=== PATIENT | female | born 1945 | race Caucasian/White ===

== ENCOUNTER → 2018-10-29 12:17 | Outpatient (CLI) | payer MEDICARE, OTHER, SELFPAY ==
[2016-06-11 10:09] VITALS: BMI 33.8
--- NOTE | 2018-10-29 12:24 | RAD_ITS ---
STUDY: X-RAY CHEST REASON FOR EXAM: Female, 73 years old. Abnormal lung sounds TECHNIQUE: PA and lateral views of the chest. COMPARISON: None. FINDINGS: The lungs are clear and expanded. There is no demonstrated pleural abnormality. Normal size heart. Normal mediastinum and jacinto. Normal visualized pulmonary arteries. Normal visualized aortic arch and descending thoracic aorta. Normal visualized thoracic spine. Normal visualized ribs, clavicles, and shoulders. There is no demonstrated abnormality of the visualized soft tissue structures of the upper abdomen. RAD/Chest PA and Lateral IMPRESSION: Normal x-ray examination of the chest. Electronically Signed: Tin Walsh DO at 13:01 EST Tel , Service support ,
== END ==
PROVIDERS: Family Provider Family Medicine; PCP Family Medicine; Referring Provider Nurse Practitioner Gerontology; Visit Provider Nurse Practitioner Gerontology
DX: R09.89 Other specified symptoms and signs involving the circulatory and respiratory systems (principal)
CPT/HCPCS: 71046

== ENCOUNTER → 2019-04-08 | Outpatient (CLI) | payer MEDICARE, OTHER, SELFPAY ==
--- NOTE | 2019-04-08 12:41 | RAD_ITS ---
STUDY: X-RAY - LUMBAR SPINE REASON FOR EXAM: Female, 74 years old. Back pain. TECHNIQUE: 4 view(s) of the lumbar spine were obtained. COMPARISON: 04/07/2017. FINDINGS: Normal lumbar lordosis. There is no substantial scoliosis. There is a normal alignment of the vertebrae. Anterior and lateral marginal spurs of the lumbar spine. Minimal anterior wedging of L2 vertebral body is from remote injury. Diffuse degenerative disc space height narrowing. No acute fractures. Mild atherosclerotic calcification of the abdominal aorta. RAD/L/S Spine Min 4 Views IMPRESSION: 1. No acute fracture or acute osseous abnormality of the lumbar spine. 2. Diffuse degenerative disc space height narrowing of the lumbar spine. 3. Mild anterior wedging of L2 vertebral body is from remote injury and unchanged. 4. No interval change when compared to 04/07/2017. Electronically Signed: Jonas Albarado MD at 13:39 EDT , Service support ,
== END | disposition home or self-care (01) ==
LOC: HPRAD 12:37
PROVIDERS: Family Provider Family Medicine; PCP Family Medicine; Referring Provider Nurse Practitioner Gerontology; Visit Provider Nurse Practitioner Gerontology
DX: M54.10 Radiculopathy, site unspecified (principal)
CPT/HCPCS: 72110

== ENCOUNTER 2019-05-29 14:00 | Outpatient (RCR) | payer MEDICARE, OTHER, SELFPAY ==
--- NOTE | 2019-04-19 13:31 | HP.PTEVAL ---
Patient's Visit Information TESSIE BANKS is a 74 year old F referred to Physical Therapy by CLYDE Joseph with a diagnosis of BACK PAIN WITH RADICULAPATHY. Date of Evaluation: 04/19/19 Physical Therapist: Tamiko Gomes PT, Cert MDT - Visit Plan Frequency: 2-3x /Week Duration: 4-6 Weeks Plan: LAND AND AQUATIC THERAPY FOR PAIN RELIEF, POSTURE CORRECTION/STRENGTHENING, INSTRUCTION IN APPROPRIATE BODY MECHANICS AND ACTIVITY MODIFICATIONS. DLS STARTING WITH A NEUTRAL SPINE PROGRESSING ROM TOLERATED. ANDRES LE ROM, STRETCHING AND STRENGTHENING. HEP INSTRUCTION. - Subjective Findings: Work/Leisure: RETIRED. 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 Disability: NO. Present symptoms: ANDRES LOW BACK PAIN RIGHT > LEFT. RIGHT THIGH PAIN AND ANDRES FOOT PAIN AND CRAMPING. FEET TINGLE SOMETIMES TOO. PATIENT REPORTS SHE REALLY CAME FOR THE PAIN IN HER LEGS. Present since: BACK PAIN HAS BEEN THERE YEARS AND LEGS AT LEAST 2 YEARS. Pain Scale: WORST 10/10, LEAST 3/10. Currently: 3/10. Commenced as a result of: NO APPARENT REASON. Symptoms at onset: LOW BACK. 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 MOPPING AND SWEEPING REALLY STIR IT UP. TRYING TO WEED. GETTING IN AND OUT OF CAR. CAN'T TURN OVER IN BED. Better: NOTHING REALLY. NOT EVEN GABAPENTIN NOW. Disturbed sleep: YES. Previous history/Previous treatment: PHYSICAL THEREPY - MADE IT HURT WORSE, GABAPENTIN. HAS ALSO TRIED PAIN MEDICINE - DOESN'T HELP. NO PAIN MGMT. NO NISSA'S. NO BACK SURGERY. Coughing/sneezing/straining: POSITIVE - SHOOTING PAINS DOWN LEGS. Gait: PAINFUL, DISTANCE LIMITED. I WALK BENT OVER AND IT SEEMS LIKE IT IS GETTING WORSE. I CAN'T GET STRAIGHTENED UP BUT IT FEELS BETTER TO WALK BENT. PATIENT REPORTS THE RIGHT LEG FEELS REAL HEAVY. PATIENT REPORTS SHE STUMBLES SOMETIMES AND SHE CATCHES HER LEFT TOES. Difficulty initiating urinatin: NO. Accidents: NO. Unexplained weight loss: NO. Imaging: MARCH 2019 LUMBAR X-RAY: IMPRESSION: 1. No acute fracture or acute osseous abnormality of the lumbar spine. 2. Diffuse degenerative disc space height narrowing of the lumbar spine. 3. Mild anterior wedging of L2 vertebral body is from remote injury and. unchanged. 4. No interval change when compared to 04/07/2017. PMH: FELL OFF A LADDER 2 YEARS AGO - HURT NECK. ANDRES TKR'S. RIGHT KNEE HAS HURT EVER SINCE SURGERY. RIGHT EYE SURGERY. PLOF (Prior Level of Function): RECENT 6 MONTHS AGO COULD MOP, VACUUM, WALK MORE AND FASTER. OTHER: A LOT OF LEG PAIN AT NIGHT. - Objective Sitting/Standing Posture: POOR. INCREASED TRUNK FLEX. Lordosis: REDUCED. Lateral shift: NO. Relevant shift: N/A. Active Correction of posture: WORSE. Other Observations: SLOW ANTALGIC INDEP GAIT INTO PT WITHOUT ANY ASSISTIVE DEVICES AND EXCESSIVE TRUNK FLEXION. NO LOB ON THE WAY INTO PT BUT DID STUMBLE ON THE WAY OUT REGAINING BALANCE INDEP'LY. ASSISTIVE DEVICE RECOMMENDED BY THIS PT FOR SAFETY AND PATIENT REPORTS SHE HAS A CANE SHE CAN USE. DIFFICULTY TRANSITIONING FROM SIT TO STAND AND INITIATING GAIT AFTER SITTING. Motor deficit: LLE 5/5 WITH MMT'ING EXCEPT HIP 4/5. RIGHT LE: HIP 4-/5, KNEE 5/5, ANKLE 5/5. Sensory deficit: ANDRES LE LIGHT TOUCH SENSATION APPEARS INTACT AND SYMMETRICAL. ROM deficit: TIGHT ANDRES HS'S AND HIP FLEXORS. Reflexes: NT. Dural Signs: NEGATIVE ANDRES LE'S. Lumbar mvmt loss: flex - NIL. ext - EDILIA. R SG - EDILIA. L SG - EDILIA. PATIENT WITH C/O INCREASED PAIN WITH LUMBAR ROM TESTING ALL PLANES EXCEPT FLEXION. Core strength: POOR. Palpation: NO ACUTE THORACIC OR LUMBAR TENDERNESS WITH PALPATION. MILD RIGHT. OTHER: PATIENT UNALBE TO STAND MORE THAN ABOUT ONE MINUTE WITHOUT INCREASING PAIN. DID OK WITH LUMBAR SUPPORT IN SITTING FOR A FEW MINUTES IN CLINIC TODAY. - Goals Goal 1:: DECREASE C/O LOW BACK AND LE SX'S. Goal Time Frame: 4-6 Weeks Goal 2:: IMPROVE PERSONAL CARE, LIFTING, WALKING, SITTING, STANDING, SLEEP, SOCIAL LIFE, TRAVEL AND HOMEMAKING FUNCTION. Goal Time Frame: 4-6 Weeks Goal 3:: INSTRUCT IN PROPHYLAXIS Goal Time Frame: 4-6 Weeks - Rehabilitation Potential Rehabilitation Potential: Fair - Anticipated Interventions Patient/Client Instruction: Educate patient on: Condition, Plan of Care, Risk Factors, Benefits of Fitness Program For the Purpose of:: To improve self management Therapeutic Exercise to Include: Strength training, Body mechanics, Postural training, Flexibilty training, Gait and locomotor training, In an aquatic setting, Active ROM, Dynamic Lumbar Stabilization For the Purpose of:: To decrease pain, To increase ROM, To improve muscle performance and motor function, To increase tolerance to activity/condition/position, To improve ability of physical actions for home/community/work/leisure Cryotherapy (ice pack, ice massage): Yes Thermo therapy (hot pack): Yes Ultrasound (thermal/non thermal): Yes For the Purpose of:: To decrease pain, To decrease swelling/inflammation, To improve nutrient delivery to tissue Thank you for the opportunity to evaluate your patient. For Medicare and Medicare HMO plans, please review the plan of care and approve it. It will need to be FAXED BACK to us at [phone] for Medicare purposes. For Medicare only, by signing this I certify the plan of care. Please let me know if there are questions or concerns regarding this plan of care. Physician Signature: Date:
--- NOTE | 2019-05-29 14:49 | HP.PTDCSUM ---
HP - PT D/C Summary It has been my pleasure to treat TESSIE BANKS under orders from Natalie Guillermo NP-C, for the diagnosis of BACK PAIN WITH RADICULAPATHY for a total of 8 visit(s). Discharge Date: Please see the following information for a summary of their discharge status. - Subjective Subjective: PATIENT REPORTS MORE PAIN AT NIGHT NOW THAN BEFORE SHE STARTED THERAPY. OTHERWISE SHE REPORTS SHE LIKES THE THERAPY AND SHE FEELS BETTER BEFORE AND AFTER THE THERAPY BUT IT DOESN'T LAST. ABLE TO DO SOME SHOPPING MONDAY BUT REALLY PAID FOR IT MONDAY. PAIN IN THE CALF OF THE RIGHT LEG YESTERDAY AND THAT IS NEW. SOME IMPROVEMENT NOTED BY PATIENT IN HER MOBILITY DURING THE DAY SINCE STARTING THERAPY. HAPPY THAT SHE WAS ABLE TO SHOP FOR 4-5 HOURS MONDAY AND ENJOY HERSELF. - Pain POSTERIOR RIGHT THIGH Pain Intensity (Out of 10): 9 POSTERIOR LEFT THIGH Pain Intensity (Out of 10): 7 LOW BACK Pain Intensity (Out of 10): 8 - Overall Improvement % Improvement: 20 - Objective Objective/Function: PATIENT IS NOT MAKING SIGNIFICANT PROGRESS. SHE WINCED WITH PAIN MULTIPLE TIMES JUST SITTING IN CLINIC TODAY. HER PAIN IS EASILY INCREASED WITH ISABELA MVMTS. SLOW ANTALGIC INDEP GAIT INTO PT WITH STRAIGHT CANE AND EXCESSIVE TRUNK FLEXION. DIFFICULTY TRANSITIONING FROM SIT TO STAND AND INITIATING GAIT AFTER SITTING. Motor deficit: LLE 5/5 WITH MMT'ING EXCEPT HIP 4/5. RIGHT LE: HIP 4-/5, KNEE 5/5, ANKLE 5/5. Sensory deficit: ANDRES LE LIGHT TOUCH SENSATION APPEARS INTACT AND SYMMETRICAL. ROM deficit: TIGHT ANDRES HS'S AND HIP FLEXORS. Reflexes: NT. Dural Signs: NEGATIVE ANDRES LE'S. Lumbar mvmt loss: flex - NIL. ext - EDILIA. R SG - EDILIA. L SG - EDILIA. PATIENT WITH C/O INCREASED PAIN WITH LUMBAR ROM TESTING ALL PLANES EXCEPT FLEXION. Core strength: POOR. OTHER: PATIENT UNALBE TO STAND MORE THAN ABOUT ONE MINUTE WITHOUT INCREASING PAIN. - Goals Goal 1:: DECREASE C/O LOW BACK AND LE SX'S. Goal Progress: Not Progressing Goal 2:: IMPROVE PERSONAL CARE, LIFTING, WALKING, SITTING, STANDING, SLEEP, SOCIAL LIFE, TRAVEL AND HOMEMAKING FUNCTION. Goal Progress: Not Progressing Goal 3:: INSTRUCT IN PROPHYLAXIS Goal Progress: Not Progressing - Plan Plan: D/C FROM [facility] DUE TO LACK OF PROGRESS. RECOMMENDED PHYSICIAN RE-ASSESSMENT AND PATIENT AGREEABLE. - D/C Information If there are questions or concerns regarding this patient's physical therapy, please feel free to call me at [phone]. Thank you for the referral of this patient. Sincerely, Tamiko Gomes, PT, Cert MDT
== END 2019-05-29 19:00 | disposition home or self-care (01) ==
LOC: PT 14:00
PROVIDERS: Family Provider Internal Medicine; PCP Internal Medicine; Referring Provider Nurse Practitioner Gerontology; Visit Provider Nurse Practitioner Gerontology
DX: M54.10 Radiculopathy, site unspecified (principal); M25.60 Stiffness of unspecified joint, not elsewhere classified
CPT/HCPCS: 97035; 97113; 97162; 97530

== ENCOUNTER → 2019-06-08 | Outpatient (CLI) | payer MEDICARE, OTHER, SELFPAY ==
--- NOTE | 2019-06-08 09:10 | MRI_ITS ---
STUDY: MRI LUMBAR SPINE WITHOUT CONTRAST REASON FOR EXAM: Female, 74 years old. Back pain. Bilateral leg pain. TECHNIQUE: Standardized fat and water weighted pulse sequences were obtained in the sagittal and axial planes. COMPARISON: X-ray dated April 08, 2019. FINDINGS: Lumbar straightening. No significant scoliosis. Conus medullaris terminates at the T12-L1 level. Extensive clumping of the nerve roots (sagittal image 8 series 2). No acute fracture, dislocation or osseous destruction. Diffuse multilevel osteophyte production. Mild chronic L2 vertebral body wedging. T12-L1: Mild endplate spondylosis. Disc bulge with mild central narrowing. Facet joint arthrosis. Normal bilateral lateral recesses. Bilateral neural from narrowing without impingement. L1-2: Moderate endplate spondylosis. Disc bulge with moderate central narrowing. Facet joint arthrosis. Bilateral lateral recess narrowing with impingement. Bilateral neural foramina narrowing without impingement. Minimal grade 1 spondylolisthesis. L2-3: Moderate endplate spondylosis. Disc bulge with moderate/severe central canal narrowing. Facet joint arthrosis. Bilateral lateral recess narrowing with impingement. Bilateral neural foramina narrowing without impingement. Minimal grade 1 spondylolisthesis. L3-4: Moderate endplate spondylosis. Disc bulge with severe central narrowing. Facet joint arthrosis. Bilateral lateral recess narrowing with impingement. Bilateral neural foramina narrowing without impingement. L4-5: Moderate endplate spondylosis. Disc bulge/osteophyte complex with mild central narrowing. Facet joint arthrosis. Bilateral lateral recess narrowing with impingement on the left. Bilateral neural foramina narrowing with impingement on the right. L5-S1: Mild endplate spondylosis. Shallow disc bulge without central narrowing. Facet joint arthrosis. Normal central canal and bilateral lateral recesses. Bilateral neural foraminal narrowing with impingement. Mild paraspinal muscle atrophy. Normal aorta. Normal retroperitoneum. Sacrum intact. MRI/Spine Lumbar (Routine) IMPRESSION: Extensive multilevel intervertebral disc disease with central canal narrowing predominately at L1-2, L2-3 and L3-4 (most severe at L3-4) Multilevel lateral recess narrowing with impingement of the bilateral descending L2, L3, L4 and left L5 nerve roots Multilevel neuroforamina narrowing with impingement of the right L4 and bilateral L5 nerve roots Lumbar straightening with moderate/severe osteoarthritis Mild chronic L2 vertebral body wedging Electronically Signed: Ector Calvillo DO at 10:56 EDT Tel , Service support ,
== END | disposition home or self-care (01) ==
LOC: MRI 08:46
PROVIDERS: Family Provider Internal Medicine; PCP Internal Medicine; Referring Provider Nurse Practitioner; Visit Provider Nurse Practitioner
DX: M54.9 Dorsalgia, unspecified (principal); G89.29 Other chronic pain
CPT/HCPCS: 72148

== ENCOUNTER → 2019-12-11 14:31 | Outpatient (CLI) | payer MEDICARE, OTHER, SELFPAY ==
[2016-06-11 10:09] VITALS: BMI 33.8
[2019-12-11 16:47] LABS: CRP < 2.90 mg/L (0.0-3.0)
[2019-12-13 16:08] LABS: Endomysial Antibody IgA Negative (Negative)
[2019-12-13 16:45] LABS: Immunoglobulin A 345 mg/dL (64-422); t-Transglutaminase IgA <2 U/mL (0-3)
== END ==
PROVIDERS: PCP Internal Medicine; Referring Provider Internal Medicine Gastroenterology; Visit Provider Internal Medicine Gastroenterology
DX: R19.7 Diarrhea, unspecified (principal)
CPT/HCPCS: 36415; 82784; 83516; 86140; 86255

== ENCOUNTER → 2020-12-03 13:25 | Outpatient (CLI) | payer MEDICARE, OTHER, SELFPAY ==
[2016-06-11 10:09] VITALS: BMI 33.8
[2020-12-03 13:45] VITALS: PULSE 103; PULSE 75; PULSE 77; PULSE 91; PULSE 93; PULSE 95; PULSE 97; PULSE 98; O2SAT 90; O2SAT 92; O2SAT 93; O2SAT 94; O2SAT 95
--- NOTE | 2020-12-04 07:39 | WT_ITS ---
PSN 6 Minute Walk Test - 6 Minute Walk Test 6 Minute Walk Test: 6 Minute Walk Test PSN:6-Minute Walk Test Start: 12/03/20 13:59 Freq: Status: Active Protocol: [id number].[id number] Document 12/03/20 13:45 AE (Rec: 12/03/20 14:03 [facility] [id number]) 6 Minute Walk Test Date Performed 12/03/20 Time Performed 13:45 Height 5 ft 2 in Weight: 200 lb Weight in Pounds 200.[address]: Dr Pardaa Assistive device used: Cane Pre-test Oxygen Delivery Method Room Air Pulse Ox (%) 94 Pulse Rate (60-100 beats/min) 77 Dyspnea Sonia Scale (0-10) 0 Exertion Sonia Scale (6-20) 6 1st minute Oxygen Delivery Method Room Air Pulse Ox (%) 94 Pulse Rate (60-100 beats/min) 91 2nd minute Oxygen Delivery Method Room Air Pulse Ox (%) 92 Pulse Rate (60-100 beats/min) 98 3rd minute Oxygen Delivery Method Room Air Pulse Ox (%) 90 Pulse Rate (60-100 beats/min) 97 4th minute Oxygen Delivery Method Room Air Pulse Ox (%) 92 Pulse Rate (60-100 beats/min) 103 H 5th minute Oxygen Delivery Method Room Air Pulse Ox (%) 92 Pulse Rate (60-100 beats/min) 93 6th minute Oxygen Delivery Method Room Air Pulse Ox (%) 93 Pulse Rate (60-100 beats/min) 95 Dyspnea Sonia Scale (0-10) 1 Exertion Sonia Scale (6-20) 8 Post-test Oxygen Delivery Method Room Air Pulse Ox (%) 95 Pulse Rate (60-100 beats/min) 75 Full Laps Walked 8 Partial Lap, Number of Tiles Walked 0 Total Distance Walked (ft) 472 - Interpretation Interpretation: The patient ambulated 427 feet over the course of 6 minutes beginning on room air without assistive devices. Pretesting oxygen saturation was noted to be 94% on room air. With ambulation, the deisy oxygen saturation was 90%. This testing indicates the presence of impaired walk distance along with significant exertional oxygen desaturation. - Recommendations Recommendations: There is no indication for the use of supplemental oxygen at this time. However, close interval follow-up is recommended, given the degree of oxygen desaturation noted during the study.
== END ==
PROVIDERS: PCP Internal Medicine; Referring Provider Internal Medicine; Visit Provider Internal Medicine
DX: R09.02 Hypoxemia (principal)
CPT/HCPCS: 94618

== ENCOUNTER → 2020-12-24 12:56 | Outpatient (CLI) | payer MEDICARE, OTHER, SELFPAY ==
[2016-06-11 10:09] VITALS: BMI 33.8
--- NOTE | 2020-12-24 16:49 | PFTCOMP_ITS ---
COMPLETE PULMONARY FUNCTION TEST INTERPRETATION Brief HPI: Patient is a 75 year old female, currently under the care of Dr. Parada, who presents to [facility] for complete pulmonary function tests secondary to diagnosis of hypoxia. Respiratory therapist reports good effort and reproducible results. Interpretation: Forced expiration spirometry shows no large airways obstructive ventilatory defect with an FEV1 of 124% predicted. There is no significant bronchodilator response by strict ATS criteria. Spirograms are of good quality and plateau normally. The respiratory flow volume loop shows a normal pattern. Lung volumes by body plethysmography show a normal total lung capacity at 4.96 L, 113% predicted. All other lung volumes are within normal limits. Diffusion capacity by carbon monoxide is normal at 76% predicted. The airway resistance is normal. No previous pulmonary function tests were available for review. Impression: These pulmonary function tests are within normal limits.
== END ==
PROVIDERS: PCP Internal Medicine; Referring Provider Internal Medicine; Visit Provider Internal Medicine
DX: R09.02 Hypoxemia (principal)
CPT/HCPCS: 94060; 94726; 94729

== ENCOUNTER 2021-01-05 10:24 | Outpatient (RCR) | payer MEDICARE, OTHER, SELFPAY ==
[2016-06-11 10:09] VITALS: BMI 33.8
[2021-01-05] MEDS: COVID-19 VACC, MRNA(PFIZER)/PF 30 MCG/0.3 ML SYRINGE IM (12:08)
[2021-01-26] MEDS: COVID-19 VACC, MRNA(PFIZER)/PF 30 MCG/0.3 ML SYRINGE IM (11:44)
== END 2021-03-30 23:59 ==
LOC: IMMUN 10:24
PROVIDERS: PCP Internal Medicine; Visit Provider Family Medicine
DX: Z23 Encounter for immunization (principal)
CPT/HCPCS: 0001A; 0002A; 91300

== ENCOUNTER → 2021-03-04 15:04 | Outpatient (CLI) | payer MEDICARE, OTHER, SELFPAY ==
[2016-06-11 10:09] VITALS: BMI 33.8
--- NOTE | 2021-03-04 15:07 | CT_ITS ---
STUDY: CT BRAIN WITHOUT CONTRAST REASON FOR EXAM: Female, 75 years old. FACIAL DROOP RADIATION DOSAGE (If Supplied By Facility): CTDIvol = ( 44.99 ) mGy, DLP = ( 796.11 ) mGycm TECHNIQUE: Transaxial CT imaging of the brain was performed without administration of intravenous contrast material. Individualized dose optimization techniques were used for this CT. COMPARISON: No relevant priors. FINDINGS: Normal soft tissue structures. Normal calvarium. There is mild cerebral atrophy with widening of the extra-axial spaces and ventricular dilatation. There are areas of decreased attenuation within the white matter tracts of the supratentorial brain, consistent with microvascular disease changes. Normal basal ganglia and thalami. Normal brainstem. Normal cerebellum. There is no intracranial hemorrhage. There are no findings of an acute ischemic infarction. 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 Normal visualized paranasal sinuses. CT/Brain/Head without Contrast IMPRESSION: Chronic involutional changes of the brain. 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 Electronically Signed: Ventura Bishop MD at 15:37 EDT , Service support ,
== END ==
PROVIDERS: PCP Internal Medicine; Referring Provider Internal Medicine; Visit Provider Internal Medicine
DX: R29.810 Facial weakness (principal)
CPT/HCPCS: 70450

== ENCOUNTER → 2021-03-12 12:12 | Outpatient (CLI) | payer MEDICARE, OTHER, SELFPAY ==
[2016-06-11 10:09] VITALS: BMI 33.8
--- NOTE | 2021-03-12 12:16 | ECHOD_ITS ---
Reason For Study: FACIAL DROOP Procedure This was a 2D Doppler, Color Flow transthoracic echocardiogram. Exam performed in department. Left Ventricle Normal LV size. sigmoid septal hypertrophy with no obstruction. The estimated ejection fraction is 70 %. Normal diastology for age. No regional wall motion abnormalities noted. Right Ventricle Normal RV size. Normal systolic function. Atria Normal left atrium. Normal right atrium. Bubble contrast study negative for right to left interatrial shunt. No doppler evidence for ASD. Mitral Valve There is no mitral valve stenosis. Trivial mitral valve insufficiency. Tricuspid Valve There is no tricuspid stenosis. Trivial tricuspid valve insufficiency. Pulmonary artery systolic pressure is 30 mmHg. Aortic Valve Trisinus/trileaflet aortic valve. There is no aortic stenosis. No aortic valve insufficiency. Pulmonic Valve There is no pulmonic valvular stenosis. No pulmonic valve insufficiency. Great Vessels Normal aortic root. Pericardium/Pleural No pericardial effusion. Medication Performed a rapid injection of agitated mix of 9 cc saline and 1cc air to assess for atrial septal defect. MMode/2D Measurements & Calculations LVIDd: 4.4 cm IVSd: 0.78 cm Ao root diam: 3.7 cm LVIDs: 2.8 cm LVPWd: 1.0 cm RVDd: 3.6 cm FS: 35.7 % LAV(MOD-bp): 45.3 ml LA A4 area: 14.8 cm2 LA dimension(2D): 3.3 cm LAV(MOD-bp) Indexed: 24.0 ml/m2 LAV(MOD-sp2): 45.0 ml LAV(MOD-sp4): 39.8 ml RA A4 area: 9.7 cm2 Time Measurements MV dec time: 0.22 sec Doppler Measurements & Calculations MV E max driss: 66.9 cm/sec Lat Peak E' Driss: 10.0 cm/sec Med Peak E' Driss: 5.4 cm/sec MV A max driss: 78.2 cm/sec E/E' lat: 6.7 E/E' med: 12.5 MV E/A: 0.86 Ao V2 max: 135.4 cm/sec LV V1 max: 127.5 cm/sec PA V2 max: 89.4 cm/sec Ao max P.3 mmHg LV V1 max P.5 mmHg TR max driss: 239.6 cm/sec TR max P.0 mmHg ECHO/Echo Complete Interpretation Summary Normal diastology for age. The estimated ejection fraction is 70 %. Trivial mitral valve insufficiency. Bubble contrast study negative for right to left interatrial shunt. Ordering Physician: Missy Parada Referring Physician: Missy Parada Performed By: Tonja Cardenas, RDCS, RVT
--- NOTE | 2021-03-12 13:47 | CDU_ITS ---
Reason For Study: Facial droop Rt. Velocities/BP Lt. Velocities/BP Prox CCA 73.4/20 cm/sec. Prox CCA 76/16 cm/sec. Mid CCA 72.1/14.7 cm/sec. Mid CCA 90.3/21.2 cm/sec. Dist CCA 70.8/17.3 cm/sec. Dist CCA 76/26.5 cm/sec. Prox ICA 69.5/12.1 cm/sec. Prox ICA 59.1/13.4 cm/sec. Mid ICA 61.7/18.6 cm/sec. Mid ICA 64.3/22.6 cm/sec. Dist ICA 73.4/21.3 cm/sec. Dist ICA 70.8/31.7 cm/sec. Rt. ICA/CCA = 1.02. Lt. ICA/CCA = 0.93. Prox ECA 79.9/8.2 cm/sec. Prox ECA 52.5/9.5 cm/sec. Rt. Vert. 61.7/18.6 cm/sec. Lt. Vert. 35.1/9.5 cm/sec. Right Extracranial There is intimal thickening but no significant atherosclerotic plaque noted in the right common carotid artery. There is intimal thickening but no significant atherosclerotic plaque noted in the right internal carotid artery. There is intimal thickening but no significant atherosclerotic plaque noted in the right external carotid artery. Antegrade flow is noted in the right vertebral artery. Left Extracranial There is intimal thickening but no significant atherosclerotic plaque noted in the left common carotid artery. There is intimal thickening but no significant atherosclerotic plaque noted in the left internal carotid artery. There is intimal thickening but no significant atherosclerotic plaque noted in the left external carotid artery. Antegrade flow is noted in the left vertebral artery. Procedure Carotid Duplex [id number]. This is a Carotid Duplex examination using B-mode, color flow and specral Doppler. Exam performed in department. VL/Carotid Duplex Ultrasound Interpretation Summary Intimal thickening at the proximal right internal carotid artery with less than 50% stenosis Less than 50% stenosis right external carotid artery Intimal thickening at the proximal left internal carotid artery with less than 50% stenosis Less than 50% stenosis left external carotid artery Patent and antegrade vertebral arteries bilaterally No change from the previous examination of June 03, 2014 Ordering Physician: Missy Parada Referring Physician: Missy Parada Performed By: Huyen Wood RVT
== END ==
PROVIDERS: PCP Internal Medicine; Referring Provider Internal Medicine; Visit Provider Internal Medicine
DX: R29.810 Facial weakness (principal); R68.89 Other general symptoms and signs
CPT/HCPCS: 93306; 93880; Q9957; A4216; J3490

== ENCOUNTER → 2023-01-13 | Outpatient (CLI) | payer MEDICARE, OTHER, SELFPAY ==
--- NOTE | 2023-01-13 11:00 | US_ITS ---
STUDY: SUPERFICIAL ULTRASOUND - RIGHT SUPRACLAVICULAR JOINT REASON FOR EXAM: Female, 77 years old. BONY PROMINENCE TECHNIQUE: A superficial ultrasound was performed with real-time and static salgado-scale imaging. COMPARISON: None. FINDINGS: There are no focal cystic or solid masses visualized at the site of the palpable lump at the sternoclavicular joint. US/Ext Non Vasc Limited/Soft Tiss IMPRESSION: No sonographic evidence for focal mass at the right sternoclavicular joint MRI may be useful for further assessment if clinically warranted Electronically Signed: Jc Alejandra MD at 17:59 EDT ,
== END | disposition home or self-care (01) ==
LOC: US 10:54
PROVIDERS: PCP Internal Medicine; Referring Provider Internal Medicine; Visit Provider Internal Medicine
DX: M89.8X9 Other specified disorders of bone, unspecified site (principal)
CPT/HCPCS: 76882

== ENCOUNTER 2023-01-18 11:04 | Emergency (ER) | payer MEDICARE, OTHER, SELFPAY ==
[2023-01-18 11:05] VITALS: BP 132/100; PULSE 101; RESP 17; TEMP 36; O2SAT 99; BMI 35.3
[2023-01-18 11:11] VITALS: BP 156/88; PULSE 102; RESP 19; TEMP 36; O2SAT 94
--- NOTE | 2023-01-18 11:12 | EKG12_ITS ---
Test Reason : SOB Blood Pressure : / mmHG Vent. Rate : 091 BPM Atrial Rate : 091 BPM P-R Int : 180 ms QRS Dur : 084 ms QT Int : 348 ms P-R-T Axes : 030 -04 023 degrees QTc Int : 428 ms Normal sinus rhythm Normal ECG Confirmed by YADIRA ACOSTA, JASIEL ([id number]), editor farm journal KRISHNA CHRISTOPHER ([id number]) on 01/23/2023 6:59:30 AM Referred By: AR Confirmed By:WANDA MAY MD
--- NOTE | 2023-01-18 11:12 | CT_ITS ---
EXAM: CT NECK WITH INTRAVENOUS CONTRAST CLINICAL INDICATION: Shortness of Breath, epiglottis pain TECHNIQUE: Helically acquired images were obtained of the neck with intravenous contrast. This CT exam was performed using one or more of the following dose reduction techniques: automated exposure control, adjustment of the mA and/or kV according to patient size, and/or use of iterative reconstruction technique. This report was created using [email or web address] report generation technology. CONTRAST: IV 100mL Isovue-300 COMPARISON: None. FINDINGS: NASOPHARYNX: Normal. SUPRAHYOID NECK: Normal. Oropharynx, oral cavity, parapharyngeal space and retropharyngeal space are unremarkable. INFRAHYOID NECK: Normal. The larynx, hypopharynx and supraglottis are unremarkable. SUBMANDIBULAR/PAROTID GLANDS: Normal. Glands are normal in size. THYROID: 5 mm bilateral thyroid nodules. No follow-up indicated. BONES/JOINTS: No suspicious lytic or blastic abnormality. SOFT TISSUES: Normal. VASCULATURE: No acute findings. LYMPH NODES: Normal. No lymphadenopathy. LUNG APICES: Unremarkable as visualized. CT/Soft Tissue Neck WITH Contrast IMPRESSION: No significant soft tissue abnormality. Normal epiglottis. Electronically Signed: Reji Pugh MD at 12:27 EDT ,
[2023-01-18 11:14] VITALS: O2SAT 94
--- NOTE | 2023-01-18 11:14 | ED.VIS.DYS ---
HPI History of Present Illness Chief Complaint: Shortness of Breath Narrative Narrative: 77-year-old female past medical history of GERD, presents with increased difficulty breathing, feeling as if she cannot breathe for the last hour. She states that she was putting close in the washing machine, went to take a deep breath, then felt like she could not get enough air. She states that she has swelling on the right side of her neck that was ultrasounded and being worked up. Additionally, she feels congested and took an allergy pill this morning. She feels that in the back of her throat that there is something that is blocking off her airway, not allowing her to get enough air. EMS was called and they administered 2 albuterol and a DuoNeb aerosolized treatment. It was reported that she was hypoxic at 84% on room air and was tripoding. She denies any difficulty swallowing. No recent fevers or chills. No leg swelling. Upon arrival to the emergency department, she is maintaining her airway, and receiving the last of her treatment. She also received Solu-Medrol per squad. [facility] Home Medications ascorbic acid (vitamin C) 500 mg tablet (Vitamin C) 500 mg PO DAILY@0800 09/16/14 [History Last Taken Unknown] cholecalciferol (vitamin D3) 25 mcg (1,000 unit) tablet (Vitamin D3) 2,000 unit PO DAILY 09/16/14 [History Last Taken Unknown] cyanocobalamin (vitamin B-12) 500 mcg tablet 1,000 mcg PO DAILY@0800 09/16/14 [History Last Taken Unknown] fish oil-vit E-fat acids comb.5-herbal comb. 137 400 mg-5 unit capsule (Flax, Fish and Borage Oil) 1 ea PO DAILY 09/16/14 [History Last Taken Unknown] iron, carbonyl 45 mg tablet (Feosol) 65 mg PO DAILYCM 09/16/14 [History Last Taken Unknown] lansoprazole 30 mg capsule,delayed release (Prevacid) 30 mg PO DAILY 09/16/14 [History Last Taken Unknown] montelukast 10 mg tablet (Singulair) 10 mg PO DAILY 01/18/23 [History Last Taken Unknown] Allergy/AdvReac Type Severity Reaction Status Date / Time No Known Allergies Allergy Verified 06/11/16 10:12 Social History Smoking Status: Never smoker ROS ROS ED ROS Narrative Constitutional: No fever, no chills. HEENT: No sore throat, but feels as if there is something back blocking off her airway. No neck pain. No loss of vision. No rhinorrhea. Positive congestion. Cardiovascular: No chest pain. No palpitations. No pedal edema. Respiratory: No cough, positive shortness of breath. Abdominal: No abdominal pain. No nausea. No vomiting. Genitourinary: No dysuria. No hematuria. Musculoskeletal: No myalgias. No arthralgias. Neurologic: No headaches. No dizziness. No lightheadedness. Skin: No rash. No change in color. Psychiatric: No depression. No anxiety. EXAM Physical Exam Narrative Exam Narrative: Afebrile. Vital signs noted. HEENT: Normocephalic. Atraumatic. PERRL, EOMI. Neck soft and supple. No point tenderness or step off. Airway patent, no drooling or trismus. Cardiovascular: Regular rate and rhythm. No murmurs, rubs, or gallops appreciated. Mild swelling in her right clavicle. Respiratory: Positive tachypnea. Lungs clear to auscultation bilaterally. Moving a good amount of air. Gastrointestinal: Abdomen soft, nontender, with normoactive bowel sounds. No rebound or guarding. Neurological: Awake. Alert. Nonfocal, nonlateralizing. Skin: No rash. Normal color. No pallor. Musculoskeletal: No pedal edema. Full range of motion extremities. Const Vital Signs: 01/18/23 11:05 01/18/23 11:11 01/18/23 11:14 Temperature 96.8 F L 96.8 F L Temperature Source Temporal Temporal Pulse Rate 101 H 102 H Respiratory Rate 17 19 H Respiratory Effort Short of Breath Respiratory Depth Deep Respiratory Pattern Tachypnea Blood Pressure 132/100 H 156/88 H Blood Pressure Mean 110 110 Pulse Ox 99 94 Oxygen Delivery Method Room Air Room Air Room Air 01/18/23 13:33 Temperature Temperature Source Pulse Rate 76 Respiratory Rate 17 Respiratory Effort Respiratory Depth Respiratory Pattern Blood Pressure 128/74 H Blood Pressure Mean 92 Pulse Ox 92 Oxygen Delivery Method Room Air MDM MDM MDM Narrative Medical decision making narrative: Patient will be reassessed. She has received 3 aerosol treatments already. I do not feel that racemic epinephrine is indicated. I am unsure as to the cause of why she has a feeling that she is not getting enough air when her pulse ox was normal even though she was on 100% nonrebreather. She will be weaned from her oxygen and reassessed. Initially, she was tachycardic at 102. EKG was obtained and interpreted by myself as normal sinus rhythm at 91 bpm without ectopy or acute ST changes, no STEMI. I do feel that imaging of her neck would be indicated as she states she feels that there is a piece of tissue or something blocking, closing off her airway. I will obtain this with IV contrast after basic laboratories were obtained including CBC and BMP to check her creatinine for IV contrast. I reviewed her outpatient imaging, and the ultrasound report shows no evidence of a cystic mass in the area of swelling at the right sternoclavicular junction. I reviewed her laboratory work, CBC is normal with a normal white count of 6.3, hemoglobin normal at 14.3, hematocrit normal at 43.3. She has normal platelet count of 282. In review of her BMP, glucose is appropriately elevated at 107 with a normal anion gap/low at 4. Her other electrolytes are grossly unremarkable. BNP is normal at 25.6. I reviewed her chest x-ray and interpreted it independently. I see no evidence of CHF, pneumonia, or pneumothorax. I reviewed the radiology report which confirms my independent interpretation. CT of the soft tissue neck was also obtained and I reviewed the radiology report after reviewing the imaging. There is no evidence of obstruction. I reviewed her radiology report from the ultrasound that she had previously and there is no cystic mass noted. At this point in time, I am unsure as to the cause of her reported foreign body sensation in her throat, or her dyspnea. I am unsure why EMS got a reading of hypoxia, but she has not been hypoxic here in the emergency department. On ambulation, her pulse ox ranges from 92 to 94% on room air and she is comfortably sitting in the chair next to her daughter with a pulse ox of 95% on room air. I feel she can be discharged safely home with follow-up to her primary care provider. Return instructions to the emergency department were reviewed. Disposition is discharged home in stable condition. History & Record Review Discussion w/independent historian: Patient and Family Additional record(s) reviewed:: Prior outpatient record, Prior ED visit and Prior labs Lab Data Attestation: I reviewed the patient's lab results. Labs: Laboratory Results - last 24 hr 01/18/23 01/18/23 01/18/23 11:05 11:05 11:05 WBC 6.3 RBC 4.69 Hgb 14.3 Hct 43.3 MCV 92.3 MCH 30.5 MCHC 33.0 RDW Std Deviation 43.5 RDW Coeff of Rochelle 13.0 Plt Count 282 MPV 9.8 Immature Gran % (Auto) 0.300 Neut % (Auto) 50.5 Lymph % (Auto) 36.6 Dawes % (Auto) 7.8 Eos % (Auto) 4.0 Baso % (Auto) 0.8 Absolute Neuts (auto) 3.2 Absolute Lymphs (auto) 2.30 Nucleated RBC % 0 Sodium 138 Potassium 3.5 Chloride 105 Carbon Dioxide 29.0 Anion Gap 4 L BUN 10 Creatinine 0.81 Estim Creat Clear Calc 49.64 Est GFR (MDRD) Af Amer 89 Est GFR (MDRD) Non-Af 73 BUN/Creatinine Ratio 12.4 Glucose 107 H Calcium 8.8 B-Natriuretic Peptide 25.6 Radiography Diagnostic Testing: Clinical Impression(s) from Imaging Studies Soft Tissue Neck CT 01/18/23 11:12 IMPRESSION: No significant soft tissue abnormality. Normal epiglottis. Electronically Signed: Reji Pugh MD at 12:27 EDT , Chest X-Ray 01/18/23 12:00 IMPRESSION: No acute cardiopulmonary abnormality. No interval change. Electronically Signed: Reji Pugh MD at 12:54 EDT , Discharge Plan Triage Chief Complaint: Shortness of Breath ED Provider: Jonas Wiseman Dx/Rx/DC Orders Clinical Impression: Shortness of breath, Dyspnea, Foreign body sensation in throat Instructions: ED Dyspnea, ED Symptoms With Uncertain Cause Prescriptions: No Action cyanocobalamin (vitamin B-12) 500 MCG tablet 1,000 mcg PO DAILY@0800 Label Comments: SUPPLEMENT ascorbic acid (vitamin C) [Vitamin C] 500 MG tablet 500 mg PO DAILY@0800 Label Comments: SUPPLEMENT lansoprazole [Prevacid] 30 MG capsule 30 mg PO DAILY Label Comments: ACID REFLUX iron, carbonyl [Feosol] 45 MG capsule 65 mg PO DAILYCM Label Comments: SUPPLEMENT Flax, Fish and Borage Oil 1 EACH capsule 1 ea PO DAILY Label Comments: SUPPLEMENT cholecalciferol (vitamin D3) [Vitamin D3] 1,000 UNIT tablet 2,000 unit PO DAILY Label Comments: SUPPLEMENT montelukast [Singulair] 10 mg Tablet 10 mg PO DAILY Primary Care Provider: Missy Parada Referrals: Missy Parada, [Primary Care Provider] - 1-2 Days if not improving Disposition Disposition: Home, Self Care
[2023-01-18 11:29] LABS: Absolute Neutrophil Count 3.2 X10^3/uL (2.0-7.7); Basophil# 0.05 X10^3/uL; Basophil% 0.8 % (0-1); Eosinophil# 0.25 X10^3/uL; Hematocrit 43.3 % (37-47); Hemoglobin 14.3 g/dL (12.0-15.0); Lymphocyte % 36.6 % (19-41); Mean Corpuscular Hgb 30.5 pg (27.0-32.0); Mean Corpuscular Volume 92.3 fL (81-99); Mean Platelet Vol. 9.8 fl (6.2-12.0); Monocyte# 0.49 X10^3/uL; Monocyte% 7.8 % (0-10); NRBC Flagged by Analyzer 0 % (0-5); Neutrophil # 3.18 X10^3/uL (2.7-7.7); Neutrophil % 50.5 % (47-70); Platelet Count 282 K/mm3 (150-450); RBC Distribution Width SD 43.5 fl (35.1-43.9); Red Blood Count 4.69 M/mm3 (4.2-5.4); White Blood Count 6.3 K/mm3 (4.4-11.0)
[2023-01-18 11:39] LABS: Anion Gap 4 (5-15); BUN 10 mg/dL (7-18); BUN/Creat Ratio 12.4 RATIO (10-20); Calcium,Total 8.8 mg/dL (8.5-10.1); Chloride 105 mmol/L (98-107); Creatinine, Serum 0.81 mg/dL (0.55-1.02); EST Glomerular Filtration Rate 73 mL/min (>60); Est Glom Filt Rate - Afr Amer 89 mL/min (>60); Estimated Creatinine Clearance 49.64 ml/min; Glucose 107 mg/dL (74-106); Potassium 3.5 mmol/L (3.5-5.1); Sodium Level 138 mmol/L (136-145)
--- NOTE | 2023-01-18 12:00 | RAD_ITS ---
EXAM: XR CHEST, 1 VIEW CLINICAL INDICATION: Shortness of Breath TECHNIQUE: Frontal view of the chest. This report was created using [employer] report generation technology. COMPARISON: XR Chest dated 11/20/2020 FINDINGS: LUNGS AND PLEURAL SPACES: Normal. No consolidation or edema. No pneumothorax. No effusion. HEART: Normal heart size. MEDIASTINUM: No mediastinal or hilar mass. BONES/JOINTS: No acute abnormality. UPPER ABDOMEN: Elevation of the right hemidiaphragm again noted. RAD/Chest 1 View (Portable) IMPRESSION: No acute cardiopulmonary abnormality. No interval change. Electronically Signed: Reji Pugh MD at 12:54 EDT ,
[2023-01-18 12:01] LABS: BNP,B-Type NATRIURETIC PEPTIDE 25.6 pg/mL (0-100)
[2023-01-18 12:31] VITALS: O2SAT 91
[2023-01-18 13:33] VITALS: BP 128/74; PULSE 76; RESP 17; O2SAT 92
[2023-01-18 14:11] VITALS: O2SAT 92
== END 2023-01-18 14:59 | disposition home or self-care (01) ==
PROVIDERS: Emergency Provider Emergency Medicine; PCP Internal Medicine; Visit Provider Emergency Medicine
DX: R06.02 Shortness of breath (principal); R06.00 Dyspnea, unspecified
CPT/HCPCS: 70491; 71045; 80048; 83880; 85025; 87428; 93005; 99285; Q9967; A4216

== ENCOUNTER → 2023-05-19 | Outpatient (CLI) | payer MEDICARE, OTHER, SELFPAY ==
[2023-05-19 17:36] LABS: Mucous, Urine 0 SEEN /hpf (<or=2+); Squamous Epithelial Cells - UA 0 SEEN /hpf (5-10)
[2023-05-19 18:03] LABS: Color, Urine Red (Yellow); Glucose, Dipstick Normal (Normal); Ketone-Dipstick Negative (Negative); Leukocyte Esterase-Dipstick 500 /ul (Negative); Nitrite-Dipstick Negative (Negative); Occult Blood-Urine 250 /ul (Negative); Protein-Dipstick 100 mg/dl (Negative); Urine Bilirubin Dipstick Negative (Negative); Urine Clarity Turbid (Clear); Urine Urobilinogen Normal (Normal)
[2023-05-19 18:19] LABS: Bacteria RARE /hpf (None Seen); Red Blood Cells-Urine > 100 SEEN /hpf (0-5); White Blood Cells 50-100 SEEN /hpf (0-5)
== END | disposition home or self-care (01) ==
PROVIDERS: PCP Internal Medicine; Visit Provider Physician Assistant Surgical
DX: N39.0 Urinary tract infection, site not specified (principal)
CPT/HCPCS: 81001; 87086; 87088

== ENCOUNTER → 2023-10-12 | Outpatient (CLI) | payer MEDICARE, OTHER, SELFPAY ==
--- NOTE | 2023-10-12 12:33 | RAD_ITS ---
STUDY: X-RAY CHEST REASON FOR EXAM: Female, 78 years old. Chronic cough. TECHNIQUE: PA and lateral views of the chest. COMPARISON: Comparison is made with prior study dated January 18, 2023. FINDINGS: Stable elevation of the right hemidiaphragm. Mild increased markings at the right lung base suggestive of right basilar atelectasis. There is no demonstrated pleural abnormality. Normal size heart. Normal mediastinum and jacinto. Normal visualized pulmonary arteries. There is atherosclerotic tortuosity of the aortic arch and descending thoracic aorta. There are diffuse degenerative changes of the visualized thoracic spine. Normal visualized ribs, clavicles, and shoulders. There is no demonstrated abnormality of the visualized soft tissue structures of the upper abdomen. RAD/Chest PA and Lateral IMPRESSION: Stable elevation of the right hemidiaphragm with mild right basilar atelectasis. Electronically Signed: Ventura Bishop MD at 13:03 EST ,
== END | disposition home or self-care (01) ==
LOC: MTRAD 12:33
PROVIDERS: PCP Internal Medicine; Referring Provider Physician Assistant Surgical; Visit Provider Physician Assistant Surgical
DX: J01.90 Acute sinusitis, unspecified (principal); R05.9 Cough, unspecified
CPT/HCPCS: 71046

== ENCOUNTER → 2024-02-21 | Outpatient (CLI) | payer MEDICARE, OTHER, SELFPAY ==
--- NOTE | 2024-02-21 13:20 | RAD_ITS ---
HISTORY: pain. TECHNIQUE: XR Wrist Min 3 Views. COMPARISON: None. FINDINGS: BONES : No acute fracture identified. Sclerosis and degenerative osteophytes of the basal joint. JOINTS: No dislocation. Mild degenerative change of the wrist. Advanced degenerative change the basal joint. SOFT TISSUES: Moderate dorsal soft tissue swelling. RAD/Wrist min 3 Views IMPRESSION: No acute fracture or dislocation identified . Advanced arthritis of the basal joint. Dorsal soft tissue swelling of the right wrist. Electronically Signed: Olesya Unger MD at 13:47 EDT ,
== END | disposition home or self-care (01) ==
PROVIDERS: PCP Internal Medicine; Referring Provider Physician Assistant; Visit Provider Physician Assistant
DX: M25.531 Pain in right wrist (principal)
CPT/HCPCS: 73110

== ENCOUNTER → 2024-04-10 | Outpatient (CLI) | payer MEDICARE, OTHER, SELFPAY ==
--- NOTE | 2024-04-10 11:40 | RAD_ITS ---
STUDY: X-RAY - CERVICAL SPINE REASON FOR EXAM: Female, 79 years old. Injury TECHNIQUE: 3 view(s) of the cervical spine were obtained. COMPARISON: None FINDINGS: There are degenerative changes of the anterior atlantoaxial articulation. Normal odontoid process. There is straightening of the normal cervical lordosis. There is multi-level endplate spondylosis. There is multi-level degenerative disc disease with multilevel disc space narrowing. Facet joint osteoarthritis. Probable neural foraminal stenosis. Elevation of the left hemidiaphragm with findings suggestive of bibasilar atelectasis. RAD/Cerv Spine 2 or 3 Views IMPRESSION: Loss of the normal cervical lordosis. Multilevel disc space narrowing and spondylosis. Facet joint osteoarthritis. Electronically Signed: Ventura Bishop MD at 12:17 EDT ,
--- NOTE | 2024-04-10 12:40 | RAD_ITS ---
STUDY: X-RAY - RIGHT SHOULDER REASON FOR EXAM: Female, 79 years old. Fall TECHNIQUE: 4 view(s) of the shoulder. COMPARISON: None. FINDINGS: There is moderate degenerative arthrosis of the glenohumeral articulation. There is degenerative arthrosis of the acromioclavicular joint without inferior osseous spur formation. Normal acromion. Normal humeral head and visualized proximal humerus. The soft tissue structures are unremarkable. Normal visualized pulmonary apex. RAD/Shoulder min 2 Views IMPRESSION: Osteoarthritis of the glenohumeral joint. Electronically Signed: Ventura Bishop MD at 13:40 EDT ,
--- NOTE | 2024-04-10 12:40 | RAD_ITS ---
STUDY: X-RAY - THORACIC SPINE REASON FOR EXAM: Female, 79 years old. Pain. Fall. TECHNIQUE: 2 view(s) of the thoracic spine were obtained. COMPARISON: None. FINDINGS: Normal kyphosis of the thoracic spine. There is no substantial scoliosis. There is demineralization of the thoracic spine with endplate spondylosis. There is multilevel disc space narrowing of the thoracic spine. Elevation of the right hemidiaphragm. RAD/Thoracic Spine 2 Views IMPRESSION: Multilevel disc space narrowing and spondylosis. Electronically Signed: Ventura Bishop MD at 13:38 EDT ,
--- NOTE | 2024-04-10 12:40 | RAD_ITS ---
STUDY: X-RAY - RIGHT ELBOW REASON FOR EXAM: Female, 79 years old. Fall TECHNIQUE: 2 view(s) of the elbow. COMPARISON: None. FINDINGS: Normal visualized humerus, radius and ulna. There is degenerative arthrosis of the radiocapitellar and ulnotrochlear articulations. The soft tissue structures are unremarkable. RAD/Elbow 2 Views IMPRESSION: Degenerative changes. No acute abnormality is seen. Electronically Signed: Ventura Bishop MD at 13:39 EDT ,
--- NOTE | 2024-04-10 12:40 | RAD_ITS ---
STUDY: X-RAY - LUMBAR SPINE REASON FOR EXAM: Female, 79 years old. Fall TECHNIQUE: 2 view(s) of the lumbar spine were obtained. COMPARISON: None FINDINGS: There is straightening of the normal lumbar lordosis. There is no substantial scoliosis. There is a normal alignment of the vertebrae. There is multilevel endplate spondylosis of the lumbar vertebrae. There is multi-level degenerative disc disease with multi-level disc space narrowing. Facet joint osteoarthritis. There is a mild degree of atherosclerotic calcification of the abdominal aorta without a demonstrated aneurysm. RAD/Lumbar Spine 2 or 3 Views IMPRESSION: Degenerative changes of the spine, as detailed above. Electronically Signed: Ventura Bishop MD at 13:38 EDT ,
--- NOTE | 2024-04-10 12:40 | RAD_ITS ---
STUDY: X-RAY - RIGHT CLAVICLE REASON FOR EXAM: Female, 79 years old. Fall TECHNIQUE: 2 view(s) of the clavicle. COMPARISON: None. FINDINGS: Normal clavicle. Normal acromioclavicular articulation. Normal visualized sternoclavicular articulation. Normal visualized pulmonary apex. RAD/Clavicle IMPRESSION: Normal x-ray examination of the clavicle. Electronically Signed: Ventura Bishop MD at 13:41 EDT ,
== END | disposition home or self-care (01) ==
PROVIDERS: PCP Internal Medicine; Referring Provider Physician Assistant; Visit Provider Physician Assistant
DX: T14.90XA Injury, unspecified, initial encounter (principal); W19.XXXA Unspecified fall, initial encounter
CPT/HCPCS: 72040; 72070; 72100; 73000; 73030; 73070

== ENCOUNTER → 2024-06-20 | Outpatient (CLI) | payer MEDICARE, OTHER, SELFPAY ==
[2024-06-24 03:06] LABS: Pancreatic Elastase, Fecal > 800 (>200)
[2024-06-28 19:07] LABS: Calprotectin, Stool 43 ug/g (0-120); Fats, Neutral Normal (.); Fats, Total Increased (.)
== END | disposition home or self-care (01) ==
LOC: LABSPEC 13:59
PROVIDERS: PCP Internal Medicine; Referring Provider Internal Medicine Gastroenterology; Visit Provider Internal Medicine Gastroenterology
DX: R19.7 Diarrhea, unspecified (principal)
CPT/HCPCS: 82653; 82705; 83993

== ENCOUNTER → 2024-09-18 | Outpatient (CLI) | payer MEDICARE, OTHER, SELFPAY ==
--- NOTE | 2024-09-18 13:29 | ART_ITS ---
Reason For Study: PAD Procedure A bilateral lower extremity continuous wave Doppler with analog waveform analysis and ankle brachial indexes. Left Segmental Pressures Left brachial= 133mmHg. Left posterior tibial artery = 179mmHg. Left dorsalis pedis artery = 173mmHg. Left digit = 142 mmHg. The left dorsalis pedis waveforms are triphasic. The left posterior tibial artery waveforms are triphasic. Right Segmental Pressures Right brachial= 130mmHg. Right posterior tibial artery = 191mmHg. Right dorsalis pedis artery = 159mmHg. Right digit = 127 mmHg. The right dorsalis pedis waveforms are triphasic. The right posterior tibial artery waveforms are triphasic. Indices The right ankle brachial index by the dorsalis pedis is 1.20. The right ankle brachial index by the posterior tibial artery is 1.44. The right digital-brachial index is 0.95. The left ankle brachial index by the dorsalis pedis is 1.30. The left ankle brachial index by the posterior tibial artery is 1.35. The left post exercise ankle brachial index is 1.07. VL/Ankle Brachial Index Interpretation Summary Triphasic Doppler waveforms are noted at ankle level bilaterally. Pulse-volume recordings appear satisfactory at ankle and digital level bilaterally. The resting right ankle-br achial index is supra-normal. The resting left ankle-brachial index is normal. Digital-brachial indices are normal bilaterally. There is evidence of arterial calcification at ankle level on the right. There is no evidence of significant arterial occlusive disease in the lower extremities bilaterally. Ordering Physician: Missy Garcia Referring Physician: MISSY GARCIA MD Performed By: Huyen Wood RVT
== END | disposition home or self-care (01) ==
LOC: CVS 13:29
PROVIDERS: PCP Internal Medicine; Referring Provider Internal Medicine; Visit Provider Internal Medicine
DX: I73.9 Peripheral vascular disease, unspecified (principal)
CPT/HCPCS: 93922

== ENCOUNTER 2024-10-16 17:36 | Inpatient (IN) | payer MEDICARE, OTHER, SELFPAY ==
[2024-10-16] VITALS (9 sets, daily range): BP systolic 103–143; BP diastolic 49–92; PULSE 84–96; RESP 15–20; TEMP 36.2–36.5; O2SAT 89–97; BMI 36.8; BMI 36.9
--- NOTE | 2024-10-16 18:00 | RAD_ITS ---
INDICATION: right lower rib pain, atraumatic EXAMINATION/TECHNIQUE: X-RAY - XR Chest 2 Views COMPARISON: 01/18/2023. FINDINGS: Slight increased interstitial markings. Right basilar atelectasis. Tortuous and calcified thoracic aorta. The heart is mildly enlarged. No pleural effusion or pneumothorax. Degenerative changes of the thoracic spine. RAD/Chest PA and Lateral IMPRESSION: Slight increase in interstitial markings may represent edema and/or infection. Electronically Signed: James Parkinson MD at 20:15 EST ,
--- NOTE | 2024-10-16 18:00 | CT_ITS ---
INDICATION: RUQ abd pain EXAMINATION: CT Abdomen And Pelvis W/ Contrast Injection TECHNIQUE: Helically acquired images were obtained of the abdomen and pelvis after IV contrast. A radiation dose optimization technique was used for this scan. IV Contrast dosage and agent: IV 100mL [id number] Oral contrast: None. COMPARISON: None. FINDINGS: Visualized lung bases: Right lower lobe consolidation versus atelectasis. Liver: Multiple simple hepatic cysts. Gallbladder: Hydropic with marked surrounding inflammatory changes. The common bile duct is dilated measuring up to 1.5 cm in diameter. Spleen: Unremarkable Pancreas: Unremarkable Adrenal Glands: Unremarkable Kidneys: Unremarkable Vasculature: Moderate aortoiliac atherosclerotic disease. GI Tract: Scattered diverticula throughout the colon. There is short segment of transverse colon at the hepatic flexure with surrounding fat stranding. Lymphadenopathy: None Peritoneum: No ascites. Bladder: Unremarkable Reproductive organs: Unremarkable Bones/Soft tissues: There are diffuse degenerative changes of the spine. CT/Abdomen/Pelvis W IV Cont ONLY IMPRESSION: Findings suspicious for acute cholecystitis and possible choledocholithiasis. Recommend MRCP. Reactive colitis involving the hepatic flexure. Right lower lobe consolidation versus atelectasis. Electronically Signed: James Parkinson MD at 19:30 EST ,
--- NOTE | 2024-10-16 18:02 | EDS_ITS ---
HPI HPI - GI History of Present Illness Chief Complaint: Nausea/Vomiting/Diarrhea Informant: patient and family Abdominal Pain/Flank Pain Onset: Days Context: Gradual Onset Timing: Intermittent Location: RUQ Current Severity: Mild Maximum Severity: Mild Worsened by: Nothing Relieved by: Nothing Nausea/Vomiting/Emesis GI Symptom: Positive for Nausea and Vomiting Onset: Days Severity: Moderate Diarrhea/Melena/Hematochezia GI Symptom: Positive for Diarrhea Onset: Days Stool Quality: Positive for Loose Severity: Mild Associated Symptoms Associated Symptoms: Negative for Dysuria, Frequency, Hematuria or Urgency Narrative Narrative: 79-year-old female with history of reflux. No prior abdominal surgeries. States she has had nausea, vomiting and diarrhea began on Monday diarrhea began last 24 hours. She also has right lower rib cage pain. Denies any fall or injury. Symptoms began around Monday. Denies any dysuria. No fever. Prior similar symptoms: No Recent Illness/Hospitalization: No PFSH [facility] Medical History Pain of right clavicle Right shoulder strain Lumbar strain Thoracic myofascial strain Cervical strain Scalp contusion Right wrist sprain Home Medications ?Medication ?Instructions ?Recorded ?Last Taken ?Type ascorbic acid (vitamin C) 500 mg 500 mg PO DAILY@0800 09/16/14 Unknown History tablet (Vitamin C) cholecalciferol (vitamin D3) 25 2,000 unit PO DAILY 09/16/14 Unknown History mcg (1,000 unit) tablet (Vitamin D3) cyanocobalamin (vitamin B-12) 500 1,000 mcg PO DAILY@0800 09/16/14 Unknown History mcg tablet fish oil-vit E-fat acids 1 ea PO DAILY 09/16/14 Unknown History comb.5-herbal comb. 137 400 mg-5 unit capsule (Flax, Fish and Borage Oil) iron, carbonyl 45 mg tablet 65 mg PO DAILYCM 09/16/14 Unknown History (Feosol) lansoprazole 30 mg capsule,delayed 30 mg PO DAILY 09/16/14 Unknown History release (Prevacid) montelukast 10 mg tablet 10 mg PO DAILY 01/18/23 Unknown History (Singulair) montelukast 10 mg tablet 10 mg PO QPM #20 tabs 10/12/23 Unknown Rx cetirizine 10 mg tablet 10 mg PO DAILY 10/16/24 Unknown History lidocaine 5 % topical patch 1 patch topical DAILY 10/16/24 Unknown History pentoxifylline 400 mg 400 mg PO BID 10/16/24 Unknown History tablet,extended release rifaximin 550 mg tablet (Xifaxan) 550 mg PO TID 10/16/24 Unknown History rosuvastatin 10 mg tablet 10 mg PO QHS 10/16/24 Unknown History Allergy/AdvReac Type Severity Reaction Status Date / Time No Known Allergies Allergy Verified 10/16/24 17:37 Social History Smoking Status: Never smoker ROS ROS ED ROS Narrative Nausea, vomiting diarrhea. Right lower rib cage versus right upper quadrant abdominal pain. Constitutional Constitutional ED: Denies chills or fever(s) ENT ENT ED: Denies ear pain Cardiovascular Cardiovascular: Denies chest pain Respiratory/Chest Respiratory/Chest: Denies cough or dyspnea Gastrointestinal Gastrointestinal: Reports diarrhea, nausea and vomiting; Denies abdominal pain, constipation or melena Genitourinary Genitourinary ED: Denies dysuria or hematuria Musculoskeletal Musculoskeletal: Denies arthralgias or back pain Integumentary Denies abscess or Abrasions Neurologic Neurologic: Denies headache(s) Psychiatric Psychiatric: Denies anxiety Endocrine Endocrinology: Denies polydipsia Hematologic/Lymphatic Hematologic/Lymphatic: Denies easy bleeding Allergic/Immunologic Allergic/Immunologic ED: Denies mouth swelling EXAM Physical Exam Narrative Exam Narrative: 79-year-old female no acute distress. Vital signs stable afebrile. Daughter at bedside. H EENT exam mild dry mucous membranes. Neck nontender. Lungs clear to auscultation bilaterally. Heart regular rhythm no murmur. Chest wall no ntender except right lower rib cage midclavicular line. No crepitance or bruising. Abdomen soft nondistended normal bowel sounds without peritoneal signs. Mild right upper quadrant tenderness. No Schwartz sign. Right lower quadrant unremarkable. Moving all 4 extremities. Nontender no edema. Back nontender. Neurologically she is awake and alert with no focal motor deficits. Const Vital Signs: 10/16/24 17:37 10/16/24 19:36 10/16/24 20:16 Temperature 97.2 F L 97.2 F L Temperature Source Temporal Pulse Rate 96 89 90 Respiratory Rate 18 16 18 Blood Pressure 138/71 H 143/77 H 127/67 H Blood Pressure Mean 93 99 87 Pulse Ox 92 96 97 Oxygen Delivery Method Room Air Room Air Positive well nourished and well developed; Negative for cachectic, contractures or unkempt General Appearance ED: well developed and NAD; Negative for unkempt, cachectic, contractures or pallor Nutritional Appearance: Negative for cachectic HEENT Reports dry mucous membranes; Denies moist mucous membranes normocephalic and atraumatic; Negative for trauma or tenderness Mouth ED: Yes dry mucous membranes Mouth: dry mucous membranes Eyes PERRL and EOMs intact bilaterally Neck no lymphadenopathy, supple and no JVD General: Negative for tenderness Lymph Lymphatic: Negative for other Resp normal respiratory effort and clear to auscultation bilaterally Cardio regular rate, regular rhythm, S1 normal heart sound, S2 normal heart sound and no murmurs Rate: Negative for bradycardia or tachycardic Rhythm: Negative for abnormal rhythm GI non-distended and no masses; Negative for non-tender GI Narrative: Mild right upper quadrant tenderness. Inspection: Negative for abdominal distention Palpation: soft and tender; Negative for guarding, rigid, hepatomegaly, splenomegaly, hernia, mass, pulsatile mass or rebound tenderness present Back/Spine no CVA tenderness General Back: Negative for CVA tenderness Cervical Spine: Negative for cervical spine tenderness Thoracic Spine / Upper Back: Negative for thoracic spinal tenderness Lumbar Spine / Lower Back: Negative for lumbar spinal tenderness Extremity full ROM General Extremety ED: Negative for edema or tenderness General Extremity: Negative for edema Neuro CN's II-XII intact bilaterally and moves all extremities Sensorium / Orientation: alert, oriented to person, oriented to place and oriented to time; Negative for orientation impaired or confused Motor Exam: strength 5/5 throughout Psych mental status grossly normal and thought process normal Appearance: Negative for unkempt Attitude: No agitated Mood & Affect: Negative for depressed, anxious or tearful Skin no wounds General Skin Exam: Negative for jaundice or pallor Lesions: no lesions Rashes: no rashes Trauma: Negative for abrasion Nails: Negative for discolored MDM MDM MDM Narrative Medical decision making narrative: 79-year-old female with nausea vomiting diarrhea may be all secondary to viral gastroenteritis. However she has having right lower rib cage pain with no history of trauma. Versus possible right upper quadrant abdominal pain which is very mild on exam. She received morphine for pain Zofran for nausea. IV fluids for dehydration. Chest x-ray to evaluate the rib and a CT of her abdomen for the right upper quadrant discomfort with abdominal labs. Repeat exam patient was treated with Zofran for nausea and morphine. She is being given a second dose of morphine for pain. Zosyn will be started for cholecystitis. I discussed all the test results with patient and her daughter at bedside. I spoke to general surgery. I spoke to GI. The hospitalist. Santa ent be admitted by the hospitalist he would like her in the ICU due to her leukocytosis and GI will see her tomorrow morning for possible ERCP. Surgery will be on board as needed. History & Record Review Discussion w/independent historian: Patient Additional record(s) reviewed:: Prior inpatient record, Prior outpatient record, Prior ED visit and Prior labs Lab Data Attestation: I reviewed the patient's lab results. Lab results narrative: CBC shows a white count 27.8. H&H 14 and 44. Platelets 280. 90% neutrophils. Electrolytes show sodium 133. Gap 8. BUN 19 creatinine 0.9. Liver enzymes show a total bili of 1.6. Otherwise liver enzymes are normal. Lipase is normal at 19. Glucose 133. Labs: Laboratory Results - last 24 hr 10/16/24 17:53 WBC 27.8 H RBC 4.89 Hgb 14.5 Hct 44.5 MCV 91.0 MCH 29.7 MCHC 32.6 RDW Std Deviation 45.4 H RDW Coeff of [place] 13.5 Plt Count 280 MPV 10.0 Immature Gran % (Auto) 1.800 H Neut % (Auto) 90.1 H Lymph % (Auto) 3.5 L [place] % (Auto) 4.1 Eos % (Auto) 0.3 Baso % (Auto) 0.2 Absolute Neuts (auto) 25.1 H Absolute Lymphs (auto) 0.98 Nucleated RBC % 0 Toxic Vacuolation 2+ Platelet Estimate ADEQUATE RBC Morphology NORM C+C Sodium 133 L Potassium 3.6 Chloride 100 Carbon Dioxide 25.0 Anion Gap 8 BUN 19 H Creatinine 0.98 Estim Creat Clear Calc 50.56 Est GFR (MDRD) Af Amer 71 Est GFR (MDRD) Non-Af 58 L BUN/Creatinine Ratio 19.4 Glucose 133 H Calcium 9.9 Total Bilirubin 1.60 H AST 33 ALT 26 Alkaline Phosphatase 94 Total Protein 7.8 Albumin 3.6 Globulin 4.2 Albumin/Globulin Ratio 0.9 Lipase 19 Radiography Chest X-Ray - ED: 2 View Diagnostic Testing: Clinical Impression(s) from Imaging Studies Abdomen/Pelvis CT 10/16/24 18:00 IMPRESSION: Findings suspicious for acute cholecystitis and possible choledocholithiasis. Recommend MRCP. Reactive colitis involving the hepatic flexure. Right lower lobe consolidation versus atelectasis. Electronically Signed: James Parkinson MD at 19:30 EST , Chest X-Ray 10/16/24 18:00 IMPRESSION: Slight increase in interstitial markings may represent edema and/or infection. Electronically Signed: James Parkinson MD at 20:15 EST , Chest x-ray, 2 views, consistent with splinting. Elevated right hemidiaphragm. Atelectasis bilaterally. No obvious pneumonia. No pneumothorax or broken rib. Discharge Plan Triage Chief Complaint: Nausea/Vomiting/Diarrhea Other Complaint: Nausea/Vomiting ED Provider: Igor Wong Dx/Rx/DC Orders Prescriptions: No Action montelukast 10 mg tablet 10 mg PO QPM Qty: 20 0RF cyanocobalamin (vitamin B-12) 500 MCG tablet 1,000 mcg PO DAILY@0800 Patient Comments: SUPPLEMENT ascorbic acid (vitamin C) [Vitamin C] 500 MG tablet 500 mg PO DAILY@0800 Patient Comments: SUPPLEMENT lansoprazole [Prevacid] 30 MG capsule 30 mg PO DAILY Patient Comments: ACID REFLUX iron, carbonyl [Feosol] 45 MG capsule 65 mg PO DAILYCM Patient Comments: SUPPLEMENT Flax, Fish and Borage Oil 1 EACH capsule 1 ea PO DAILY Patient Comments: SUPPLEMENT cholecalciferol (vitamin D3) [Vitamin D3] 1,000 UNIT tablet 2,000 unit PO DAILY Patient Comments: SUPPLEMENT montelukast [Singulair] 10 mg Tablet 10 mg PO DAILY cetirizine 10 mg tablet 10 mg PO DAILY pentoxifylline 400 mg tablet extended release 400 mg PO BID lidocaine 5 % adhesive patch,medicated 1 patch topical DAILY rosuvastatin 10 mg tablet 10 mg PO QHS Xifaxan 550 mg tablet 550 mg PO TID Primary Care Provider: Missy Parada Referrals: Missy Parada DO [Primary Care Provider] - Print Language: Macedonian
[2024-10-16] MEDS: Morphine 4 MG/ML Syringe IV ×2 (18:05→20:07)
[2024-10-16] MEDS: 0.9% Normal Saline (1000mL) 1,000 ML 999 ML IV ×2 (18:05→22:57)
[2024-10-16] MEDS: Ondansetron 4 MG/2 ML Vial IV (18:05)
[2024-10-16 18:13] LABS: Absolute Lymphocyte Count 0.98 X10^3/uL (0.83-4.51); Absolute Neutrophil Count 25.1 X10^3/uL (2.0-7.7); Basophil# 0.06 X10^3/uL; Basophil% 0.2 % (0-1); Eosinophil# 0.07 X10^3/uL; Eosinophils% 0.3 % (0-5); Hematocrit 44.5 % (37-47); Hemoglobin 14.5 g/dL (12.0-15.0); Lymphocyte # 0.98 X10^3/ul (0.83-4.51); Lymphocyte % 3.5 % (19-41); Mean Corp Hgb Conc 32.6 g/dL (32-36); Mean Corpuscular Hgb 29.7 pg (27.0-32.0); Monocyte# 1.13 X10^3/uL; Monocyte% 4.1 % (0-10); NRBC Flagged by Analyzer 0 % (0-5); Neutrophil # 25.11 X10^3/uL (2.7-7.7); Neutrophil % 90.1 % (47-70); POSITIVE DIFFERENTIAL YES; Platelet Count 280 K/mm3 (150-450); RBC Distribution Width CV 13.5 % (11.6-14.6); RBC Distribution Width SD 45.4 fl (35.1-43.9); Red Blood Count 4.89 M/mm3 (4.2-5.4); White Blood Count 27.8 K/mm3 (4.4-11.0)
[2024-10-16 18:19] LABS: Differential Indicated SCAN CRITERIA MET
[2024-10-16 18:49] LABS: ALB/GLOB Ratio 0.9 RATIO (0.9-2.4); AST(SGOT) 33 U/L (15-37); Alanine Aminotransfer ALT/SGPT 26 U/L (13-56); Albumin, Serum 3.6 g/dL (3.2-5.0); Alkaline Phosphatase 94 U/L (45-117); Anion Gap 8 (5-15); BUN 19 mg/dL (7-18); BUN/Creat Ratio 19.4 RATIO (10-20); Calcium,Total 9.9 mg/dL (8.5-10.1); Chloride 100 mmol/L (98-107); Creatinine, Serum 0.98 mg/dL (0.55-1.02); EST Glomerular Filtration Rate 58 mL/min (>60); Est Glom Filt Rate - Afr Amer 71 mL/min (>60); Estimated Creatinine Clearance 50.56 ml/min; Globulin 4.2 g/dL (2.2-4.2); Glucose 133 mg/dL (74-106); Lipase 19 U/L (13-75); Potassium 3.6 mmol/L (3.5-5.1); Protein, Total 7.8 g/dL (6.4-8.2); Sodium Level 133 mmol/L (136-145)
[2024-10-16 18:50] LABS: Platelet Estimate ADEQUATE (ADEQ); Red Cell Morphology NORM C+C NORMAL (NORM C&C); Vacuolated Cells 2+
[2024-10-16] MEDS: Piperacil/Tazobactam 4.5 GM in 0.9% Normal Saline (100mL MB+) 100 ML IV (20:08)
--- NOTE | 2024-10-16 20:24 | PCM.HP.STD ---
[facility] - General General Date of Admission: 10/16/24 Date of Service: 10/16/24 Chief Complaint: RUQ Pain with Nausea, Vomiting and Diarrhea. HPI Narrative TESSIE COLMENARES, is a 79 F with a past medical history of hyperlipidemia; on rosuvastatin, obesity; with BMI of 36.9 this admission, PVD; on pentoxifylline, MERARI; on iron carbonyl, GERD; on lansoprazole, history of UTI, seasonal allergies; on cetirizine and montelukast, history of cervical and thoracic myofascial strain with Right shoulder strain after fall (03/2024) and OA who presents to [facility] ER complaining of RUQ pain with nausea, vomiting and diarrhea. Mrs. Colmenares reports her symptoms began approximately 3 days prior to admission with a gradual-onset of nausea followed by bilious emesis complicated by development of nonbloody diarrhea over the past 24 hours. She has also noted intermittent Right upper quadrant pain that is severe and is made better or worse by nothing. She denies a history of previous abdominal surgeries or similar episodes. She also denies associated fever, chills, blood in emesis, blood in stools, chest pain or shortness of breath. In the ER she was noted to have CT evidence of Acute Cholecystitis along with suspected Choledocholithiasis and Right lower lobe infiltrate versus atelectasis consistent with possible Pneumonia complicated by laboratory evidence of possible early sepsis with Leukocytosis of 27.8K along with Left-shift of 1.8% with mild hyperbilirubinemia of 1.6 mg/dL present on admission and with general surgeon on-call recommending patient be admitted to the hospitalist service along with consultation from gastroenterology for radiologist recommended MRCP prior to anticipated cholecystectomy and she was then admitted to the ICU for ongoing care for treatment under the sepsis protocol for stay that is expected to extend beyond 2 midnights. [facility] Medical History Pain of right clavicle Right shoulder strain Lumbar strain Thoracic myofascial strain Cervical strain Scalp contusion Right wrist sprain Home Medications ?Medication ?Instructions ?Recorded ?Last Taken ?Type ascorbic acid (vitamin C) 500 mg 500 mg PO DAILY@0800 09/16/14 Unknown History tablet (Vitamin C) cholecalciferol (vitamin D3) 25 2,000 unit PO DAILY 09/16/14 Unknown History mcg (1,000 unit) tablet (Vitamin D3) cyanocobalamin (vitamin B-12) 500 1,000 mcg PO DAILY@0800 09/16/14 Unknown History mcg tablet fish oil-vit E-fat acids 1 ea PO DAILY 09/16/14 Unknown History comb.5-herbal comb. 137 400 mg-5 unit capsule (Flax, Fish and Borage Oil) iron, carbonyl 45 mg tablet 65 mg PO DAILYCM 09/16/14 Unknown History (Feosol) lansoprazole 30 mg capsule,delayed 30 mg PO DAILY 09/16/14 Unknown History release (Prevacid) montelukast 10 mg tablet 10 mg PO DAILY 01/18/23 Unknown History (Singulair) montelukast 10 mg tablet 10 mg PO QPM #20 tabs 10/12/23 Unknown Rx cetirizine 10 mg tablet 10 mg PO DAILY 10/16/24 Unknown History lidocaine 5 % topical patch 1 patch topical DAILY 10/16/24 Unknown History pentoxifylline 400 mg 400 mg PO BID 10/16/24 Unknown History tablet,extended release rifaximin 550 mg tablet (Xifaxan) 550 mg PO TID 10/16/24 Unknown History rosuvastatin 10 mg tablet 10 mg PO QHS 10/16/24 Unknown History Allergy/AdvReac Type Severity Reaction Status Date / Time No Known Allergies Allergy Verified 10/16/24 17:37 Social History Smoking Status: Never smoker ROS ROS Narrative Review of Systems: Constitutional: Patient denies fever or chills. Eyes: Patient denies changes in vision or discharge from eyes. ENT: Patient denies runny nose, sore throat or ear pain. Resp: Patient denies shortness of breath or cough. CV: Patient denies chest pain, palpitations or heart racing. GI: Patient admits to Right upper quadrant abdominal pain with nausea and bilious emesis and nonbloody diarrhea as per HPI. : Patient denies dysuria or hematuria. MSK: Patient denies arthralgias or myalgias. Skin: Patient denies rash, abscess or jaundice. Psych: Patient denies symptoms well-controlled depression or anxiety. Neuro: Patient denies headache, paresthesias or focal neurologic deficits. Allergy: Patient denies lip swelling, tongue swelling or urticaria. Hematology: Patient denies easy bleeding or easy bruisability. Endocrinology: Patient denies polyuria, polydipsia or polyphagia. 14 point review of systems otherwise negative except for positives noted above in HPI. Vital Signs Vital Signs Vital Signs: 10/16/24 17:37 10/16/24 19:36 10/16/24 20:16 Temperature 97.2 F L 97.2 F L Temperature Source Temporal Pulse Rate 96 89 90 Respiratory Rate 18 16 18 Blood Pressure 138/71 H 143/77 H 127/67 H Blood Pressure Mean 93 99 87 Pulse Ox 92 96 97 Oxygen Delivery Method Room Air Room Air Weight Weight: 201 lb 8.04 oz Body Mass Index (BMI) 36.8 Physical Exam Const alert, oriented x3 and no apparent distress Constitutional Narrative: Obese and nontoxic in appearance. General Appearance: cooperative HEENT normocephalic, head/scalp atraumatic and hearing grossly normal bilaterally HEENT Narrative: Dry mucous membranes noted. Eyes PERRL and EOMs intact bilaterally Neck no lymphadenopathy and supple Resp normal respiratory effort, no retractions, no use of accessory muscles and clear to auscultation bilaterally Cardio regular rate and regular rhythm GI GI Narrative: RUQ tender to palpation with abdomen otherwise soft and nondistended. Extremity normal to inspection, full ROM and no clubbing, cyanosis or edema Skin Skin Narrative: Patient has no evidence of rash, abscess or jaundice. Neuro oriented x3, CN's II-XII intact bilaterally, moves all extremities and no focal motor deficits Sensorium / Orientation: awake, alert, oriented to person, oriented to place and oriented to time Speech: speech normal Psych affect normal Results Medical Records Data Attestation: I reviewed the patient's medical records Lab / Micro Data Attestation: I reviewed the patient's lab results. 10/16/24 17:53 10/16/24 17:53 Labs: Laboratory Results - last 24 hr 10/16/24 17:53: WBC 27.8 H, RBC 4.89, Hgb 14.5, Hct 44.5, MCV 91.0, MCH 29.7, MCHC 32.6, RDW Std Deviation 45.4 H, RDW Coeff of [place] 13.5, Plt Count 280, MPV 10.0, Immature Gran % (Auto) 1.800 H, Neut % (Auto) 90.1 H, Lymph % (Auto) 3.5 L, [place] % (Auto) 4.1, Eos % (Auto) 0.3, Baso % (Auto) 0.2, Absolute Neuts (auto) 25.1 H, Absolute Lymphs (auto) 0.98, Nucleated RBC % 0, Toxic Vacuolation 2+, Platelet Estimate ADEQUATE, RBC Morphology NORM C+C, Sodium 133 L, Potassium 3.6, Chloride 100, Carbon Dioxide 25.0, Anion Gap 8, BUN 19 H, Creatinine 0.98, Estim Creat Clear Calc 50.56, Est GFR (MDRD) Af Amer 71, Est GFR (MDRD) Non-Af 58 L, BUN/Creatinine Ratio 19.4, Glucose 133 H, Calcium 9.9, Total Bilirubin 1.60 H, AST 33, ALT 26, Alkaline Phosphatase 94, Total Protein 7.8, Albumin 3.6, Globulin 4.2, Albumin/Globulin Ratio 0.9, Lipase 19 Imaging Radiology Impression Abdomen/Pelvis CT 10/16/24 18:00 IMPRESSION: Findings suspicious for acute cholecystitis and possible choledocholithiasis. Recommend MRCP. Reactive colitis involving the hepatic flexure. Right lower lobe consolidation versus atelectasis. Electronically Signed: James Parkinson MD at 19:30 EST Reading Location ID and State: [id number] [facility] Tel , Service support , Chest X-Ray 10/16/24 18:00 IMPRESSION: Slight increase in interstitial markings may represent edema and/or infection. Electronically Signed: James Parkinson MD at 20:15 EST , Assessment & Plan Assessment/Plan (1) Acute cholecystitis due to biliary calculus: (2) Hyperbilirubinemia: (3) Pneumonia: QUALIFIERS: Laterality: right Lung location: lower lobe of lung Pneumonia type: due to unspecified organism Qualified Code(s): J18.9 - Pneumonia, unspecified organism (4) Sepsis: QUALIFIERS: Sepsis acute organ dysfunction status: without acute organ dysfunction Sepsis type: sepsis due to unspecified organism Qualified Code(s): A41.9 - Sepsis, unspecified organism (5) RUQ pain: (6) Nausea vomiting and diarrhea: (7) Obesity (BMI 30-39.9): PLAN: Plan 1. CT evidence of Acute Cholecystitis along with suspected Choledocholithiasis and Right lower lobe infiltrate versus atelectasis consistent with possible Pneumonia complicated by laboratory evidence of possible early Sepsis with Leukocytosis of 27.8K along with Left-shift of 1.8% with mild Hyperbilirubinemia of 1.6 mg/dL present on admission - Admit to ICU for treatment under the Sepsis protocol. Continue empiric IV Zosyn begun in the ER plus IV Vancomycin and await culture and sensitivity data. Serialize lactate and recheck CMP in AM to follow trend. Start Protonix 40 mg IV daily for GI prophylaxis. Give IV morphine as needed for severe (level 6-10/10) pain. Finally, both general surgery and gastroenterology have been notified by the ER physician about this patient with formal consultations pending in the a.m. and appreciated advance with plan for MRCP prior to cholecystectomy. 2. RUQ pain with intractable Nausea, Vomiting and Diarrhea due to #1 - Give Zofran IV prn nausea. Give Phenergan IM prn for breakthrough nausea. 3. Obesity; with BMI of 36.9 this admission complicating #1 & #2 - Weight loss will be recommended. Check TSH. This complicates her case and may hamper recovery. 4. Hyperlipidemia; on rosuvastatin - Hold statin for now. 5. PVD; on pentoxifylline - Restart pentoxifylline after #1 has been fully treated. 6. MERARI; on iron carbonyl - Hold oral iron supplement for now with normal hemoglobin of 14.5 g/dL present on admission. 7. GERD; on lansoprazole - Patient started on IV PPI for #1. 8. History of UTI - Noted. UA pending this admission. 9. Seasonal allergies; on cetirizine and montelukast - Hold these agents for now and give IV Benadryl prn for allergic symptoms. 10. History of cervical and thoracic myofascial strain with Right shoulder strain after fall (03/2024) - Noted. 11. OA - Stable. 12. DVT prophylaxis - SCD's only with impending MRCP and cholecystectomy. Total time: Approximately (but not less than) 75 minutes.
[2024-10-16] MEDS: Pantoprazole Sodium 40 MG in 0.9% Normal Saline (100mL MB+) 100 ML 330 MG IV (22:58)
[2024-10-16 23:02] LABS: Thyroid Stim Hormone (TSH) 0.634 uIU/mL (0.358-3.740)
[2024-10-16 23:23] LABS: Lactic Acid 1.1 mmol/L (0.4-1.9)
[2024-10-16] MEDS: Vancomycin HCl 2,000 MG in 0.9% Normal Saline (500mL Bag) 500 ML 250 MG IV (23:35)
--- NOTE | 2024-10-16 23:55 | PCM.RX.CS ---
Consult Antibiotic Management Pharmacy has been consulted to manage selected antibiotic: Vancomycin Type of Intervention Type of Consult: New start Suspected Infection Suspected Infection: Sepsis Labs Labs: Sodium 133 mmol/L (136-145) L 10/16/24 17:53 Potassium 3.6 mmol/L (3.5-5.1) 10/16/24 17:53 Chloride 100 mmol/L (98-107) 10/16/24 17:53 Carbon Dioxide 25.0 mmol/L (21.0-32.0) 10/16/24 17:53 Anion Gap 8 (5-15) 10/16/24 17:53 BUN 19 mg/dL (7-18) H 10/16/24 17:53 Creatinine 0.98 mg/dL (0.55-1.02) 10/16/24 17:53 Est GFR (MDRD) Af Amer 71 mL/min (>60) 10/16/24 17:53 Est GFR (MDRD) Non-Af 58 mL/min (>60) L 10/16/24 17:53 BUN/Creatinine Ratio 19.4 RATIO (10-20) 10/16/24 17:53 Glucose 133 mg/dL (74-106) H 10/16/24 17:53 Dosing Weight Weight used for dosin kg Estimated Creatinine Clearance Estimated Creatinine Clearance: 51 Goal Trough Goal Trough: 15-20 mcg/mL Pharmacy Plan for Drug Dosing Pharmacy Plan for Drug Dosing: Pharmacy Service will continue to monitor and adjust dosing as required. Follow-Up Labs Follow-Up Labs: Trough: Vancomycin Date/Time Labs Ordered Labs to be done on [date and time ordered]: 10/18/24 @1100
[2024-10-17] VITALS (29 sets, daily range): BP systolic 85–136; BP diastolic 50–82; PULSE 68–105; RESP 12–21; TEMP 36.5–37.7; O2SAT 91–97; BMI 39.1
[2024-10-17] MEDS: 0.9% Normal Saline (1000mL) 1,000 ML 999 ML IV ×2 (00:21→02:16)
[2024-10-17] MEDS: Piperacil/Tazobactam 3.375 GM in 0.9% Normal Saline (50mL MB+) 50 ML IV ×3 (05:37→20:40)
[2024-10-17] MEDS: 0.9% Saline Lock 10 ML Syringe IV (05:37)
--- NOTE | 2024-10-17 06:24 | PN.HOSP_ITS ---
Reason for Visit Reason for Visit: Diagnoses Sepsis, unspecified organism (10/16/24) Pneumonia, unspecified organism (10/16/24) Calculus of gallbladder with acute cholecystitis without obstruction (10/16/24) Nausea with vomiting, unspecified (10/16/24) Diarrhea, unspecified (10/16/24) Subjective Subjective Patient complaining of significant right sided upper abdominal pain, dyspnea sensation. She does state that prior to ED presentation she had a mildly productive cough and dyspnea with URI type symptoms but denied any ill contacts and notes that her is bedbound and she had been taking care of him therefore she was not in the community often. Patient overnight has required increased oxygen supplementation. Discussed plan of care which included evaluation by general surgery and gastroenterology with planned ERCP if patient pulmonary status felt appropriate. Also discussed plan of evaluation per associate faculty/pulmonary care. Patient denies fevers, chills, nausea, emesis, chest pain, worsening dyspnea. Objective Data Objective Data Vital Signs: Vital Signs Temp Pulse Resp BP Pulse Ox O2 Del Method O2 Flow Rate 97.9 F 81 14 106/68 94 High Flow 10 10/17/24 04:00 10/17/24 05:00 10/17/24 05:00 10/17/24 05:00 10/17/24 05:00 10/17/24 05:00 10/17/24 05:00 Oxygen Flow Rate (L/min) 10 Oxygen Delivery Method High Flow Weight: 214 lb 1.102 oz Body Mass Index (BMI) 39.1 Intake & Output: Intake and Output for Last 24 Hours 10/15/24 10/16/24 10/17/24 23:59 23:59 23:59 Intake Total 2210 / 2210 2039 Balance 2210 / 2210 2039 Lab / Micro Data 10/16/24 17:53 10/16/24 17:53 Labs: Laboratory Results - last 24 hr 10/16/24 17:53: WBC 27.8 H, RBC 4.89, Hgb 14.5, Hct 44.5, MCV 91.0, MCH 29.7, MCHC 32.6, RDW Std Deviation 45.4 H, RDW Coeff of Rochelle 13.5, Plt Count 280, MPV 10.0, Immature Gran % (Auto) 1.800 H, Neut % (Auto) 90.1 H, Lymph % (Auto) 3.5 L , [place] % (Auto) 4.1, Eos % (Auto) 0.3, Baso % (Auto) 0.2, Absolute Neuts (auto) 25.1 H, Absolute Lymphs (auto) 0.98, Nucleated RBC % 0, Toxic Vacuolation 2+, Platelet Estimate ADEQUATE, RBC Morphology NORM C+C, Sodium 133 L, Potassium 3.6, Chloride 100, Carbon Dioxide 25.0, Anion Gap 8, BUN 19 H, Creatinine 0.98, Estim Creat Clear Calc 50.56, Est GFR (MDRD) Af Amer 71, Est GFR (MDRD) Non-Af 58 L, BUN/Creatinine Ratio 19.4, Glucose 133 H, Calcium 9.9, Total Bilirubin 1.60 H, AST 33, ALT 26, Alkaline Phosphatase 94, Total Protein 7.8, Albumin 3.6, Globulin 4.2, Albumin/Globulin Ratio 0.9, Lipase 19, TSH 0.634 10/16/24 22:35: Lactic Acid 1.1 Radiography Diagnostic Testing: Radiology Impression Abdomen/Pelvis CT 10/16/24 18:00 IMPRESSION: Findings suspicious for acute cholecystitis and possible choledocholithiasis. Recommend MRCP. Reactive colitis involving the hepatic flexure. Right lower lobe consolidation versus atelectasis. Electronically Signed: James Parkinson MD at 19:30 EST , ADDENDUM: 10/16/24 2151 IMPRESSION: Findings suspicious for acute cholecystitis and possible choledocholithiasis. Recommend MRCP. Reactive colitis involving the hepatic flexure. Right lower lobe consolidation versus atelectasis. N.B. : Igor Wong MD, confirmed on 10/16/2024 21:44:49 (ET) that the healthcare facility has received the radiology report. Electronically Signed: James Parkinson MD at 19:30 EST , Chest X-Ray 10/16/24 18:00 IMPRESSION: Slight increase in interstitial markings may represent edema and/or infection. Electronically Signed: James Parkinson MD at 20:15 EST , Physical Exam Narrative Physical Examination: General: Awake, alert, oriented x 3 and cooperative, seated upright in the ICU bed, uncomfortable appearing, notes ongoing right sided upper abdominal pain, rated 9-10 out of 10. Skin: Normal color, normal turgor, no icterus, no cyanosis except occasional stage ecchymoses. HEENT: AT/NC, EOMI, PERRLA, dry MM, no carotid bruits or JVD noted. Lungs:, Greater bases, left greater than right, no rales, ronchi or wheezing. Heart: Regular rate and rhythm; no gallop, rub audible. Abdomen: Soft, morbidly obese, notably tender to palpation primary right upper quadrant with voluntary guarding, decreased bowel sounds, difficult to discern distention and HSM given habitus. Extremities: No cyanosis, no clubbing, mild ankle to mid chun trace edema. Neurological: Patient awake, alert, oriented as noted, cognitive function intact; pupils equally reactive to light and accommodation, cranial nerves grossly normal, moving all 4 extremities, no focal deficits, strength severely globally decreased. Psychiatric: Affect appears uncomfortable, fatigued, no acute evidence of depressive or anxiety feelings. Assessment & Plan Assessment/Plan (1) RUQ pain: PLAN: Plan The patient is a 79 y/o F w/ PMHx: Noted medication rifaximin but unclear reason, HLD, Obesity, PVD, Chronic anemia/Fe deficiency anemia, GERD, Allergic rhinitis who presents to the [facility] ED on 10/16/24 with history of onset right upper quadrant pain, nausea and emesis as well as loose stools with symptoms starting 3 days prior to ED arrival but worsening over the last 24 hours prompting evaluation. #1. Acute choledocholithiasis with acute cholecystitis (initial Hospitalist note with ? possible early sepsis; however, although patient does have leukocytosis and mild hyperbilirubinemia there is no overt endorgan damage to discern sepsis): Patient admitted to the ICU especially given #2, unclear if related to #1 or concurrent PNA but concern given now hypoxia and CT findings at lung bases, will maintain on IVFs, NPO, IV/po pain control, trend CBC/CMP, GI and surgery consulted, will need ERCP prior to cholecystectomy. #2. Acute Hypoxia secondary to Right lower lobe PNA, higher suspicion given recent history of productive cough, dyspnea: ED evaluation with CXR with slight increase interstitial markings, CT abdomen and pelvis with right lower lobe consolidation versus atelectasis at the bases, had been initiated on IV vancomycin and IV Zosyn, rapid SARS COVID/influenza/RSC PCR negative, pending urine antigens, maintained on IV vancomycin and Zosyn, requested sputum culture, requesting full respiratory viral panel, de-escalate off vanc as able with MRSA screen pending. BNP 68.8, procalcitonin 0.65. #3. PVD: Holding pentoxifylline given planned intervention as noted. #4. Hyperlipidemia: Will hold statin therapy. #5. Chronic anemia/Fe deficiency anemia: Holding iron supplement, admission hemoglobin 14.5, MCV 91, will continue to trend. #6. Obesity: Weight loss and lifestyle changes encouraged. #7. GERD: Maintained on IV PPI. #8. DVT prophylaxis: SCDs. Charges/Coding Visit Charges Inpatient E&M: 01093 Subs Hosp L3
--- NOTE | 2024-10-17 06:58 | CON.PCM.CC_ITS ---
Assessment & Plan Assessment/Plan (1) Acute cholecystitis due to biliary calculus: PLAN: Plan RECOMMENDATIONS: 1. Supplemental oxygen to maintain saturations at or above 90%. 2. Check BNP and procalcitonin. 3. Obtain respiratory viral panel and COVID screen. 4. Recommend formal consultation to general surgery. 5. Gastroenterology consultation is pending. 6. Continue empiric antimicrobials. 7. Encourage incentive spirometer use and mobilize patient as tolerated. IMPRESSIONS: 1. Undifferentiated hypoxemia The patient presented to the hospital with symptoms concerning for acute cholecystitis and was subsequently found to be hypoxemic. She has no pre- existing pulmonary diagnoses. She is a lifelong non-smoker. Her chest imaging demonstrated findings concerning for atelectasis versus infiltrate in the right lower lobe. Accordingly, I agree with continuing empiric antibiotics. In the interim, we will plan to check BNP, procalcitonin and respiratory viral panel along with COVID PCR. If her pulmonary workup remains negative, may need to consider CTA chest to rule out pulmonary embolism. 2. Abdominal pain in the setting of possible acute cholecystitis/choledocholithiasis At the present time, gastroenterology is currently pending with possible MRCP planned. Recommend consultation to general surgery. Otherwise, medical management will be deferred to the aforementioned specialist. Maintain n.p.o. status for now. 3. History of hypertension/hyperlipidemia/iron deficiency anemia/GERD/seasonal allergic rhinitis/ROSHNI (not on therapy) Complicates care, management, recovery and prognosis. Continue home medications as indicated. This note was generated with [employer] dictation software. It may contain incorrect words, spelling, and punctuation that were not noted in checking the note before signing. HPI Consult Data Date of Consult: 10/17/24 HPI Narrative Reason for Consultation: Hypoxemia HPI Narrative: The patient is a 79-year-old female, with a history as outlined below, who presented to the emergency department on October 16 with abdominal pain, nausea, vomiting and diarrhea of approximately 24 hours duration. The patient has a known history of peripheral vascular disease, iron deficiency anemia and GERD. The patient denies a smoking history. She does not utilize supplemental oxygen at her baseline. She does report that she was previously diagnosed with sleep apnea, but has never utilized any form of nocturnal PAP therapy. She denies a history of venous thromboembolic disease. On presentation to the emergency department, the patient was documented to be afebrile and hemodynamically stable. She was initially documented to be saturating 92% on room air. Initial laboratory evaluation revealed a white blood cell count of 27,000. Chemistry profile was unrevealing. Lactate was within normal limits. Total bilirubin was elevated at 1.6 with normal Hepatic profile. Lipase was within normal limits. TSH was within normal limits. CT abdomen/pelvis demonstrated findings concerning for acute cholecystitis with possible choledocholithiasis. Incidental note was made of a right lower lobe consolidation versus atelectasis. The patient received supplemental IV fluids and was started on antimicrobials. Consultation was placed to gastroenterology. REPLACED BY [facility] Medical History Pain of right clavicle Right shoulder strain Lumbar strain Thoracic myofascial strain Cervical strain Scalp contusion Right wrist sprain Home Medications ?Medication ?Instructions ?Recorded ?Last Taken ?Type ascorbic acid (vitamin C) 500 mg 500 mg PO DAILY@0800 09/16/14 Unknown History tablet (Vitamin C) cholecalciferol (vitamin D3) 25 2,000 unit PO DAILY 09/16/14 Unknown History mcg (1,000 unit) tablet (Vitamin D3) cyanocobalamin (vitamin B-12) 500 1,000 mcg PO DAILY@0800 09/16/14 Unknown History mcg tablet fish oil-vit E-fat acids 1 ea PO DAILY 09/16/14 Unknown History comb.5-herbal comb. 137 400 mg-5 unit capsule (Flax, Fish and Borage Oil) iron, carbonyl 45 mg tablet 65 mg PO DAILYCM 09/16/14 Unknown History (Feosol) lansoprazole 30 mg capsule,delayed 30 mg PO DAILY 09/16/14 Unknown History release (Prevacid) montelukast 10 mg tablet 10 mg PO DAILY 01/18/23 Unknown History (Singulair) montelukast 10 mg tablet 10 mg PO QPM #20 tabs 10/12/23 Unknown Rx cetirizine 10 mg tablet 10 mg PO DAILY 10/16/24 Unknown History lidocaine 5 % topical patch 1 patch topical DAILY 10/16/24 Unknown History pentoxifylline 400 mg 400 mg PO BID 10/16/24 Unknown History tablet,extended release rifaximin 550 mg tablet (Xifaxan) 550 mg PO TID 10/16/24 Unknown History rosuvastatin 10 mg tablet 10 mg PO QHS 10/16/24 Unknown History Allergy/AdvReac Type Severity Reaction Status Date / Time No Known Allergies Allergy Verified 10/16/24 17:37 Social History Smoking Status: Never smoker ROS ROS Narrative 10 systems were reviewed with pertinent positives as noted in the HPI above. Physical Exam Const alert and no apparent distress General Appearance: cooperative HEENT normocephalic and head/scalp atraumatic HEENT Narrative: Dry mucous membranes. Eyes EOMs intact bilaterally and conjunctivae normal Neck supple General: trachea midline Chest inspection of chest normal Resp normal respiratory effort Auscultation: diminished lung sounds; Negative for rales, rhonchi or wheezes Cardio regular rate and regular rhythm GI Palpation: tender; Negative for guarding or rigid Extremity no clubbing, cyanosis or edema Skin no rashes or lesions noted Neuro CN's II-XII intact bilaterally, moves all extremities and no focal motor deficits Psych cooperative and affect normal Lab / Micro Data 10/16/24 17:53 10/16/24 17:53 Labs: Laboratory Results - last 24 hr 10/16/24 17:53: WBC 27.8 H, RBC 4.89, Hgb 14.5, Hct 44.5, MCV 91.0, MCH 29.7, MCHC 32.6, RDW Std Deviation 45.4 H, RDW Coeff of [place]helle 13.5, Plt Count 280, MPV 10.0, Immature Gran % (Auto) 1.800 H, Neut % (Auto) 90.1 H, Lymph % (Auto) 3.5 L , [place] % (Auto) 4.1, Eos % (Auto) 0.3, Baso % (Auto) 0.2, Absolute Neuts (auto) 25.1 H, Absolute Lymphs (auto) 0.98, Nucleated RBC % 0, Toxic Vacuolation 2+, Platelet Estimate ADEQUATE, RBC Morphology NORM C+C, Sodium 133 L, Potassium 3.6, Chloride 100, Carbon Dioxide 25.0, Anion Gap 8, BUN 19 H, Creatinine 0.98, Estim Creat Clear Calc 50.56, Est GFR (MDRD) Af Amer 71, Est GFR (MDRD) Non-Af 58 L, BUN/Creatinine Ratio 19.4, Glucose 133 H, Calcium 9.9, Total Bilirubin 1.60 H, AST 33, ALT 26, Alkaline Phosphatase 94, Total Protein 7.8, Albumin 3.6, Globulin 4.2, Albumin/Globulin Ratio 0.9, Lipase 19, TSH 0.634 10/16/24 22:35: Lactic Acid 1.1 Imaging Radiology Impression Abdomen/Pelvis CT 10/16/24 18:00 IMPRESSION: Findings suspicious for acute cholecystitis and possible choledocholithiasis. Recommend MRCP. Reactive colitis involving the hepatic flexure. Right lower lobe consolidation versus atelectasis. Electronically Signed: James Parkinson MD at 19:30 EST , ADDENDUM: 10/16/24 215 IMPRESSION: Findings suspicious for acute cholecystitis and possible choledocholithiasis. Recommend MRCP. Reactive colitis involving the hepatic flexure. Right lower lobe consolidation versus atelectasis. N.B. : Igor Wong MD, confirmed on 10/16/2024 21:44:49 (ET) that the healthcare facility has received the radiology report. Electronically Signed: James Parkinson MD at 19:30 EST , Chest X-Ray 10/16/24 18:00 IMPRESSION: Slight increase in interstitial markings may represent edema and/or infection. Electronically Signed: James Parkinson MD at 20:15 EST , Charges/Coding Visit Charges Inpatient E&M: 06958 Init Hosp L3
[2024-10-17 07:52] LABS: BNP,B-Type NATRIURETIC PEPTIDE 68.8 pg/mL (0-100)
[2024-10-17 08:33] LABS: Procalcitonin 0.65 ng/mL (0.00-0.09)
[2024-10-17] MEDS: fentaNYL 100 MCG/2 ML Ampul 25 MCG IV (08:54)
[2024-10-17 09:04] LABS: Mucous, Urine 0 SEEN /hpf (<or=2+)
[2024-10-17 09:09] LABS: Color, Urine Yellow (Yellow); Glucose, Dipstick Normal (Normal); Ketone-Dipstick 5 mg/dl (Negative); Leukocyte Esterase-Dipstick 100 /ul (Negative); Nitrite-Dipstick Positive (Negative); Occult Blood-Urine 10 /ul (Negative); Protein-Dipstick 30 mg/dl (Negative); Urine Clarity Sl. Cloudy (Clear); Urine Urobilinogen 4 mg/dl (Normal)
[2024-10-17 09:12] LABS: Urine Bilirubin Dipstick 3 mg/dL (Negative)
[2024-10-17 09:15] LABS: Squamous Epithelial Cells - UA 0-5 SEEN /hpf (5-10)
[2024-10-17 09:16] LABS: Bacteria 1+ /hpf (None Seen); Red Blood Cells-Urine 0-5 SEEN /hpf (0-5); White Blood Cells 5-10 SEEN /hpf (0-5)
[2024-10-17] MEDS: Pantoprazole Sodium 40 MG in 0.9% Normal Saline (100mL MB+) 100 ML 330 MG IV (09:51)
--- NOTE | 2024-10-17 10:16 | CASEMGMT ---
ALON MALIK Assessment Face to Face with patient for initial transition planning/care coordination assessment. ALON MALIK introduced self and role at [facility], pt voices understanding. Pt is A&Ox4 and is resting comfortably in the chair and is calm. Care providers, pharmacy, and demographics verified. Admitting dx: Acute Cholecystitis LACE Strata: 2 PCP: Missy Parada Specialists: Sai (PM) Preferred Pharmacy: [facility] Insurance: MCR A/B, [employer] for Life Prescription Benefit: Yes LNOK: Ezio (H), Lisbet Mcclure ([place]) Living Arrangements: Pt lives with her in a single story home with a ramp to enter. Pt states that her is disabled and that she is his primary caregiver. Pt states that her is currently staying at their son's home. ADLs/IADLs: Ind at baseline. However, pt states that she is currently feeling weak. CM to follow. Pt states that her granddaughter can provide support at home if needed. Transportation: Self, daughter. Denies concerns DME: Pt is currently requiring additional oxygen and may qualify for home oxygen use. A verbal list of local in-network DME companies were provided to the pt at this time. Pt prefers [employer]Pt reports that she has access to the following DME that her primarily uses: Lift chair, electrical W/C, manual W/C, shower bench, grab bars, cane, and FWW. HHC/SNF: Denies history or needs. Pt has been to in the past for OP Tx Pt?s goal: Return to PLOF Plan: TBD. Anticipate eventual DC home with oxygen. CM to follow for HH or OP Tx. Pt states that she believes it is too early to tell what she will need at the time of DC. Pt states that she feels weak at this time. Pt is to undergo an ERCP. CM to follow pt progression in the hospital to help determine a safe DC plan moving forward. CM to follow for oxygen qualification. Pt denies further questions or concerns at this time. Suresh Aquino RN, CM
[2024-10-17] MEDS: Vancomycin IV 1,000 MG/200 ML BAG 200 MG IV (11:29)
[2024-10-17] MEDS: 0.9% Normal Saline (1000mL) 1,000 ML 15 ML IV (15:29)
--- NOTE | 2024-10-17 15:34 | PRE.ANES_ITS ---
ASA Classification* ASA Classification ASA Classification: 4 and E Assessment & Plan Anesthesia* Anesthesia Assessment Anesthesia Assessment: Discussed sedation and/or anesthesia options, risks, benefits, and alternatives with patient/parents/legal guardian/POA. Questions invited. The patient/parents/legal guardian/POA seems to understand and agrees to proceed with anesthesia plan. Reviewed the physical assessment, medical history, allergy history and patient home medications list prior to surgery/procedure/anesthetic and documented any changes. Performed airway and anesthesia risk assessments. Anesthesia Type Anesthesia Type: General (Will give patient a DuoNeb breathing treatment preop. I have informed the patient of the possibility of postop intubation since she is on so much oxygen at this time.) History Source History Obtained from:: Patient and Chart Anesthesia Focused Assessment* Temperature: 97.7 F Pulse Rate: 88 Blood Pressure: 136/82 Respiratory Rate: 20 Pulse Ox: 94 Oxygen Delivery Method: Nasal Cannula Oxygen Flow Rate (L/min): 8 Airway Assessment Mouth opens: >3 cm Mallampati Score: III Teeth Condition: Intact Neck Range of motion (ROM): Limited ROM Focused Labs Anesthesia Preop lab: CBC WBC 27.8 K/mm3 (4.4-11.0) H 10/16/24 17:53 RBC 4.89 M/mm3 (4.2-5.4) 10/16/24 17:53 Hgb 14.5 g/dL (12.0-15.0) 10/16/24 17:53 Hct 44.5 % (37-47) 10/16/24 17:53 Plt Count 280 K/mm3 (150-450) 10/16/24 17:53 CHEMISTRY Potassium 3.6 mmol/L (3.5-5.1) 10/16/24 17:53 Sodium 133 mmol/L (136-145) L 10/16/24 17:53 Magnesium 2.1 mg/dL (1.8-2.4) 12/30/15 11:10 BUN 19 mg/dL (7-18) H 10/16/24 17:53 Creatinine 0.98 mg/dL (0.55-1.02) 10/16/24 17:53 Glucose 133 mg/dL (74-106) H 10/16/24 17:53 TSH 0.634 uIU/mL (0.358-3.740) 10/16/24 17:53 COAG Pre-Assessment Diagnosis/Proposed Procedure Planned Operative Procedure(s): Endoscopic retrograde cholangiopancreatography Anesthesia History Anesthesia History - bottom saw operator: Anesthesia History - bottom saw operator Hx Hospitalization Yes 06/11/16 10:21 Any Problems With Anesthesia No 09/16/14 12:35 Cholinesterase deficiency No 09/16/14 12:35 You/Your Family Experience No 09/16/14 12:35 fever (hyperthermia) with Relationship Recent Exposure to Contagious No 10/06/14 07:08 Disease Does patient have nerve stimulator Patient instructed to have device shut off --Does patient have Pacemaker or ICD? When Was Last Pacemaker Check QUESTION #4 FULL TEXT: You/Your Family Experience fever (hyperthermia) with Anesthesia Last Oral Intake Last Oral intake: Last Oral Intake NPO since Meds taken in AM with sips of water? Meds patient instructed to take am of surgery Any additional information?: Yes NPO since: 00:00 PONV PONV - bottom saw operator: PONV - bottom saw operator Female HX of Motion Sickness HX of N/V After Surgery Non-Smoker Duration of Surgery greater than 60 minutes Number of Risk Factors PONV Score Height & Weight Height & Weight: Anesthesia: Height & Weight Height 5 ft 2 in 10/17/24 10:14 Weight: 97.1 kg 10/17/24 10:14 Body Mass Index (BMI) 39.1 10/17/24 05:59 Respiratory Assessment Respiratory Assessment - bottom saw operator: Respiratory Tract Infection Hx - bottom saw operator Hx Respiratory Tract Infection No 09/16/14 12:35 Any additional information?: Yes Hx Respiratory Tract Infection: Yes (Not been diagnosed with respiratory infection. However she is on 8 L nasal) STOP Sleep Apnea STOP Sleep Apnea - bottom saw operator: STOP Sleep Apnea - bottom saw operator Hx Hypertension Yes 10/17/24 11:51 Hx Sleep Apnea Yes 10/16/24 21:31 CPAP No 10/16/24 21:31 BIPAP No 10/16/24 21:31 Do you snore loudly (louder than talking or can be heard Do you often feel tired/ fatigued/ sleepy during daytime? Has anyone observed you stop breathing during sleep? STOP Results Positive 10/16/24 21:31 QUESTION #5 FULL TEXT : Do you snore loudly (louder than talking or can be heard through closed doors)? 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 Specify any problems Hx of Preganancy in last 3 No 10/16/24 21:31 Months Nurse Filling Out Transfusion [id number] 10/16/24 21:31 & Questions: Date: 10/16/24 10/16/24 21:31 Time: 21:41 10/16/24 21:31 Patient unable to answer at this time (ie. confused, unrespo /Reproduction History /Reproductive History - bottom saw operator: /Reproductive Hx- bottom saw operator Hx Now Gestational Age (in weeks): EDC: Hx Hx Para Hx Section SAB Active Medications Active Medications: Current Medications Generic Name Dose Route Start Last Admin Trade Name Freq PRN Reason Stop Dose Admin Diphenhydramine HCl 25 mg 10/17/24 01:45 Diphenhydramine 50 Mg/Ml Syringe IV Q4H PRN PRN ALLERGIES Fentanyl Citrate 25 mcg 10/17/24 08:34 10/17/24 08:54 Fentanyl 100 Mcg/2 Ml Ampul IV 25 mcg Q3H PRN PRN Administration pain 4-10 Vancomycin IV-PHARMACY TO DOSE 500 mls @ 250 mls/hr 10/16/24 21:12 1 each/ Sodium Chloride IV PRN PRN Rx to Dose Protocol Piperacillin Sod/Tazobactam 50 mls @ 12.5 mls/hr 10/17/24 06:00 10/17/24 13:02 Sod 3.375 gm/ Sodium Chloride IV 12.5 mls/hr Q8 ARIELA Administration Pantoprazole Sodium 40 mg/ 110 mls @ 330 mls/hr 10/16/24 21:12 10/17/24 10:17 Sodium Chloride IV Infused Q24 ARIELA Infusion Sodium Chloride 100 mls @ 15 mls/hr 10/16/24 23:15 IV .Q6H40M PRN Saline Flush Sodium Chloride 100 mls @ 15 mls/hr 10/16/24 23:15 IV .Q6H40M PRN Additional IVPB Infusion Vancomycin HCl 1,000 mg in 200 mls @ 200 mls/hr 10/17/24 11:30 10/17/24 12:58 Vancomycin IV Infused Q12H ARIELA Infusion Sodium Chloride 1,000 mls @ 15 mls/hr 10/17/24 15:25 10/17/24 15:29 IV 10/23/24 04:44 15 mls/hr .Q48H ARIELA Administration Protocol Ondansetron HCl 4 mg 10/16/24 21:12 Ondansetron 4 Mg/2 Ml Vial IV Q6H PRN PRN NAUSEA/VOMITING Promethazine HCl 12.5 mg 10/16/24 21:12 Promethazine 25 Mg/Ml Syringe IM Q4H PRN PRN BREAKTHROUGH NAUSEA Sodium Chloride 10 - 40 ml 10/16/24 23:15 10/17/24 05:37 0.9% Saline Lock 10 Ml Syringe IV 20 ml UD PRN Administration SALINE FLUSH Vancomycin Protocol 1 lab 10/18/24 09:00 Vancomycin Trough/Random Due 10/18/24 13:00 DAILY [facility] Medical History (Updated 10/17/24 @ 01:[address] Deshaun Kumar, DO) Pain of right clavicle Right shoulder strain Lumbar strain Thoracic myofascial strain Cervical strain Scalp contusion Right wrist sprain Home Medications ?Medication ?Instructions ?Recorded ?Last Taken ?Type ascorbic acid (vitamin C) 500 mg 500 mg PO DAILY@0800 09/16/14 Unknown History tablet (Vitamin C) cholecalciferol (vitamin D3) 25 2,000 unit PO DAILY 09/16/14 Unknown History mcg (1,000 unit) tablet (Vitamin D3) cyanocobalamin (vitamin B-12) 500 1,000 mcg PO DAILY@0800 09/16/14 Unknown History mcg tablet fish oil-vit E-fat acids 1 ea PO DAILY 09/16/14 Unknown History comb.5-herbal comb. 137 400 mg-5 unit capsule (Flax, Fish and Borage Oil) iron, carbonyl 45 mg tablet 65 mg PO DAILYCM 09/16/14 Unknown History (Feosol) lansoprazole 30 mg capsule,delayed 30 mg PO DAILY 09/16/14 Unknown History release (Prevacid) montelukast 10 mg tablet 10 mg PO DAILY 01/18/23 Unknown History (Singulair) montelukast 10 mg tablet 10 mg PO QPM #20 tabs 10/12/23 Unknown Rx cetirizine 10 mg tablet 10 mg PO DAILY 10/16/24 Unknown History lidocaine 5 % topical patch 1 patch topical DAILY 10/16/24 Unknown History pentoxifylline 400 mg 400 mg PO BID 10/16/24 Unknown History tablet,extended release rifaximin 550 mg tablet (Xifaxan) 550 mg PO TID 10/16/24 Unknown History rosuvastatin 10 mg tablet 10 mg PO QHS 10/16/24 Unknown History Allergy/AdvReac Type Severity Reaction Status Date / Time No Known Allergies Allergy Verified 10/16/24 17:37 Surgical History (Updated 10/17/24 @ 15:[address] Teo Ragland MD) S/P correction of deviated nasal septum S/P total knee arthroplasty Social History Smoking Status: Never smoker Review of Systems (Anesthesia) ROS Narrative System reviewed and no additional complaints, except as documented.
[2024-10-17] MEDS: Ipratropium/Albuterol Sulfate 3 ML AMPUL.NEB INHALATION (15:52)
--- NOTE | 2024-10-17 16:31 | EX.PCM.CON.S ---
Assessment & Plan Assessment/Plan (1) RUQ pain: PLAN: Plan The patient is a 79-year-old female who presented to the emergency department last night with abdominal pain, nausea, vomiting and diarrhea. It was suspected that she had acute cholecystitis along with choledocholithiasis. She is to undergo ERCP today. There was some concern about possible pneumonia. Given the clinical picture, it seems as though she would best benefit from ERCP and relieving any common bile duct stone that may be present. Most likely she would benefit from cholecystectomy but timing is to be determined on her tolerance of anesthesia with the ERCP as well as her pulmonary status. I will be off service until October 28. Dr. Pepper is on-call this upcoming weekend. We will continue to follow along and advise accordingly HPI Consult Data Date of Consult: 10/17/24 HPI Narrative Reason for Consultation: Cholecystitis and possible choledocholithiasis HPI Narrative: TESSIE BANKS, is a 79 F who presented to the emergency department last evening with about a 2 to 3-day history of abdominal pain, nausea vomiting and diarrhea. Patient has multiple medical problems including anemia, peripheral vascular disease and GERD. She was seen and evaluated by the ER staff. She underwent laboratory testing that revealed a white blood cell count of 27 and her bilirubin was elevated at about 1.6. The rest of her LFTs were unremarkable. CT scan was performed and showed hydrops of the gallbladder with some inflammatory changes and a mildly dilated common bile duct indicating the possibility of choledocholithiasis. Patient was also found to have right lower lobe consolidation versus atelectasis. She was subsequently admitted. Medicine service wished to have her admitted to the ICU. GI was consulted last evening to consider ERCP. General surgery consult was placed this morning for possible cholecystectomy. I was able to see the patient this afternoon and she only had some mild right lateral abdominal discomfort. She states that pushing on this area actually helped improve her pain. She is to undergo ERCP this afternoon [facility] Medical History Pain of right clavicle Right shoulder strain Lumbar strain Thoracic myofascial strain Cervical strain Scalp contusion Right wrist sprain Home Medications ?Medication ?Instructions ?Recorded ?Last Taken ?Type ascorbic acid (vitamin C) 500 mg 500 mg PO DAILY@0800 09/16/14 Unknown History tablet (Vitamin C) cholecalciferol (vitamin D3) 25 2,000 unit PO DAILY 09/16/14 Unknown History mcg (1,000 unit) tablet (Vitamin D3) cyanocobalamin (vitamin B-12) 500 1,000 mcg PO DAILY@0800 09/16/14 Unknown History mcg tablet fish oil-vit E-fat acids 1 ea PO DAILY 09/16/14 Unknown History comb.5-herbal comb. 137 400 mg-5 unit capsule (Flax, Fish and Borage Oil) iron, carbonyl 45 mg tablet 65 mg PO DAILYCM 09/16/14 Unknown History (Feosol) lansoprazole 30 mg capsule,delayed 30 mg PO DAILY 09/16/14 Unknown History release (Prevacid) montelukast 10 mg tablet 10 mg PO DAILY 01/18/23 Unknown History (Singulair) montelukast 10 mg tablet 10 mg PO QPM #20 tabs 10/12/23 Unknown Rx cetirizine 10 mg tablet 10 mg PO DAILY 10/16/24 Unknown History lidocaine 5 % topical patch 1 patch topical DAILY 10/16/24 Unknown History pentoxifylline 400 mg 400 mg PO BID 10/16/24 Unknown History tablet,extended release rifaximin 550 mg tablet (Xifaxan) 550 mg PO TID 10/16/24 Unknown History rosuvastatin 10 mg tablet 10 mg PO QHS 10/16/24 Unknown History Allergy/AdvReac Type Severity Reaction Status Date / Time No Known Allergies Allergy Verified 10/16/24 17:37 Surgical History S/P correction of deviated nasal septum S/P total knee arthroplasty Social History Smoking Status: Never smoker ROS Eyes Eyes: Reports systems reviewed and no addt'l complaints, except as documented ENT HEENT: Reports systems reviewed and no addt'l complaints, except as documented Cardiovascular Cardiovascular: Reports systems reviewed and no addt'l complaints, except as documented Respiratory/Chest Respiratory/Chest: Reports systems reviewed and no addt'l complaints, except as documented Gastrointestinal Gastrointestinal: Reports systems reviewed and no addt'l complaints, except as documented Genitourinary Genitourinary: Reports systems reviewed and no addt'l complaints, except as documented Musculoskeletal Musculoskeletal: Reports systems reviewed and no addt'l complaints, except as documented Neurologic Neurologic: Reports systems reviewed and no addt'l complaints, except as documented Physical Exam Narrative She is awake and alert. She is wearing supplemental oxygen. She did not appear to be in acute distress but did not necessarily appear healthy appearing Abdomen is soft and obese. Mild right upper quadrant pain and pain along the right lateral abdomen. No rebound or guarding Lab / Micro Data 10/16/24 17:53 10/16/24 17:53 Labs: Laboratory Results - last 24 hr 10/16/24 17:53: WBC 27.8 H, RBC 4.89, Hgb 14.5, Hct 44.5, MCV 91.0, MCH 29.7, MCHC 32.6, RDW Std Deviation 45.4 H, RDW Coeff of [place]hel[place] 13.5, Plt Count 280, MPV 10.0, Immature Gran % (Auto) 1.800 H, Neut % (Auto) 90.1 H, Lymph % (Auto) 3.5 L, [place] % (Auto) 4.1, Eos % (Auto) 0.3, Baso % (Auto) 0.2, Absolute Neuts (auto) 25.1 H, Absolute Lymphs (auto) 0.98, Nucleated RBC % 0, Toxic Vacuolation 2+, Platelet Estimate ADEQUATE, RBC Morphology NORM C+C, Sodium 133 L, Potassium 3.6, Chloride 100, Carbon Dioxide 25.0, Anion Gap 8, BUN 19 H, Creatinine 0.98, Estim Creat Clear Calc 50.56, Est GFR (MDRD) Af Amer 71, Est GFR (MDRD) Non-Af 58 L, BUN/Creatinine Ratio 19.4, Glucose 133 H, Calcium 9.9, Total Bilirubin 1.60 H, AST 33, ALT 26, Alkaline Phosphatase 94, Total Protein 7.8, Albumin 3.6, Globulin 4.2, Albumin/Globulin Ratio 0.9, Lipase 19, TSH 0.634 10/16/24 22:35: Lactic Acid 1.1 10/17/24 07:20: B-Natriuretic Peptide 68.8, Procalcitonin 0.65 H 10/17/24 08:45: Urine Color Yellow, Urine Clarity Sl. Cloudy, Urine pH 5.0, Ur Specific [place] 1.020, Urine Protein 30 H, Urine Glucose (UA) Normal, Urine Ketones 5 H, Urine Occult Blood 10 H, Urine Nitrite Positive H, Urine Bilirubin 3 H, Urine Urobilinogen 4 H, Ur Leukocyte Esterase 100 H, Urine RBC 0-5 SEEN, Urine WBC 5-10 SEEN, Ur Squamous Epith Cells 0-5 SEEN, Urine Bacteria 1+, Urine Mucus 0 SEEN Micro: Microbiology 10/17/24 07:50 Mucosa - Nasopharyngeal Respiratory Panel (PCR) - Final 10/17/24 08:45 Urine, Clean Catch Legionella Antigen - Final 10/17/24 08:45 Urine, Clean Catch Streptococcus pneumoniae Antigen (M - Final 10/17/24 07:50 Nasal Secretion MRSA (PCR) - Final 10/17/24 07:50 Mucosa - Nose SARS-CoV-2, Influenza & RSV (PCR) - Final Imaging Radiology Impression Abdomen/Pelvis CT 10/16/24 18:00 IMPRESSION: Findings suspicious for acute cholecystitis and possible choledocholithiasis. Recommend MRCP. Reactive colitis involving the hepatic flexure. Right lower lobe consolidation versus atelectasis. Electronically Signed: James Parkinson MD at 19:30 EST Reading Location ID and State: [id number] / [place] Tel , Service support , ADDENDUM: 10/16/24 2151 IMPRESSION: Findings suspicious for acute cholecystitis and possible choledocholithiasis. Recommend MRCP. Reactive colitis involving the hepatic flexure. Right lower lobe consolidation versus atelectasis. N.B. : Igor Wong MD, confirmed on 10/16/2024 21:44:49 (ET) that the healthcare facility has received the radiology report. Electronically Signed: James Parkinson MD at 19:30 EST , Chest X-Ray 10/16/24 18:00 IMPRESSION: Slight increase in interstitial markings may represent edema and/or infection. Electronically Signed: James Parkinson MD at 20:15 EST Reading Location ID and State: [employer] / [place] Tel , Service support , Charges/Coding Visit Charges Inpatient E&M: 12434 Init Hosp L3
--- NOTE | 2024-10-17 16:33 | EX.PCM.CON.G ---
HPI Consult Data Date of Consult: 10/17/24 HPI Narrative Reason for Consultation: choledocholthiasis HPI Narrative: 79 F with a past medical history of hyperlipidemia; on rosuvastatin, obesity; with BMI of 36.9 this admission, PVD; on pentoxifylline, MERARI; on iron carbonyl, GERD; on lansoprazole, history of UTI, seasonal allergies; on cetirizine and montelukast, history of cervical and thoracic myofascial strain with Right shoulder strain after fall (03/2024) and OA who presents to [facility] ER complaining of RUQ pain with nausea, vomiting and diarrhea. Mrs. Colmenares reports her symptoms began approximately 3 days prior to admission with a gradual-onset of nausea followed by bilious emesis complicated by development of nonbloody diarrhea over the past 24 hours. She has also noted intermittent Right upper quadrant pain that is severe and is made better or worse by nothing. She denies a history of previous abdominal surgeries or similar episodes. She also denies associated fever, chills, blood in emesis, blood in stools, chest pain or shortness of breath. In the ER she was noted to have CT evidence of Acute Cholecystitis along with suspected Choledocholithiasis and Right lower lobe infiltrate versus atelectasis consistent with possible Pneumonia complicated by laboratory evidence of possible early sepsis with Leukocytosis of 27.8K along with Left-shift of 1.8% with mild hyperbilirubinemia of 1.6 mg/dL [facility] Medical History Pain of right clavicle Right shoulder strain Lumbar strain Thoracic myofascial strain Cervical strain Scalp contusion Right wrist sprain Home Medications ?Medication ?Instructions ?Recorded ?Last Taken ?Type ascorbic acid (vitamin C) 500 mg 500 mg PO DAILY@0800 09/16/14 Unknown History tablet (Vitamin C) cholecalciferol (vitamin D3) 25 2,000 unit PO DAILY 09/16/14 Unknown History mcg (1,000 unit) tablet (Vitamin D3) cyanocobalamin (vitamin B-12) 500 1,000 mcg PO DAILY@0800 09/16/14 Unknown History mcg tablet fish oil-vit E-fat acids 1 ea PO DAILY 09/16/14 Unknown History comb.5-herbal comb. 137 400 mg-5 unit capsule (Flax, Fish and Borage Oil) iron, carbonyl 45 mg tablet 65 mg PO DAILYCM 09/16/14 Unknown History (Feosol) lansoprazole 30 mg capsule,delayed 30 mg PO DAILY 09/16/14 Unknown History release (Prevacid) montelukast 10 mg tablet 10 mg PO DAILY 01/18/23 Unknown History (Singulair) montelukast 10 mg tablet 10 mg PO QPM #20 tabs 10/12/23 Unknown Rx cetirizine 10 mg tablet 10 mg PO DAILY 10/16/24 Unknown History lidocaine 5 % topical patch 1 patch topical DAILY 10/16/24 Unknown History pentoxifylline 400 mg 400 mg PO BID 10/16/24 Unknown History tablet,extended release rifaximin 550 mg tablet (Xifaxan) 550 mg PO TID 10/16/24 Unknown History rosuvastatin 10 mg tablet 10 mg PO QHS 10/16/24 Unknown History Allergy/AdvReac Type Severity Reaction Status Date / Time No Known Allergies Allergy Verified 10/16/24 17:37 Surgical History S/P correction of deviated nasal septum S/P total knee arthroplasty Social History Smoking Status: Never smoker ROS Constitutional Constitutional: Denies fatigue, fever(s), poor appetite, weight gain or weight loss Gastrointestinal Gastrointestinal: Denies belching, bloating, change in bowel habits, change in stool character, chewing difficulty, coffee ground emesis, constipation, cramping, diarrhea, dyspepsia, dysphagia, early satiety, excessive flatus, fecal incontinence, heartburn, hematemesis, hematochezia, hemorrhoids, loose stools, melena, nausea, odynophagia, rectal bleeding, tenesmus, vomiting or weight changes Physical Exam Const alert, oriented x3, no apparent distress and healthy appearing General Appearance: cooperative GI normal to inspection, nondistended, normoactive bowel sounds, soft to palpation, non-tender and non-distended Percussion: normal to percussion Rectal Exam: deferred Lab / Micro Data 10/16/24 17:53 10/16/24 17:53 Labs: Laboratory Results - last 24 hr 10/16/24 17:53: WBC 27.8 H, RBC 4.89, Hgb 14.5, Hct 44.5, MCV 91.0, MCH 29.7, MCHC 32.6, RDW Std Deviation 45.4 H, RDW Coeff of [place] 13.5, Plt Count 280, MPV 10.0, Immature Gran % (Auto) 1.800 H, Neut % (Auto) 90.1 H, Lymph % (Auto) 3.5 L, [place] % (Auto) 4.1, Eos % (Auto) 0.3, Baso % (Auto) 0.2, Absolute Neuts (auto) 25.1 H, Absolute Lymphs (auto) 0.98, Nucleated RBC % 0, Toxic Vacuolation 2+, Platelet Estimate ADEQUATE, RBC Morphology NORM C+C, Sodium 133 L, Potassium 3.6, Chloride 100, Carbon Dioxide 25.0, Anion Gap 8, BUN 19 H, Creatinine 0.98, Estim Creat Clear Calc 50.56, Est GFR (MDRD) Af Amer 71, Est GFR (MDRD) Non-Af 58 L, BUN/Creatinine Ratio 19.4, Glucose 133 H, Calcium 9.9, Total Bilirubin 1.60 H, AST 33, ALT 26, Alkaline Phosphatase 94, Total Protein 7.8, Albumin 3.6, Globulin 4.2, Albumin/Globulin Ratio 0.9, Lipase 19, TSH 0.634 10/16/24 22:35: Lactic Acid 1.1 10/17/24 07:20: B-Natriuretic Peptide 68.8, Procalcitonin 0.65 H 10/17/24 08:45: Urine Color Yellow, Urine Clarity Sl. Cloudy, Urine pH 5.0, Ur Specific [place] 1.020, Urine Protein 30 H, Urine Glucose (UA) Normal, Urine Ketones 5 H, Urine Occult Blood 10 H, Urine Nitrite Positive H, Urine Bilirubin 3 H, Urine Urobilinogen 4 H, Ur Leukocyte Esterase 100 H, Urine RBC 0-5 SEEN, Urine WBC 5-10 SEEN, Ur Squamous Epith Cells 0-5 SEEN, Urine Bacteria 1+, Urine Mucus 0 SEEN Micro: Microbiology 10/17/24 07:50 Mucosa - Nasopharyngeal Respiratory Panel (PCR) - Final 10/17/24 08:45 Urine, Clean Catch Legionella Antigen - Final 10/17/24 08:45 Urine, Clean Catch Streptococcus pneumoniae Antigen (M - Final 10/17/24 07:50 Nasal Secretion MRSA (PCR) - Final 10/17/24 07:50 Mucosa - Nose SARS-CoV-2, Influenza & RSV (PCR) - Final Imaging Radiology Impression Abdomen/Pelvis CT 10/16/24 18:00 IMPRESSION: Findings suspicious for acute cholecystitis and possible choledocholithiasis. Recommend MRCP. Reactive colitis involving the hepatic flexure. Right lower lobe consolidation versus atelectasis. Electronically Signed: James Parkinson MD at 19:30 EST , ADDENDUM: 10/16/24 215 IMPRESSION: Findings suspicious for acute cholecystitis and possible choledocholithiasis. Recommend MRCP. Reactive colitis involving the hepatic flexure. Right lower lobe consolidation versus atelectasis. N.B. : Igor Wong MD, confirmed on 10/16/2024 21:44:49 (ET) that the healthcare facility has received the radiology report. Electronically Signed: James Parkinson MD at 19:30 EST , Chest X-Ray 10/16/24 18:00 IMPRESSION: Slight increase in interstitial markings may represent edema and/or infection. Electronically Signed: James Parkinson MD at 20:15 EST , Assessment & Plan Assessment/Plan (1) Acute cholecystitis due to biliary calculus: (2) Hyperbilirubinemia: (3) Pneumonia: QUALIFIERS: Pneumonia type: due to unspecified organism Laterality: right Lung location: lower lobe of lung Qualified Code(s): J18.9 - Pneumonia, unspecified organism (4) Sepsis: QUALIFIERS: Sepsis type: sepsis due to unspecified organism Sepsis acute organ dysfunction status: without acute organ dysfunction Qualified Code(s): A41.9 - Sepsis, unspecified organism (5) RUQ pain: (6) Nausea vomiting and diarrhea: (7) Obesity (BMI 30-39.9): PLAN: Plan 79yo with abdominal pain and CT evidence of Acute Cholecystitis along with suspected Choledocholithiasis and Right lower lobe infiltrate versus atelectasis consistent with possible Pneumonia complicated by laboratory evidence of possible early Sepsis with Leukocytosis of 27.8K along with Left-shift of 1.8% with mild Hyperbilirubinemia of 1.6 mg/dL. CT imaging displays dilated common bile duct along with suspected choledocholithiasis. She should undergo therapeutic ERCP with stone removal and stent placement. She was explained alternatives, benefits, risk including not withstanding bleeding, infection, sepsis, perforation, need for emergent urgent . She will have an ASA of 3. Recommended continue antibiotic therapy as previously started in the ER. Charges/Coding Visit Charges Inpatient E&M: 46344 Init Hosp L3
--- NOTE | 2024-10-17 17:25 | RAD_ITS ---
ERCP INDICATION: Abdominal pain. TECHNIQUE: 2:16 minutes of fluoroscopy of the M was utilized for urine during ERCP and 12 images were obtained in spite of for interpretation. FINDINGS: Balloon sphincterotomy was performed and a biliary stent was placed. RAD/ERCP Biliary/Pancreas IMPRESSION: Fluoroscopy during ERCP, balloon sphincterotomy, and stent placement. Electronically Signed: Jesse Suh MD at 9:02 EST ,
--- NOTE | 2024-10-17 18:02 | OP.CCLET_ITS ---
10/17/2024 Missy Parada [address] [place] [address] [place] [address] Re : ERCP procedure for Clara Colmenaers Dear Dr. Parada This procedure was performed on September. My impressions and recommendations are as follows: Impressions : - The entire main bile duct was dilated, with a stone causing an obstruction. - Choledocholithiasis was found. Complete removal was accomplished by biliary sphincterotomy and balloon extraction. - A biliary sphincterotomy was performed. - The biliary tree was swept. - The upper third of the main bile duct, common bile duct, the right main hepatic duct and major papilla were successfully dilated. - One temporary stent was placed into the common bile duct. Recommendations : My findings are described in the full procedure note, which is enclosed. If I can be of further assistance, please feel free to contact me at . Sincerely, Thom Zuniga, 10/17/2024 6:01:10 PM This report has been signed electronically.
--- NOTE | 2024-10-17 18:02 | OP.ERCP_ITS ---
Patient Name: Clara Colmenares Procedure Date: 10/17/2024 4:00 PM Date of : 1945 Age: 79 Procedure: ERCP Indications: Bile duct stone(s), Jaundice Providers: Thom Zuniga DO Medicines: General Anesthesia Patient Profile: This is a 79 year old female. Refer to note in patient chart for documentation of history and physical. Patient has symptoms of acute right upper quadrant abdominal pain and acute jaundice. This patient has no history of previous ERCP. This patient has no history of surgical alteration of the upper digestive tract anatomy. Previously obtained CT showed a stone in the biliary tree. Complications: No immediate complications. Procedure: Pre-Anesthesia Assessment: - Prior to the procedure, a History and Physical was performed, and patient medications and allergies were reviewed. The patient is competent. The risks and benefits of the procedure and the sedation options and risks were discussed with the patient. All questions were answered and informed consent was obtained. Patient identification and proposed procedure were verified by the physician in the pre-procedure area. Mental Status Examination: alert and oriented. Airway Examination: normal oropharyngeal airway and neck mobility. Respiratory Examination: clear to auscultation. CV Examination: normal. Prophylactic Antibiotics: The patient does not require prophylactic antibiotics. Prior Anticoagulants: The patient has taken no anticoagulant or antiplatelet agents except for NSAID medication. ASA Grade Assessment: III - A patient with severe systemic disease. After reviewing the risks and benefits, the patient was deemed in satisfactory condition to undergo the procedure. The anesthesia plan was to use general anesthesia. Immediately prior to administration of medications, the patient was re-assessed for adequacy to receive sedatives. The heart rate, respiratory rate, oxygen saturations, blood pressure, adequacy of pulmonary ventilation, and response to care were monitored throughout the procedure. The physical status of the patient was re-assessed after the procedure. After obtaining informed consent, the scope was passed under direct vision. Throughout the procedure, the patient's blood pressure, pulse, and oxygen saturations were monitored continuously. The Duodenoscope was introduced through the mouth, and advanced to the duodenum and used to inject contrast into the bile duct. The ERCP was accomplished without difficulty. The patient tolerated the procedure well. Scope In: 5:25:17 PM Scope Out: 5:49:20 PM Total Procedure Duration Time 0 hours 24 minutes 3 seconds Findings: The tribal judge film was normal. The esophagus was successfully intubated under direct vision. The scope was advanced to a normal major papilla in the descending duodenum without detailed examination of the pharynx, larynx and associated structures, and upper GI tract. The upper GI tract was grossly normal. A long 0.025 inch Jagwire was passed into the biliary tree. The short-nosed traction sphincterotome was passed over the guidewire and the bile duct was then deeply cannulated. Contrast was injected. I personally interpreted the bile duct images. There was brisk flow of contrast through the ducts. Image quality was adequate. Contrast extended to the biliary pancreatic junction. Contrast extended to the main bile duct. Contrast extended to the bifurcation. Contrast extended to the hepatic ducts. Contrast extended to the entire biliary tree. Opacification of the entire biliary tree except for the cystic duct and gallbladder, entire biliary tree except for the gallbladder, biliary pancreatic junction, lower third of the main bile duct, middle third of the main bile duct, upper third of the main bile duct, main bile duct, common bile duct, common hepatic duct, hepatic duct bifurcation, left and right hepatic ducts and all intrahepatic branches and entire biliary tree was successful. The maximum diameter of the ducts was 14 mm. The lower third of the main bile duct, common bile duct and left main hepatic duct contained three stones, the largest of which was 6 mm in diameter. The main bile duct was diffusely dilated, with a stone causing an obstruction. The largest diameter was 14 mm. A 5 mm biliary sphincterotomy was made with a monofilament traction (standard) sphincterotome using ERBE electrocautery. There was no post-sphincterotomy bleeding. The biliary tree was swept with a 15 mm balloon starting at the upper third of the main bile duct, middle third of the main bile duct, lower third of the main duct, bifurcation, left intrahepatic duct(s), left main hepatic duct, right intrahepatic duct(s) and right main hepatic duct. Sludge was swept from the duct. All stones were removed. Dilation of the upper third of the main bile duct, common bile duct, the right main hepatic duct and major papilla with a 10-11-12 mm balloon (to a maximum balloon size of 12 mm) dilator was successful. One 10 Fr by 7 cm temporary stent with two external flaps and a single internal flap was placed 5 cm into the common bile duct. Bile flowed through the stent. The stent was in good position. Impression: - The entire main bile duct was dilated, with a stone causing an obstruction. - Choledocholithiasis was found. Complete removal was accomplished by biliary sphincterotomy and balloon extraction. - A biliary sphincterotomy was performed. - The biliary tree was swept. - The upper third of the main bile duct, common bile duct, the right main hepatic duct and major papilla were successfully dilated. - One temporary stent was placed into the common bile duct. Procedure Code(s): --- Professional --- 86050, Endoscopic retrograde cholangiopancreatography (ERCP); with placement of endoscopic stent into biliary or pancreatic duct, including pre- and post-dilation and guide wire passage, when performed, including sphincterotomy, when performed, each stent 82565, 59, Endoscopic retrograde cholangiopancreatography (ERCP); with trans-endoscopic balloon dilation of biliary/pancreatic duct(s) or of ampulla (sphincteroplasty), including sphincterotomy, when performed, each duct 84527, 51, Endoscopic retrograde cholangiopancreatography (ERCP); with removal of calculi/debris from biliary/pancreatic duct(s) 94451, 26, Endoscopic catheterization of the biliary ductal system, radiological supervision and interpretation CPT copyright 2021 [employer]. All rights reserved. The codes documented in this report are preliminary and upon cook jelly review may be revised to meet current compliance requirements. Thom Zuniga DO 10/17/2024 6:01:10 PM This report has been signed electronically. Number of Addenda: 0 Note Initiated On: 10/17/2024 4:00 PM
--- NOTE | 2024-10-17 18:39 | RAD_ITS ---
INDICATION: ETT placement EXAMINATION/TECHNIQUE: X-RAY - XR Chest 1 View COMPARISON: October 16, 2024 FINDINGS: LINES/DEVICES: Endotracheal tube with tip 35 mm above the hira. LUNGS: Left basilar infiltrate. Possible mild effusions bilaterally. No pneumothorax. MEDIASTINUM AND CARDIOVASCULAR STRUCTURES: Cardiac silhouette not enlarged. Central airways and mediastinal contour are unremarkable. BONES AND SOFT TISSUES: Degenerative changes. RAD/Chest 1 View (Portable) IMPRESSION: Left basilar infiltrate. Possible mild effusions bilaterally. Electronically Signed: Cj John DO at 21:54 EST ,
[2024-10-17] MEDS: Propofol 10MG/Ml 1,000 MG/100 ML Bottle 14.6 MG CONT INF (18:58)
[2024-10-17] MEDS: fentaNYL drip 100 ML 5 MCG CONT INF (18:59)
[2024-10-17 20:28] LABS: Base Excess -6 mmol/L (-2 to +2); Bicarbonate 20.4 mmol/L (22-26); Blood Gas Specimen Type ART; Mode AC; O2 Delivery Device Adult Vent; PEEP 5; PO2 64 mmHG (75-100); RR 14; SITE L Radial; SO2 91 % (95-99); Total Carbon Dioxide 22 mmol/L; pCO2 38.4 mmHg (35-45); pH 7.33 (7.35-7.45)
--- NOTE | 2024-10-17 21:44 | NURSING ---
Patient's Daughter called and requested an update on the patient. Update given and reassurance given. Caller verbalized gratitude for information and stated they may call again on this RN's shift. RN acknowledged and wished caller a pleasant evening.
[2024-10-17] MEDS: Chlorhexidine 15 ML PO (22:15)
[2024-10-17] MEDS: CHLORHEXIDINE GLUC 2% CLOTH 1 EACH TOWELETTE TOPICAL (22:16)
[2024-10-18] VITALS (32 sets, daily range): BP systolic 81–115; BP diastolic 48–70; PULSE 50–81; RESP 17–18; TEMP 37.3–37.6; O2SAT 90–100; BMI 38.6
[2024-10-18] MEDS: Vancomycin IV 1,000 MG/200 ML BAG 200 MG IV (00:54)
[2024-10-18] MEDS: Propofol 10MG/Ml 1,000 MG/100 ML Bottle 11.7 MG CONT INF ×2 (00:55→08:07)
[2024-10-18 03:15] LABS: Base Excess -3 mmol/L (-2 to +2); Bicarbonate 21.8 mmol/L (22-26); Blood Gas Specimen Type ART; Mode AC; O2 Delivery Device Adult Vent; PEEP 10; PO2 86 mmHG (75-100); RR 18; SITE L Radial; SO2 97 % (95-99); Total Carbon Dioxide 23 mmol/L; pCO2 34.8 mmHg (35-45)
[2024-10-18] MEDS: Piperacil/Tazobactam 3.375 GM in 0.9% Normal Saline (50mL MB+) 50 ML IV ×3 (04:45→20:22)
[2024-10-18 05:28] LABS: Absolute Neutrophil Count 15.1 X10^3/uL (2.0-7.7); Basophil# 0.02 X10^3/uL; Basophil% 0.1 % (0-1); Hematocrit 34.1 % (37-47); Hemoglobin 11.2 g/dL (12.0-15.0); Lymphocyte % 4.2 % (19-41); Mean Corp Hgb Conc 32.8 g/dL (32-36); Mean Corpuscular Hgb 30.5 pg (27.0-32.0); Mean Corpuscular Volume 92.9 fL (81-99); Mean Platelet Vol. 10.3 fl (6.2-12.0); Monocyte# 0.61 X10^3/uL; Monocyte% 3.7 % (0-10); NRBC Flagged by Analyzer 0 % (0-5); Neutrophil # 15.05 X10^3/uL (2.7-7.7); Neutrophil % 91.3 % (47-70); Platelet Count 202 K/mm3 (150-450); RBC Distribution Width CV 14.2 % (11.6-14.6); RBC Distribution Width SD 48.7 fl (35.1-43.9); Red Blood Count 3.67 M/mm3 (4.2-5.4); White Blood Count 16.5 K/mm3 (4.4-11.0)
[2024-10-18 05:41] LABS: Anion Gap 3 (5-15); BUN 24 mg/dL (7-18); BUN/Creat Ratio 26.5 RATIO (10-20); Calcium,Total 9.1 mg/dL (8.5-10.1); Chloride 109 mmol/L (98-107); EST Glomerular Filtration Rate 64 mL/min (>60); Est Glom Filt Rate - Afr Amer 78 mL/min (>60); Estimated Creatinine Clearance 56.94 ml/min; Glucose 132 mg/dL (74-106); Potassium 3.9 mmol/L (3.5-5.1); Sodium Level 136 mmol/L (136-145)
[2024-10-18 05:54] LABS: CPK Total, Creatine Kinase 36 U/L (26-192); Triglycerides 142 mg/dL
--- NOTE | 2024-10-18 06:32 | PCM.PN.HOSP ---
Reason for Visit Reason for Visit: Diagnoses Sepsis, unspecified organism (10/16/24) Obesity, unspecified (10/16/24) Other disorders of bilirubin metabolism (10/16/24) Pneumonia, unspecified organism (10/16/24) Calculus of gallbladder with acute cholecystitis without obstruction (10/16/24) Right upper quadrant pain (10/16/24) Nausea with vomiting, unspecified (10/16/24) Diarrhea, unspecified (10/16/24) Subjective Subjective Patient status post ERCP the day prior and given her respiratory status was intubated and remained intubated with transition back to the ICU in the evening. Following this per staff tolerated the vent without issue. Patient with soft BP with MAP hovering around 65 but did not seem to drop lower. Overnight Tmax 99 range with no tachycardia evident. Currently nursing denies any acute concerns or events otherwise. No evidence of chills, nausea, emesis, abdominal pain, chest pain or dyspnea but again intubated and sedated. Objective Data Objective Data Vital Signs: Vital Signs Temp Pulse Resp BP Pulse Ox O2 Del Method O2 Flow Rate 99.3 F H 66 18 85/57 L 95 Mechanical Ventilator 8 10/18/24 05:00 10/18/24 06:00 10/18/24 05:00 10/18/24 05:00 10/18/24 05:00 10/18/24 05:00 10/17/24 15:49 FiO2 60 10/18/24 05:00 Oxygen Flow Rate (L/min) 8 Oxygen Delivery Method Mechanical Ventilator Weight: 211 lb 3.245 oz Body Mass Index (BMI) 38.6 Intake & Output: Intake and Output for Last 24 Hours 10/16/24 10/17/24 10/18/24 23:59 23:59 23:59 Intake Total 2210 / 2210 2511.94 / 2526.14 349.40 / 349.40 Output Total 660 / 695 195 / 195 Balance 2210 / 2210 1851.94 / 1831.14 154.40 / 154.40 Lab / Micro Data 10/18/24 05:20 10/18/24 05:20 Labs: Laboratory Results - last 24 hr 10/17/24 07:20: B-Natriuretic Peptide 68.8, Procalcitonin 0.65 H 10/17/24 08:45: Urine Color Yellow, Urine Clarity Sl. Cloudy, Urine pH 5.0, Ur Specific [place] 1.020, Urine Protein 30 H, Urine Glucose (UA) Normal, Urine Ketones 5 H, Urine Occult Blood 10 H, Urine Nitrite Positive H, Urine Bilirubin 3 H, Urine Urobilinogen 4 H, Ur Leukocyte Esterase 100 H, Urine RBC 0-5 SEEN, Urine WBC 5-10 SEEN, Ur Squamous Epith Cells 0-5 SEEN, Urine Bacteria 1+, Urine Mucus 0 SEEN 10/18/24 05:20: WBC 16.5 H, RBC 3.67 L, Hgb 11.2 L, Hct 34.1 L, MCV 92.9, MCH 30.5, MCHC 32.8, RDW Std Deviation 48.7 H, RDW Coeff of [place]hel[place] 14.2, Plt Count 202, MPV 10.3, Immature Gran % (Auto) 0.700, Neut % (Auto) 91.3 H, Lymph % (Auto) 4.2 L, [place] % (Auto) 3.7, Eos % (Auto) 0.0, Baso % (Auto) 0.1, Absolute Neuts (auto) 15.1 H, Absolute Lymphs (auto) 0.70 L, Nucleated RBC % 0, Sodium 136, Potassium 3.9, Chloride 109 H, Carbon Dioxide 24.0, Anion Gap 3 L, BUN 24 H, Creatinine 0.90, Estim Creat Clear Calc 56.94, Est GFR (MDRD) Af Amer 78, Est GFR (MDRD) Non-Af 64, BUN/Creatinine Ratio 26.5 H, Glucose 132 H, Calcium 9.1, Total Creatine Kinase 36, Triglycerides 142 Micro: Microbiology 10/17/24 07:50 Mucosa - Nasopharyngeal Respiratory Panel (PCR) - Final 10/17/24 08:45 Urine, Clean Catch Legionella Antigen - Final 10/17/24 08:45 Urine, Clean Catch Streptococcus pneumoniae Antigen (M - Final 10/17/24 07:50 Nasal Secretion MRSA (PCR) - Final 10/17/24 07:50 Mucosa - Nose SARS-CoV-2, Influenza & RSV (PCR) - Final ABG Data ABG results: ABG 10/17/24 10/18/24 20:23 03:10 Specimen Type ART ART Sample Site L Radial L Radial pH 7.33 L 7.40 Bicarbonate Actual 20.4 L 21.8 L Total CO2 22 23 Base Excess -6 L -3 L O2 Saturation 91 L 97 O2 % 60.0 70.0 ABG pCO2 38.4 34.8 L ABG pO2 64 L 86 Oleg Test N/A N/A Respiration Rate 14 18 O2 Delivery Device Adult Vent Adult Vent Vent Mode AC AC Tidal Volume 450.0 400.0 POC PEEP 5 10 Radiography Diagnostic Testing: Radiology Impression Chest X-Ray 10/17/24 18:39 IMPRESSION: Left basilar infiltrate. Possible mild effusions bilaterally. Electronically Signed: Cj John DO at 21:54 EST Reading Location ID and State: [facility] / [place] Tel [phone], Service support , Physical Exam Narrative Physical Examination: General: Patient laying in the ICU bed, intubated, sedated, not arousable currently, no acute distress. Skin: Normal color, normal turgor, no icterus, no cyanosis except occasional stage ecchymoses. HEENT: AT/NC, EOM unable to be assessed given intubated/sedated status, PERRLA, dry MM, intubated. Lungs: Diminished, greater bases, left greater than right, improved in day prior, intubated, symmetric rise, no rales, ronchi or wheezing. Heart: Regular rate and rhythm; no gallop, rub audible. Abdomen: Soft, morbidly obese, no grimacing with palpation including the right upper quadrant patient is intubated and sedated, no marked distention discerned however habitus makes evaluation difficult. Extremities: No cyanosis, no clubbing, mild ankle to mid chun trace edema. Neurological: Patient laying in the ICU bed, intubated, sedated, not arousable currently, no acute distress, cognitive function not baseline intact; pupils equally reactive to light and accommodation, cranial nerves difficult assess given intubated and sedated status, strength accordingly severely globally decreased Psychiatric: Affect appears flat, sedated, intubated, no acute evidence of depressive or anxiety feelings. Assessment & Plan Assessment/Plan (1) RUQ pain: PLAN: Plan The patient is a 79 y/o F w/ PMHx: CKD stage II per GFR trending, Noted medication rifaximin but unclear reason, HLD, Obesity, PVD, Chronic anemia/Fe deficiency anemia, GERD, Allergic rhinitis who presents to the [facility] ED on 10/16/24 with history of onset right upper quadrant pain, nausea and emesis as well as loose stools with symptoms starting 3 days prior to ED arrival but worsening over the last 24 hours prompting evaluation. #1. Acute choledocholithiasis with acute cholecystitis (initial Hospitalist note with ? possible early sepsis; however, although patient does have leukocytosis and mild hyperbilirubinemia there is no overt endorgan damage to discern sepsis): Patient admitted to the ICU especially given #2, maintained on IV zosyn, maintained on IVFs, NPO, IV/po pain control, trend CBC/CMP, GI and surgery consulted, 10/17/24 ERCP with entire main bile duct dilated with a stone causing obstruction with complete removal via biliary sphincterotomy and balloon extraction, 1 temporary stent placed in the common bile duct. Following ERCP 10/17/24 patient remained intubated. General surgery consulted and following. Eventually patient will need more definitive intervention and given number to whether or not this is cholecystostomy tube versus cholecystectomy will have to be determined. #2. Acute Hypoxic Respiratory Failure secondary to Right lower lobe PNA, higher suspicion given recent history of productive cough, dyspnea: ED evaluation with CXR with slight increase interstitial markings, CT abdomen and pelvis with right lower lobe consolidation versus atelectasis at the bases, initially on low NC requirements, increased in the ICU on high flow, following 10/17/24 ERCP remained intubated, initially maintained on IV vancomycin and IV Zosyn, 10/18/26 MRSA screen negative w/ d/c vanc, rapid SARS COVID/influenza/RSC PCR negative, urine antigens negative, requested sputum culture, full respiratory viral panel negative, BNP 68.8, procalcitonin 0.65. #3. Chronic Kidney Disease Stage II based on GFR trending: Admission BUN/Cr 19/0.98, GFR 58, baseline renal function primarily 0.8-0.9, 10/18/24 BUN/Cr 24/0.9, GFR 64, repeat BMP in AM. #4. PVD: Holding pentoxifylline given planned intervention as noted. #5. Hyperlipidemia: Will hold statin therapy. #6. Chronic anemia/Fe deficiency anemia: Holding iron supplement, admission hemoglobin 14.5, MCV 91, 10/18/24 Hgb 11.2, will continue to trend. #7. Obesity: Weight loss and lifestyle changes encouraged. #8. GERD: Maintained on IV PPI. #9. DVT prophylaxis: SCDs. Charges/Coding Visit Charges Inpatient E&M: 05294 Subs Hosp L3
--- NOTE | 2024-10-18 07:25 | PCM.PN.INT ---
Assessment & Plan Assessment/Plan (1) Acute cholecystitis due to biliary calculus: PLAN: Plan RECOMMENDATIONS: 1. Continue assist-control mode of mechanical ventilation. Wean FiO2 and PEEP as tolerated. 2. Continue propofol and fentanyl for sedation. 3. Obtain CTA chest to rule out pulmonary embolism. 4. Continue empiric antimicrobials. 5. Continue appropriate ICU prophylaxis. IMPRESSIONS: 1. Acute hypoxemic respiratory failure The patient presented to the hospital with symptoms concerning for acute cholecystitis and was subsequently found to be hypoxemic. She has no pre-existing pulmonary diagnoses. She is a lifelong non-smoker. Her chest imaging demonstrated findings concerning for atelectasis versus infiltrate in the right lower lobe. The patient was ultimately placed on antimicrobials. As a consequence of undergoing an ERCP on October 17, the patient was intubated by anesthesia providers. Given that the infiltrate noted on her plain film chest x-ray seems out of proportion to the degree of her hypoxemia, will obtain CTA chest today. In the interim, continue to wean FiO2 and PEEP to maintain saturations at or above 90%. Continue propofol and fentanyl for sedation. Once her oxygenation status has improved, plan to initiate spontaneous awakening and breathing trials. 2. Abdominal pain in the setting of possible acute cholecystitis/choledocholithiasis The patient underwent ERCP on October 17. Complete stone removal was accomplished by biliary sphincterotomy and balloon extraction. A temporary stent was placed in the common bile duct. Both gastroenterology and general surgery are following. 3. History of hypertension/hyperlipidemia/iron deficiency anemia/GERD/seasonal allergic rhinitis/ROSHNI (not on therapy) Complicates care, management, recovery and prognosis. Continue home medications as indicated. TIME: 33 minutes of critical care time, independent of procedures, was spent addressing the patient's acute hypoxemic respiratory failure, acute cholecystitis, review of all data and collaboration with care team. Subjective Subjective The patient was seen and examined at the bedside this morning. Events from the last 24 hours have been reviewed. The patient is currently afebrile, hemodynamically stable and maintaining appropriate oxygen saturations on assist-control mode mechanical ventilation with an FiO2 requirement of 50% and PEEP of 8. The patient was apparently intubated yesterday evening as a consequence of having undergone an ERCP. White blood cell count is elevated at 16,000. Creatinine is within normal limits. Objective Data Objective Data The patient's most recent lab work, culture data and imaging studies have all been personally reviewed. Blood and sputum cultures are pending. Vital Signs: Vital Signs Temp Pulse Resp BP Pulse Ox O2 Del Method O2 Flow Rate 99.2 F H 58 L 18 81/54 L 95 Mechanical Ventilator 8 10/18/24 07:00 10/18/24 07:00 10/18/24 07:00 10/18/24 07:00 10/18/24 07:00 10/18/24 07:00 10/17/24 15:49 FiO2 60 10/18/24 07:00 Oxygen Flow Rate (L/min) 8 Oxygen Delivery Method Mechanical Ventilator Weight: 211 lb 3.245 oz Body Mass Index (BMI) 38.6 Intake & Output: Intake and Output for Last 24 Hours 10/16/24 10/17/24 10/18/24 23:59 23:59 23:59 Intake Total 2210 / 2210 2511.94 / 2526.14 363.60 / 363.60 Output Total 660 / 695 195 / 195 Balance 2210 / 2210 1851.94 / 1831.14 168.60 / 168.60 Lab / Micro Data Attestation: I reviewed the patient's lab results. 10/18/24 05:20 10/18/24 05:20 Labs: Laboratory Results - last 24 hr 10/17/24 07:20: B-Natriuretic Peptide 68.8, Procalcitonin 0.65 H 10/17/24 08:45: Urine Color Yellow, Urine Clarity Sl. Cloudy, Urine pH 5.0, Ur Specific [place] 1.020, Urine Protein 30 H, Urine Glucose (UA) Normal, Urine Ketones 5 H, Urine Occult Blood 10 H, Urine Nitrite Positive H, Urine Bilirubin 3 H, Urine Urobilinogen 4 H, Ur Leukocyte Esterase 100 H, Urine RBC 0-5 SEEN, Urine WBC 5-10 SEEN, Ur Squamous Epith Cells 0-5 SEEN, Urine Bacteria 1+, Urine Mucus 0 SEEN 10/18/24 05:20: WBC 16.5 H, RBC 3.67 L, Hgb 11.2 L, Hct 34.1 L, MCV 92.9, MCH 30.5, MCHC 32.8, RDW Std Deviation 48.7 H, RDW Coeff of [place]hel[place] 14.2, Plt Count 202, MPV 10.3, Immature Gran % (Auto) 0.700, Neut % (Auto) 91.3 H, Lymph % (Auto) 4.2 L, [place] % (Auto) 3.7, Eos % (Auto) 0.0, Baso % (Auto) 0.1, Absolute Neuts (auto) 15.1 H, Absolute Lymphs (auto) 0.70 L, Nucleated RBC % 0, Sodium 136, Potassium 3.9, Chloride 109 H, Carbon Dioxide 24.0, Anion Gap 3 L, BUN 24 H, Creatinine 0.90, Estim Creat Clear Calc 56.94, Est GFR (MDRD) Af Amer 78, Est GFR (MDRD) Non-Af 64, BUN/Creatinine Ratio 26.5 H, Glucose 132 H, Calcium 9.1, Total Creatine Kinase 36, Triglycerides 142 Micro: Microbiology 10/17/24 07:50 Mucosa - Nasopharyngeal Respiratory Panel (PCR) - Final 10/17/24 08:45 Urine, Clean Catch Legionella Antigen - Final 10/17/24 08:45 Urine, Clean Catch Streptococcus pneumoniae Antigen (M - Final 10/17/24 07:50 Nasal Secretion MRSA (PCR) - Final 10/17/24 07:50 Mucosa - Nose SARS-CoV-2, Influenza & RSV (PCR) - Final ABG Data ABG results: ABG 10/17/24 10/18/24 20:23 03:10 Specimen Type ART ART Sample Site L Radial L Radial pH 7.33 L 7.40 Bicarbonate Actual 20.4 L 21.8 L Total CO2 22 23 Base Excess -6 L -3 L O2 Saturation 91 L 97 O2 % 60.0 70.0 ABG pCO2 38.4 34.8 L ABG pO2 64 L 86 Oleg Test N/A N/A Respiration Rate 14 18 O2 Delivery Device Adult Vent Adult Vent Vent Mode AC AC Tidal Volume 450.0 400.0 POC PEEP 5 10 Radiography Diagnostic Testing: Radiology Impression Chest X-Ray 10/17/24 18:39 IMPRESSION: Left basilar infiltrate. Possible mild effusions bilaterally. Electronically Signed: Cj John DO at 21:54 EST , Physical Exam Const Constitutional Narrative: Intubated, sedated and mechanically ventilated. No ventilator dyssynchrony noted. HEENT normocephalic and head/scalp atraumatic Mouth: endotracheal tube in place Eyes EOMs intact bilaterally and conjunctivae normal Neck supple General: trachea midline Chest inspection of chest normal Resp normal respiratory effort Auscultation: Negative for rales, rhonchi or wheezes Cardio regular rate and regular rhythm GI soft to palpation Palpation: Negative for guarding or rigid Extremity no clubbing, cyanosis or edema Skin no rashes or lesions noted Neuro Sensorium / Orientation: sedated on vent Charges/Coding Procedures Hospitalists Procedures: 49016 Critical Care 1st Hr
--- NOTE | 2024-10-18 08:00 | PN.SURG_ITS ---
Subjective Subjective Patient seen and examined during AM rounds. She is uncooperative and unresponsive to questioning. According to the ICU patient was left intubated following her ERCP procedure yesterday and has required a substantial amount of ventilatory support. Objective Data Objective Data Vital Signs: Vital Signs Temp Pulse Resp BP Pulse Ox O2 Del Method O2 Flow Rate 99.2 F H 58 L 18 81/54 L 95 Mechanical Ventilator 8 10/18/24 07:00 10/18/24 07:00 10/18/24 07:00 10/18/24 07:00 10/18/24 07:00 10/18/24 07:00 10/17/24 15:49 FiO2 60 10/18/24 07:00 Oxygen Flow Rate (L/min) 8 Oxygen Delivery Method Mechanical Ventilator Weight: 211 lb 3.245 oz Body Mass Index (BMI) 38.6 Intake & Output: Intake and Output for Last 24 Hours 10/16/24 10/17/24 10/18/24 23:59 23:59 23:59 Intake Total 2210 / 2210 2511.94 / 2526.14 363.60 / 363.60 Output Total 660 / 695 195 / 195 Balance 2210 / 2210 1851.94 / 1831.14 168.60 / 168.60 Lab / Micro Data 10/18/24 05:20 10/18/24 05:20 Labs: Laboratory Results - last 24 hr 10/17/24 07:20: Procalcitonin 0.65 H 10/17/24 08:45: Urine Color Yellow, Urine Clarity Sl. Cloudy, Urine pH 5.0, Ur Specific [place] 1.020, Urine Protein 30 H, Urine Glucose (UA) Normal, Urine Ketones 5 H, Urine Occult Blood 10 H, Urine Nitrite Positive H, Urine Bilirubin 3 H, Urine Urobilinogen 4 H, Ur Leukocyte Esterase 100 H, Urine RBC 0-5 SEEN, Urine WBC 5-10 SEEN, Ur Squamous Epith Cells 0-5 SEEN, Urine Bacteria 1+, Urine Mucus 0 SEEN 10/18/24 05:20: WBC 16.5 H, RBC 3.67 L, Hgb 11.2 L, Hct 34.1 L, MCV 92.9, MCH 30.5, MCHC 32.8, RDW Std Deviation 48.7 H, RDW Coeff of Rochel[place] 14.2, Plt Count 202, MPV 10.3, Immature Gran % (Auto) 0.700, Neut % (Auto) 91.3 H, Lymph % (Auto) 4.2 L, [place] % (Auto) 3.7, Eos % (Auto) 0.0, Baso % (Auto) 0.1, Absolute Neuts (auto) 15.1 H, Absolute Lymphs (auto) 0.70 L, Nucleated RBC % 0, Sodium 136, Potassium 3.9, Chloride 109 H, Carbon Dioxide 24.0, Anion Gap 3 L, BUN 24 H, Creatinine 0.90, Estim Creat Clear Calc 56.94, Est GFR (MDRD) Af Amer 78, Est GFR (MDRD) Non-Af 64, BUN/Creatinine Ratio 26.5 H, Glucose 132 H, Calcium 9.1, Total Creatine Kinase 36, Triglycerides 142 Micro: Microbiology 10/17/24 07:50 Mucosa - Nasopharyngeal Respiratory Panel (PCR) - Final 10/17/24 08:45 Urine, Clean Catch Legionella Antigen - Final 10/17/24 08:45 Urine, Clean Catch Streptococcus pneumoniae Antigen (M - Final 10/17/24 07:50 Nasal Secretion MRSA (PCR) - Final 10/17/24 07:50 Mucosa - Nose SARS-CoV-2, Influenza & RSV (PCR) - Final ABG Data ABG results: ABG 10/17/24 10/18/24 20:23 03:10 Specimen Type ART ART Sample Site L Radial L Radial pH 7.33 L 7.40 Bicarbonate Actual 20.4 L 21.8 L Total CO2 22 23 Base Excess -6 L -3 L O2 Saturation 91 L 97 O2 % 60.0 70.0 ABG pCO2 38.4 34.8 L ABG pO2 64 L 86 Oleg Test N/A N/A Respiration Rate 14 18 O2 Delivery Device Adult Vent Adult Vent Vent Mode AC AC Tidal Volume 450.0 400.0 POC PEEP 5 10 Radiography Diagnostic Testing: Radiology Impression Chest X-Ray 10/17/24 18:39 IMPRESSION: Left basilar infiltrate. Possible mild effusions bilaterally. Electronically Signed: Cj John DO at 21:54 EST Reading Location ID and State: [facility] / [place] Tel [phone], Service support , Physical Exam Const Constitutional Narrative: Patient appears disoriented and agitated frequently coughing and alarming the ventilator Resp Resp Narrative: Tachypneic, ventilated GI GI Narrative: Nondistended, soft, no apparent tenderness with palpation of the right upper quadrant Assessment & Plan Assessment/Plan (1) Acute cholecystitis due to biliary calculus: PLAN: Patient is a 79-year-old female who I am following in the absence of my partner Dr. Bruner. She was found intubated in the ICU this morning following her ERCP procedure as she was apparently requiring more ventilatory support and oxygenating poorly at the conclusion of that procedure. This morning, patient appeared in some distress as the ICU was trying to optimize her sedation and minimize its effects on her hemodynamics. Later in the day, however, she is visited and appears somewhat calmer and more cooperative. Upon revisitation she seems to understand my questioning to her about any discomfort in the right upper quadrant and appears to deny discomfort with palpation in this location. That being said, I do understand she presented with some abdominal pain to the ER before she underwent intubation. Therefore, without her ability to clearly report on her symptoms, it remains unclear to me what contribution her gallbladder has, if any, to her present condition. It has been demonstrated that she has a concurrent pneumonia process and her urinalysis was also positive. The CT findings about her gallbladder on her intake CT of the abdomen pelvis are somewhat nonspecific. Recommend continuing to treat her somewhat expectantly and based on clinical impressions. A right upper quadrant ultrasound should be able to be obtained at bedside and may give more information. If she does not improve clinically, unfortunately, she would require transfer to a tertiary facility for cholecystostomy tube placement as she is not presently a surgical candidate and our interventional radiologist is out for the next 2 weeks. Further, I have doubts that her ERCP yesterday will be enough to establish patency and drainage of the gallbladder via the cystic duct?thus making direct drainage of the gallbladder necessary. For now, do agree with measures to treat empirically with IV antibiotic therapy and present Zosyn order as appropriate. Joel Pepper MD General Surgery Endocrine Surgery Pager: [facility] [address] [place] [address], [address] [place] [id number] Office: [phone] Charges/Coding Visit Charges Inpatient E&M: 86188 Subs Hosp L2
--- NOTE | 2024-10-18 08:25 | CT_ITS ---
STUDY: CTA CHEST REASON FOR EXAM: Female, 79 years old. Respiratory Failure RADIATION DOSAGE (If Supplied By Facility): CTDIvol = ( 20.89 ) mGy, DLP = ( 583.77 ) mGycm TECHNIQUE: The examination was performed with the intravenous administration of IV 100mL Isovue-370. Post-processing of the angiographic images was performed, with multiplanar reformation and 3D reconstruction. The protocol utilizes one or more of the following dose reduction techniques: automated exposure control, adjustment of mA and/or kV according to patient size,and/or use of iterative reconstruction technique. COMPARISON: CT of the abdomen and pelvis dated October 16, 2024 FINDINGS: Normal enhancement of the main pulmonary artery and right and left pulmonary arteries. Normal enhancement of the bilateral peripheral pulmonary arteries. There is no demonstrated pulmonary embolism. Normal thoracic aorta and visualized great vessels. There are peripheral vascular calcifications. There is no demonstrated aortic dissection. There are calcifications of the coronary arteries. Normal mediastinum. Normal hilar regions. Normal visualized trachea and bronchi. There is consolidation within the lower lobes associated with a small right pleural effusion. There are few bilateral upper lobe groundglass opacities. Normal chest wall structures. There are multilevel degenerative changes of the thoracic spine. The limited images of the upper abdomen demonstrate new pneumobilia. The gallbladder remains distended. There is partial visualization of a low-attenuation focus within the left hepatic lobe was present on the prior examination. CT/CTA Chest W/WO Contrast IMPRESSION: No demonstrated pulmonary embolism or arterial dissection. Bilateral lower lobe consolidation. Small right pleural effusion. Atherosclerosis. Stable gallbladder distention, may be secondary to cholecystitis. New pneumobilia may be secondary to recent intervention. Electronically Signed: Rosio Silva MD at 11:34 EST ,
[2024-10-18] MEDS: CHLORHEXIDINE GLUC 2% CLOTH 1 EACH TOWELETTE TOPICAL ×2 (10:16→22:54)
[2024-10-18] MEDS: Chlorhexidine 15 ML PO ×2 (10:16→21:40)
[2024-10-18] MEDS: Pantoprazole Sodium 40 MG in 0.9% Normal Saline (100mL MB+) 100 ML 330 MG IV (10:25)
--- NOTE | 2024-10-18 11:00 | RAD_ITS ---
INDICATION: OG tube placement EXAMINATION/TECHNIQUE: X-RAY - XR Abdomen 1 View COMPARISON: October 17, 2024 FINDINGS: BOWEL GAS PATTERN: Non-obstructive. No bowel or stomach distention. There is an orogastric tube in place with its tip within the expected region of the gastric antrum. There is an endotracheal tube in place terminating 5.5 cm above the hira. FREE AIR: Not assessed on a single supine view. ORGANOMEGALY: Not seen. CALCIFICATIONS: No abnormal calcifications observed. LOWER CHEST: There is stable left basilar consolidation. There are low lung volumes. BONES AND SOFT TISSUES: No acute pathology. RAD/Abdomen Single View (Portable) IMPRESSION: Orogastric tube terminating within the expected region of the gastric antrum. Stable left basilar consolidation may be secondary to pneumonia.. Electronically Signed: Rosio Silva MD at 13:47 EST ,
[2024-10-18] MEDS: Enoxaparin 40 MG/0.4 ML Syringe SC (12:00)
[2024-10-18] MEDS: fentaNYL drip 100 ML 10 MCG CONT INF (15:14)
[2024-10-18] MEDS: Propofol 10MG/Ml 1,000 MG/100 ML Bottle 5.8 MG CONT INF (15:14)
--- NOTE | 2024-10-18 17:13 | US_ITS ---
INDICATION: concern for cholecystitis EXAMINATION: Ultrasound US Abdomen RUQ (limited) TECHNIQUE: Gilmore-scale and color Doppler imaging was performed of the abdomen. COMPARISON: FINDINGS: LIVER: There is fatty echotexture measuring 13.3 cm. Cystic nodules up to 4 cm. No intrahepatic biliary ductal dilatation. There is no free fluid. GALLBLADDER AND BILIARY TREE: No shadowing gallstone. Mild pericholecystic fluid or gallbladder wall thickening is demonstrated. The proximal common bile duct measures 6 mm, which is within normal limits for the patient''s age. SONOGRAPHIC HOLCOMB''S SIGN: Negative. PANCREAS: Limited visualization of the pancreas. No pancreatic ductal dilatation. RIGHT KIDNEY: 11.2 x 4.1 x 6.2 cm. The cortex is 23 mm. There is no hydronephrosis. No shadowing calculus, focal lesion, or perinephric collection is demonstrated. VESSELS: Submitted longitudinal images of the intra-abdominal aorta demonstrate no gross abnormalities and are unremarkable. The IVC is patent. US/Gallbladder IMPRESSION: Fatty liver with cystic lesions. Electronically Signed: Cj John DO at 21:25 EST ,
[2024-10-19] VITALS (36 sets, daily range): BP systolic 91–147; BP diastolic 50–74; PULSE 44–68; RESP 16–19; TEMP 37.3–37.9; O2SAT 86–95; BMI 38.9
[2024-10-19] MEDS: fentaNYL drip 100 ML 10 MCG CONT INF (01:53)
[2024-10-19] MEDS: Propofol 10MG/Ml 1,000 MG/100 ML Bottle 5.8 MG CONT INF (05:25)
[2024-10-19] MEDS: Piperacil/Tazobactam 3.375 GM in 0.9% Normal Saline (50mL MB+) 50 ML IV ×3 (05:26→22:21)
[2024-10-19] MEDS: 0.9% Saline Lock 10 ML Syringe IV ×2 (05:36→17:41)
[2024-10-19 05:49] LABS: Absolute Lymphocyte Count 1.74 X10^3/uL (0.83-4.51); Absolute Neutrophil Count 10.4 X10^3/uL (2.0-7.7); Basophil# 0.03 X10^3/uL; Basophil% 0.2 % (0-1); Eosinophil# 0.06 X10^3/uL; Eosinophils% 0.5 % (0-5); Hematocrit 34.1 % (37-47); Hemoglobin 11.2 g/dL (12.0-15.0); Lymphocyte # 1.74 X10^3/ul (0.83-4.51); Lymphocyte % 13.4 % (19-41); Mean Corp Hgb Conc 32.8 g/dL (32-36); Mean Corpuscular Hgb 30.5 pg (27.0-32.0); Mean Corpuscular Volume 92.9 fL (81-99); Mean Platelet Vol. 10.8 fl (6.2-12.0); Monocyte# 0.65 X10^3/uL; NRBC Flagged by Analyzer 0 % (0-5); Neutrophil # 10.35 X10^3/uL (2.7-7.7); Platelet Count 228 K/mm3 (150-450); RBC Distribution Width CV 14.3 % (11.6-14.6); Red Blood Count 3.67 M/mm3 (4.2-5.4)
[2024-10-19 06:05] LABS: ALB/GLOB Ratio 0.6 RATIO (0.9-2.4); AST(SGOT) 41 U/L (15-37); Alanine Aminotransfer ALT/SGPT 104 U/L (13-56); Albumin, Serum 2.2 g/dL (3.2-5.0); Alkaline Phosphatase 143 U/L (45-117); Anion Gap 2 (5-15); BUN 24 mg/dL (7-18); BUN/Creat Ratio 24.9 RATIO (10-20); Calcium,Total 9.1 mg/dL (8.5-10.1); Chloride 110 mmol/L (98-107); Creatinine, Serum 0.96 mg/dL (0.55-1.02); EST Glomerular Filtration Rate 60 mL/min (>60); Est Glom Filt Rate - Afr Amer 72 mL/min (>60); Estimated Creatinine Clearance 53.07 ml/min; Globulin 3.9 g/dL (2.2-4.2); Glucose 106 mg/dL (74-106); Magnesium 2.1 mg/dL (1.6-2.6); Phosphorus 1.7 mg/dL (2.5-4.9); Potassium 3.3 mmol/L (3.5-5.1); Protein, Total 6.1 g/dL (6.4-8.2); Sodium Level 140 mmol/L (136-145)
--- NOTE | 2024-10-19 06:23 | PCM.PN.HOSP ---
Reason for Visit Reason for Visit: Diagnoses Sepsis, unspecified organism (10/16/24) Obesity, unspecified (10/16/24) Other disorders of bilirubin metabolism (10/16/24) Pneumonia, unspecified organism (10/16/24) Calculus of gallbladder with acute cholecystitis without obstruction (10/16/24) Right upper quadrant pain (10/16/24) Nausea with vomiting, unspecified (10/16/24) Diarrhea, unspecified (10/16/24) Subjective Subjective Patient with no acute issues overnight per ICU staff aside from this AM with attempts to decrease sedation patient became very agitated therefore this was increased again and weaning trial deferred. Upon evaluation patient is nonresponsive, sedate with no evidence of fevers, chills, nausea, emesis, abdominal pain, chest pain or dyspnea. Objective Data Objective Data Vital Signs: Vital Signs Temp Pulse Resp BP Pulse Ox O2 Del Method O2 Flow Rate 99.3 F H 52 L 18 109/70 91 Mechanical Ventilator 8 10/19/24 06:00 10/19/24 06:00 10/19/24 06:00 10/19/24 06:00 10/19/24 06:00 10/19/24 06:00 10/17/24 15:49 FiO2 35 10/19/24 06:00 Oxygen Flow Rate (L/min) 8 Oxygen Delivery Method Mechanical Ventilator Weight: 211 lb 13.828 oz Body Mass Index (BMI) 38.9 Intake & Output: Intake and Output for Last 24 Hours 10/17/24 10/18/24 10/19/24 23:59 23:59 23:59 Intake Total 2511.94 / 2526.14 1419.81 / 1435.61 140.72 / 140.72 Output Total 660 / 695 570 / 570 450 / 450 Balance 1851.94 / 1831.14 849.81 / 865.61 -309.28 / -309.28 Lab / Micro Data 10/19/24 05:32 10/19/24 05:32 Labs: Laboratory Results - last 24 hr 10/19/24 05:32: WBC 13.0 H, RBC 3.67 L, Hgb 11.2 L, Hct 34.1 L, MCV 92.9, MCH 30.5, MCHC 32.8, RDW Std Deviation 49.0 H, RDW Coeff of Rochelle 14.3, Plt Count 228, MPV 10.8, Immature Gran % (Auto) 0.900, Neut % (Auto) 80.0 H, Lymph % (Auto) 13.4 L, [place] % (Auto) 5.0, Eos % (Auto) 0.5, Baso % (Auto) 0.2, Absolute Neuts (auto) 10.4 H, Absolute Lymphs (auto) 1.74, Nucleated RBC % 0, Sodium 140, Potassium 3.3 L, Chloride 110 H, Carbon Dioxide 27.0, Anion Gap 2 L, BUN 24 H, Creatinine 0.96, Estim Creat Clear Calc 53.07, Est GFR (MDRD) Af Amer 72, Est GFR (MDRD) Non-Af 60, BUN/Creatinine Ratio 24.9 H, Glucose 106, Calcium 9.1, Phosphorus 1.7 L, Magnesium 2.1, Total Bilirubin 1.00, AST 41 H, ALT 104 H, Alkaline Phosphatase 143 H, Total Protein 6.1 L, Albumin 2.2 L, Globulin 3.9, Albumin/Globulin Ratio 0.6 L Micro: Microbiology 10/17/24 18:52 Sputum, Induced/Lukens Gram Stain - Final 10/17/24 18:52 Sputum, Induced/Lukens Respiratory Culture - Preliminary Culture exhibits no growth. 10/17/24 07:50 Mucosa - Nasopharyngeal Respiratory Panel (PCR) - Final 10/17/24 08:45 Urine, Clean Catch Legionella Antigen - Final 10/17/24 08:45 Urine, Clean Catch Streptococcus pneumoniae Antigen (M - Final 10/17/24 07:50 Nasal Secretion MRSA (PCR) - Final 10/17/24 07:50 Mucosa - Nose SARS-CoV-2, Influenza & RSV (PCR) - Final Radiography Diagnostic Testing: Radiology Impression Endo Retro Cholangiopancreatogram 10/17/24 17:25 IMPRESSION: Fluoroscopy during ERCP, balloon sphincterotomy, and stent placement. Electronically Signed: Jesse Suh MD at 9:02 EST , Chest CTA 10/18/24 08:25 IMPRESSION: No demonstrated pulmonary embolism or arterial dissection. Bilateral lower lobe consolidation. Small right pleural effusion. Atherosclerosis. Stable gallbladder distention, may be secondary to cholecystitis. New pneumobilia may be secondary to recent intervention. Electronically Signed: Rosio Silva MD at 11:34 EST , KUB X-Ray 10/18/24 11:00 IMPRESSION: Orogastric tube terminating within the expected region of the gastric antrum. Stable left basilar consolidation may be secondary to pneumonia.. Electronically Signed: Rosio Silva MD at 13:47 EST , Gallbladder Ultrasound 10/18/24 17:13 IMPRESSION: Fatty liver with cystic lesions. Electronically Signed: Cj John DO at 21:25 EST , Physical Exam Narrative Physical Examination: General: Patient laying in the ICU bed, intubated, sedated, currently sedation increased and not arousable. Skin: Normal color, normal turgor, no icterus, no cyanosis except occasional stage ecchymoses. HEENT: AT/NC, EOM unable to be assessed given intubated/sedated status, PERRLA, dry MM, intubated. Lungs: Remains diminished but air movement is improving, left greater than right diminished, intubated, symmetric rise, no rales, ronchi or wheezing. Heart: Regular rate and rhythm; no gallop, rub audible. Abdomen: Soft, morbidly obese, currently intubated and sedated but no grimacing with palpation of the abdomen including right upper quadrant, no marked distention, mildly hyperactive BS. Extremities: No cyanosis, no clubbing, mild ankle to mid chun trace edema. Neurological: Patient laying in the ICU bed, intubated, sedated, cognitive function not baseline intact; pupils equally reactive to light and accommodation, cranial nerves difficult assess given intubated and sedated status, strength accordingly severely globally decreased Psychiatric: Affect appears flat, sedated, no acute evidence of depressive or anxiety feelings. Assessment & Plan Assessment/Plan (1) RUQ pain: PLAN: Plan The patient is a 79 y/o F w/ PMHx: CKD stage II per GFR trending, Noted medication rifaximin but unclear reason, HLD, Obesity, PVD, Chronic anemia/Fe deficiency anemia, GERD, Allergic rhinitis who presents to the [facility] ED on 10/16/24 with history of onset right upper quadrant pain, nausea and emesis as well as loose stools with symptoms starting 3 days prior to ED arrival but worsening over the last 24 hours prompting evaluation. #1. Acute choledocholithiasis with acute cholecystitis (initial Hospitalist note with ? possible early sepsis; however, although patient does have leukocytosis and mild hyperbilirubinemia there is no overt endorgan damage to discern sepsis): Patient admitted to the ICU especially given #2, maintained on IV zosyn, maintained on IVFs, NPO, IV/po pain control, trend CBC/CMP, GI and surgery consulted, 10/17/24 ERCP with entire main bile duct dilated with a stone causing obstruction with complete removal via biliary sphincterotomy and balloon extraction, 1 temporary stent placed in the common bile duct. Following ERCP 10/17/24 patient remained intubated. General surgery consulted and following. Eventually patient will need more definitive intervention and given number to whether or not this is cholecystostomy tube versus cholecystectomy will have to be determined. 10/18/24 repeat gallbladder ultrasound with fatty liver with cystic lesion with no shadowing gallstone, mild pericholecystic fluid or any gallbladder wall thickening, proximal common bile duct measuring 6 mm within limit for patient age. 10/19/2024 discussion with general surgery with likely planned reevaluation once extubated to ascertain if any pain is present especially given appearance of repeat gallbladder ultrasound 10/18/2024. Currently suspect the patient may need to have repeat weaning trial 10/20/2024. #2. Acute Hypoxic Respiratory Failure secondary to Right lower lobe PNA, higher suspicion given recent history of productive cough, dyspnea: ED evaluation with CXR with slight increase interstitial markings, CT abdomen and pelvis with right lower lobe consolidation versus atelectasis at the bases, initially on low NC requirements, increased in the ICU on high flow, following 10/17/24 ERCP remained intubated, initially maintained initially on IV vancomycin and IV Zosyn with resulting 10/18/2024 negative MRSA screen de-escalated off of IV vancomycin, rapid SARS COVID/influenza/RSC PCR negative, urine antigens negative, requested sputum culture, full respiratory viral panel negative, BNP 68.8, procalcitonin 0.65. 10/19/2024 Vent settings improving but as noted increased agitation with weaning attempts, will await ICU/pulm and critical care input. #3. Chronic Kidney Disease Stage II based on GFR trending: Admission BUN/Cr 19/0.98, GFR 58, baseline renal function primarily 0.8-0.9, 10/18/2024 BUN/creatinine 24/0.96, GFR 60, repeat BMP in AM. #4. PVD: Holding pentoxifylline given planned intervention as noted. #5. Hyperlipidemia: Will hold statin therapy. #6. Chronic anemia/Fe deficiency anemia: Holding iron supplement, admission hemoglobin 14.5, MCV 91, 10/19/2024 hemoglobin 11.2, will continue to trend. #7. Obesity: Weight loss and lifestyle changes encouraged. #8. GERD: Maintained on IV PPI. #9. DVT prophylaxis: SCDs. Charges/Coding Visit Charges Inpatient E&M: 33612 [facility] L3
[2024-10-19] MEDS: Chlorhexidine 15 ML PO ×2 (08:00→22:22)
[2024-10-19] MEDS: Potassium Phosphate 21 MM in 0.9% Normal Saline (250mL Bag) 250 ML 84 MM IV (10:09)
[2024-10-19] MEDS: Enoxaparin 40 MG/0.4 ML Syringe SC (10:12)
--- NOTE | 2024-10-19 12:15 | PN.SURG_ITS ---
Subjective Subjective Patient seen and examined during AM rounds. She was just begun on a sedation holiday but per bedside nursing does not appear to be tolerating the lightening of sedation well and has not been cooperative. Objective Data Objective Data Vital Signs: Vital Signs Temp Pulse Resp BP Pulse Ox O2 Del Method O2 Flow Rate 99.4 F H 62 18 112/69 95 Mechanical Ventilator 8 10/19/24 07:00 10/19/24 11:20 10/19/24 11:20 10/19/24 07:00 10/19/24 11:20 10/19/24 08:00 10/17/24 15:49 FiO2 40 10/19/24 11:20 Oxygen Flow Rate (L/min) 8 Oxygen Delivery Method Mechanical Ventilator Weight: 211 lb 13.828 oz Body Mass Index (BMI) 38.9 Intake & Output: Intake and Output for Last 24 Hours 10/17/24 10/18/24 10/19/24 23:59 23:59 23:59 Intake Total 2511.94 / 2526.14 1419.81 / 1435.61 254.12 / 254.12 Output Total 660 / 695 570 / 570 450 / 450 Balance 1851.94 / 1831.14 849.81 / 865.61 -195.88 / -195.88 Lab / Micro Data 10/19/24 05:32 10/19/24 05:32 Labs: Laboratory Results - last 24 hr 10/19/24 05:32: WBC 13.0 H, RBC 3.67 L, Hgb 11.2 L, Hct 34.1 L, MCV 92.9, MCH 30.5, MCHC 32.8, RDW Std Deviation 49.0 H, RDW Coeff of Rochelle 14.3, Plt Count 228, MPV 10.8, Immature Gran % (Auto) 0.900, Neut % (Auto) 80.0 H, Lymph % (Auto) 13.4 L, [place] % (Auto) 5.0, Eos % (Auto) 0.5, Baso % (Auto) 0.2, Absolute Neuts (auto) 10.4 H, Absolute Lymphs (auto) 1.74, Nucleated RBC % 0, Sodium 140, P otassium 3.3 L, Chloride 110 H, Carbon Dioxide 27.0, Anion Gap 2 L, BUN 24 H, Creatinine 0.96, Estim Creat Clear Calc 53.07, Est GFR (MDRD) Af Amer 72, Est GFR (MDRD) Non-Af 60, BUN/Creatinine Ratio 24.9 H, Glucose 106, Calcium 9.1, P hosphorus 1.7 L, Magnesium 2.1, Total Bilirubin 1.00, AST 41 H, ALT 104 H, A lkaline Phosphatase 143 H, Total Protein 6.1 L, Albumin 2.2 L, Globulin 3.9, A lbumin/Globulin Ratio 0.6 L Micro: Microbiology 10/17/24 18:52 Sputum, Induced/Lukens Gram Stain - Final 10/17/24 18:52 Sputum, Induced/Lukens Respiratory Culture - Preliminary Culture exhibits no growth. 10/17/24 07:50 Mucosa - Nasopharyngeal Respiratory Panel (PCR) - Final 10/17/24 08:45 Urine, Clean Catch Legionella Antigen - Final 10/17/24 08:45 Urine, Clean Catch Streptococcus pneumoniae Antigen (M - Final 10/17/24 07:50 Nasal Secretion MRSA (PCR) - Final 10/17/24 07:50 Mucosa - Nose SARS-CoV-2, Influenza & RSV (PCR) - Final Radiography Diagnostic Testing: Radiology Impression KUB X-Ray 10/18/24 11:00 IMPRESSION: Orogastric tube terminating within the expected region of the gastric antrum. Stable left basilar consolidation may be secondary to pneumonia.. Electronically Signed: Rosio Silva MD at 13:47 EST , Gallbladder Ultrasound 10/18/24 17:13 IMPRESSION: Fatty liver with cystic lesions. Electronically Signed: Cj John DO at 21:25 EST , Physical Exam Const Constitutional Narrative: Mildly sedated (being actively weaned), mildly agitated Resp Resp Narrative: Tachypneic GI GI Narrative: Nondistended, soft, patient denies abdominal tenderness with repeated palpation of the right upper quadrant Assessment & Plan Assessment/Plan (1) Acute cholecystitis due to biliary calculus: PLAN: Patient is a 79-year-old female who I am following in the absence of my partner Dr. Bruner for concern for cholecystitis in addition to choledocholithiasis now 2 days status post ERCP with stone extraction and stent placement. Clinically, patient appears improved with minimal ventilatory support, however, she is not presently tolerating sedation wean. Additionally, her laboratories show further decrease of her leukocytosis. As with yesterday, she appears to deny any tenderness with exam of her abdomen. I obtained a gallbladder ultrasound yesterday that is suggestive of cholecystitis with thickening of the gallbladder wall at almost 5 mm and some associated pericholecystic fluid. I discussed with primary team that patient may ultimately require transfer to a tertiary facility for cholecystostomy tube placement, but with her clinical improvements I am not convinced this must be done imminently. Do recommend ongoing treatment with continuous IV Zosyn and will follow to hopefully obtain a more reliable exam if patient is able to have sedation weaned/changed to Precedex/be extubated. Please notify surgery of any acute changes. Joel Pepper MD General Surgery Endocrine Surgery Pager: [facility] [address] [place] [address], [facility], [address] [place] [id number] Office: [phone] Charges/Coding Visit Charges Inpatient E&M: 17716 [facility] Hosp L2
--- NOTE | 2024-10-19 13:29 | PN.CC_ITS ---
Objective Data Objective Data Vital Signs: Vital Signs Last response 3 Temperature 37.6 C H 10/19/24 12:00 Temperature Source Core 10/19/24 12:00 Pulse Rate 57 L 10/19/24 12:00 Pulse Strength Normal (2+) 10/19/24 10:00 Respiratory Rate 18 10/19/24 12:00 Respiratory Effort Mechanically Ventilated 10/19/24 12:00 Respiratory Depth Normal 10/19/24 12:00 Respiratory Pattern Normal 10/19/24 12:00 Blood Pressure 113/68 10/19/24 12:00 Blood Pressure Mean 83 10/19/24 12:00 Blood Pressure Source Monitor 10/19/24 12:00 Blood Pressure Position Semi-Fowlers 10/19/24 12:00 Blood Pressure Location Right Arm 10/19/24 12:00 Pulse Ox 91 10/19/24 12:00 Oxygen Delivery Method Mechanical Ventilator 10/19/24 12:00 Oxygen Flow Rate (L/min) 8 10/17/24 15:49 Fraction of Inspired Oxygen (FIO2) 40 10/19/24 12:00 I&O: I&O Last 24 Hours 3 10/18/24 10/19/24 10/19/24 23:59 11:59 23:59 Intake Total 834.50 / 1435.61 257.45 / 264.10 6.65 / 264.10 Output Total 225 / 570 450 / 580 130 / 580 Balance 609.50 / 865.61 -192.55 / -315.90 -123.35 / -315.90 I&O: Total Stay 3 10/16/24 17:36 thru 10/19/24 12:00 Intake Total 6405.85 Output Total 1810 Balance 4595.85 Current Meds Ordered / Administered: Current meds ordered / Administered 3 Generic Name Dose Route Start Last Admin Trade Name Freq PRN Reason Stop Dose Admin Chlorhexidine Gluconate 1 each 10/17/24 21:45 10/18/24 22:54 Chlorhexidine Gluc 2% Cloth 1 Each [place] TOPICAL 1 each DAILY ARIELA Administration Chlorhexidine Gluconate 15 ml 10/17/24 22:00 10/19/24 08:00 Chlorhexidine 15 Ml PO 15 ml BID ARIELA Administration Diphenhydramine HCl 25 mg 10/17/24 01:45 Diphenhydramine 50 Mg/Ml Syringe IV Q4H PRN PRN ALLERGIES Enoxaparin Sodium 40 mg 10/18/24 10:50 10/19/24 10:12 Enoxaparin 40 Mg/0.4 Ml Syringe SC 40 mg DAILY ARIELA Administration Fentanyl Citrate 25 mcg 10/17/24 08:34 10/17/24 08:54 Fentanyl 100 Mcg/2 Ml Ampul IV 25 mcg Q3H PRN PRN Administration pain 4-10 Piperacillin Sod/Tazobactam 50 mls @ 12.5 mls/hr 10/17/24 06:00 10/19/24 05:26 Sod 3.375 gm/ Sodium Chloride IV 12.5 mls/hr Q8 ARIELA Administration Pantoprazole Sodium 40 mg/ 110 mls @ 330 mls/hr 10/16/24 21:12 10/18/24 10:52 Sodium Chloride IV Infused Q24 ARIELA Infusion Sodium Chloride 100 mls @ 15 mls/hr 10/16/24 23:15 IV .Q6H40M PRN Saline Flush Sodium Chloride 100 mls @ 15 mls/hr 10/16/24 23:15 IV .Q6H40M PRN Additional IVPB Infusion Sodium Chloride 1,000 mls @ 15 mls/hr 10/17/24 15:25 10/18/24 14:57 IV 10/23/24 04:44 0 mls/hr .Q48H ARIELA Infusion Protocol Propofol 1,000 mg in 100 mls @ 5.826 mls/hr 10/17/24 18:30 10/19/24 12:00 Diprivan CONT INF 10 mcg/kg/min .Q12H ARIELA 5.8 mls/hr Titration Protocol 10 MCG/KG/MIN Fentanyl 100 mls @ 5 mls/hr 10/17/24 18:30 10/19/24 12:00 CONT INF 75 mcg/hr UD ARIELA 7.5 mls/hr Titration Protocol 50 MCG/HR Ondansetron HCl 4 mg 10/16/24 21:12 Ondansetron 4 Mg/2 Ml Vial IV Q6H PRN PRN NAUSEA/VOMITING Promethazine HCl 12.5 mg 10/16/24 21:12 Promethazine 25 Mg/Ml Syringe IM Q4H PRN PRN BREAKTHROUGH NAUSEA Sodium Chloride 10 - 40 ml 10/16/24 23:15 10/19/24 05:36 0.9% Saline Lock 10 Ml Syringe IV 10 ml UD PRN Administration SALINE FLUSH Lab / Micro Data 10/19/24 05:32 10/19/24 05:32 Labs: Laboratory Results - last 24 hr 10/19/24 05:32: WBC 13.0 H, RBC 3.67 L, Hgb 11.2 L, Hct 34.1 L, MCV 92.9, MCH 30.5, MCHC 32.8, RDW Std Deviation 49.0 H, RDW Coeff of Rochelle 14.3, Plt Count 228, MPV 10.8, Immature Gran % (Auto) 0.900, Neut % (Auto) 80.0 H, Lymph % (Auto) 13.4 L, [place] % (Auto) 5.0, Eos % (Auto) 0.5, Baso % (Auto) 0.2, Absolute Neuts (auto) 10.4 H, Absolute Lymphs (auto) 1.74, Nucleated RBC % 0, Sodium 140, P otassium 3.3 L, Chloride 110 H, Carbon Dioxide 27.0, Anion Gap 2 L, BUN 24 H, Creatinine 0.96, Estim Creat Clear Calc 53.07, Est GFR (MDRD) Af Amer 72, Est GFR (MDRD) Non-Af 60, BUN/Creatinine Ratio 24.9 H, Glucose 106, Calcium 9.1, P hosphorus 1.7 L, Magnesium 2.1, Total Bilirubin 1.00, AST 41 H, ALT 104 H, A lkaline Phosphatase 143 H, Total Protein 6.1 L, Albumin 2.2 L, Globulin 3.9, A lbumin/Globulin Ratio 0.6 L Micro: Microbiology 10/16/24 22:35 Blood Culture (Wb) - Anticubital Left Blood Culture - Preliminary No growth in 48 hours. 10/16/24 23:25 Blood Culture (Wb) - Anticubital Right Blood Culture - Preliminary No growth in 48 hours. 10/17/24 18:52 Sputum, Induced/Lukens Gram Stain - Final 10/17/24 18:52 Sputum, Induced/Lukens Respiratory Culture - Preliminary Culture exhibits no growth. Imaging Radiology Impression KUB X-Ray 10/18/24 11:00 IMPRESSION: Orogastric tube terminating within the expected region of the gastric antrum. Stable left basilar consolidation may be secondary to pneumonia.. Electronically Signed: Rosio Silva MD at 13:47 EST , Gallbladder Ultrasound 10/18/24 17:13 IMPRESSION: Fatty liver with cystic lesions. Electronically Signed: Cj John DO at 21:25 EST , Assessment and Plan . Assessment and plan: Patient seen and examined Chart and data reviewed s/p ERCP w/ sphincterotomy, removal of CBD stone w/ balloon, CBD stent placement She is sedated - significant agitation during SAT/SBT MV reviewed - PIP around 33 - 7.0 ETT LFT improving UOP is low - creatinine stable EXAM GEN NAD, sedated VS as above HEENT ROSALIE NECK supple COR RRR CHEST coarse ABD soft / obese EXT minimal edema SKIN w/d DION NF ASSESSMENT 1. Acute respiratory failure requiring MV support 2. Choledocholithiasis, s/p ERCP 3. Cholecystitis 4. Delirium 5. Obesity 6. Bibasilar ATX on CT TREATMENT PLAN -MV support -sedation -repeat SAT/SBT in am -ABX -loop diuretics -VTE ppx Critical Care Time: 50 min The entirety of this encounter was done via Telemedicine
[2024-10-19] MEDS: Pantoprazole Sodium 40 MG in 0.9% Normal Saline (100mL MB+) 100 ML 330 MG IV (13:34)
[2024-10-19] MEDS: fentaNYL drip 100 ML 5 MCG CONT INF (15:06)
[2024-10-19] MEDS: dexMEDEtomidine 400 MCG in 0.9% Normal Saline (100mL Bag) 96 ML 12 MCG CONT INF ×2 (15:08→22:24)
[2024-10-19] MEDS: TITRATION PARAMETER CHANGE 1 EACH IV (16:36)
[2024-10-19] MEDS: Furosemide 40 MG/4 ML Vial IV (17:40)
[2024-10-20] VITALS (33 sets, daily range): BP systolic 96–147; BP diastolic 54–106; PULSE 41–78; RESP 13–28; TEMP 37.2–37.8; O2SAT 89–98; BMI 37.6
[2024-10-20 03:24] LABS: Absolute Neutrophil Count 8.7 X10^3/uL (2.0-7.7); Basophil# 0.05 X10^3/uL; Basophil% 0.4 % (0-1); Eosinophil# 0.18 X10^3/uL; Eosinophils% 1.6 % (0-5); Hemoglobin 11.6 g/dL (12.0-15.0); Lymphocyte % 12.4 % (19-41); Mean Corp Hgb Conc 33.1 g/dL (32-36); Mean Corpuscular Hgb 30.1 pg (27.0-32.0); Mean Corpuscular Volume 90.7 fL (81-99); Mean Platelet Vol. 10.4 fl (6.2-12.0); Monocyte# 0.84 X10^3/uL; Monocyte% 7.4 % (0-10); NRBC Flagged by Analyzer 0 % (0-5); Neutrophil # 8.68 X10^3/uL (2.7-7.7); Platelet Count 247 K/mm3 (150-450); RBC Distribution Width CV 14.5 % (11.6-14.6); RBC Distribution Width SD 48.1 fl (35.1-43.9); Red Blood Count 3.86 M/mm3 (4.2-5.4); White Blood Count 11.3 K/mm3 (4.4-11.0)
--- NOTE | 2024-10-20 04:11 | RAD_ITS ---
EXAM: XR CHEST, 1 VIEW CLINICAL INDICATION: ARF TECHNIQUE: Frontal view of the chest. COMPARISON: 10/17/2024 FINDINGS: LUNGS AND PLEURAL SPACES: Low lung volumes with bibasilar pulmonary opacities which may be atelectasis or pneumonia and possible left pleural effusion. No pneumothorax. HEART: No significant abnormality. Cardiac silhouette not enlarged. MEDIASTINUM: Central airways and mediastinal contour are unremarkable. BONES/JOINTS: Degenerative changes in the spine. No acute fracture. SOFT TISSUES: No significant abnormality. VASCULATURE: Atherosclerosis. TUBES, LINES AND DEVICES: The endotracheal tube (ETT) is in satisfactory position. Enteric tube extends below the GE junction. RAD/Chest 1 View (Portable) IMPRESSION: 1. Low lung volumes with bibasilar pulmonary opacities which may be atelectasis or pneumonia and possible left pleural effusion. 2. Tubes and lines as above. Electronically Signed: Chip White DO at 7:49 EST ,
[2024-10-20 04:17] LABS: ALB/GLOB Ratio 0.5 RATIO (0.9-2.4); AST(SGOT) 28 U/L (15-37); Alanine Aminotransfer ALT/SGPT 83 U/L (13-56); Albumin, Serum 2.3 g/dL (3.2-5.0); Alkaline Phosphatase 155 U/L (45-117); Anion Gap 10 (5-15); BUN 23 mg/dL (7-18); BUN/Creat Ratio 25.3 RATIO (10-20); Chloride 109 mmol/L (98-107); Creatinine, Serum 0.91 mg/dL (0.55-1.02); EST Glomerular Filtration Rate 64 mL/min (>60); Est Glom Filt Rate - Afr Amer 77 mL/min (>60); Estimated Creatinine Clearance 55.99 ml/min; Globulin 4.4 g/dL (2.2-4.2); Glucose 103 mg/dL (74-106); Potassium 3.3 mmol/L (3.5-5.1); Protein, Total 6.7 g/dL (6.4-8.2); Sodium Level 141 mmol/L (136-145)
--- NOTE | 2024-10-20 06:17 | PCM.PN.HOSP ---
Reason for Visit Reason for Visit: Diagnoses Sepsis, unspecified organism (10/16/24) Obesity, unspecified (10/16/24) Other disorders of bilirubin metabolism (10/16/24) Pneumonia, unspecified organism (10/16/24) Calculus of gallbladder with acute cholecystitis without obstruction (10/16/24) Right upper quadrant pain (10/16/24) Nausea with vomiting, unspecified (10/16/24) Diarrhea, unspecified (10/16/24) Subjective Subjective Patient with no acute events overnight per self and per nursing report. She was transition the day prior in preparation for weaning off the vent to Precedex with discontinuation of propofol and upon evaluation today is alert and awake. The patient is nodding to extreme eagerness for extubation. She is denying any abdominal pain and there is also no pain elicited on evaluation. Patient denies additionally fevers, chills, nausea, emesis, chest pain. Objective Data Objective Data Vital Signs: Vital Signs Temp Pulse Resp BP Pulse Ox O2 Del Method O2 Flow Rate 99.1 F 47 L 16 118/66 94 Mechanical Ventilator 8 10/20/24 00:00 10/20/24 05:09 10/20/24 05:09 10/20/24 04:00 10/20/24 05:09 10/20/24 04:00 10/17/24 15:49 FiO2 40 10/20/24 05:09 Oxygen Flow Rate (L/min) 8 Oxygen Delivery Method Mechanical Ventilator Weight: 205 lb 14.588 oz Body Mass Index (BMI) 37.6 Intake & Output: Intake and Output for Last 24 Hours 10/18/24 10/19/24 10/20/24 23:59 23:59 23:59 Intake Total 1419.81 / 1435.61 959.22 / 1006.22 196.8 / 196.8 Output Total 570 / 570 2765 / 2915 150 / 150 Balance 849.81 / 865.61 -1805.78 / -1908.78 46.8 / 46.8 Lab / Micro Data 10/20/24 03:10 10/20/24 03:10 Labs: Laboratory Results - last 24 hr 10/20/24 03:10: WBC 11.3 H, RBC 3.86 L, Hgb 11.6 L, Hct 35.0 L, MCV 90.7, MCH 30.1, MCHC 33.1, RDW Std Deviation 48.1 H, RDW Coeff of Rochelle 14.5, Plt Count 247, MPV 10.4, Immature Gran % (Auto) 1.200 H, Neut % (Auto) 77.0 H, Lymph % (Auto) 12.4 L, [place] % (Auto) 7.4, Eos % (Auto) 1.6, Baso % (Auto) 0.4, Absolute Neuts (auto) 8.7 H, Absolute Lymphs (auto) 1.40, Nucleated RBC % 0, Sodium 141, Potassium 3.3 L, Chloride 109 H, Carbon Dioxide 22.0, Anion Gap 10, BUN 23 H, Creatinine 0.91, Estim Creat Clear Calc 55.99, Est GFR (MDRD) Af Amer 77, Est GFR (MDRD) Non-Af 64, BUN/Creatinine Ratio 25.3 H, Glucose 103, Calcium 9.0, Total Bilirubin 1.50 H, AST 28, ALT 83 H, Alkaline Phosphatase 155 H, Total Protein 6.7, Albumin 2.3 L, Globulin 4.4 H, Albumin/Globulin Ratio 0.5 L Micro: Microbiology 10/16/24 22:35 Blood Culture (Wb) - Anticubital Left Blood Culture - Preliminary No growth in 48 hours. 10/16/24 23:25 Blood Culture (Wb) - Anticubital Right Blood Culture - Preliminary No growth in 48 hours. 10/17/24 18:52 Sputum, Induced/Lukens Gram Stain - Final 10/17/24 18:52 Sputum, Induced/Lukens Respiratory Culture - Preliminary Culture exhibits no growth. 10/17/24 07:50 Mucosa - Nasopharyngeal Respiratory Panel (PCR) - Final 10/17/24 08:45 Urine, Clean Catch Legionella Antigen - Final 10/17/24 08:45 Urine, Clean Catch Streptococcus pneumoniae Antigen (M - Final 10/17/24 07:50 Nasal Secretion MRSA (PCR) - Final 10/17/24 07:50 Mucosa - Nose SARS-CoV-2, Influenza & RSV (PCR) - Final Physical Exam Narrative Physical Examination: General: Patient seated upright in the ICU bed, still intubated but is being prepped for weaning trial, awake and alert, motioning answers. Skin: Normal color, normal turgor, no icterus, no cyanosis except occasional stage ecchymoses. HEENT: AT/NC, EOMI, PERRLA, mildly dry MM, intubated. Lungs: Mildly diminished, greater bases, left greater than right, intubated, awaiting weaning trial, no rales, rhonchi or marked wheezing noted. Heart: Regular rate and rhythm; no gallop, rub audible. Abdomen: Soft, morbidly obese, nontender to palpation including the right upper quadrant, no marked discern distention, mildly hyperactive BS. Extremities: No cyanosis, no clubbing, mild ankle to mid chun trace edema. Neurological: Patient laying in the ICU bed, intubated, currently awake, sedation has been weaned with plan for extubation eminently, cognitive function improved but still difficult assessment given intubated status, not baseline intact; pupils equally reactive to light and accommodation, cranial nerves able to be assessed intact but difficult as still intubated, strength severely globally decreased given current status but plan extubation eminently. Psychiatric: Affect appears mildly irritable, strong gestures which correlate with patient desire for extubation, no acute evidence of depressive or anxiety feelings. Assessment & Plan Assessment/Plan (1) RUQ pain: PLAN: Plan The patient is a 79 y/o F w/ PMHx: CKD stage II per GFR trending, Noted medication rifaximin but unclear reason, HLD, Obesity, PVD, Chronic anemia/Fe deficiency anemia, GERD, Allergic rhinitis who presents to the [facility] ED on 10/16/24 with history of onset right upper quadrant pain, nausea and emesis as well as loose stools with symptoms starting 3 days prior to ED arrival but worsening over the last 24 hours prompting evaluation. #1. Acute choledocholithiasis with questionable concurrent acute cholecystitis (initial Hospitalist note with ? possible early sepsis; however, although patient does have leukocytosis and mild hyperbilirubinemia there is no overt endorgan damage to discern sepsis): Patient admitted to the ICU especially given #2, maintained on IV zosyn, maintained on IVFs, NPO, IV/po pain control, trend CBC/CMP, GI and surgery consulted, 10/17/24 ERCP with entire main bile duct dilated with a stone causing obstruction with complete removal via biliary sphincterotomy and balloon extraction, 1 temporary stent placed in the common bile duct. Following ERCP 10/17/24 patient remained intubated. General surgery consulted and following. Eventually patient will need more definitive intervention and given number to whether or not this is cholecystostomy tube versus cholecystectomy will have to be determined. 10/18/24 repeat gallbladder ultrasound with fatty liver with cystic lesion with no shadowing gallstone, mild pericholecystic fluid or any gallbladder wall thickening, proximal common bile duct measuring 6 mm within limit for patient age. 10/19/2024 discussion with general surgery with likely planned reevaluation once extubated to ascertain if any pain is present especially given appearance of repeat gallbladder ultrasound 10/18/2024. 10/19/24-10/20/24 Overnight bradycardiac on precedex. Had been switched from propofol to precedex in preparation for extubation. 10/20/2024 weaning trial planned eminently. 10/20/2024 discussed with general surgery and given patient is awake and alert and no abdominal pain reported or elicited on exam likely no operative intervention will be pursued. #2. Acute Hypoxic Respiratory Failure secondary to Right lower lobe PNA, higher suspicion given recent history of productive cough, dyspnea: ED evaluation with CXR with slight increase interstitial markings, CT abdomen and pelvis with right lower lobe consolidation versus atelectasis at the bases, initially on low NC requirements, increased in the ICU on high flow, following 10/17/24 ERCP remained intubated, initially maintained initially on IV vancomycin and IV Zosyn with resulting 10/18/2024 negative MRSA screen de-escalated off of IV vancomycin, rapid SARS COVID/influenza/RSC PCR negative, urine antigens negative, requested sputum culture, full respiratory viral panel negative, BNP 68.8, procalcitonin 0.65. 10/19/2024 Vent settings improving but as noted increased agitation with weaning attempts. 10/19/2024 pulse dose Lasix 40 mg IV x 1. 10/19/24-10/20/24 Overnight bradycardiac on precedex. Had been switched from propofol to precedex in preparation for extubation. 10/20/2024 weaning trial planned eminently. #3. Hypokalemia: Admission K+ 3.3, magnesium level requested, supplementation given, repeat level in AM. #4. Chronic Kidney Disease Stage II based on GFR trending: Admission BUN/Cr 19/0.98, GFR 58, baseline renal function primarily 0.8-0.9, 10/20/2024 BUN/creatinine 23/0.91, GFR 64, repeat BMP in AM. #5. PVD: Holding pentoxifylline given planned intervention as noted. #6. Hyperlipidemia: Will hold statin therapy. #7. Chronic anemia/Fe deficiency anemia: Admission hemoglobin 14.5, MCV 91 and prior to this baseline had transiently been 14 but more remotely in 2013 had been 11-12, 10/18/2024 hemoglobin 11.2 following initial presentation interventions and hydration, 10/20/2024 hemoglobin 11.6, continue to trend. Holding Fe supplementation. #8. Obesity: Weight loss and lifestyle changes encouraged. #9. GERD: Maintained on IV PPI. #10. DVT prophylaxis: Lovenox. Charges/Coding Visit Charges Inpatient E&M: 55253 Subs Hosp L3
[2024-10-20] MEDS: dexMEDEtomidine 400 MCG in 0.9% Normal Saline (100mL Bag) 96 ML 7.2 MCG CONT INF (06:28)
[2024-10-20] MEDS: Piperacil/Tazobactam 3.375 GM in 0.9% Normal Saline (50mL MB+) 50 ML IV ×3 (06:28→21:04)
[2024-10-20 11:00] LABS: Allen Test Positive; Base Excess -1 mmol/L (-2 to +2); Bicarbonate 23.1 mmol/L (22-26); Blood Gas Specimen Type ART; Mode PS; O2 Delivery Device Adult Vent; PEEP 5; PO2 69 mmHG (75-100); SITE L Radial; SO2 94 % (95-99); Total Carbon Dioxide 24 mmol/L; pCO2 34.4 mmHg (35-45); pH 7.44 (7.35-7.45)
--- NOTE | 2024-10-20 12:58 | PCM.PN.TICU ---
Objective Data Objective Data Vital Signs: Vital Signs Last response Temperature 37.6 C H 10/20/24 09:00 Temperature Source Core 10/20/24 09:00 Pulse Rate 51 L 10/20/24 12:10 Pulse Strength Normal (2+) 10/19/24 10:00 Respiratory Rate 19 H 10/20/24 12:10 Respiratory Effort Mechanically Ventilated 10/20/24 08:00 Respiratory Depth Normal 10/20/24 08:00 Respiratory Pattern Normal 10/20/24 12:10 Blood Pressure 138/64 H 10/20/24 09:00 Blood Pressure Mean 88 10/20/24 09:00 Blood Pressure Source Monitor 10/20/24 09:00 Blood Pressure Position Semi-Fowlers 10/20/24 09:00 Blood Pressure Location Left Arm 10/20/24 09:00 Pulse Ox 93 10/20/24 12:10 Oxygen Delivery Method Mechanical Ventilator 10/20/24 09:00 Oxygen Flow Rate (L/min) 8 10/17/24 15:49 Fraction of Inspired Oxygen (FIO2) 40 10/20/24 09:12 I&O: I&O Last 24 Hours 10/19/24 10/20/24 10/20/24 23:59 11:59 23:59 Intake Total 701.77 / 1006.22 319.80 / 319.80 Output Total 2315 / 2915 450 / 450 Balance -1613.23 / -1908.78 -130.20 / -130.20 I&O: Total Stay 10/16/24 17:36 thru 10/20/24 11:00 Intake Total 7420.77 Output Total 4445 Balance 2975.77 Current Meds Ordered / Administered: Current meds ordered / Administered Generic Name Dose Route Start Last Admin Trade Name Freq PRN Reason Stop Dose Admin Chlorhexidine Gluconate 1 each 10/17/24 21:45 10/18/24 22:54 Chlorhexidine Gluc 2% Cloth 1 Each [place] TOPICAL 1 each DAILY ARIELA Administration Chlorhexidine Gluconate 15 ml 10/17/24 22:00 10/19/24 22:22 Chlorhexidine 15 Ml PO 15 ml BID ARIELA Administration Diphenhydramine HCl 25 mg 10/17/24 01:45 Diphenhydramine 50 Mg/Ml Syringe IV Q4H PRN PRN ALLERGIES Enoxaparin Sodium 40 mg 10/18/24 10:50 10/19/24 10:12 Enoxaparin 40 Mg/0.4 Ml Syringe SC 40 mg DAILY ARIELA Administration Fentanyl Citrate 25 mcg 10/17/24 08:34 10/17/24 08:54 Fentanyl 100 Mcg/2 Ml Ampul IV 25 mcg Q3H PRN PRN Administration pain 4-10 Piperacillin Sod/Tazobactam 50 mls @ 12.5 mls/hr 10/17/24 06:00 10/20/24 10:28 Sod 3.375 gm/ Sodium Chloride IV Infused Q8 ARIELA Infusion Pantoprazole Sodium 40 mg/ 110 mls @ 330 mls/hr 10/16/24 21:12 10/19/24 15:13 Sodium Chloride IV Infused Q24 ARIELA Infusion Sodium Chloride 100 mls @ 15 mls/hr 10/16/24 23:15 IV .Q6H40M PRN Saline Flush Sodium Chloride 100 mls @ 15 mls/hr 10/16/24 23:15 IV .Q6H40M PRN Additional IVPB Infusion Propofol 1,000 mg in 100 mls @ 5.766 mls/hr 10/17/24 18:30 10/20/24 06:31 Diprivan CONT INF Not Given .Q12H ARIELA Protocol 10 MCG/KG/MIN Fentanyl 100 mls @ 5 mls/hr 10/17/24 18:30 10/20/24 11:00 CONT INF 0 mcg/hr UD ARIELA 0 mls/hr Titration Protocol 50 MCG/HR Dexmedetomidine HCl 400 mcg/ 100 mls @ 12.013 mls/hr 10/19/24 14:45 10/20/24 07:00 Sodium Chloride CONT INF 0.3 mcg/kg/hr .Q8H20M ARIELA 7.2 mls/hr Titration Protocol 0.5 MCG/KG/HR Ondansetron HCl 4 mg 10/16/24 21:12 Ondansetron 4 Mg/2 Ml Vial IV Q6H PRN PRN NAUSEA/VOMITING Promethazine HCl 12.5 mg 10/16/24 21:12 Promethazine 25 Mg/Ml Syringe IM Q4H PRN PRN BREAKTHROUGH NAUSEA Sodium Chloride 10 - 40 ml 10/16/24 23:15 10/19/24 17:41 0.9% Saline Lock 10 Ml Syringe IV 10 ml UD PRN Administration SALINE FLUSH Lab / Micro Data 10/20/24 03:10 10/20/24 03:10 Labs: Laboratory Results - last 24 hr 10/20/24 03:10: WBC 11.3 H, RBC 3.86 L, Hgb 11.6 L, Hct 35.0 L, MCV 90.7, MCH 30.1, MCHC 33.1, RDW Std Deviation 48.1 H, RDW Coeff of Rochelle 14.5, Plt Count 247, MPV 10.4, Immature Gran % (Auto) 1.200 H, Neut % (Auto) 77.0 H, Lymph % (Auto) 12.4 L, [place] % (Auto) 7.4, Eos % (Auto) 1.6, Baso % (Auto) 0.4, Absolute Neuts (auto) 8.7 H, Absolute Lymphs (auto) 1.40, Nucleated RBC % 0, Sodium 141, Potassium 3.3 L, Chloride 109 H, Carbon Dioxide 22.0, Anion Gap 10, BUN 23 H, Creatinine 0.91, Estim Creat Clear Calc 55.99, Est GFR (MDRD) Af Amer 77, Est GFR (MDRD) Non-Af 64, BUN/Creatinine Ratio 25.3 H, Glucose 103, Calcium 9.0, Total Bilirubin 1.50 H, AST 28, ALT 83 H, Alkaline Phosphatase 155 H, Total Protein 6.7, Albumin 2.3 L, Globulin 4.4 H, Albumin/Globulin Ratio 0.5 L Micro: Microbiology 10/17/24 18:52 Sputum, Induced/Lukens Gram Stain - Final 10/17/24 18:52 Sputum, Induced/Lukens Respiratory Culture - Final Culture exhibits no growth. 10/16/24 22:35 Blood Culture (Wb) - Anticubital Left Blood Culture - Preliminary No growth in 48 hours. 10/16/24 23:25 Blood Culture (Wb) - Anticubital Right Blood Culture - Preliminary No growth in 48 hours. ABG Data ABG results: ABG 10/20/24 10:57 Specimen Type ART Sample Site L Radial pH 7.44 Bicarbonate Actual 23.1 Total CO2 24 Base Excess -1 O2 Saturation 94 L O2 % 40.0 ABG pCO2 34.4 L ABG pO2 69 L Oleg Test Positive O2 Delivery Device Adult Vent Vent Mode PS POC PEEP 5 Imaging Radiology Impression Chest X-Ray 10/20/24 04:11 IMPRESSION: 1. Low lung volumes with bibasilar pulmonary opacities which may be atelectasis or pneumonia and possible left pleural effusion. 2. Tubes and lines as above. Electronically Signed: Chip V. Jonnathanrebecca, at 7:49 EST , Assessment and Plan . Assessment and plan: Patient seen and examined Chart and data reviewed s/p ERCP w/ sphincterotomy, removal of CBD stone w/ balloon, CBD stent placement She is sedated - significant agitation during SAT/SBT MV reviewed - PIP around 33 - 7.0 ETT LFT improving UOP improved w/ diuretics Doing well today w/ SAT/SBT ANticipate extubation EXAM GEN NAD, awake VS as above HEENT ROSALIE NECK supple COR RRR CHEST coarse ABD soft / obese EXT minimal edema SKIN w/d DION NF ASSESSMENT 1. Acute respiratory failure requiring MV support 2. Choledocholithiasis, s/p ERCP 3. Cholecystitis 4. Delirium 5. Obesity 6. Bibasilar ATX on CT TREATMENT PLAN -MV support - SBT -sedation as needed -ABX -VTE ppx Critical Care Time: 50 min The entirety of this encounter was done via Telemedicine
--- NOTE | 2024-10-20 13:02 | PCM.PN.SRG ---
Subjective Subjective Patient seen and examined during AM rounds. She has completed a spontaneous breathing trial. It is anticipated she will extubate later today. She is much more cooperative with questioning. Objective Data Objective Data Vital Signs: Vital Signs Temp Pulse Resp BP Pulse Ox O2 Del Method O2 Flow Rate 99.6 F H 51 L 19 H 138/64 H 93 Mechanical Ventilator 8 10/20/24 09:00 10/20/24 12:10 10/20/24 12:10 10/20/24 09:00 10/20/24 12:10 10/20/24 09:00 10/17/24 15:49 FiO2 40 10/20/24 09:12 Oxygen Flow Rate (L/min) 8 Oxygen Delivery Method Mechanical Ventilator Weight: 205 lb 14.588 oz Body Mass Index (BMI) 37.6 Intake & Output: Intake and Output for Last 24 Hours 10/18/24 10/19/24 10/20/24 23:59 23:59 23:59 Intake Total 1419.81 / 1435.61 959.22 / 1006.22 319.80 / 319.80 Output Total 570 / 570 2765 / 2915 450 / 450 Balance 849.81 / 865.61 -1805.78 / -1908.78 -130.20 / -130.20 Lab / Micro Data 10/20/24 03:10 10/20/24 03:10 Labs: Laboratory Results - last 24 hr 10/20/24 03:10: WBC 11.3 H, RBC 3.86 L, Hgb 11.6 L, Hct 35.0 L, MCV 90.7, MCH 30.1, MCHC 33.1, RDW Std Deviation 48.1 H, RDW Coeff of Rochelle 14.5, Plt Count 247, MPV 10.4, Immature Gran % (Auto) 1.200 H, Neut % (Auto) 77.0 H, Lymph % (Auto) 12.4 L, [place] % (Auto) 7.4, Eos % (Auto) 1.6, Baso % (Auto) 0.4, Absolute Neuts (auto) 8.7 H, Absolute Lymphs (auto) 1.40, Nucleated RBC % 0, Sodium 141, Potassium 3.3 L, Chloride 109 H, Carbon Dioxide 22.0, Anion Gap 10, BUN 23 H, Creatinine 0.91, Estim Creat Clear Calc 55.99, Est GFR (MDRD) Af Amer 77, Est GFR (MDRD) Non-Af 64, BUN/Creatinine Ratio 25.3 H, Glucose 103, Calcium 9.0, Total Bilirubin 1.50 H, AST 28, ALT 83 H, Alkaline Phosphatase 155 H, Total Protein 6.7, Albumin 2.3 L, Globulin 4.4 H, Albumin/Globulin Ratio 0.5 L Micro: Microbiology 10/17/24 18:52 Sputum, Induced/Lukens Gram Stain - Final 10/17/24 18:52 Sputum, Induced/Lukens Respiratory Culture - Final Culture exhibits no growth. 10/16/24 22:35 Blood Culture (Wb) - Anticubital Left Blood Culture - Preliminary No growth in 48 hours. 10/16/24 23:25 Blood Culture (Wb) - Anticubital Right Blood Culture - Preliminary No growth in 48 hours. 10/17/24 07:50 Mucosa - Nasopharyngeal Respiratory Panel (PCR) - Final 10/17/24 08:45 Urine, Clean Catch Legionella Antigen - Final 10/17/24 08:45 Urine, Clean Catch Streptococcus pneumoniae Antigen (M - Final 10/17/24 07:50 Nasal Secretion MRSA (PCR) - Final 10/17/24 07:50 Mucosa - Nose SARS-CoV-2, Influenza & RSV (PCR) - Final ABG Data ABG results: ABG 10/20/24 10:57 Specimen Type ART Sample Site L Radial pH 7.44 Bicarbonate Actual 23.1 Total CO2 24 Base Excess -1 O2 Saturation 94 L O2 % 40.0 ABG pCO2 34.4 L ABG pO2 69 L Oleg Test Positive O2 Delivery Device Adult Vent Vent Mode PS POC PEEP 5 Radiography Diagnostic Testing: Radiology Impression Chest X-Ray 10/20/24 04:11 IMPRESSION: 1. Low lung volumes with bibasilar pulmonary opacities which may be atelectasis or pneumonia and possible left pleural effusion. 2. Tubes and lines as above. Electronically Signed: Chip White DO at 7:49 EST , Physical Exam Const no apparent distress Constitutional Narrative: Appears calm Resp normal respiratory effort GI GI Narrative: Nondistended, soft, patient denies tenderness with palpation of the right upper quadrant as she complies with a request for a deep breath simultaneously Assessment & Plan Assessment/Plan (1) Acute cholecystitis due to biliary calculus: PLAN: Patient is a 79-year-old female who I am following in the absence of my partner Dr. Bruner for concern for cholecystitis in addition to choledocholithiasis now 3 days status post ERCP with stone extraction and stent placement. Clinically, patient appears further improved with minimal ventilatory support and appears to be approaching stated which she could be extubated today. Her laboratories show further decrease of her leukocytosis. Once again, she appears to deny any tenderness with exam of her abdomen and today I am more convinced that she fully understands my questioning during exam. While both her CT and ultrasound imaging were concerning for cholecystitis I believe the treatment rendered to date has been effective?namely both performing ERCP and continuing IV Zosyn. Will plan to follow-up with patient once extubated but her exams to date suggest that her cystic duct is patent and that we may be able to proceed with conservative measures without requiring placement of a cholecystostomy tube. If this course of treatment is effective patient would likely require interval cholecystectomy once she is allowed to recover from her acute illness further. Joel Pepper MD General Surgery Endocrine Surgery Pager: [facility] [address] [place] [address], [address] [place] [address] Office: [phone] Charges/Coding Visit Charges Inpatient E&M: 90792 Subs Hosp L2
[2024-10-20] MEDS: Enoxaparin 40 MG/0.4 ML Syringe SC (14:51)
[2024-10-21] VITALS (16 sets, daily range): BP systolic 114–165; BP diastolic 63–84; PULSE 58–75; RESP 12–20; TEMP 36.4–37.3; O2SAT 85–99; BMI 37.5
[2024-10-21 04:33] LABS: Absolute Lymphocyte Count 1.36 X10^3/uL (0.83-4.51); Absolute Neutrophil Count 8.4 X10^3/uL (2.0-7.7); Basophil# 0.06 X10^3/uL; Basophil% 0.5 % (0-1); Eosinophil# 0.22 X10^3/uL; Hematocrit 36.6 % (37-47); Hemoglobin 11.8 g/dL (12.0-15.0); Lymphocyte # 1.36 X10^3/ul (0.83-4.51); Lymphocyte % 12.2 % (19-41); Mean Corp Hgb Conc 32.2 g/dL (32-36); Mean Corpuscular Hgb 30.1 pg (27.0-32.0); Mean Corpuscular Volume 93.4 fL (81-99); Mean Platelet Vol. 10.2 fl (6.2-12.0); Monocyte# 0.91 X10^3/uL; Monocyte% 8.1 % (0-10); NRBC Flagged by Analyzer 0 % (0-5); Neutrophil # 8.39 X10^3/uL (2.7-7.7); Platelet Count 255 K/mm3 (150-450); RBC Distribution Width CV 14.5 % (11.6-14.6); Red Blood Count 3.92 M/mm3 (4.2-5.4); White Blood Count 11.2 K/mm3 (4.4-11.0)
[2024-10-21 04:51] LABS: ALB/GLOB Ratio 0.5 RATIO (0.9-2.4); AST(SGOT) 22 U/L (15-37); Alanine Aminotransfer ALT/SGPT 57 U/L (13-56); Albumin, Serum 2.1 g/dL (3.2-5.0); Alkaline Phosphatase 138 U/L (45-117); Anion Gap 4 (5-15); BUN 18 mg/dL (7-18); BUN/Creat Ratio 26.9 RATIO (10-20); Chloride 107 mmol/L (98-107); Creatinine, Serum 0.67 mg/dL (0.55-1.02); EST Glomerular Filtration Rate 91 mL/min (>60); Est Glom Filt Rate - Afr Amer 110 mL/min (>60); Estimated Creatinine Clearance 62.68 ml/min; Globulin 4.4 g/dL (2.2-4.2); Glucose 101 mg/dL (74-106); Potassium 3.3 mmol/L (3.5-5.1); Protein, Total 6.5 g/dL (6.4-8.2); Sodium Level 138 mmol/L (136-145)
--- NOTE | 2024-10-21 07:45 | PN.CC_ITS ---
Assessment & Plan Assessment/Plan (1) Acute cholecystitis due to biliary calculus: PLAN: Plan RECOMMENDATIONS: 1. Supplemental oxygen, if needed, to maintain saturations at or above 90%. 2. Continue antimicrobials to complete 7 days of therapy. 3. Continue appropriate DVT prophylaxis. 4. Encourage incentive spirometer use and mobilize patient as tolerated. 5. The patient is medically stable for transfer out of the intensive care unit. Will sign off from a critical care perspective. IMPRESSIONS: 1. Acute hypoxemic respiratory failure The patient presented to the hospital with symptoms concerning for acute cholecystitis and was subsequently found to be hypoxemic. She has no pre- existing pulmonary diagnoses. CTA chest showed no evidence for pulmonary embolism, but did demonstrate bilateral lower lobe consolidations, concerning for pneumonia. As a consequence of undergoing an ERCP on October 17, the patient was intubated by anesthesia providers. With supportive care, including antimicrobials, the patient was ultimately able to be extubated without any further sequelae. Recommend continuing to wean supplemental oxygen, if needed, to maintain saturations at or above 90%. I would recommend that we continue the patient on antimicrobials to complete 7 days of therapy. 2. Abdominal pain in the setting of possible acute cholecystitis/choledocholithiasis The patient underwent ERCP on October 17. Complete stone removal was accomplished by biliary sphincterotomy and balloon extraction. A temporary stent was placed in the common bile duct. 3. History of hypertension/hyperlipidemia/iron deficiency anemia/GERD/seasonal allergic rhinitis/ROSHNI (not on therapy) Complicates care, management, recovery and prognosis. Continue home medications as indicated. This note was generated with [employer] dictation software. It may contain incorrect words, spelling, and punctuation that were not noted in checking the note before signing. Subjective Subjective The patient was seen and examined at the bedside this morning. Events from the last 24 hours have been reviewed. The patient is currently afebrile, hemodynamically stable and maintaining appropriate oxygen saturations on 2 L/min via nasal cannula. The patient did report the presence of a cough which has been intermittently productive of sputum. She is documented to be overall net +2.4 L for the hospitalization. White blood cell count this morning was noted to be 11,000 with a hemoglobin of 11.8 g/dL. Chemistry profile was notable for a potassium of 3.3. Creatinine remains within normal limits. Objective Data Objective Data The patient's most recent lab work, culture data and imaging studies have all been personally reviewed. Blood and sputum cultures have not demonstrated any growth to date. Vital Signs: Vital Signs Temp Pulse Resp BP Pulse Ox O2 Del Method O2 Flow Rate 99.2 F H 60 14 135/66 H 96 Nasal Cannula 2 10/21/24 04:00 10/21/24 07:00 10/21/24 07:00 10/21/24 07:00 10/21/24 07:00 10/21/24 07:00 10/21/24 07:00 FiO2 40 10/20/24 14:00 Oxygen Flow Rate (L/min) 2 Oxygen Delivery Method Nasal Cannula Weight: 204 lb 2.369 oz Body Mass Index (BMI) 37.5 Intake & Output: Intake and Output for Last 24 Hours 10/19/24 10/20/24 10/21/24 23:59 23:59 23:59 Intake Total 959.22 / 1006.22 460.40 / 460.40 50 / 50 Output Total 2765 / 2915 685 / 935 500 / 500 Balance -1805.78 / -1908.78 -224.60 / -474.60 -450 / -450 Lab / Micro Data Attestation: I reviewed the patient's lab results. 10/21/24 04:25 10/21/24 04:25 Labs: Laboratory Results - last 24 hr 10/21/24 04:25: WBC 11.2 H, RBC 3.92 L, Hgb 11.8 L, Hct 36.6 L, MCV 93.4, MCH 30.1, MCHC 32.2, RDW Std Deviation 50.0 H, RDW Coeff of Rochelle 14.5, Plt Count 255, MPV 10.2, Immature Gran % (Auto) 2.200 H, Neut % (Auto) 75.0 H, Lymph % (Auto) 12.2 L, [place] % (Auto) 8.1, Eos % (Auto) 2.0, Baso % (Auto) 0.5, Absolute Neuts (auto) 8.4 H, Absolute Lymphs (auto) 1.36, Nucleated RBC % 0, Sodium 138, P otassium 3.3 L, Chloride 107, Carbon Dioxide 27.0, Anion Gap 4 L, BUN 18, Creatinine 0.67, Estim Creat Clear Calc 62.68, Est GFR (MDRD) Af Amer 110, Est GFR (MDRD) Non-Af 91, BUN/Creatinine Ratio 26.9 H, Glucose 101, Calcium 9.0, T otal Bilirubin 1.70 H, AST 22, ALT 57 H, Alkaline Phosphatase 138 H, Total Protein 6.5, Albumin 2.1 L, Globulin 4.4 H, Albumin/Globulin Ratio 0.5 L Micro: Microbiology 10/17/24 18:52 Sputum, Induced/Lukens Gram Stain - Final 10/17/24 18:52 Sputum, Induced/Lukens Respiratory Culture - Final Culture exhibits no growth. 10/16/24 22:35 Blood Culture (Wb) - Anticubital Left Blood Culture - Preliminary No growth in 48 hours. 10/16/24 23:25 Blood Culture (Wb) - Anticubital Right Blood Culture - Preliminary No growth in 48 hours. 10/17/24 07:50 Mucosa - Nasopharyngeal Respiratory Panel (PCR) - Final 10/17/24 08:45 Urine, Clean Catch Legionella Antigen - Final 10/17/24 08:45 Urine, Clean Catch Streptococcus pneumoniae Antigen (M - Final 10/17/24 07:50 Nasal Secretion MRSA (PCR) - Final 10/17/24 07:50 Mucosa - Nose SARS-CoV-2, Influenza & RSV (PCR) - Final ABG Data ABG results: ABG 10/20/24 10:57 Specimen Type ART Sample Site L Radial pH 7.44 Bicarbonate Actual 23.1 Total CO2 24 Base Excess -1 O2 Saturation 94 L O2 % 40.0 ABG pCO2 34.4 L ABG pO2 69 L Oleg Test Positive O2 Delivery Device Adult Vent Vent Mode PS POC PEEP 5 Radiography Diagnostic Testing: Radiology Impression Chest X-Ray 10/20/24 04:11 IMPRESSION: 1. Low lung volumes with bibasilar pulmonary opacities which may be atelectasis or pneumonia and possible left pleural effusion. 2. Tubes and lines as above. Electronically Signed: Chip White DO at 7:49 EST , Physical Exam Const alert and no apparent distress Constitutional Narrative: Obese. Resting comfortably in bed. General Appearance: cooperative HEENT normocephalic, head/scalp atraumatic and moist oral mucous membranes Eyes EOMs intact bilaterally, conjunctivae normal and no scleral icterus Neck supple General: trachea midline Chest inspection of chest normal Resp normal respiratory effort Auscultation: Negative for rales, rhonchi or wheezes Cardio regular rate and regular rhythm GI soft to palpation Palpation: Negative for guarding or rigid Extremity no clubbing, cyanosis or edema Skin no rashes or lesions noted Neuro CN's II-XII intact bilaterally, moves all extremities and no focal motor deficits Psych Mood & Affect: flat affect Charges/Coding Visit Charges Inpatient E&M: 05185 Subs Hosp L3
[2024-10-21] MEDS: Piperacil/Tazobactam 3.375 GM in 0.9% Normal Saline (50mL MB+) 50 ML IV ×3 (07:51→20:39)
--- NOTE | 2024-10-21 08:24 | PCM.PN.HOSP ---
Subjective Subjective Doing well, no issues overnight. Says that she feels better than when she came in. Objective Data Objective Data Vital Signs: Vital Signs Temp Pulse Resp BP Pulse Ox O2 Del Method O2 Flow Rate 99.2 F H 60 14 135/66 H 96 Nasal Cannula 2 10/21/24 04:00 10/21/24 07:00 10/21/24 07:00 10/21/24 07:00 10/21/24 07:00 10/21/24 07:00 10/21/24 07:00 FiO2 40 10/20/24 14:00 Oxygen Flow Rate (L/min) 2 Oxygen Delivery Method Nasal Cannula Weight: 204 lb 2.369 oz Body Mass Index (BMI) 37.5 Intake & Output: Intake and Output for Last 24 Hours 10/20/24 10/21/24 10/22/24 03:59 03:59 03:59 Intake Total 1008.32 / 1045.72 354.60 / 354.60 0 / 0 Output Total 2615 / 2615 785 / 785 250 / 250 Balance -1606.68 / -1569.28 -430.40 / -430.40 -250 / -250 Lab / Micro Data 10/21/24 04:25 10/21/24 04:25 Labs: Laboratory Results - last 24 hr 10/21/24 04:25: WBC 11.2 H, RBC 3.92 L, Hgb 11.8 L, Hct 36.6 L, MCV 93.4, MCH 30.1, MCHC 32.2, RDW Std Deviation 50.0 H, RDW Coeff of Rochelle 14.5, Plt Count 255, MPV 10.2, Immature Gran % (Auto) 2.200 H, Neut % (Auto) 75.0 H, Lymph % (Auto) 12.2 L, [place] % (Auto) 8.1, Eos % (Auto) 2.0, Baso % (Auto) 0.5, Absolute Neuts (auto) 8.4 H, Absolute Lymphs (auto) 1.36, Nucleated RBC % 0, Sodium 138, Potassium 3.3 L, Chloride 107, Carbon Dioxide 27.0, Anion Gap 4 L, BUN 18, Creatinine 0.67, Estim Creat Clear Calc 62.68, Est GFR (MDRD) Af Amer 110, Est GFR (MDRD) Non-Af 91, BUN/Creatinine Ratio 26.9 H, Glucose 101, Calcium 9.0, Total Bilirubin 1.70 H, AST 22, ALT 57 H, Alkaline Phosphatase 138 H, Total Protein 6.5, Albumin 2.1 L, Globulin 4.4 H, Albumin/Globulin Ratio 0.5 L Micro: Microbiology 10/17/24 18:52 Sputum, Induced/Lukens Gram Stain - Final 10/17/24 18:52 Sputum, Induced/Lukens Respiratory Culture - Final Culture exhibits no growth. 10/16/24 22:35 Blood Culture (Wb) - Anticubital Left Blood Culture - Preliminary No growth in 48 hours. 10/16/24 23:25 Blood Culture (Wb) - Anticubital Right Blood Culture - Preliminary No growth in 48 hours. 10/17/24 07:50 Mucosa - Nasopharyngeal Respiratory Panel (PCR) - Final 10/17/24 08:45 Urine, Clean Catch Legionella Antigen - Final 10/17/24 08:45 Urine, Clean Catch Streptococcus pneumoniae Antigen (M - Final 10/17/24 07:50 Nasal Secretion MRSA (PCR) - Final 10/17/24 07:50 Mucosa - Nose SARS-CoV-2, Influenza & RSV (PCR) - Final ABG Data ABG results: ABG 10/20/24 10:57 Specimen Type ART Sample Site L Radial pH 7.44 Bicarbonate Actual 23.1 Total CO2 24 Base Excess -1 O2 Saturation 94 L O2 % 40.0 ABG pCO2 34.4 L ABG pO2 69 L Oleg Test Positive O2 Delivery Device Adult Vent Vent Mode PS POC PEEP 5 Physical Exam Narrative General: Alert, Oriented x3, Cooperative, No apparent distress HEENT: Atraumatic, PERRLA, EOMI, Normocephalic Oral: Moist Mucosa Neck: Supple, No JVD Lungs: Diminished, Normal air movement, No rhonchi, No wheeze, No rales Cardiovascular: Regular rate, Regular Rhythm, Normal S1, Normal S2, No murmurs Abdomen: Soft, Non Tender, Non-Distended, No Hepato-splenomegaly Extremities: No edema, Capillary Refill Less than 3 Seconds Skin: No rashes, No breakdown Musculoskeletal: No Tenderness to Palpation of Joints or Extremities Neurological: No focal neurological deficits, Motor Exam 5/5 strength throughout, Sensory exam intact to light touch and pain Psych/Mental Status: Flat Assessment & Plan Assessment/Plan (1) RUQ pain: PLAN: Plan #1. Acute choledocholithiasis with questionable concurrent acute cholecystitis (initial Hospitalist note with ? possible early sepsis; however, although patient does have leukocytosis and mild hyperbilirubinemia there is no overt endorgan damage to discern sepsis): Patient admitted to the ICU especially given #2, maintained on IV zosyn, maintained on IVFs, NPO, IV/po pain control, trend CBC/CMP, GI and surgery consulted, 10/17/24 ERCP with entire main bile duct dilated with a stone causing obstruction with complete removal via biliary sphincterotomy and balloon extraction, 1 temporary stent placed in the common bile duct. Following ERCP 10/17/24 patient remained intubated. General surgery consulted and following. Eventually patient will need more definitive intervention and given number to whether or not this is cholecystostomy tube versus cholecystectomy will have to be determined. 10/18/24 repeat gallbladder ultrasound with fatty liver with cystic lesion with no shadowing gallstone, mild pericholecystic fluid or any gallbladder wall thickening, proximal common bile duct measuring 6 mm within limit for patient age. 10/19/2024 discussion with general surgery with likely planned reevaluation once extubated to ascertain if any pain is present especially given appearance of repeat gallbladder ultrasound 10/18/2024. 10/19/24-10/20/24 Overnight bradycardiac on precedex. Had been switched from propofol to precedex in preparation for extubation. 10/20/2024 weaning trial planned eminently. 10/20/2024 discussed with general surgery and given patient is awake and alert and no abdominal pain reported or elicited on exam likely no operative intervention will be pursued. 10/21/2024: Extubated 10/20/2024. Appreciate metal numerical tool programmer assistance, can plan to transfer out of ICU in the next 24 hours #2. Acute Hypoxic Respiratory Failure secondary to Right lower lobe PNA, higher suspicion given recent history of productive cough, dyspnea: ED evaluation with CXR with slight increase interstitial markings, CT abdomen and pelvis with right lower lobe consolidation versus atelectasis at the bases, initially on low NC requirements, increased in the ICU on high flow, following 10/17/24 ERCP remained intubated, initially maintained initially on IV vancomycin and IV Zosyn with resulting 10/18/2024 negative MRSA screen de-escalated off of IV vancomycin, rapid SARS COVID/influenza/RSC PCR negative, urine antigens negative, requested sputum culture, full respiratory viral panel negative, BNP 68.8, procalcitonin 0.65. 10/19/2024 Vent settings improving but as noted increased agitation with weaning attempts. 10/19/2024 pulse dose Lasix 40 mg IV x 1. 10/19/24-10/20/24 Overnight bradycardiac on precedex. Had been switched from propofol to precedex in preparation for extubation. 10/20/2024 weaning trial planned eminently. 10/21/2024: Respiratory culture is negative for growth, and respiratory panel is negative will complete 7 days of Zosyn #3. Hypokalemia: Admission K+ 3.3, magnesium level requested, supplementation given, repeat level in AM. #4. Chronic Kidney Disease Stage II based on GFR trending: Admission BUN/Cr 19/0.98, GFR 58, baseline renal function primarily 0.8-0.9, 10/20/2024 BUN/creatinine 23/0.91, GFR 64, repeat BMP in AM. #5. PVD: Holding pentoxifylline given planned intervention as noted. #6. Hyperlipidemia: Will hold statin therapy. #7. Chronic anemia/Fe deficiency anemia: Admission hemoglobin 14.5, MCV 91 and prior to this baseline had transiently been 14 but more remotely in 2013 had been 11-12, 10/18/2024 hemoglobin 11.2 following initial presentation interventions and hydration, 10/20/2024 hemoglobin 11.6, continue to trend. Holding Fe supplementation. #8. Obesity: Weight loss and lifestyle changes encouraged. #9. GERD: Maintained on IV PPI. DVT: Lovenox Charges/Coding Visit Charges Inpatient E&M: 46678 Subs Hosp L2
[2024-10-21] MEDS: Potassium Chloride Oral Tablet 20 MEQ 40 MEQ PO (09:38)
[2024-10-21] MEDS: Enoxaparin 40 MG/0.4 ML Syringe SC (09:38)
[2024-10-21] MEDS: Ondansetron 4 MG/2 ML Vial IV (09:41)
--- NOTE | 2024-10-21 09:42 | PCM.PN.SRG ---
Subjective Subjective Patient seen and examined during AM rounds. She was actually visited yesterday afternoon as well after being extubated and the course of her previous days treatments were reviewed. She shares this morning that she has had no difficulty with her diet advancement and nursing reports no acute events overnight. Objective Data Objective Data Vital Signs: Vital Signs Temp Pulse Resp BP Pulse Ox O2 Del Method O2 Flow Rate 98.9 F 72 12 165/84 H 92 Room Air 2 10/21/24 08:00 10/21/24 08:00 10/21/24 08:00 10/21/24 08:00 10/21/24 08:00 10/21/24 08:00 10/21/24 07:00 FiO2 40 10/20/24 14:00 Oxygen Flow Rate (L/min) 2 Oxygen Delivery Method Room Air Weight: 204 lb 2.369 oz Body Mass Index (BMI) 37.5 Intake & Output: Intake and Output for Last 24 Hours 10/19/24 10/20/24 10/21/24 23:59 23:59 23:59 Intake Total 959.22 / 1006.22 460.40 / 460.40 50 / 50 Output Total 2765 / 2915 685 / 935 500 / 500 Balance -1805.78 / -1908.78 -224.60 / -474.60 -450 / -450 Lab / Micro Data 10/21/24 04:25 10/21/24 04:25 Labs: Laboratory Results - last 24 hr 10/21/24 04:25: WBC 11.2 H, RBC 3.92 L, Hgb 11.8 L, Hct 36.6 L, MCV 93.4, MCH 30.1, MCHC 32.2, RDW Std Deviation 50.0 H, RDW Coeff of Rochelle 14.5, Plt Count 255, MPV 10.2, Immature Gran % (Auto) 2.200 H, Neut % (Auto) 75.0 H, Lymph % (Auto) 12.2 L, [place] % (Auto) 8.1, Eos % (Auto) 2.0, Baso % (Auto) 0.5, Absolute Neuts (auto) 8.4 H, Absolute Lymphs (auto) 1.36, Nucleated RBC % 0, Sodium 138, Potassium 3.3 L, Chloride 107, Carbon Dioxide 27.0, Anion Gap 4 L, BUN 18, Creatinine 0.67, Estim Creat Clear Calc 62.68, Est GFR (MDRD) Af Amer 110, Est GFR (MDRD) Non-Af 91, BUN/Creatinine Ratio 26.9 H, Glucose 101, Calcium 9.0, Total Bilirubin 1.70 H, AST 22, ALT 57 H, Alkaline Phosphatase 138 H, Total Protein 6.5, Albumin 2.1 L, Globulin 4.4 H, Albumin/Globulin Ratio 0.5 L Micro: Microbiology 10/17/24 18:52 Sputum, Induced/Lukens Gram Stain - Final 10/17/24 18:52 Sputum, Induced/Lukens Respiratory Culture - Final Culture exhibits no growth. 10/16/24 22:35 Blood Culture (Wb) - Anticubital Left Blood Culture - Preliminary No growth in 48 hours. 10/16/24 23:25 Blood Culture (Wb) - Anticubital Right Blood Culture - Preliminary No growth in 48 hours. 10/17/24 07:50 Mucosa - Nasopharyngeal Respiratory Panel (PCR) - Final 10/17/24 08:45 Urine, Clean Catch Legionella Antigen - Final 10/17/24 08:45 Urine, Clean Catch Streptococcus pneumoniae Antigen (M - Final 10/17/24 07:50 Nasal Secretion MRSA (PCR) - Final 10/17/24 07:50 Mucosa - Nose SARS-CoV-2, Influenza & RSV (PCR) - Final ABG Data ABG results: ABG 10/20/24 10:57 Specimen Type ART Sample Site L Radial pH 7.44 Bicarbonate Actual 23.1 Total CO2 24 Base Excess -1 O2 Saturation 94 L O2 % 40.0 ABG pCO2 34.4 L ABG pO2 69 L Oleg Test Positive O2 Delivery Device Adult Vent Vent Mode PS POC PEEP 5 Physical Exam Const oriented x3 and no apparent distress Resp normal respiratory effort GI GI Narrative: Nondistended, soft, nontender to palpation x 4 quadrants. Negative Schwartz sign Assessment & Plan Assessment/Plan (1) Acute cholecystitis due to biliary calculus: PLAN: Patient is a 79-year-old female who I am following in the absence of my partner Dr. Bruner for concern for cholecystitis in addition to choledocholithiasis now4 days status post ERCP with stone extraction and stent placement. Clinically, patient appears much improved and she was successfully extubated yesterday. Her laboratories show stability of her leukocytosis. Once again, she denies any tenderness with exam of her abdomen. While both her CT and ultrasound imaging were concerning for cholecystitis I believe the treatment rendered to-date has been effective?namely both performing ERCP and continuing IV Zosyn. As such I do not think there is reason to pursue cholecystostomy tube and would be planning for outpatient follow-up with Dr. Bruner of general surgery to schedule interval cholecystectomy once patient is rehabilitated. Joel Pepper MD General Surgery Endocrine Surgery Pager: [facility] [address] [place] [address], [address] [place] [address] Office: [phone] Charges/Coding Visit Charges Inpatient E&M: 15625 [facility] Hosp L2
[2024-10-21] MEDS: 0.9% Saline Lock 10 ML Syringe IV (09:43)
--- NOTE | 2024-10-21 16:47 | CASEMGMT ---
Social Work SW met with pt and introduced self and discussed discharge plan. Pt stating that she feels she can return home and that her granddaugther will be staying with her. SW discussed options of home health and SNF. Discussed that pt was only able to ambulate 4 ft today with the assist of 1. Pt stating that she would like time to consider options. A list of SNF providers including quality and resource use data and consistent with the patient?s preferred geographic region, medical needs, and insurance network were provided from the [facility] Guide. Pt gave this SW permission to call jones Frausto to discuss discharge. Phone call to jones Frausto who is able to express understanding of pt current functional status. Options of home with home health and SNF were discussed. Lisbet will speak with pt this evening to make decisions and will touch base with ALEXANDER tomorrow. LIN Herrera
[2024-10-21] MEDS: Acetaminophen 325 MG Tablet 650 MG PO (19:36)
[2024-10-22 02:00] VITALS: BP 127/61; PULSE 70; RESP 14; TEMP 36.8; O2SAT 95
[2024-10-22] MEDS: Piperacil/Tazobactam 3.375 GM in 0.9% Normal Saline (50mL MB+) 50 ML IV (05:17)
[2024-10-22 05:20] VITALS: BMI 38.0
[2024-10-22 07:53] LABS: Absolute Lymphocyte Count 1.55 X10^3/uL (0.83-4.51); Absolute Neutrophil Count 7.9 X10^3/uL (2.0-7.7); Basophil# 0.07 X10^3/uL; Basophil% 0.6 % (0-1); Eosinophil# 0.45 X10^3/uL; Eosinophils% 3.9 % (0-5); Hematocrit 39.2 % (37-47); Hemoglobin 12.1 g/dL (12.0-15.0); Lymphocyte # 1.55 X10^3/ul (0.83-4.51); Lymphocyte % 13.6 % (19-41); Mean Corp Hgb Conc 30.9 g/dL (32-36); Mean Corpuscular Hgb 29.6 pg (27.0-32.0); Mean Corpuscular Volume 95.8 fL (81-99); Mean Platelet Vol. 10.3 fl (6.2-12.0); Monocyte# 0.97 X10^3/uL; Monocyte% 8.5 % (0-10); NRBC Flagged by Analyzer 0 % (0-5); Neutrophil # 7.93 X10^3/uL (2.7-7.7); Neutrophil % 69.4 % (47-70); Platelet Count 275 K/mm3 (150-450); RBC Distribution Width CV 14.3 % (11.6-14.6); RBC Distribution Width SD 50.2 fl (35.1-43.9); Red Blood Count 4.09 M/mm3 (4.2-5.4); White Blood Count 11.4 K/mm3 (4.4-11.0)
--- NOTE | 2024-10-22 08:21 | PCM.PN.HOSP ---
Subjective Subjective Doing well, no issues overnight Objective Data Objective Data Vital Signs: Vital Signs Temp Pulse Resp BP Pulse Ox O2 Del Method O2 Flow Rate 98.3 F 70 14 127/61 H 95 Nasal Cannula 2 10/22/24 02:00 10/22/24 02:00 10/22/24 02:00 10/22/24 02:00 10/22/24 02:00 10/22/24 02:00 10/22/24 02:00 FiO2 40 10/20/24 14:00 Oxygen Flow Rate (L/min) 2 Oxygen Delivery Method Nasal Cannula Weight: 206 lb 9.17 oz Body Mass Index (BMI) 38.0 Intake & Output: Intake and Output for Last 24 Hours 10/21/24 10/22/24 10/23/24 03:59 03:59 03:59 Intake Total 354.60 / 354.60 630 / 630 Output Total 785 / 785 560 / 560 Balance -430.40 / -430.40 70 / 70 Lab / Micro Data 10/22/24 07:14 10/21/24 04:25 Labs: Laboratory Results - last 24 hr 10/22/24 07:14: WBC 11.4 H, RBC 4.09 L, Hgb 12.1, Hct 39.2, MCV 95.8, MCH 29.6, MCHC 30.9 L, RDW Std Deviation 50.2 H, RDW Coeff of Rochelle 14.3, Plt Count 275, MPV 10.3, Immature Gran % (Auto) 4.000 H, Neut % (Auto) 69.4, Lymph % (Auto) 13.6 L, [place] % (Auto) 8.5, Eos % (Auto) 3.9, Baso % (Auto) 0.6, Absolute Neuts (auto) 7.9 H, Absolute Lymphs (auto) 1.55, Nucleated RBC % 0 Micro: Microbiology 10/16/24 22:35 Blood Culture (Wb) - Anticubital Left Blood Culture - Final No growth in 5 days. 10/16/24 23:25 Blood Culture (Wb) - Anticubital Right Blood Culture - Final No growth in 5 days. 10/17/24 18:52 Sputum, Induced/Lukens Gram Stain - Final 10/17/24 18:52 Sputum, Induced/Lukens Respiratory Culture - Final Culture exhibits no growth. 10/17/24 07:50 Mucosa - Nasopharyngeal Respiratory Panel (PCR) - Final 10/17/24 08:45 Urine, Clean Catch Legionella Antigen - Final 10/17/24 08:45 Urine, Clean Catch Streptococcus pneumoniae Antigen (M - Final 10/17/24 07:50 Nasal Secretion MRSA (PCR) - Final 10/17/24 07:50 Mucosa - Nose SARS-CoV-2, Influenza & RSV (PCR) - Final Physical Exam Narrative General: Alert, Oriented x3, Cooperative, No apparent distress HEENT: Atraumatic, PERRLA, EOMI, Normocephalic Oral: Moist Mucosa Neck: Supple, No JVD Lungs: Diminished, Normal air movement, No rhonchi, No wheeze, No rales Cardiovascular: Regular rate, Regular Rhythm, Normal S1, Normal S2, No murmurs Abdomen: Soft, Non Tender, Non-Distended, No Hepato-splenomegaly Extremities: No edema, Capillary Refill Less than 3 Seconds Skin: No rashes, No breakdown Musculoskeletal: No Tenderness to Palpation of Joints or Extremities Neurological: No focal neurological deficits, Motor Exam 5/5 strength throughout, Sensory exam intact to light touch and pain Psych/Mental Status: Flat Assessment & Plan Assessment/Plan (1) RUQ pain: PLAN: Plan #1. Acute choledocholithiasis with questionable concurrent acute cholecystitis (initial Hospitalist note with ? possible early sepsis; however, although patient does have leukocytosis and mild hyperbilirubinemia there is no overt endorgan damage to discern sepsis): Patient admitted to the ICU especially given #2, maintained on IV zosyn, maintained on IVFs, NPO, IV/po pain control, trend CBC/CMP, GI and surgery consulted, 10/17/24 ERCP with entire main bile duct dilated with a stone causing obstruction with complete removal via biliary sphincterotomy and balloon extraction, 1 temporary stent placed in the common bile duct. Following ERCP 10/17/24 patient remained intubated. General surgery consulted and following. Eventually patient will need more definitive intervention and given number to whether or not this is cholecystostomy tube versus cholecystectomy will have to be determined. 10/18/24 repeat gallbladder ultrasound with fatty liver with cystic lesion with no shadowing gallstone, mild pericholecystic fluid or any gallbladder wall thickening, proximal common bile duct measuring 6 mm within limit for patient age. 10/19/2024 discussion with general surgery with likely planned reevaluation once extubated to ascertain if any pain is present especially given appearance of repeat gallbladder ultrasound 10/18/2024. 10/19/24-10/20/24 Overnight bradycardiac on precedex. Had been switched from propofol to precedex in preparation for extubation. 10/20/2024 weaning trial planned eminently. 10/20/2024 discussed with general surgery and given patient is awake and alert and no abdominal pain reported or elicited on exam likely no operative intervention will be pursued. 10/21/2024: Extubated 10/20/2024. Appreciate maintenance shop manager assistance, can plan to transfer out of ICU in the next 24 hours 10/22/2024: Transfer to PCU today maintaining her oxygen sats on 2 L nasal cannula, PT/OT evaluation for SNF #2. Acute Hypoxic Respiratory Failure secondary to Right lower lobe PNA, higher suspicion given recent history of productive cough, dyspnea: ED evaluation with CXR with slight increase interstitial markings, CT abdomen and pelvis with right lower lobe consolidation versus atelectasis at the bases, initially on low NC requirements, increased in the ICU on high flow, following 10/17/24 ERCP remained intubated, initially maintained initially on IV vancomycin and IV Zosyn with resulting 10/18/2024 negative MRSA screen de-escalated off of IV vancomycin, rapid SARS COVID/influenza/RSC PCR negative, urine antigens negative, requested sputum culture, full respiratory viral panel negative, BNP 68.8, procalcitonin 0.65. 10/19/2024 Vent settings improving but as noted increased agitation with weaning attempts. 10/19/2024 pulse dose Lasix 40 mg IV x 1. 10/19/24-10/20/24 Overnight bradycardiac on precedex. Had been switched from propofol to precedex in preparation for extubation. 10/20/2024 weaning trial planned eminently. 10/21/2024: Respiratory culture is negative for growth, and respiratory panel is negative will complete 7 days of Zosyn #3. Hypokalemia: Admission K+ 3.3, magnesium level requested, supplementation given, repeat level in AM. #4. Chronic Kidney Disease Stage II based on GFR trending: Admission BUN/Cr 19/0.98, GFR 58, baseline renal function primarily 0.8-0.9, 10/20/2024 BUN/creatinine 23/0.91, GFR 64, repeat BMP in AM. #5. PVD: Holding pentoxifylline given planned intervention as noted. #6. Hyperlipidemia: Will hold statin therapy. #7. Chronic anemia/Fe deficiency anemia: Admission hemoglobin 14.5, MCV 91 and prior to this baseline had transiently been 14 but more remotely in 2013 had been 11-12, 10/18/2024 hemoglobin 11.2 following initial presentation interventions and hydration, 10/20/2024 hemoglobin 11.6, continue to trend. Holding Fe supplementation. #8. Obesity: Weight loss and lifestyle changes encouraged. #9. GERD: Maintained on IV PPI. DVT: Lovenox Charges/Coding Visit Charges Inpatient E&M: 24372 Subs Hosp L2
[2024-10-22 08:22] VITALS: O2SAT 94
[2024-10-22 08:26] LABS: Anion Gap 5 (5-15); BUN 12 mg/dL (7-18); BUN/Creat Ratio 19.9 RATIO (10-20); Calcium,Total 8.9 mg/dL (8.5-10.1); Chloride 106 mmol/L (98-107); EST Glomerular Filtration Rate 102 mL/min (>60); Est Glom Filt Rate - Afr Amer 124 mL/min (>60); Estimated Creatinine Clearance 62.79 ml/min; Glucose 99 mg/dL (74-106); Potassium 3.7 mmol/L (3.5-5.1); Sodium Level 137 mmol/L (136-145)
[2024-10-22 08:41] LABS: Phosphorus 3.1 mg/dL (2.5-4.9)
--- NOTE | 2024-10-22 08:53 | CASEMGMT ---
Addendum entered by Wanda Hernandez 10/22/24 10:34: Social Work TCU is able to accept pt. Physician notified and pt is likely ready for dc today. SW phoned pt dgt Lisbet and updated on the discharge plan and she is agreeable. SW met with pt and informed of dc plan. Pt also agreeable. Plan: TCU, when medically ready LIN Herrera Original Note: Social Work SW spoke with pt's dgt Lisbet regarding discharge plan. Lisbet states she has spoke with pt who is agreeable to SNF and preferred provider is [facility]. Referral made to TCU. ALEXANDER will await determination of acceptance. Plan: TCU, pending acceptance LIN Herrera
[2024-10-22] MEDS: Enoxaparin 40 MG/0.4 ML Syringe SC (09:18)
--- NOTE | 2024-10-22 09:29 | PN.SURG_ITS ---
Subjective Subjective Patient seen and examined during AM rounds. She is found resting out of bed in the chair. She denies any abdominal pain. Neither she nor nursing have been informed of any status updates but she is technically in a lower level of care after a transfer yesterday. Objective Data Objective Data Vital Signs: Vital Signs Temp Pulse Resp BP Pulse Ox O2 Del Method O2 Flow Rate 98.3 F 70 14 127/61 H 94 Nasal Cannula 2 10/22/24 02:00 10/22/24 02:00 10/22/24 02:00 10/22/24 02:00 10/22/24 08:22 10/22/24 08:22 10/22/24 08:22 FiO2 40 10/20/24 14:00 Oxygen Flow Rate (L/min) 2 Oxygen Delivery Method Nasal Cannula Weight: 206 lb 9.17 oz Body Mass Index (BMI) 38.0 Intake & Output: Intake and Output for Last 24 Hours 10/20/24 10/21/24 10/22/24 23:59 23:59 23:59 Intake Total 460.40 / 460.40 630 / 630 100 / 100 Output Total 685 / 935 810 / 810 Balance -224.60 / -474.60 -180 / -180 100 / 100 Lab / Micro Data 10/22/24 07:14 10/22/24 07:14 Labs: Laboratory Results - last 24 hr 10/22/24 07:14: WBC 11.4 H, RBC 4.09 L, Hgb 12.1, Hct 39.2, MCV 95.8, MCH 29.6, MCHC 30.9 L, RDW Std Deviation 50.2 H, RDW Coeff of Rochel[place] 14.3, Plt Count 275, MPV 10.3, Immature Gran % (Auto) 4.000 H, Neut % (Auto) 69.4, Lymph % (Auto) 13.6 L, [place] % (Auto) 8.5, Eos % (Auto) 3.9, Baso % (Auto) 0.6, Absolute Neuts (auto) 7.9 H, Absolute Lymphs (auto) 1.55, Nucleated RBC % 0, Sodium 137, Potassium 3.7, Chloride 106, Carbon Dioxide 26.0, Anion Gap 5, BUN 12, Creatinine 0.60, Estim Creat Clear Calc 62.79, Est GFR (MDRD) Af Amer 124, Est GFR (MDRD) Non-Af 102, BUN/Creatinine Ratio 19.9, Glucose 99, Calcium 8.9, Phosphorus 3.1 Micro: Microbiology 10/16/24 22:35 Blood Culture (Wb) - Anticubital Left Blood Culture - Final No growth in 5 days. 10/16/24 23:25 Blood Culture (Wb) - Anticubital Right Blood Culture - Final No growth in 5 days. 10/17/24 18:52 Sputum, Induced/Lukens Gram Stain - Final 10/17/24 18:52 Sputum, Induced/Lukens Respiratory Culture - Final Culture exhibits no growth. 10/17/24 07:50 Mucosa - Nasopharyngeal Respiratory Panel (PCR) - Final 10/17/24 08:45 Urine, Clean Catch Legionella Antigen - Final 10/17/24 08:45 Urine, Clean Catch Streptococcus pneumoniae Antigen (M - Final 10/17/24 07:50 Nasal Secretion MRSA (PCR) - Final 10/17/24 07:50 Mucosa - Nose SARS-CoV-2, Influenza & RSV (PCR) - Final Physical Exam Const oriented x3 and no apparent distress Resp Resp Narrative: Upper airway secretions are audible with inspiration GI GI Narrative: Nondistended, soft, nontender to palpation x 4 quadrants. Negative Schwartz sign Assessment & Plan Assessment/Plan (1) Acute cholecystitis due to biliary calculus: PLAN: Patient is a 79-year-old female who I am following in the absence of my partner Dr. Bruner for concern for cholecystitis in addition to choledocholithiasis now4 days status post ERCP with stone extraction and stent placement. Clinically, patient appears stable to improved and she was technically transferred out of the ICU status yesterday (but she remains in the same room due to the bed unavailability). Her laboratories show stability of her leukocytosis. Once again, she denies any tenderness with exam of her abdomen. While both her CT and ultrasound imaging were concerning for cholecystitis I believe the treatment rendered to-date has been effective and I do not think there is reason to pursue inpatient cholecystectomy or cholecystostomy tube. Instead recommend planning for outpatient follow-up with Dr. Bruner of general surgery to schedule interval cholecystectomy once patient is rehabilitated. Joel Pepper MD General Surgery Endocrine Surgery Pager: [facility] [address] [place] [address], Outpatient Pavilion, [address] [place] [address] Office: [phone] Charges/Coding Visit Charges Inpatient E&M: 89445 Subs Hosp L2
--- NOTE | 2024-10-22 10:34 | CASEMGMT ---
Social Work SW spoke with pt's dgt regarding advance directives.? Dgt confirms pt has completed a living will and health care POA naming jones Lassiter.? Lisbet agreeable to bring the documents in today to scan into pt medical record. LIN Herrera
--- NOTE | 2024-10-22 10:53 | PCM.TXEXTCAR ---
Diet Diet Order/Speech Therapy: 10/20/24 18:22 Diet: Regular - General Dietary Modifications:: Fat Restricted Routine Orders/Code Status Routine Lab Work: CBC and BMP Code Status: Full Code DC O2, CPAP, BIPAP needs PSN CPAP & BiPAP: BiPAP & CPAP Settings per PSN Fraction of Inspired Oxygen ( 40 10/20/24 14:00 FIO2) Home O2 Discharge instructions: No Wound(s) right side tongue: Wound Type: Abrasion Therapies Physical Therapy: Eval and Treat Occupational Therapy: Eval and Treat Problem/Diagnosis (1) Acute cholecystitis due to biliary calculus: Status: Acute Code(s): K80.00 - Calculus of gallbladder with acute cholecystitis without obstruction Plan #1. Acute choledocholithiasis with questionable concurrent acute cholecystitis (initial Hospitalist note with ? possible early sepsis; however, although patient does have leukocytosis and mild hyperbilirubinemia there is no overt endorgan damage to discern sepsis): Patient admitted to the ICU especially given #2, maintained on IV zosyn, maintained on IVFs, NPO, IV/po pain control, trend CBC/CMP, GI and surgery consulted, 10/17/24 ERCP with entire main bile duct dilated with a stone causing obstruction with complete removal via biliary sphincterotomy and balloon extraction, 1 temporary stent placed in the common bile duct. Following ERCP 10/17/24 patient remained intubated. General surgery consulted and following. Eventually patient will need more definitive intervention and given number to whether or not this is cholecystostomy tube versus cholecystectomy will have to be determined. 10/18/24 repeat gallbladder ultrasound with fatty liver with cystic lesion with no shadowing gallstone, mild pericholecystic fluid or any gallbladder wall thickening, proximal common bile duct measuring 6 mm within limit for patient age. 10/19/2024 discussion with general surgery with likely planned reevaluation once extubated to ascertain if any pain is present especially given appearance of repeat gallbladder ultrasound 10/18/2024. 10/19/24-10/20/24 Overnight bradycardiac on precedex. Had been switched from propofol to precedex in preparation for extubation. 10/20/2024 weaning trial planned eminently. 10/20/2024 discussed with general surgery and given patient is awake and alert and no abdominal pain reported or elicited on exam likely no operative intervention will be pursued. 10/21/2024: Extubated 10/20/2024. Appreciate timekeeping supervisor assistance, can plan to transfer out of ICU in the next 24 hours 10/22/2024: Transfer to PCU today maintaining her oxygen sats on 2 L nasal cannula, PT/OT evaluation for SNF #2. Acute Hypoxic Respiratory Failure secondary to Right lower lobe PNA, higher suspicion given recent history of productive cough, dyspnea: ED evaluation with CXR with slight increase interstitial markings, CT abdomen and pelvis with right lower lobe consolidation versus atelectasis at the bases, initially on low NC requirements, increased in the ICU on high flow, following 10/17/24 ERCP remained intubated, initially maintained initially on IV vancomycin and IV Zosyn with resulting 10/18/2024 negative MRSA screen de-escalated off of IV vancomycin, rapid SARS COVID/influenza/RSC PCR negative, urine antigens negative, requested sputum culture, full respiratory viral panel negative, BNP 68.8, procalcitonin 0.65. 10/19/2024 Vent settings improving but as noted increased agitation with weaning attempts. 10/19/2024 pulse dose Lasix 40 mg IV x 1. 10/19/24-10/20/24 Overnight bradycardiac on precedex. Had been switched from propofol to precedex in preparation for extubation. 10/20/2024 weaning trial planned eminently. 10/21/2024: Respiratory culture is negative for growth, and respiratory panel is negative will complete 7 days of Zosyn #3. Hypokalemia: Admission K+ 3.3, magnesium level requested, supplementation given, repeat level in AM. #4. Chronic Kidney Disease Stage II based on GFR trending: Admission BUN/Cr 19/0.98, GFR 58, baseline renal function primarily 0.8-0.9, 10/20/2024 BUN/creatinine 23/0.91, GFR 64, repeat BMP in AM. #5. PVD: Holding pentoxifylline given planned intervention as noted. #6. Hyperlipidemia: Will hold statin therapy. #7. Chronic anemia/Fe deficiency anemia: Admission hemoglobin 14.5, MCV 91 and prior to this baseline had transiently been 14 but more remotely in 2013 had been 11-12, 10/18/2024 hemoglobin 11.2 following initial presentation interventions and hydration, 10/20/2024 hemoglobin 11.6, continue to trend. Holding Fe supplementation. #8. Obesity: Weight loss and lifestyle changes encouraged. #9. GERD: Maintained on IV PPI. DVT: Lovenox Allergies/Procedures Done in Hospital Allergies No Known Allergies Allergy (Verified 10/16/24 17:37) Procedures: Intubation and - (Biliary stent) Type of Care/Length of Stay Estimated LOS: Convalescent Care Less Than 30 days Type of Care Needed: Skilled Rehab Potential: Good Prognosis: Good Additional Orders/Day of Discharge Day of Discharge: 10/22/24 Dietary and Speech Recommendations Dietitian Recommendations/Changes: Continue regular, fat restrictive diet d/t cholecystitis Rec 120ml chocolate ensure plus high protein TID if po intake fails Discharge Plan Admission Admit Date/Time: 10/16/24 20:45 Attending Provider: Noel Cosby Primary Care Provider: Missy Parada Consulting Providers: Deshaun Kumar; Brian Bruner; Giuliana Epstein Discharge Orders/Prescriptions Prescriptions: New amoxicillin-pot clavulanate 875-125 mg tablet 1 tab PO BID Qty: 4 0RF Continued montelukast 10 mg tablet 10 mg PO QPM Qty: 20 0RF cyanocobalamin (vitamin B-12) 500 MCG tablet 1,000 mcg PO DAILY@0800 Patient Comments: SUPPLEMENT ascorbic acid (vitamin C) [Vitamin C] 500 MG tablet 500 mg PO DAILY@0800 Patient Comments: SUPPLEMENT lansoprazole [Prevacid] 30 MG capsule 30 mg PO DAILY Patient Comments: ACID REFLUX iron, carbonyl [Feosol] 45 MG capsule 65 mg PO DAILYCM Patient Comments: SUPPLEMENT Flax, Fish and Borage Oil 1 EACH capsule 1 ea PO DAILY Patient Comments: SUPPLEMENT cholecalciferol (vitamin D3) [Vitamin D3] 1,000 UNIT tablet 2,000 unit PO DAILY Patient Comments: SUPPLEMENT montelukast [Singulair] 10 mg Tablet 10 mg PO DAILY cetirizine 10 mg tablet 10 mg PO DAILY pentoxifylline 400 mg tablet extended release 400 mg PO BID lidocaine 5 % adhesive patch,medicated 1 patch topical DAILY rosuvastatin 10 mg tablet 10 mg PO QHS Xifaxan 550 mg tablet 550 mg PO TID Referrals / Follow Up: Missy Parada DO [Primary Care Provider] - Brian Bruner MD [Med Staff - Active Staff] - Within 2 Weeks Disposition Disposition (needs filled in before D/C Order can be placed): Detention Facility
--- NOTE | 2024-10-22 10:57 | PCM.DC.SUM ---
Providers Date of Admission: 10/16/24 Primary Care Physician: Dr. Missy Parada, DO Consultations 10/16/24 21:12 Consult: Gastroenterology Routine Consulting Provider: [facility] Reason for Consult: Cholecystitis with Choledocholithiasis on CT. EMERGENT Consult: No MD Notified: Yes Date Notified: 10/16/24 Time Notified: 20:52 Method of Notification: ED Physician Initiated 10/17/24 06:30 Consult: Natural Resources Instructor / Pulmonary Medicine Routine Consulting Provider: Intensivists/Pulmonary Med Reason for Consult: acute cholecystitis w/ choledocholithiasis, hypoxia, ? pna EMERGENT Consult: No MD Notified: Yes Date Notified: 10/17/24 Time Notified: 07:05 Method of Notification: Text 10/17/24 08:41 Consult: General Surgery Routine Consulting Provider: Brian Bruner Reason for Consult: Acute cholecystitis w/ choledocholithiasis EMERGENT Consult: No MD Notified: Yes Date Notified: 10/17/24 Time Notified: 08:42 Method of Notification: ED Physician Initiated Reason For Visit: ACUTE CHOLECYSTITIS W/CHOLEDOCHOLITHIASIS PLUS Diagnosis Discharge Diagnosis (1) Acute cholecystitis due to biliary calculus: Status: Acute Code(s): K80.00 - Calculus of gallbladder with acute cholecystitis without obstruction Medications at Discharge Home Medications ascorbic acid (vitamin C) 500 mg tablet (Vitamin C) 500 mg PO DAILY@0800 09/16/14 cholecalciferol (vitamin D3) 25 mcg (1,000 unit) tablet (Vitamin D3) 2,000 unit PO DAILY 09/16/14 cyanocobalamin (vitamin B-12) 500 mcg tablet 1,000 mcg PO DAILY@0800 09/16/14 fish oil-vit E-fat acids comb.5-herbal comb. 137 400 mg-5 unit capsule (Flax, Fish and Borage Oil) 1 ea PO DAILY 09/16/14 iron, carbonyl 45 mg tablet (Feosol) 65 mg PO DAILYCM 09/16/14 lansoprazole 30 mg capsule,delayed release (Prevacid) 30 mg PO DAILY 09/16/14 montelukast 10 mg tablet (Singulair) 10 mg PO DAILY 01/18/23 montelukast 10 mg tablet 10 mg PO QPM #20 tabs 10/12/23 cetirizine 10 mg tablet 10 mg PO DAILY 10/16/24 lidocaine 5 % topical patch 1 patch topical DAILY 10/16/24 pentoxifylline 400 mg tablet,extended release 400 mg PO BID 10/16/24 rifaximin 550 mg tablet (Xifaxan) 550 mg PO TID 10/16/24 rosuvastatin 10 mg tablet 10 mg PO QHS 10/16/24 amoxicillin 875 mg-potassium clavulanate 125 mg tablet 1 tab PO BID #4 tabs 10/22/24 Hospital Course Operations None Procedures Intubation and - (Biliary stent) Summary of Care Provided Minutes Spent on Discharge: 32 Hospital Course: Per HPI: TESSIE COLMENARES, is a 79 F with a past medical history of hyperlipidemia; on rosuvastatin, obesity; with BMI of 36.9 this admission, PVD; on pentoxifylline, MERARI; on iron carbonyl, GERD; on lansoprazole, history of UTI, seasonal allergies; on cetirizine and montelukast, history of cervical and thoracic myofascial strain with Right shoulder strain after fall (03/2024) and OA who presents to [facility] ER complaining of RUQ pain with nausea, vomiting and diarrhea. Mrs. Colmenares reports her symptoms began approximately 3 days prior to admission with a gradual-onset of nausea followed by bilious emesis complicated by development of nonbloody diarrhea over the past 24 hours. She has also noted intermittent Right upper quadrant pain that is severe and is made better or worse by nothing. She denies a history of previous abdominal surgeries or similar episodes. She also denies associated fever, chills, blood in emesis, blood in stools, chest pain or shortness of breath. In the ER she was noted to have CT evidence of Acute Cholecystitis along with suspected Choledocholithiasis and Right lower lobe infiltrate versus atelectasis consistent with possible Pneumonia complicated by laboratory evidence of possible early sepsis with Leukocytosis of 27.8K along with Left-shift of 1.8% with mild hyperbilirubinemia of 1.6 mg/dL present on admission and with general surgeon on-call recommending patient be admitted to the hospitalist service along with consultation from gastroenterology for radiologist recommended MRCP prior to anticipated cholecystectomy and she was then admitted to the ICU for ongoing care for treatment under the sepsis protocol for stay that is expected to extend beyond 2 midnights. Hospital Course: #1. Acute choledocholithiasis with questionable concurrent acute cholecystitis (initial Hospitalist note with ? possible early sepsis; however, although patient does have leukocytosis and mild hyperbilirubinemia there is no overt endorgan damage to discern sepsis): Patient admitted to the ICU especially given #2, maintained on IV zosyn, maintained on IVFs, NPO, IV/po pain control, trend CBC/CMP, GI and surgery consulted, 10/17/24 ERCP with entire main bile duct dilated with a stone causing obstruction with complete removal via biliary sphincterotomy and balloon extraction, 1 temporary stent placed in the common bile duct. Following ERCP 10/17/24 patient remained intubated. General surgery consulted and following. Eventually patient will need more definitive intervention and given number to whether or not this is cholecystostomy tube versus cholecystectomy will have to be determined. 10/18/24 repeat gallbladder ultrasound with fatty liver with cystic lesion with no shadowing gallstone, mild pericholecystic fluid or any gallbladder wall thickening, proximal common bile duct measuring 6 mm within limit for patient age. 10/19/2024 discussion with general surgery with likely planned reevaluation once extubated to ascertain if any pain is present especially given appearance of repeat gallbladder ultrasound 10/18/2024. 10/19/24-10/20/24 Overnight bradycardiac on precedex. Had been switched from propofol to precedex in preparation for extubation. 10/20/2024 weaning trial planned eminently. 10/20/2024 discussed with general surgery and given patient is awake and alert and no abdominal pain reported or elicited on exam likely no operative intervention will be pursued. 10/21/2024: Extubated 10/20/2024. Appreciate bookkeeping machine operator assistance, can plan to transfer out of ICU in the next 24 hours 10/22/2024: She was accepted to TCU today, I discussed with her the plan for discharge and she expressed understanding of the risks and benefits of going to the senior care and would like to go today. She will need to follow-up with surgery as an outpatient as well as gastroenterology to remove the stent. Plan is for outpatient cholecystectomy when she completes her rehab #2. Acute Hypoxic Respiratory Failure secondary to Right lower lobe PNA, higher suspicion given recent history of productive cough, dyspnea: ED evaluation with CXR with slight increase interstitial markings, CT abdomen and pelvis with right lower lobe consolidation versus atelectasis at the bases, initially on low NC requirements, increased in the ICU on high flow, following 10/17/24 ERCP remained intubated, initially maintained initially on IV vancomycin and IV Zosyn with resulting 10/18/2024 negative MRSA screen de-escalated off of IV vancomycin, rapid SARS COVID/influenza/RSC PCR negative, urine antigens negative, requested sputum culture, full respiratory viral panel negative, BNP 68.8, procalcitonin 0.65. 10/19/2024 Vent settings improving but as noted increased agitation with weaning attempts. 10/19/2024 pulse dose Lasix 40 mg IV x 1. 10/19/24-10/20/24 Overnight bradycardiac on precedex. Had been switched from propofol to precedex in preparation for extubation. 10/20/2024 weaning trial planned eminently. 10/21/2024: Respiratory culture is negative for growth, and respiratory panel is negative, will complete 2 more days of Augmentin p.o. on discharge #3. Hypokalemia: Admission K+ 3.3, magnesium level requested, supplementation given, repeat level in AM. #4. Chronic Kidney Disease Stage II based on GFR trending: Admission BUN/Cr 19/0.98, GFR 58, baseline renal function primarily 0.8-0.9, 10/20/2024 BUN/creatinine 23/0.91, GFR 64, repeat BMP in AM. #5. PVD: Holding pentoxifylline given planned intervention as noted. #6. Hyperlipidemia: Will hold statin therapy. #7. Chronic anemia/Fe deficiency anemia: Admission hemoglobin 14.5, MCV 91 and prior to this baseline had transiently been 14 but more remotely in 2013 had been 11-12, 10/18/2024 hemoglobin 11.2 following initial presentation interventions and hydration, 10/20/2024 hemoglobin 11.6, continue to trend. Holding Fe supplementation. #8. Obesity: Weight loss and lifestyle changes encouraged. #9. GERD: Maintained on IV PPI. Physical Exam Narrative General: Alert, Oriented x3, Cooperative, No apparent distress HEENT: Atraumatic, PERRLA, EOMI, Normocephalic Oral: Moist Mucosa Neck: Supple, No JVD Lungs: Diminished, Normal air movement, No rhonchi, No wheeze, No rales Cardiovascular: Regular rate, Regular Rhythm, Normal S1, Normal S2, No murmurs Abdomen: Soft, Non Tender, Non-Distended, No Hepato-splenomegaly Extremities: No edema, Capillary Refill Less than 3 Seconds Skin: No rashes, No breakdown Musculoskeletal: No Tenderness to Palpation of Joints or Extremities Neurological: No focal neurological deficits, Motor Exam 5/5 strength throughout, Sensory exam intact to light touch and pain Psych/Mental Status: Flat Weight / BMI Weight Weight: 206 lb 9.17 oz Body Mass Index (BMI) 38.0 ABG / Lab / Microbiology Data 10/22/24 07:14 10/22/24 07:14 Laboratory: Laboratory Results - last 24 hr 10/22/24 07:14: WBC 11.4 H, RBC 4.09 L, Hgb 12.1, Hct 39.2, MCV 95.8, MCH 29.6, MCHC 30.9 L, RDW Std Deviation 50.2 H, RDW Coeff of Rochelle 14.3, Plt Count 275, MPV 10.3, Immature Gran % (Auto) 4.000 H, Neut % (Auto) 69.4, Lymph % (Auto) 13.6 L, Lane % (Auto) 8.5, Eos % (Auto) 3.9, Baso % (Auto) 0.6, Absolute Neuts (auto) 7.9 H, Absolute Lymphs (auto) 1.55, Nucleated RBC % 0, Sodium 137, Potassium 3.7, Chloride 106, Carbon Dioxide 26.0, Anion Gap 5, BUN 12, Creatinine 0.60, Estim Creat Clear Calc 62.79, Est GFR (MDRD) Af Amer 124, Est GFR (MDRD) Non-Af 102, BUN/Creatinine Ratio 19.9, Glucose 99, Calcium 8.9, Phosphorus 3.1 Microbiology: Microbiology 10/16/24 22:35 Blood Culture (Wb) - Anticubital Left Blood Culture - Final No growth in 5 days. 10/16/24 23:25 Blood Culture (Wb) - Anticubital Right Blood Culture - Final No growth in 5 days. 10/17/24 18:52 Sputum, Induced/Lukens Gram Stain - Final 10/17/24 18:52 Sputum, Induced/Lukens Respiratory Culture - Final Culture exhibits no growth. 10/17/24 07:50 Mucosa - Nasopharyngeal Respiratory Panel (PCR) - Final 10/17/24 08:45 Urine, Clean Catch Legionella Antigen - Final 10/17/24 08:45 Urine, Clean Catch Streptococcus pneumoniae Antigen (M - Final 10/17/24 07:50 Nasal Secretion MRSA (PCR) - Final 10/17/24 07:50 Mucosa - Nose SARS-CoV-2, Influenza & RSV (PCR) - Final D/C Instructions DC O2, CPAP, BIPAP Needs PSN CPAP & BiPAP: BiPAP & CPAP Settings per PSN Fraction of Inspired Oxygen ( 40 10/20/24 14:00 FIO2) Home O2 Discharge instructions: No Meaningful Use Info Meaningful Use Meaningful Use Diagnoses (Choose all that apply): None applicable Ischemic Stroke Statin Dosing Therapy Reference: STATIN DOSE THERAPY REFERENCE: * Patients > 75 years receive moderate or high dose statin therapy. * Patients 75 years or YOUNGER should receive HIGH intensity statin dose unless contraindicated. You will be required to document reason for non-treatment if statin daily dose does not meet guidelines. HIGH DOSE STATIN THERAPY DAILY Atorvastatin > than or = to 40 mg Rosuvastatin > than or = to 20 mg Amlodipine + Atorvastatin > than or = to 2.5/40 mg Ezetimibe + Simvastatin 10/80 mg Simvastatin 80mg Discharge Plan Admission Admit Date/Time: 10/16/24 20:45 Attending Provider: Noel Cosby Primary Care Provider: Missy Parada Consulting Providers: Deshaun Kumar; Brian Bruner; Giuliana Epstein Discharge Orders/Prescriptions Prescriptions: New amoxicillin-pot clavulanate 875-125 mg tablet 1 tab PO BID Qty: 4 0RF Continued montelukast 10 mg tablet 10 mg PO QPM Qty: 20 0RF cyanocobalamin (vitamin B-12) 500 MCG tablet 1,000 mcg PO DAILY@0800 Patient Comments: SUPPLEMENT ascorbic acid (vitamin C) [Vitamin C] 500 MG tablet 500 mg PO DAILY@0800 Patient Comments: SUPPLEMENT lansoprazole [Prevacid] 30 MG capsule 30 mg PO DAILY Patient Comments: ACID REFLUX iron, carbonyl [Feosol] 45 MG capsule 65 mg PO DAILYCM Patient Comments: SUPPLEMENT Flax, Fish and Borage Oil 1 EACH capsule 1 ea PO DAILY Patient Comments: SUPPLEMENT cholecalciferol (vitamin D3) [Vitamin D3] 1,000 UNIT tablet 2,000 unit PO DAILY Patient Comments: SUPPLEMENT montelukast [Singulair] 10 mg Tablet 10 mg PO DAILY cetirizine 10 mg tablet 10 mg PO DAILY pentoxifylline 400 mg tablet extended release 400 mg PO BID lidocaine 5 % adhesive patch,medicated 1 patch topical DAILY rosuvastatin 10 mg tablet 10 mg PO QHS Xifaxan 550 mg tablet 550 mg PO TID Referrals / Follow Up: Missy Parada DO [Primary Care Provider] - Brian Bruner MD [Med Staff - Active Staff] - Within 2 Weeks Disposition Disposition (needs filled in before D/C Order can be placed): Alf Facility Charges/Coding Visit Charges Inpatient E&M: 50060 Disch Hosp >30min
--- NOTE | 2024-10-22 11:04 | CASEMGMT ---
Social Work Per ayanna, pt is ready to dc to TCU today. DC orders faxed to TCU and Heena notified of DC. RN updated. Dispostion: TCU, skilled level of care LIN Herrera
== END 2024-10-22 12:02 | disposition skilled nursing facility (03) | DRG 444 ==
LOC: ED 20:04 → ICU 20:52
PROVIDERS: Family Medicine; Internal Medicine; Internal Medicine Critical Care Medicine; Internal Medicine Gastroenterology; Admitting Provider Internal Medicine; Emergency Provider Emergency Medicine; PCP Internal Medicine; Visit Provider Family Medicine
PROC: 0FC98ZZ Extirpation of Matter from Common Bile Duct, Via Natural or Artificial Opening Endoscopic (ICD-10-PCS; CPT 43260; principal; 2024-10-17 15:40)
DX: K80.43 Calculus of bile duct with acute cholecystitis with obstruction (principal); J18.9 Pneumonia, unspecified organism; J96.01 Acute respiratory failure with hypoxia; K76.89 Other specified diseases of liver; I12.9 Hypertensive chronic kidney disease with stage 1 through stage 4 chronic kidney disease, or unspecified chronic kidney disease; I73.9 Peripheral vascular disease, unspecified; D50.9 Iron deficiency anemia, unspecified; E66.9 Obesity, unspecified; K76.0 Fatty (change of) liver, not elsewhere classified; E78.5 Hyperlipidemia, unspecified; K21.9 Gastro-esophageal reflux disease without esophagitis; J30.2 Other seasonal allergic rhinitis; M19.90 Unspecified osteoarthritis, unspecified site; E80.7 Disorder of bilirubin metabolism, unspecified; R00.1 Bradycardia, unspecified; E87.6 Hypokalemia; G47.33 Obstructive sleep apnea (adult) (pediatric); N18.2 Chronic kidney disease, stage 2 (mild); T42.75XA Adverse effect of unspecified antiepileptic and sedative-hypnotic drugs, initial encounter; Y92.239 Unspecified place in hospital as the place of occurrence of the external cause; Z79.899 Other long term (current) drug therapy; Z68.36 Body mass index [BMI] 36.0-36.9, adult; Z87.440 Personal history of urinary (tract) infections; Z87.828 Personal history of other (healed) physical injury and trauma; Z96.659 Presence of unspecified artificial knee joint
CPT/HCPCS: 31720; 36415; 36600; 71045; 71046; 71275; 74018; 74177; 74330; 76000; 76705; 80048; 80053; 81001; 82550; 82803; 83605; 83690; 83735; 83880; 84100; 84145; 84443; 84478; 85025; 87040; 87070; 87205; 87449; 87631; 87633; 87641; 94002; 94003; 94640; 94660; 94668; 94762; 97162; 97166; 97530; 97535; 97802; 97803; 99283; Q9967; A4216; J1940; J2405

== ENCOUNTER 2024-10-22 12:30 | Inpatient (IN) | payer MEDICARE, OTHER, SELFPAY ==
[2024-10-22 13:29] VITALS: BP 131/73; PULSE 78; RESP 22; TEMP 36.2; O2SAT 94; BMI 37.8
[2024-10-22] MEDS: 0.9% Saline Lock 10 ML Syringe IV (14:44)
[2024-10-22 15:03] VITALS: PULSE 78; RESP 20; O2SAT 94
--- NOTE | 2024-10-22 15:34 | CASEMGMT ---
Social Work SW met with pt to complete initial assessment. Pt has completed advance directives naming dgt Lisbet as HCPOA and Lisbet is agreeable to bring the documents in. SW educated pt to Medicare benefit and copay coverage. Pt dgt was encouraged to contact secondary insurance to ensure copay coverage. Pt lives at home in a one story home with her spouse and was independent prior to admission. Pt is the primary caregiver for her . Pts is currently staying with pt's son Reynold. ALEXANDER spoke with pt and dgt Lisbet regarding need to discuss as a family how to care for pt's spouse when pt returns home and need for assistance to relieve pressure on pt from caregiving needs. Pt and dgt acknowledging this discussion and planning needs to happen. ALEXANDER will continue to follow for dc planning. LIN Herrera
[2024-10-22] MEDS: Ensure Plus High Protein 120 ML LIQUID PO (16:30)
[2024-10-22] MEDS: Magnesium Citrate 300 ML PO (18:42)
--- NOTE | 2024-10-22 19:25 | HP.PCM_ITS ---
HPI - General General Date of Admission: 10/22/24 Date of Service: 10/22/24 Chief Complaint: Here for rehabilitation. HPI Narrative TESSIE BANKS, is a 79 Female who presents with followin10/16/2024 [facility] ED with nausea, vomiting, diarrhea. nausea, vomiting, diarrhea for 24 hours, right upper quadrant pain. Morphine, zofran, IV fluids given. WBC 27.8. CT abdomen/pelvis showed acute cholecystitis, Zosyn IV given. 10/16/2024 Admit [facility]. Consult General surgery, GI, order MRCP for acute cholecystitis. Zofran, Phenergan for nausea. 10/17/2024 Oxygen, BNP, Procalcitonin, respiratory panel, covid for hypoxemia. 10/17/2024 Dr. Zuniga performed ERCP, Sphincterotomy, stone removal, temporary stent placement. 10/18/2024 Intubation after ERCP due to respiratory distress. Zosyn, Vancomycin for right lower lobe pneumonia. 10/19/2024 Weaning trial deferred 2/2 agitation off sedation. MRSA negative, Vancomycin stopped. covid/flu/rsv negative, urinary antigens negative, respiratory panel negative. 10/20/2024 No abdomnal pain on exam, no operative intervention for now. Plan extubation. Replace potassium. 10/21/2024 Extubated. Complete 7 days of Zosyn IV for pneumonia. 10/22/2024 No acute events overnight. Plan outpatient cholecystectomy with Dr. Bruner. 10/22/2024 Admit to TCU with debility, here for rehabilitation, strengthening, prior to discharge home with . [facility] Medical History Pain of right clavicle Right shoulder strain Lumbar strain Thoracic myofascial strain Cervical strain Scalp contusion Right wrist sprain Home Medications ?Medication ?Instructions ?Recorded ?Last Taken ?Type ascorbic acid (vitamin C) 500 mg 500 mg PO DAILY@0800 supplement 09/16/14 Unknown History tablet (Vitamin C) cholecalciferol (vitamin D3) 25 2,000 unit PO DAILY supplement 09/16/14 Unknown History mcg (1,000 unit) tablet (Vitamin D3) cyanocobalamin (vitamin B-12) 500 1,000 mcg PO DAILY@0800 supplement 09/16/14 Unknown History mcg tablet fish oil-vit E-fat acids 1 ea PO DAILY supplement 09/16/14 Unknown History comb.5-herbal comb. 137 400 mg-5 unit capsule (Flax, Fish and Borage Oil) iron, carbonyl 45 mg tablet 65 mg PO DAILYCM supplement 09/16/14 Unknown History (Feosol) lansoprazole 30 mg capsule,delayed 30 mg PO DAILY GERD 09/16/14 Unknown History release (Prevacid) montelukast 10 mg tablet 10 mg PO DAILY allergies 01/18/23 Unknown History (Singulair) montelukast 10 mg tablet 10 mg PO QPM allergies #20 tabs 10/12/23 Unknown Rx cetirizine 10 mg tablet 10 mg PO DAILY allergies 10/16/24 Unknown History lidocaine 5 % topical patch 1 patch topical DAILY pain 10/16/24 Unknown History pentoxifylline 400 mg 400 mg PO BID muscle pain 10/16/24 Unknown History tablet,extended release rifaximin 550 mg tablet (Xifaxan) 550 mg PO TID diarrhea 10/16/24 Unknown History rosuvastatin 10 mg tablet 10 mg PO QHS cholestrol 10/16/24 Unknown History amoxicillin 875 mg-potassium 1 tab PO BID antibiotic #4 tabs 10/22/24 Unknown Rx clavulanate 125 mg tablet Allergy/AdvReac Type Severity Reaction Status Date / Time No Known Allergies Allergy Verified 10/16/24 17:37 Surgical History S/P correction of deviated nasal septum S/P total knee arthroplasty Social History (Updated 10/22/24 @ 19:[address] Ricki Kaplan MD) household members: spouse Smoking Status: Never smoker alcohol intake: never substance use type: does not use ROS Constitutional Constitutional: Reports weakness; Denies chills, fever(s) or weight gain ENT HEENT: Denies headache(s), nasal congestion or nasal discharge Cardiovascular Cardiovascular: Denies chest pain or palpitations Respiratory/Chest Respiratory/Chest: Denies cough, excessive phlegm production or shortness of breath with exertion Gastrointestinal Gastrointestinal: Denies abdominal pain, nausea or vomiting Genitourinary Genitourinary: Denies dysuria Musculoskeletal Musculoskeletal: Denies joint pain or joint swelling Integumentary Integumentary: Denies rash or wounds Neurologic Neurologic: Denies focal weakness, numbness or tingling Psychiatric Psychiatric: Denies anxiety, auditory hallucinations, depression, homicidal ideation or suicidal ideation Vital Signs Vital Signs Vital Signs: 10/22/24 13:29 10/22/24 15:03 Temperature 97.2 F L Temperature Source Temporal Pulse Rate 78 78 Pulse Rhythm Regular Pulse Strength Normal (2+) Respiratory Rate 22 H 20 H Respiratory Effort Normal Non-Labored Respiratory Depth Normal Respiratory Pattern Normal Blood Pressure 131/73 H Blood Pressure Mean 92 Blood Pressure Source Monitor Blood Pressure Position Supine Blood Pressure Location Left Arm Pulse Ox 94 94 Oxygen Delivery Method Nasal Cannula Nasal Cannula Oxygen Flow Rate (L/min) 2 2 Weight Weight: 93.071 kg Body Mass Index (BMI) 37.8 Physical Exam Const alert General Appearance: cooperative HEENT normocephalic Eyes PERRL and EOMs intact bilaterally Neck supple, no JVD and no carotid bruits Resp normal respiratory effort, normal air movement and clear to auscultation bilaterally Cardio regular rate and regular rhythm GI normal to inspection, nondistended, normoactive bowel sounds, non-tender and non-distended Extremity normal capillary refill General Extremity: Negative for edema Skin no rashes or lesions noted General Skin Exam: no breakdown Psych affect normal Appearance: appropriate Assessment & Plan Assessment/Plan (1) Debility: (2) Acute cholecystitis: (3) Sepsis: QUALIFIERS: Sepsis acute organ dysfunction status: without acute organ dysfunction Sepsis type: sepsis due to unspecified organism Qualified Code(s): A41.9 - Sepsis, unspecified organism (4) Acute respiratory failure with hypoxemia: (5) Right lower lobe pneumonia: (6) GERD (gastroesophageal reflux disease): (7) Vitamin D deficiency: (8) Vitamin B12 deficiency: (9) Iron deficiency anemia: (10) Allergic rhinitis: (11) PAOD (peripheral arterial occlusive disease): (12) Hyperlipidemia: (13) Irritable bowel syndrome with diarrhea: PLAN: Plan 79 year old female with below past medical history hospitalized for sepsis 2/2 acute cholecystitis, underwent ERCP/sphincterotomy/stone removal/temporary stent 10/17/[address] Zuniga, complicated by acute respiratory failure with hypoxemia 2/2 right lower lobe pneumonia requiring intubation, admitted to TCU with debility, here for rehabilitation, strengthening, prior to discharge home with . * Debility - PT/OT. * Pain - Tylenol 1000mg q6 prn pain (1-10), Lidoderm 1 patch td daily. * Bowel - senna/colace 1 tablet bid, Magnesium citrate 300mL po x 1 bottle. * Adult immunization - Administer pneumonia vaccine, covid vaccine, flu vaccine as appropriate. * DVT prophylaxis - Lovenox 40mg sc daily. * Acute cholecystitis s/p ERCP - Augmentin 875mg po bid thru 10/27/2024, will need eventual cholecystectomy with Dr. Bruner. * Vitamin C deficiency - Vitamin C 500mg daily. * Hyperlipidemia - Atorvastatin 20mg qhs. * Vitamin D deficiency - Vitamin D3 50mcg daily. * Vitamin B12 deficiency - Vitamin B12 1000mcg daily. * Nutrition - Ensure Plus 120mL po tidcm. * Iron deficiency anemia - Ferrous sulfate 325mg daily. * Rash - HC 2.5% topical tid prn. * GERD - Lansoprazole 30mg daily. * Allergic rhinitis - Loratadine 10mg daily, Singulair 10mg daily. * PAOD - Trental 400mg po bid. * IBS-D - Xifaxan 550mg po tid.
[2024-10-22] MEDS: Pentoxifylline 400 MG Tablet PO (19:50)
[2024-10-22] MEDS: Atorvastatin Calcium 20 MG Tablet PO (19:50)
[2024-10-22] MEDS: Amox/Clavulanate 875 MG Tablet PO (19:50)
[2024-10-22] MEDS: rifAXIMin 550 MG Tablet PO (19:51)
[2024-10-22] MEDS: Senna/Docusate Sodium 1 Tablet PO (20:55)
[2024-10-23] MEDS: Enoxaparin 40 MG/0.4 ML Syringe SC (05:31)
[2024-10-23 06:21] LABS: Absolute Lymphocyte Count 1.88 X10^3/uL (0.83-4.51); Absolute Neutrophil Count 7.2 X10^3/uL (2.0-7.7); Basophil# 0.06 X10^3/uL; Basophil% 0.6 % (0-1); Eosinophil# 0.35 X10^3/uL; Eosinophils% 3.3 % (0-5); Hematocrit 37.7 % (37-47); Hemoglobin 11.9 g/dL (12.0-15.0); Lymphocyte # 1.88 X10^3/ul (0.83-4.51); Lymphocyte % 17.7 % (19-41); Mean Corp Hgb Conc 31.6 g/dL (32-36); Mean Corpuscular Hgb 29.4 pg (27.0-32.0); Mean Corpuscular Volume 93.1 fL (81-99); Mean Platelet Vol. 10.1 fl (6.2-12.0); Monocyte# 0.76 X10^3/uL; Monocyte% 7.2 % (0-10); NRBC Flagged by Analyzer 0 % (0-5); Neutrophil # 7.17 X10^3/uL (2.7-7.7); Neutrophil % 67.5 % (47-70); Platelet Count 317 K/mm3 (150-450); RBC Distribution Width CV 14.1 % (11.6-14.6); RBC Distribution Width SD 48.4 fl (35.1-43.9); Red Blood Count 4.05 M/mm3 (4.2-5.4); White Blood Count 10.6 K/mm3 (4.4-11.0)
[2024-10-23] MEDS: Ensure Plus High Protein 120 ML LIQUID PO (07:49)
[2024-10-23] MEDS: Ferrous Sulfate 325 MG Tablet PO (07:49)
[2024-10-23] MEDS: Amox/Clavulanate 875 MG Tablet PO ×2 (07:50→20:42)
[2024-10-23] MEDS: Ascorbic Acid 500 MG Tablet PO (07:50)
[2024-10-23] MEDS: Cyanocobalamin 500 MCG Tablet 1000 MCG PO (07:51)
[2024-10-23] MEDS: Senna/Docusate Sodium 1 Tablet PO ×2 (07:51→20:41)
[2024-10-23] MEDS: Montelukast 10 MG Tablet PO (07:51)
[2024-10-23] MEDS: Lansoprazole 15 MG Capsule.DR 30 MG PO (07:51)
[2024-10-23] MEDS: Cholecalciferol (VIT D3) 25 MCG TABLET (1,000 UNITS) 50 MCG PO (07:52)
[2024-10-23] MEDS: Loratadine 10 MG Tablet PO (07:52)
[2024-10-23] MEDS: Pentoxifylline 400 MG Tablet PO ×2 (07:52→20:42)
[2024-10-23 07:57] LABS: Anion Gap 4 (5-15); BUN 8 mg/dL (7-18); Calcium,Total 8.9 mg/dL (8.5-10.1); Chloride 104 mmol/L (98-107); EST Glomerular Filtration Rate 127 mL/min (>60); Est Glom Filt Rate - Afr Amer 153 mL/min (>60); Estimated Creatinine Clearance 61.27 ml/min; Glucose 110 mg/dL (74-106); Potassium 4.1 mmol/L (3.5-5.1); Sodium Level 137 mmol/L (136-145)
[2024-10-23 08:20] VITALS: O2SAT 94
[2024-10-23] MEDS: Lidocaine 5% Patch 1 PATCH TOPICAL (10:09)
[2024-10-23] MEDS: Tuberculin,Purif.prot.deriv. 50 TU/ML Vial 0.1 ML ID (10:43)
[2024-10-23] MEDS: rifAXIMin 550 MG Tablet PO ×2 (13:22→20:41)
[2024-10-23 14:48] VITALS: BP 128/73; PULSE 78; RESP 18; TEMP 37.2; O2SAT 90
--- NOTE | 2024-10-23 14:49 | NURSING ---
Patient asked nurse for assistance in opening her purse. Flovent inhaler seen inside residents purse. When asked if pt uses a flovent inhaler, pt reports that she uses it as needed for her cough. Pt reports Inhaler in 2021, inhaler was given to daughter to take home. Dr. Kaplan was updated on inhaler and cough, N.O. flovent 2 puffs prn BID, and tesslon pearls 100mg PO TID PRN for cough.
[2024-10-23] MEDS: Benzonatate 100 MG Capsule PO (20:41)
[2024-10-23] MEDS: Atorvastatin Calcium 20 MG Tablet PO (20:42)
[2024-10-23] MEDS: Fluticasone Propionate 110 MCG AER.W.ADAP 2 PUFF INHALATION (20:46)
[2024-10-24] MEDS: Enoxaparin 40 MG/0.4 ML Syringe SC (05:48)
[2024-10-24] MEDS: rifAXIMin 550 MG Tablet PO ×3 (05:48→21:01)
[2024-10-24] MEDS: Benzonatate 100 MG Capsule PO ×2 (05:52→20:58)
[2024-10-24] MEDS: Fluticasone Propionate 110 MCG AER.W.ADAP 2 PUFF INHALATION ×2 (05:53→20:57)
[2024-10-24 06:39] VITALS: PULSE 68; RESP 18; O2SAT 95
--- NOTE | 2024-10-24 07:33 | RAD_ITS ---
INDICATION: Nausea EXAMINATION/TECHNIQUE: X-RAY - XR Abdomen 1 View COMPARISON: October 18, 2024 FINDINGS: BOWEL GAS PATTERN: Non-obstructive. No bowel or stomach distention. There are diverticula arising from the colon. FREE AIR: Not assessed on a single supine view. ORGANOMEGALY: Not seen. CALCIFICATIONS: No abnormal calcifications observed. LOWER CHEST: No acute pathology. BONES AND SOFT TISSUES: There there is a biliary stent in place. Are degenerative changes of the lumbar spine. RAD/Abdomen Single View IMPRESSION: Non-obstructive bowel gas pattern. Colonic diverticulosis. Electronically Signed: Rosio Silva MD at 10:02 EST ,
[2024-10-24] MEDS: Ferrous Sulfate 325 MG Tablet PO (07:49)
[2024-10-24] MEDS: Lansoprazole 15 MG Capsule.DR 30 MG PO (07:50)
[2024-10-24] MEDS: Cyanocobalamin 500 MCG Tablet 1000 MCG PO (07:50)
[2024-10-24] MEDS: Loratadine 10 MG Tablet PO (07:50)
[2024-10-24] MEDS: Amox/Clavulanate 875 MG Tablet PO ×2 (07:50→20:59)
[2024-10-24] MEDS: Ascorbic Acid 500 MG Tablet PO (07:50)
[2024-10-24] MEDS: Montelukast 10 MG Tablet PO (07:51)
[2024-10-24] MEDS: Lidocaine 5% Patch 1 PATCH TOPICAL (07:51)
[2024-10-24] MEDS: Senna/Docusate Sodium 1 Tablet PO ×2 (07:51→21:01)
[2024-10-24] MEDS: Pentoxifylline 400 MG Tablet PO ×2 (07:52→21:01)
[2024-10-24] MEDS: Cholecalciferol (VIT D3) 25 MCG TABLET (1,000 UNITS) 50 MCG PO (07:52)
[2024-10-24 07:59] VITALS: BP 145/82; PULSE 78; O2SAT 92
[2024-10-24 11:35] VITALS: TEMP 36.7
--- NOTE | 2024-10-24 11:41 | NURSING ---
PT AND DAUGHTER UPDATED ON NEW ORDERS. PT ON 1L OF OXYGEN. PER THERAPY PT WAS 92%, WITH OUT 89-90%. WHEN THIS NURSE CHECKED ON PT OXYGEN WAS OFF AND PT WAS 87-88%. HAD PT PUT OXYGEN BACK ON AND NOW 92%. DAUGHTER STATED THAT HER MOM HAS SLEEP APNEA AND HER MOM WILL NOT USE A C-PAP. APPLIED EAR CUSHIONS DUE TO PT STATING BEHIND EARS WERE SORE. WILL CONTINUE TO MONITOR.
--- NOTE | 2024-10-24 13:22 | NURSING ---
SEEN PT HAD MOVED TO [facility] FROM BED. ASKED PT HOW SHE GOT THERE,PT STATED HER DAUGHTER HELPED HER. EDUCATED PT ON CALLING STAFF FOR HELP AND THAT HER DAUGHTER HAS TO HAVE THE APPROVAL FROM THERAPY FIRST. PT STATED OK. UPDATED THERAPY,THERAPY STATED THEY WOULD ADDRESS IT.
--- NOTE | 2024-10-24 14:06 | PCM.PN.DRR ---
Documented by User: Hunter Deluca 10/24/24 16:10 TCU RX Drug Regimen Review Subjective/Objective Subjective/Objective Subjective: TCU admission note. 79 year old female with below past medical history hospitalized for sepsis 2/2 acute cholecystitis, underwent ERCP/sphincterotomy/stone removal/temporary stent 10/17/[address] Zuniga, complicated by acute respiratory failure with hypoxemia 2/2 right lower lobe pneumonia requiring intubation, admitted to TCU with debility, here for rehabilitation, strengthening, prior to discharge home with . Objective: Allergies No Known Allergies Allergy (Verified 10/16/24 17:37) Current Medications Generic Name Dose Route Start Last Admin Trade Name Freq PRN Reason Stop Dose Admin Acetaminophen 1,000 mg 10/22/24 19:42 Acetaminophen 500 Mg Tablet PO Q6H PRN PRN Pain Score 1-10 Amoxicillin/Clavulanate Potassium 875 mg 10/22/24 22:00 10/24/24 07:50 Amox/Clavulanate 875 Mg Tablet PO 10/27/24 23:59 875 mg BID ARIELA Administration Ascorbic Acid 500 mg 10/23/24 08:00 10/24/24 07:50 Ascorbic Acid 500 Mg Tablet PO 500 mg DAILY@0800 ARIELA Administration Atorvastatin Calcium 20 mg 10/22/24 22:00 10/23/24 20:42 Atorvastatin Calcium 20 Mg Tablet PO 20 mg QHS ARIELA Administration Benzonatate 100 mg 10/23/24 14:54 10/24/24 05:52 Benzonatate 100 Mg Capsule PO 100 mg TID PRN PRN Administration COUGH Cholecalciferol 50 mcg 10/23/24 10:00 10/24/24 07:52 Cholecalciferol (Vit D3) 25 Mcg Tablet (1,000 Units) PO 50 mcg DAILY ARIELA Administration Cyanocobalamin 1,000 mcg 10/23/24 08:00 10/24/24 07:50 Cyanocobalamin 500 Mcg Tablet PO 1,000 mcg DAILY@0800 [facility] Administration Enoxaparin Sodium 40 mg 10/23/24 06:00 10/24/24 05:48 Enoxaparin 40 Mg/0.4 Ml Syringe SC 40 mg DAILY@0600 ARIELA Administration Ferrous Sulfate 325 mg 10/23/24 08:00 10/24/24 07:49 Ferrous Sulfate 325 Mg Tablet PO 325 mg DAILYCM ARIELA Administration Fluticasone Propionate 2 puff 10/23/24 14:53 10/24/24 05:53 Fluticasone Propionate 110 Mcg Aer.W.Adap INHALATION 2 puff BID PRN Administration COUGH Hydrocortisone 1 applic 10/22/24 17:15 Hydrocortisone 2.5% Crm TOPICAL TID PRN PRN RASH/TOPICAL IRRITATION Protocol Lansoprazole 30 mg 10/23/24 10:00 10/24/24 07:50 Lansoprazole 15 Mg Capsule.Dr PO 30 mg DAILY ARIELA Administration Lidocaine 1 patch 10/23/24 10:00 10/24/24 07:51 Lidocaine 5% Patch TOPICAL 1 patch DAILY ARIELA Administration Protocol Loratadine 10 mg 10/23/24 10:00 10/24/24 07:50 Loratadine 10 Mg Tablet PO 10 mg DAILY ARIELA Administration Montelukast Sodium 10 mg 10/23/24 10:00 10/24/24 07:51 Montelukast 10 Mg Tablet PO 10 mg DAILY ARIELA Administration Nutritional Formula (Lactose Free) 120 ml 10/22/24 17:45 10/24/24 13:15 Ensure Plus High Protein 120 Ml Liquid PO Not Given TIDCM [facility] Ondansetron HCl 8 mg 10/24/24 07:33 Ondansetron Odt 4 Mg Tablet PO Q8H PRN PRN NAUSEA/VOMITING Pentoxifylline 400 mg 10/22/24 22:00 10/24/24 07:52 Pentoxifylline 400 Mg Tablet PO 400 mg BID ARIELA Administration Rifaximin 550 mg 10/22/24 14:00 10/24/24 13:14 Rifaximin 550 Mg Tablet PO 550 mg TID ARIELA Administration Senna/Docusate Sodium 1 tablet 10/22/24 22:00 10/24/24 07:51 Senna/Docusate Sodium 1 Tablet PO 1 tablet BID [facility] Administration Sodium Chloride 10 - 40 ml 10/22/24 14:03 10/22/24 14:44 0.9% Saline Lock 10 Ml Syringe IV 20 ml UD PRN Administration SALINE FLUSH Tuberculin PPD 0.1 ml 10/30/24 10:00 Tuberculin,Purif.Prot.Deriv. 50 Tu/Ml Vial ID 10/30/24 10:01 X1 ONE Problem List Irritable bowel syndrome with diarrhea (Acute) Hyperlipidemia (Acute) PAOD (peripheral arterial occlusive disease) (Acute) Allergic rhinitis (Acute) Iron deficiency anemia (Acute) Vitamin B12 deficiency (Acute) Vitamin D deficiency (Acute) GERD (gastroesophageal reflux disease) (Acute) Right lower lobe pneumonia (Acute) Acute respiratory failure with hypoxemia (Acute) Acute cholecystitis (Acute) Debility (Acute) Sepsis (Acute) Vital Signs Temp Pulse Resp BP Pulse Ox O2 Del Method O2 Flow Rate 98.1 F 78 18 145/82 H 92 Nasal Cannula 1 10/24/24 11:35 10/24/24 07:59 10/24/24 06:39 10/24/24 07:59 10/24/24 07:59 10/24/24 07:59 10/24/24 10:05 Oxygen Flow Rate (L/min) 1 Oxygen Delivery Method Nasal Cannula Weight: 93.071 kg Body Mass Index (BMI) 37.8 Sodium 137 mmol/L (136-145) 10/23/24 05:47 Potassium 4.1 mmol/L (3.5-5.1) 10/23/24 05:47 Chloride 104 mmol/L (98-107) 10/23/24 05:47 Carbon Dioxide 29.0 mmol/L (21.0-32.0) 10/23/24 05:47 Anion Gap 4 (5-15) L 10/23/24 05:47 BUN 8 mg/dL (7-18) 10/23/24 05:47 Creatinine 0.50 mg/dL (0.55-1.02) L 10/23/24 05:47 Est GFR (MDRD) Af Amer 153 mL/min (>60) 10/23/24 05:47 Est GFR (MDRD) Non-Af 127 mL/min (>60) 10/23/24 05:47 BUN/Creatinine Ratio 16.0 RATIO (10-20) 10/23/24 05:47 Glucose 110 mg/dL (74-106) H 10/23/24 05:47 Assessment/Plan: 1. Pain: acetaminophen 1000 mg PO Q6H PRN pain, lidocaine 5% patch 1 application daily. The patient has not required any PRN doses of acetaminophen so far this admission. Please continue to monitor pain levels, for topical irritation with lidocaine patch, and LFTs (AST/ALT = 22/57 U/L on 10/21/24), and PRN pain medication administration. 2.Bowel: senna/docusate 1 tablet PO BID. Please continue to monitor for bowel movements (last BM on 10/23/24), for diarrhea and for constipation. 3. DVT prophylaxis: enoxaparin 40 mg daily. Please continue to monitor for s/s of a DVT such as pain/erythema/swelling in an extremity, for bleeding/excessive bruising, renal function (serum creatinine = 0.5 mg/dL with creatinine clearance ~ 61 mL/min on 10/23/24), hemoglobin levels (Hgb = 11.9 g/dL on 10/23/24), and platelet count (Plt = 317 K/mm3 on 10/23/24). 4. Acute cholecystitis s/p ERCP: amoxicillin/clavulanate 875/125 mg PO BID through 10/27/23. Please continue to monitor for s/s of infection such as fever (recent temp = 98.1 F), chills, and WBC count (WBC = 10.6 K/mm3 on 10/23/24), and for abdominal pain/diarrhea. 5. Hyperlipidemia: atorvastatin 20 mg PO QHS. Please continue to monitor lipid levels (no recent lipid levels documented), LFTs (AST/ALT = 22/57 U/L on 10/21/24), and for myalgias. Please consider obtaining an annual lipid panel if clinically indicated. 6. GERD: lansoprazole 30 mg PO daily. Please continue to monitor for s/s of GERD, for diarrhea that could indicate clostridium difficile infection, and for s/s of bone resorption such as fractures. 7. PAOD: pentoxifylline 400 mg PO BID. Please continue to monitor for leg pain, and nausea/vomiting. 8. Allergic rhinitis: loratadine 10 mg PO daily, montelukast 10 mg PO daily. Please continue to monitor for s/s of allergic rhinitis and for dry eyes. 9. IBS-D: rifaximin 550 mg PO TID. Please continue to monitor for diarrhea, peripheral edema, nausea, dizziness, and fatigue. 10. Cough: benzonatate 100 mg PO TID PRN cough, fluticasone 110 mcg inhalation BID PRN cough. The patient has used 2 PRN doses of benzonatate and 2 PRN doses of fluticasone so far this admission. Please continue to monitor for PRN medication usage, cough, thrush, and mouth numbness. 11. Nausea: ondansetron 8 mg PO Q8H PRN nausea/vomiting. The patient has not required any PRN doses of ondansetron so far this admission. Please continue to monitor for PRN medication usage and nausea. 12. Iron deficiency anemia: ferrous sulfate 325 mg PO daily. Please continue to monitor iron levels (no recent iron levels documented), and hemoglobin levels (Hgb = 11.9 g/dL on 10/23/24). Please consider obtaining iron levels if clinically indicated. 13. Vitamin C/D/B12 deficiencies. Ascorbic acid 500 mg PO daily, cholecalciferol 50 mcg PO daily, cyanocobalamin 1000 mcg PO daily. Please continue to monitor for s/s of vitamin deficiencies as well as, vitamin D levels (no recent vitamin D levels), and B12 levels (no recent B12 levels). Please consider obtaining vitamin D and vitamin B12 levels if clinically indicated. 14. Rash: hydrocortisone 2.5% topical cream TID PRN rash/irritation. The patient has used 1 PRN dose of hydrocortisone so far this admission. Please continue to monitor for rash, and PRN medication usage. 15. Nutrition: ensure plus high protein 210 mL PO TID with meals. Please continue to monitor overall nutritional status. Assessment/Plan for indications treated with psychotropic medications: NA Medical chart and medication regimen reviewed. The following medication irregularities or issues were identified: 1. Hyperlipidemia: atorvastatin 20 mg PO QHS. Please consider obtaining an annual lipid panel if clinically indicated. 2. Iron deficiency anemia: ferrous sulfate 325 mg PO daily. Please consider obtaining iron levels if clinically indicated. 3. Vitamin C/D/B12 deficiencies. Ascorbic acid 500 mg PO daily, cholecalciferol 50 mcg PO daily, cyanocobalamin 1000 mcg PO daily. Please consider obtaining vitamin D and vitamin B12 levels if clinically indicated. Date Date of Note: 10/24/24 Documented by User: Dr. Ricki Kaplan MD 10/24/24 16:57 TCU RX Drug Regimen Review Provider Comments Provider responsibility Provider Comments to Recommendations by Pharmacy Agree
--- NOTE | 2024-10-24 15:27 | CHAPLAIN ---
Type of Pastoral Visit _x__ Initial Visit ___ Follow-up Visit ___ On-call Visit ___ General Patient Visit ___ Spiritual Assessment ___ Family Conference ___ Bereavement ___ Rapid Response ___ Code Blue ___ Other (describe below) Pastoral Care Referral From _x__ Patient ___ Family ___ Nurse ___ Physician ___ Supervisory Training Specialist ___ Administrative Assistant Office Manager ___ Other (describe below) Sacrament/Intervention _x__ Active listening ___ Anointing ___ Sikhism ___ Bereavement ___ Communion ___ Jackie exploration ___ _x__ Life review _x__ Prayer ___ Reconciliation ___ Sacrament of Sick ___ Supportive presence ___ Wedding ___ Other (describe below) Pastoral Comments patient gave some background to her admission to TCU and 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
[2024-10-24 19:36] VITALS: PULSE 78; O2SAT 90
[2024-10-24] MEDS: Atorvastatin Calcium 20 MG Tablet PO (20:59)
[2024-10-25] MEDS: Enoxaparin 40 MG/0.4 ML Syringe SC (05:58)
[2024-10-25] MEDS: rifAXIMin 550 MG Tablet PO ×3 (05:58→21:25)
[2024-10-25 06:23] LABS: Vitamin B12 1068 pg/mL (211-911); Vitamin D,25 Hydroxy 35.1 ng/mL
[2024-10-25 06:27] LABS: Cholesterol 118 mg/dL (200); High Density Lipoprotein 23 mg/dL; Iron 32 ug/dL (50-170); Triglycerides 103 mg/dL; Very Low Density Lipoprotein 21 mg/dL (5-40)
[2024-10-25 08:00] VITALS: BP 135/71; PULSE 70; RESP 18; TEMP 36.4; O2SAT 91
[2024-10-25] MEDS: Ferrous Sulfate 325 MG Tablet PO (08:02)
[2024-10-25] MEDS: Lidocaine 5% Patch 1 PATCH TOPICAL (08:02)
[2024-10-25] MEDS: Montelukast 10 MG Tablet PO (08:02)
[2024-10-25] MEDS: Pentoxifylline 400 MG Tablet PO ×2 (08:02→21:27)
[2024-10-25] MEDS: Cyanocobalamin 500 MCG Tablet 1000 MCG PO (08:02)
[2024-10-25] MEDS: Senna/Docusate Sodium 1 Tablet PO ×2 (08:02→21:25)
[2024-10-25] MEDS: Cholecalciferol (VIT D3) 25 MCG TABLET (1,000 UNITS) 50 MCG PO (08:03)
[2024-10-25] MEDS: Loratadine 10 MG Tablet PO (08:03)
[2024-10-25] MEDS: Lansoprazole 15 MG Capsule.DR 30 MG PO (08:03)
[2024-10-25] MEDS: Ascorbic Acid 500 MG Tablet PO (08:03)
[2024-10-25] MEDS: Amox/Clavulanate 875 MG Tablet PO ×2 (08:03→21:25)
[2024-10-25] MEDS: Fluticasone Propionate 110 MCG AER.W.ADAP 2 PUFF INHALATION ×2 (08:04→21:31)
[2024-10-25 08:17] VITALS: O2SAT 95
--- NOTE | 2024-10-25 10:53 | NURSING ---
Passenger Car Inspector Note; Activity Asset: Hans Elizabeth is independent in her choice of daily activities. She reads and has plenty of word puzzles books. She uses her smartphone, visits with family and friends, welcomes visits from the therapy dog and operations team leader when available. Staff will encourage social activities, remind her of weekly activities and respect her right to say no.
[2024-10-25 13:50] VITALS: PULSE 70; RESP 18; O2SAT 91
[2024-10-25] MEDS: Benzonatate 100 MG Capsule PO ×2 (13:52→21:27)
[2024-10-25] MEDS: Atorvastatin Calcium 20 MG Tablet PO (21:25)
[2024-10-25] MEDS: Ondansetron ODT 4 MG Tablet 8 MG PO (21:33)
--- NOTE | 2024-10-25 23:07 | NURSING ---
Patient called daughter upset that they came in at 1030pm and woke her up to give meds, daughter called floor at this time to update staff on issue, staff checked and meds were given about 930pm, patient was awoken at that time due to sleeping and needed meds, daughter request HS meds be given earlier, around 8-830pm, RN went in room to talk to patient per daughter request. written communication left for requesting med time change.
[2024-10-26] MEDS: Enoxaparin 40 MG/0.4 ML Syringe SC (06:32)
[2024-10-26] MEDS: rifAXIMin 550 MG Tablet PO ×3 (06:33→20:16)
[2024-10-26 07:30] VITALS: O2SAT 94
[2024-10-26 08:00] VITALS: BP 114/70; PULSE 72; RESP 16; TEMP 36.3; O2SAT 92
[2024-10-26] MEDS: Fluticasone Propionate 110 MCG AER.W.ADAP 2 PUFF INHALATION (08:01)
[2024-10-26] MEDS: Lidocaine 5% Patch 1 PATCH TOPICAL (08:01)
[2024-10-26] MEDS: Ascorbic Acid 500 MG Tablet PO (08:02)
[2024-10-26] MEDS: Benzonatate 100 MG Capsule PO (08:02)
[2024-10-26] MEDS: Cyanocobalamin 500 MCG Tablet 1000 MCG PO (08:02)
[2024-10-26] MEDS: Cholecalciferol (VIT D3) 25 MCG TABLET (1,000 UNITS) 50 MCG PO (08:02)
[2024-10-26] MEDS: Loratadine 10 MG Tablet PO (08:02)
[2024-10-26] MEDS: Montelukast 10 MG Tablet PO (08:02)
[2024-10-26] MEDS: Ferrous Sulfate 325 MG Tablet PO (08:02)
[2024-10-26] MEDS: Amox/Clavulanate 875 MG Tablet PO ×2 (08:02→20:16)
[2024-10-26] MEDS: Lansoprazole 15 MG Capsule.DR 30 MG PO (08:02)
[2024-10-26] MEDS: Senna/Docusate Sodium 1 Tablet PO (08:02)
[2024-10-26] MEDS: Pentoxifylline 400 MG Tablet PO ×2 (08:02→20:16)
--- NOTE | 2024-10-26 18:40 | NURSING ---
SPO2 spot checked multiple times t/o shift. Patient requested to have oxygen off and be on room air this shift. SPO2 remained above 90%.
[2024-10-26] MEDS: Atorvastatin Calcium 20 MG Tablet PO (20:16)
[2024-10-27 06:30] VITALS: O2SAT 93
[2024-10-27] MEDS: rifAXIMin 550 MG Tablet PO ×3 (06:41→19:40)
[2024-10-27] MEDS: Enoxaparin 40 MG/0.4 ML Syringe SC (06:41)
[2024-10-27] MEDS: Senna/Docusate Sodium 1 Tablet PO ×2 (07:44→19:40)
[2024-10-27] MEDS: Amox/Clavulanate 875 MG Tablet PO ×2 (07:44→19:40)
[2024-10-27] MEDS: Ferrous Sulfate 325 MG Tablet PO (07:44)
[2024-10-27] MEDS: Cyanocobalamin 500 MCG Tablet 1000 MCG PO (07:44)
[2024-10-27] MEDS: Pentoxifylline 400 MG Tablet PO ×2 (07:45→19:40)
[2024-10-27] MEDS: Loratadine 10 MG Tablet PO (07:45)
[2024-10-27] MEDS: Ascorbic Acid 500 MG Tablet PO (07:45)
[2024-10-27] MEDS: Lansoprazole 15 MG Capsule.DR 30 MG PO (07:45)
[2024-10-27] MEDS: Montelukast 10 MG Tablet PO (07:46)
[2024-10-27] MEDS: Cholecalciferol (VIT D3) 25 MCG TABLET (1,000 UNITS) 50 MCG PO (07:46)
[2024-10-27] MEDS: Oseltamivir Phosphate 75 MG Capsule PO (07:46)
[2024-10-27] MEDS: Lidocaine 5% Patch 1 PATCH TOPICAL (07:49)
[2024-10-27 13:42] VITALS: BP 113/57; PULSE 74; RESP 16; TEMP 36.9; O2SAT 93
--- NOTE | 2024-10-27 16:44 | NURSING ---
Resident observed self transferring in room, education provided. Resident requesting to be allowed up adlib. Nurse explained that therapy evaluates transfer status and that therapy could be updated on request when they return tomorrow. Resident states she will discuss it with her therapist during therapy tomorrow.
[2024-10-27] MEDS: Atorvastatin Calcium 20 MG Tablet PO (19:40)
[2024-10-27] MEDS: Fluticasone Propionate 110 MCG AER.W.ADAP 2 PUFF INHALATION (19:46)
[2024-10-27] MEDS: Benzonatate 100 MG Capsule PO (19:48)
[2024-10-28] MEDS: Enoxaparin 40 MG/0.4 ML Syringe SC (06:17)
[2024-10-28] MEDS: rifAXIMin 550 MG Tablet PO ×3 (06:17→19:24)
[2024-10-28 06:46] VITALS: PULSE 86; RESP 18; O2SAT 92
[2024-10-28] MEDS: Loratadine 10 MG Tablet PO (07:55)
[2024-10-28] MEDS: Senna/Docusate Sodium 1 Tablet PO ×2 (07:55→19:24)
[2024-10-28] MEDS: Pentoxifylline 400 MG Tablet PO ×2 (07:55→19:25)
[2024-10-28] MEDS: Lansoprazole 15 MG Capsule.DR 30 MG PO (07:55)
[2024-10-28] MEDS: Ferrous Sulfate 325 MG Tablet PO (07:55)
[2024-10-28] MEDS: Montelukast 10 MG Tablet PO (07:56)
[2024-10-28] MEDS: Ascorbic Acid 500 MG Tablet PO (07:56)
[2024-10-28] MEDS: Cholecalciferol (VIT D3) 25 MCG TABLET (1,000 UNITS) 50 MCG PO (07:56)
[2024-10-28] MEDS: Cyanocobalamin 500 MCG Tablet 1000 MCG PO (07:56)
[2024-10-28] MEDS: Oseltamivir Phosphate 75 MG Capsule PO (07:56)
[2024-10-28] MEDS: Lidocaine 5% Patch 1 PATCH TOPICAL (07:56)
[2024-10-28 08:03] VITALS: O2SAT 94
[2024-10-28 14:23] VITALS: BP 122/72; PULSE 76; RESP 16; TEMP 37.3; O2SAT 93
--- NOTE | 2024-10-28 14:39 | CASEMGMT ---
Social Work SW completed BIMS () and PHQ-2 () for MDS assessment. Shakira Saeed, BEHAVIORAL HEALTH RN BINDERY MANAGER
[2024-10-28] MEDS: Atorvastatin Calcium 20 MG Tablet PO (19:25)
[2024-10-28] MEDS: Fluticasone Propionate 110 MCG AER.W.ADAP 2 PUFF INHALATION (19:25)
[2024-10-28] MEDS: Benzonatate 100 MG Capsule PO (19:27)
[2024-10-29] MEDS: rifAXIMin 550 MG Tablet PO ×3 (05:59→19:34)
[2024-10-29] MEDS: Enoxaparin 40 MG/0.4 ML Syringe SC (05:59)
[2024-10-29] MEDS: Pentoxifylline 400 MG Tablet PO ×2 (07:43→19:31)
[2024-10-29] MEDS: Senna/Docusate Sodium 1 Tablet PO ×2 (07:43→19:32)
[2024-10-29] MEDS: Cyanocobalamin 500 MCG Tablet 1000 MCG PO (07:43)
[2024-10-29] MEDS: Ferrous Sulfate 325 MG Tablet PO (07:43)
[2024-10-29] MEDS: Montelukast 10 MG Tablet PO (07:44)
[2024-10-29] MEDS: Ascorbic Acid 500 MG Tablet PO (07:44)
[2024-10-29] MEDS: Lansoprazole 15 MG Capsule.DR 30 MG PO (07:44)
[2024-10-29] MEDS: Loratadine 10 MG Tablet PO (07:44)
[2024-10-29] MEDS: Oseltamivir Phosphate 75 MG Capsule PO (07:45)
[2024-10-29] MEDS: Cholecalciferol (VIT D3) 25 MCG TABLET (1,000 UNITS) 50 MCG PO (07:45)
[2024-10-29] MEDS: Lidocaine 5% Patch 1 PATCH TOPICAL (07:45)
[2024-10-29 07:51] VITALS: BP 138/85; PULSE 82; RESP 18; O2SAT 91
[2024-10-29 10:40] VITALS: BMI 36.1
--- NOTE | 2024-10-29 13:31 | NURSING ---
Offered covid vaccine, VIS provided. Resident refuses at this time.
[2024-10-29 14:53] VITALS: TEMP 36.6
[2024-10-29 19:30] VITALS: PULSE 84; RESP 18; O2SAT 92
[2024-10-29] MEDS: Fluticasone Propionate 110 MCG AER.W.ADAP 2 PUFF INHALATION (19:30)
[2024-10-29] MEDS: Atorvastatin Calcium 20 MG Tablet PO (19:31)
[2024-10-29] MEDS: Benzonatate 100 MG Capsule PO (19:34)
[2024-10-30 05:49] LABS: Absolute Lymphocyte Count 1.79 X10^3/uL (0.83-4.51); Absolute Neutrophil Count 4.7 X10^3/uL (2.0-7.7); Basophil# 0.06 X10^3/uL; Basophil% 0.8 % (0-1); Eosinophil# 0.31 X10^3/uL; Eosinophils% 4.2 % (0-5); Hematocrit 38.5 % (37-47); Hemoglobin 12.3 g/dL (12.0-15.0); Lymphocyte # 1.79 X10^3/ul (0.83-4.51); Mean Corp Hgb Conc 31.9 g/dL (32-36); Mean Corpuscular Hgb 29.9 pg (27.0-32.0); Mean Corpuscular Volume 93.7 fL (81-99); Monocyte# 0.54 X10^3/uL; Monocyte% 7.2 % (0-10); NRBC Flagged by Analyzer 0 % (0-5); Neutrophil # 4.68 X10^3/uL (2.7-7.7); Neutrophil % 62.7 % (47-70); Platelet Count 484 K/mm3 (150-450); RBC Distribution Width CV 14.1 % (11.6-14.6); RBC Distribution Width SD 47.7 fl (35.1-43.9); Red Blood Count 4.11 M/mm3 (4.2-5.4); White Blood Count 7.5 K/mm3 (4.4-11.0)
[2024-10-30 06:05] LABS: Anion Gap 4 (5-15); BUN 10 mg/dL (7-18); BUN/Creat Ratio 12.9 RATIO (10-20); Calcium,Total 9.4 mg/dL (8.5-10.1); Chloride 105 mmol/L (98-107); Creatinine, Serum 0.77 mg/dL (0.55-1.02); EST Glomerular Filtration Rate 77 mL/min (>60); Est Glom Filt Rate - Afr Amer 93 mL/min (>60); Estimated Creatinine Clearance 59.84 ml/min; Glucose 112 mg/dL (74-106); Potassium 4.3 mmol/L (3.5-5.1); Sodium Level 138 mmol/L (136-145)
[2024-10-30] MEDS: rifAXIMin 550 MG Tablet PO ×3 (06:23→19:32)
[2024-10-30] MEDS: Enoxaparin 40 MG/0.4 ML Syringe SC (06:25)
[2024-10-30 07:14] VITALS: O2SAT 93
[2024-10-30] MEDS: Lidocaine 5% Patch 1 PATCH TOPICAL (07:59)
[2024-10-30 08:00] VITALS: O2SAT 93
[2024-10-30] MEDS: Senna/Docusate Sodium 1 Tablet PO ×2 (08:01→19:32)
[2024-10-30] MEDS: Pentoxifylline 400 MG Tablet PO ×2 (08:01→19:32)
[2024-10-30] MEDS: Ferrous Sulfate 325 MG Tablet PO (08:01)
[2024-10-30] MEDS: Cyanocobalamin 500 MCG Tablet 1000 MCG PO (08:01)
[2024-10-30] MEDS: Ascorbic Acid 500 MG Tablet PO (08:01)
[2024-10-30] MEDS: Loratadine 10 MG Tablet PO (08:02)
[2024-10-30] MEDS: Oseltamivir Phosphate 75 MG Capsule PO (08:03)
[2024-10-30] MEDS: Montelukast 10 MG Tablet PO (08:03)
[2024-10-30] MEDS: Cholecalciferol (VIT D3) 25 MCG TABLET (1,000 UNITS) 50 MCG PO (08:03)
[2024-10-30] MEDS: Lansoprazole 15 MG Capsule.DR 30 MG PO (08:03)
[2024-10-30 08:09] VITALS: BP 105/59; PULSE 86; RESP 18; O2SAT 94
--- NOTE | 2024-10-30 08:49 | NURSING ---
Organic Lab Worker Note; MDS for 10/29/2024 Complete
--- NOTE | 2024-10-30 09:46 | CASEMGMT ---
Addendum entered by Shakira Saeed 11/01/24 13:35: Sent O2 script and testing to [facility] [place] O2 at 2LPM. Addendum entered by Shakira Saeed 10/30/24 10:49: SW returned to pt's room, dtr still present. SW inquired O2 usage at home, as pt is using O2 at night for sleep apnea. Pt stated she cannot tolerate her CPAP mask prior and does not have O2 at home. SW suggested to follow up with pulmonology/sleep Dr though, this worker will coordinate O2 at DC. Pt and dtr agreeable and will coordinate. Pt requesting to set DC date. SW offered DC 11/03 or later. Pt and dtr agreed to 11/03. Dtr can transport. SW offered list of skilled HHC providers including quality and resource data via [employer]. Pt/dtr denied and agreed to [facility]. SW phoned referral to [facility] for PT/OT/SN. Will refer to [facility] for O2. Plan: DC home alone 11/03, [facility] PT/OT/SN, O2 at night JESSICA Black Original Note: Social Work IDT met with patient and dtr for care plan meeting. Discussed patient's progress in PT/OT/SN. Educated to Medicare benefit and copay coverage. Provided pt with written communication on insurance process and copay coverage during stay. Pt needs to be mod I to return home alone. Family is caring for currently, and working on getting him placed in a SNF. Dtr and IDT confirmed that pt cannot care for . Therapy agreed to make pt adlib in room to allow pt to be independent in a controlled environment. If pt does well, IDT to set DC date. Discussed HHC vs OP therapy. Pt prefers HHC. Denies DME needs. SW to follow for DC planning. JESSICA Black
[2024-10-30] MEDS: Tuberculin,Purif.prot.deriv. 50 TU/ML Vial 0.1 ML ID (10:36)
--- NOTE | 2024-10-30 10:44 | NURSING ---
Repeat trending pulse ox ordered for tonight. Previous one showed desaturation events. This RN reviewed with resident and discussed importance of wearing 02 at night. Resident previously tried sleep study but is claustrophobic and couldn't stand a face mask. She said they tried to give her an oxygen concentrator with nasal cannula before too but she sent it back because she didn't have room for it. Reports her has 3-4 wheelchairs in the house and she didn't have space. Discussed ways to make room for it at home and she agreed she needed if after seeing the results. She thanked RN for going through the sleep study results with her. Shakira MUNOZ aware and following for home 02.
[2024-10-30 11:40] VITALS: PULSE 63; RESP 18; O2SAT 93
--- NOTE | 2024-10-30 14:26 | MDS.RN ---
Information for the MDS was obtained from review of the clinical record, interview of resident, staff, and direct observation of resident?s care.
[2024-10-30 16:00] VITALS: TEMP 36.6
--- NOTE | 2024-10-30 18:54 | PCM.DC.SUM ---
Providers Date of Admission: 10/22/24 Primary Care Physician: Dr. Missy Parada DO Reason For Visit: ACUTE CHOLECYSTITIS Diagnosis Discharge Diagnosis (1) Debility: Status: Acute Code(s): R53.81 - Other malaise (2) Acute cholecystitis: Status: Acute Code(s): K81.0 - Acute cholecystitis (3) Sepsis: Status: Acute Code(s): A41.9 - Sepsis, unspecified organism Qualifiers: Sepsis acute organ dysfunction status: without acute organ dysfunction Sepsis type: sepsis due to unspecified organism Qualified Code(s): A41.9 - Sepsis, unspecified organism (4) Acute respiratory failure with hypoxemia: Status: Acute Code(s): J96.01 - Acute respiratory failure with hypoxia (5) Right lower lobe pneumonia: Status: Acute Code(s): J18.9 - Pneumonia, unspecified organism (6) GERD (gastroesophageal reflux disease): Status: Acute Code(s): K21.9 - Gastro-esophageal reflux disease without esophagitis (7) Vitamin D deficiency: Status: Acute Code(s): E55.9 - Vitamin D deficiency, unspecified (8) Vitamin B12 deficiency: Status: Acute Code(s): E53.8 - Deficiency of other specified B group vitamins (9) Iron deficiency anemia: Status: Acute Code(s): D50.9 - Iron deficiency anemia, unspecified (10) Allergic rhinitis: Status: Acute Code(s): J30.9 - Allergic rhinitis, unspecified (11) PAOD (peripheral arterial occlusive disease): Status: Acute Code(s): I77.9 - Disorder of arteries and arterioles, unspecified (12) Hyperlipidemia: Status: Acute Code(s): E78.5 - Hyperlipidemia, unspecified (13) Irritable bowel syndrome with diarrhea: Status: Acute Code(s): K58.0 - Irritable bowel syndrome with diarrhea Plan 79 year old female with below past medical history hospitalized for sepsis 2/2 acute cholecystitis, underwent ERCP/sphincterotomy/stone removal/temporary stent 10/17/[address] Zuniga, complicated by acute respiratory failure with hypoxemia 2/2 right lower lobe pneumonia requiring intubation, admitted to TCU with debility, here for rehabilitation, strengthening, prior to discharge home with . Debility - PT/OT. Pain - Tylenol 1000mg q6 prn pain (1-10), Lidoderm 1 patch td daily. Bowel - senna/colace 1 tablet bid, Magnesium citrate 300mL po x 1 bottle. Adult immunization - Administer pneumonia vaccine, covid vaccine, flu vaccine as appropriate. DVT prophylaxis - Lovenox 40mg sc daily. Acute cholecystitis s/p ERCP - Augmentin 875mg po bid thru 10/27/2024, will need eventual cholecystectomy with Dr. Bruner. Vitamin C deficiency - Vitamin C 500mg daily. Hyperlipidemia - Atorvastatin 20mg qhs. Vitamin D deficiency - Vitamin D3 50mcg daily. Vitamin B12 deficiency - Vitamin B12 1000mcg daily. Nutrition - Ensure Plus 120mL po tidcm. Iron deficiency anemia - Ferrous sulfate 325mg daily. Rash - HC 2.5% topical tid prn. GERD - Lansoprazole 30mg daily. Allergic rhinitis - Loratadine 10mg daily, Singulair 10mg daily. PAOD - Trental 400mg po bid. IBS-D - Xifaxan 550mg po tid. Medications at Discharge Home Medications ascorbic acid (vitamin C) 500 mg tablet (Vitamin C) 500 mg PO DAILY@0800 supplement 09/16/14 cholecalciferol (vitamin D3) 25 mcg (1,000 unit) tablet (Vitamin D3) 2,000 unit PO DAILY supplement 09/16/14 cyanocobalamin (vitamin B-12) 500 mcg tablet 1,000 mcg PO DAILY@0800 supplement 09/16/14 fish oil-vit E-fat acids comb.5-herbal comb. 137 400 mg-5 unit capsule (Flax, Fish and Borage Oil) 1 ea PO DAILY supplement 09/16/14 iron, carbonyl 45 mg tablet (Feosol) 65 mg PO DAILYCM supplement 09/16/14 lansoprazole 30 mg capsule,delayed release (Prevacid) 30 mg PO DAILY GERD 09/16/14 montelukast 10 mg tablet (Singulair) 10 mg PO DAILY allergies 01/18/23 cetirizine 10 mg tablet 10 mg PO DAILY allergies 10/16/24 lidocaine 5 % topical patch 1 patch topical DAILY pain 10/16/24 pentoxifylline 400 mg tablet,extended release 400 mg PO BID muscle pain 10/16/24 rifaximin 550 mg tablet (Xifaxan) 550 mg PO TID diarrhea 10/16/24 rosuvastatin 10 mg tablet 10 mg PO QHS cholestrol 10/16/24 benzonatate 100 mg capsule 100 mg PO TID PRN PRN Cough 30 days #90 caps 10/30/24 fluticasone propionate 110 mcg/actuation HFA aerosol inhaler 2 puff inhalation BID PRN Cough 30 days #1 inh 10/30/24 Hospital Course Operations None Procedures None Summary of Care Provided Minutes Spent on Discharge: 35 Hospital Course: 79 year old female with below past medical history hospitalized for sepsis 2/2 acute cholecystitis, underwent ERCP/sphincterotomy/stone removal/temporary stent 10/17/[address] Zuniga, complicated by acute respiratory failure with hypoxemia 2/2 right lower lobe pneumonia requiring intubation, admitted to TCU with debility, here for rehabilitation, strengthening, prior to discharge home with . Resident most likely has obstructive sleep apnea, unable to tolerate sleep study, CPAP mask in the past. Nighttime trending pulsoximetry shows frequent desaturations, she would benefit from oxygen at night. Resident asked if I was taking new patients, I told her yes, and she asked me to be her primary care provider, I said okay. She will need outpatient laparoscopic cholecystectomy with Dr. Valerio Bruner. Discharge home alone 11/03/2024, [facility] PT/OT/SN, Oxygen at night. Oxygen: Patient requires 2 LPM of oxygen via nasal cannula due to nighttime hypoxia, obstructive sleep apnea, pneumonia; requires a concentrator and portable O2 tanks to allow patient to be mobile in the home and the community; O2 will improve the patient's condition in the home setting. Physical Exam Const alert General Appearance: cooperative HEENT normocephalic Eyes PERRL and EOMs intact bilaterally Neck supple, no JVD and no carotid bruits Resp normal respiratory effort, normal air movement and clear to auscultation bilaterally Cardio regular rate and regular rhythm GI normal to inspection, nondistended, normoactive bowel sounds, non-tender and non-distended Extremity normal capillary refill General Extremity: Negative for edema Skin no rashes or lesions noted General Skin Exam: no breakdown Psych affect normal Appearance: appropriate Weight / BMI Weight Weight: 89.222 kg Body Mass Index (BMI) 36.1 ABG / Lab / Microbiology Data 10/30/24 05:06 10/30/24 05:06 Laboratory: Laboratory Results - last 24 hr 10/30/24 05:06: WBC 7.5, RBC 4.11 L, Hgb 12.3, Hct 38.5, MCV 93.7, MCH 29.9, MCHC 31.9 L, RDW Std Deviation 47.7 H, RDW Coeff of Rochelle 14.1, Plt Count 484 H, MPV 10.0, Immature Gran % (Auto) 1.100 H, Neut % (Auto) 62.7, Lymph % (Auto) 24.0, [place] % (Auto) 7.2, Eos % (Auto) 4.2, Baso % (Auto) 0.8, Absolute Neuts (auto) 4.7, Absolute Lymphs (auto) 1.79, Nucleated RBC % 0, Sodium 138, Potassium 4.3, Chloride 105, Carbon Dioxide 29.0, Anion Gap 4 L, BUN 10, Creatinine 0.77, Estim Creat Clear Calc 59.84, Est GFR (MDRD) Af Amer 93, Est GFR (MDRD) Non-Af 77, BUN/Creatinine Ratio 12.9, Glucose 112 H, Calcium 9.4 D/C Instructions Discharge Diet: No restrictions Discharge Activity: Return to Normal Activity, May Shower and Use Walker Weight Bearing Status: Weight bearing as tolerated Call your doctor if you observe: Fever of 101 or Higher, Inability to urinate, Inability to have a bowel movement, Shortness of breath, Dizziness, Fainting spells, Swelling in the ankles, Chest pain and Uncontrolled pain DC O2, CPAP, BIPAP Needs PSN CPAP & BiPAP: BiPAP & CPAP Settings per PSN Fraction of Inspired Oxygen ( 10/24/24 19:36 FIO2) Home O2 Discharge instructions: Yes Type of respiratory needs?: Oxygen Oxygen frequency: With Sleeping Oxygen liters per minute when sleepin DC home with Oxygen: Yes Home O2 MD Review: I have reviewed the oxygen testing, and the patient qualifies for home oxygen equipment and portability. The patient is mobile in the home and the community. Additional Instructions: Discharge home alone 11/03/2024, [facility] PT/OT/SN, Oxygen at night. Oxygen: Patient requires 2 LPM of oxygen via nasal cannula due to nighttime hypoxi Please Follow Up With: Brian Bruner MD When: 2 weeks. Meaningful Use Info Meaningful Use Meaningful Use Diagnoses (Choose all that apply): None applicable Ischemic Stroke Statin Dosing Therapy Reference: STATIN DOSE THERAPY REFERENCE: * Patients > 75 years receive moderate or high dose statin therapy. * Patients 75 years or YOUNGER should receive HIGH intensity statin dose unless contraindicated. You will be required to document reason for non-treatment if statin daily dose does not meet guidelines. HIGH DOSE STATIN THERAPY DAILY Atorvastatin > than or = to 40 mg Rosuvastatin > than or = to 20 mg Amlodipine + Atorvastatin > than or = to 2.5/40 mg Ezetimibe + Simvastatin 10/80 mg Simvastatin 80mg Discharge Plan Admission Admit Date/Time: 10/22/24 12:30 Primary Reason for Your Visit: Debility. Attending Provider: Ricki Kaplan Chi Primary Care Provider: Missy Parada Instructions Additional Instructions / Restrictions: Discharge home alone 11/03/2024, [facility] PT/OT/SN, Oxygen at night. Oxygen: Patient requires 2 LPM of oxygen via nasal cannula due to nighttime hypoxi Discharge Orders/Prescriptions Prescriptions: New benzonatate 100 mg Capsule 100 mg PO TID PRN PRN (Reason: Cough) 30 Days Qty: 90 0RF fluticasone propionate 110 mcg/actuation Hfa Aerosol Inhaler 2 puff inhalation BID PRN (Reason: Cough) 30 Days Qty: 1 0RF Continued cyanocobalamin (vitamin B-12) 500 MCG tablet 1,000 mcg PO DAILY@0800 Patient Comments: SUPPLEMENT ascorbic acid (vitamin C) [Vitamin C] 500 MG tablet 500 mg PO DAILY@0800 Patient Comments: SUPPLEMENT lansoprazole [Prevacid] 30 MG capsule 30 mg PO DAILY Patient Comments: ACID REFLUX iron, carbonyl [Feosol] 45 MG capsule 65 mg PO DAILYCM Patient Comments: SUPPLEMENT Flax, Fish and Borage Oil 1 EACH capsule 1 ea PO DAILY Patient Comments: SUPPLEMENT cholecalciferol (vitamin D3) [Vitamin D3] 1,000 UNIT tablet 2,000 unit PO DAILY Patient Comments: SUPPLEMENT montelukast [Singulair] 10 mg Tablet 10 mg PO DAILY cetirizine 10 mg tablet 10 mg PO DAILY pentoxifylline 400 mg tablet extended release 400 mg PO BID lidocaine 5 % adhesive patch,medicated 1 patch topical DAILY rosuvastatin 10 mg tablet 10 mg PO QHS Xifaxan 550 mg tablet 550 mg PO TID Discontinued montelukast 10 mg tablet 10 mg PO QPM Qty: 20 0RF amoxicillin-pot clavulanate 875-125 mg tablet 1 tab PO BID Qty: 4 0RF Referrals / Follow Up: Ector Keys MD [Med Staff - Active Staff] - Brian Bruner MD [Med Staff - Active Staff] - (Follow-up after DC for surgery) Ricki Kaplan Chi, MD [Med Staff - Active Staff] - Within 1 Week (New patient appointment/TCM appointment.) DAVEY PATEL NP-C [Non-Staff] - Disposition Disposition (needs filled in before D/C Order can be placed): Home Health Service
[2024-10-30] MEDS: Atorvastatin Calcium 20 MG Tablet PO (19:32)
[2024-10-30 20:24] VITALS: O2SAT 94
[2024-10-31 03:30] VITALS: O2SAT 70
--- NOTE | 2024-10-31 03:35 | NURSING ---
Continuous O2 monitor alarm sounding, this nurse assessed patient. Patient at 76% on RA while asleep, per RT nursing was to put oxygen on patient if needed. Patient placed on 1L NC and improved to 92%. RT aware.
--- NOTE | 2024-10-31 03:39 | CPS ---
Patient desat to 70's at 3:30AM. Patient placed on 1L of oxygen, spo2 recovered to 90%. Patient was on RA for overnight trend study up until this point, from 3:30AM on, patient on 1L for trend.
[2024-10-31] MEDS: Enoxaparin 40 MG/0.4 ML Syringe SC (06:45)
[2024-10-31] MEDS: rifAXIMin 550 MG Tablet PO ×3 (06:45→19:55)
[2024-10-31 07:30] VITALS: O2SAT 93
[2024-10-31] MEDS: Montelukast 10 MG Tablet PO (07:57)
[2024-10-31] MEDS: Pentoxifylline 400 MG Tablet PO ×2 (07:57→19:54)
[2024-10-31] MEDS: Lansoprazole 15 MG Capsule.DR 30 MG PO (07:57)
[2024-10-31] MEDS: Oseltamivir Phosphate 75 MG Capsule PO (07:57)
[2024-10-31] MEDS: Ferrous Sulfate 325 MG Tablet PO (07:57)
[2024-10-31] MEDS: Ascorbic Acid 500 MG Tablet PO (07:57)
[2024-10-31] MEDS: Cholecalciferol (VIT D3) 25 MCG TABLET (1,000 UNITS) 50 MCG PO (07:57)
[2024-10-31] MEDS: Loratadine 10 MG Tablet PO (07:58)
[2024-10-31] MEDS: Cyanocobalamin 500 MCG Tablet 1000 MCG PO (07:58)
[2024-10-31] MEDS: Senna/Docusate Sodium 1 Tablet PO ×2 (07:58→19:54)
[2024-10-31] MEDS: Lidocaine 5% Patch 1 PATCH TOPICAL (07:59)
[2024-10-31] MEDS: Fluticasone Propionate 110 MCG AER.W.ADAP 2 PUFF INHALATION (07:59)
[2024-10-31 08:00] VITALS: BP 97/65; PULSE 80; RESP 16; TEMP 36.2; O2SAT 93
[2024-10-31] MEDS: Acetaminophen 500 MG Tablet 1000 MG PO (10:06)
[2024-10-31 11:25] VITALS: PULSE 80; RESP 16; O2SAT 93
[2024-10-31] MEDS: Atorvastatin Calcium 20 MG Tablet PO (19:55)
[2024-10-31] MEDS: Benzonatate 100 MG Capsule PO (19:56)
[2024-11-01] MEDS: rifAXIMin 550 MG Tablet PO ×3 (05:27→19:56)
[2024-11-01] MEDS: Enoxaparin 40 MG/0.4 ML Syringe SC (05:27)
[2024-11-01 07:45] VITALS: BP 108/74; PULSE 83; RESP 16; TEMP 36.6; O2SAT 92
[2024-11-01] MEDS: Pentoxifylline 400 MG Tablet PO ×2 (07:49→19:56)
[2024-11-01] MEDS: Senna/Docusate Sodium 1 Tablet PO ×2 (07:49→19:57)
[2024-11-01] MEDS: Cyanocobalamin 500 MCG Tablet 1000 MCG PO (07:49)
[2024-11-01] MEDS: Ferrous Sulfate 325 MG Tablet PO (07:50)
[2024-11-01] MEDS: Oseltamivir Phosphate 75 MG Capsule PO (07:50)
[2024-11-01] MEDS: Cholecalciferol (VIT D3) 25 MCG TABLET (1,000 UNITS) 50 MCG PO (07:50)
[2024-11-01] MEDS: Ascorbic Acid 500 MG Tablet PO (07:50)
[2024-11-01] MEDS: Montelukast 10 MG Tablet PO (07:50)
[2024-11-01] MEDS: Lansoprazole 15 MG Capsule.DR 30 MG PO (07:50)
[2024-11-01] MEDS: Lidocaine 5% Patch 1 PATCH TOPICAL (07:50)
[2024-11-01] MEDS: Loratadine 10 MG Tablet PO (07:50)
[2024-11-01 13:00] VITALS: PULSE 83; RESP 16; O2SAT 92
--- NOTE | 2024-11-01 15:36 | CASEMGMT ---
Social Work SW completed BIMS () and PHQ-2 () for MDS assessment. Shakira Saeed, OFFICE SUPPORT ASSISTANT STAKEHOLDER MANAGER
[2024-11-01] MEDS: Benzonatate 100 MG Capsule PO (19:55)
[2024-11-01] MEDS: Atorvastatin Calcium 20 MG Tablet PO (19:56)
[2024-11-02] MEDS: rifAXIMin 550 MG Tablet PO ×3 (05:53→20:13)
[2024-11-02] MEDS: Enoxaparin 40 MG/0.4 ML Syringe SC (05:53)
[2024-11-02 06:50] VITALS: O2SAT 93
[2024-11-02] MEDS: Lidocaine 5% Patch 1 PATCH TOPICAL (07:48)
[2024-11-02] MEDS: Senna/Docusate Sodium 1 Tablet PO ×2 (07:50→20:14)
[2024-11-02] MEDS: Ferrous Sulfate 325 MG Tablet PO (07:50)
[2024-11-02] MEDS: Cyanocobalamin 500 MCG Tablet 1000 MCG PO (07:51)
[2024-11-02] MEDS: Pentoxifylline 400 MG Tablet PO ×2 (07:51→20:14)
[2024-11-02] MEDS: Ascorbic Acid 500 MG Tablet PO (07:51)
[2024-11-02] MEDS: Loratadine 10 MG Tablet PO (07:52)
[2024-11-02] MEDS: Montelukast 10 MG Tablet PO (07:52)
[2024-11-02] MEDS: Lansoprazole 15 MG Capsule.DR 30 MG PO (07:52)
[2024-11-02] MEDS: Cholecalciferol (VIT D3) 25 MCG TABLET (1,000 UNITS) 50 MCG PO (07:53)
[2024-11-02] MEDS: Oseltamivir Phosphate 75 MG Capsule PO (07:53)
[2024-11-02 08:05] VITALS: BP 127/70; PULSE 86; RESP 18; O2SAT 93
--- NOTE | 2024-11-02 10:05 | NURSING ---
PT ASKED THIS NURSE IF THE OXYGEN TANK THAT [facility] BROUGHT WAS ON OR OFF. THIS NURSE SEEN THAT THE OXYGEN TANK WAS ON AND IT WAS EMPTY. ASKED PT IF SHE HAD USED IT PT STATED NO JUST THE [facility] THAT DROPPED IT OFF YESTERDAY SHOWED ME HOW TO USE IT. THIS NURSE CALLED [facility] AND TOLD THEM THE SITUATION AND THAT THE PT NEEDS OXYGEN AT NIGHT. LATER A CLIENT SERVICE AND CONSULTING MANAGER CALLED BACK AND STATED THAT THE PT DIDNT NEED THE TANK FOR HOME AND WOULD BE VISITING PT AFTER D/C TOMORROW TO SET PT UP AT HOME FOR OXYGEN AT NIGHT AND TO JUST PUT THE TANK IN THE CLEAN UTILITY ROOM FOR [employer]OP[employer] CONSULTANT. THIS NURSE EXPLAINED EVERY THING TO PT AND PT STATED SHE UNDER STOOD. RN AWARE
[2024-11-02 11:00] VITALS: PULSE 86; RESP 18; O2SAT 93
[2024-11-02 13:09] VITALS: TEMP 37
[2024-11-02] MEDS: Atorvastatin Calcium 20 MG Tablet PO (20:14)
[2024-11-03] MEDS: Acetaminophen 500 MG Tablet 1000 MG PO (06:48)
[2024-11-03] MEDS: Enoxaparin 40 MG/0.4 ML Syringe SC (06:48)
[2024-11-03] MEDS: rifAXIMin 550 MG Tablet PO (06:48)
[2024-11-03 06:53] VITALS: PULSE 73; RESP 17; O2SAT 93
[2024-11-03 07:21] VITALS: O2SAT 94
[2024-11-03] MEDS: Lidocaine 5% Patch 1 PATCH TOPICAL (07:57)
[2024-11-03] MEDS: Ferrous Sulfate 325 MG Tablet PO (07:59)
[2024-11-03] MEDS: Pentoxifylline 400 MG Tablet PO (08:00)
[2024-11-03] MEDS: Cyanocobalamin 500 MCG Tablet 1000 MCG PO (08:00)
[2024-11-03] MEDS: Lansoprazole 15 MG Capsule.DR 30 MG PO (08:01)
[2024-11-03] MEDS: Ascorbic Acid 500 MG Tablet PO (08:01)
[2024-11-03] MEDS: Loratadine 10 MG Tablet PO (08:01)
[2024-11-03] MEDS: Montelukast 10 MG Tablet PO (08:01)
[2024-11-03] MEDS: Cholecalciferol (VIT D3) 25 MCG TABLET (1,000 UNITS) 50 MCG PO (08:01)
[2024-11-03 08:05] VITALS: BP 116/76; PULSE 73; RESP 18; TEMP 37; O2SAT 92
[2024-11-03 12:45] VITALS: BP 116/76; PULSE 73; RESP 18; TEMP 37; O2SAT 92
== END 2024-11-03 11:50 | disposition home health service (06) | DRG 949 ==
PROVIDERS: Admitting Provider Family Medicine Geriatric Medicine; PCP Internal Medicine; Referring Provider Family Medicine Geriatric Medicine; Visit Provider Family Medicine Geriatric Medicine
DX: Z48.815 Encounter for surgical aftercare following surgery on the digestive system (principal); J18.9 Pneumonia, unspecified organism; K81.0 Acute cholecystitis; I73.9 Peripheral vascular disease, unspecified; D50.9 Iron deficiency anemia, unspecified; E55.9 Vitamin D deficiency, unspecified; K58.0 Irritable bowel syndrome with diarrhea; J30.9 Allergic rhinitis, unspecified; E53.8 Deficiency of other specified B group vitamins; E78.5 Hyperlipidemia, unspecified; K21.9 Gastro-esophageal reflux disease without esophagitis; G47.33 Obstructive sleep apnea (adult) (pediatric); Z79.899 Other long term (current) drug therapy
CPT/HCPCS: 36415; 74018; 80048; 80061; 82306; 82607; 83540; 85025; 94762; 97110; 97116; 97162; 97165; 97530; 97535; 97802; A4216

== ENCOUNTER → 2024-11-13 | Outpatient (CLI) | payer MEDICARE, OTHER, SELFPAY ==
[2024-11-13 12:25] LABS: Absolute Lymphocyte Count 1.79 X10^3/uL (0.83-4.51); Absolute Neutrophil Count 4.5 X10^3/uL (2.0-7.7); Basophil# 0.04 X10^3/uL; Basophil% 0.6 % (0-1); Eosinophil# 0.21 X10^3/uL; Hematocrit 40.5 % (37-47); Hemoglobin 12.6 g/dL (12.0-15.0); Lymphocyte # 1.79 X10^3/ul (0.83-4.51); Lymphocyte % 25.3 % (19-41); Mean Corp Hgb Conc 31.1 g/dL (32-36); Mean Corpuscular Hgb 28.8 pg (27.0-32.0); Mean Corpuscular Volume 92.5 fL (81-99); Mean Platelet Vol. 9.9 fl (6.2-12.0); Monocyte# 0.51 X10^3/uL; Monocyte% 7.2 % (0-10); NRBC Flagged by Analyzer 0 % (0-5); Neutrophil # 4.47 X10^3/uL (2.7-7.7); Neutrophil % 63.2 % (47-70); Platelet Count 358 K/mm3 (150-450); RBC Distribution Width CV 12.9 % (11.6-14.6); RBC Distribution Width SD 43.8 fl (35.1-43.9); Red Blood Count 4.38 M/mm3 (4.2-5.4); White Blood Count 7.1 K/mm3 (4.4-11.0)
[2024-11-13 13:29] LABS: Hepatitis C Antibody Non-Reactive (Nonreactive); Vitamin D,25 Hydroxy 49.6 ng/mL
[2024-11-13 13:53] LABS: ALB/GLOB Ratio 0.6 RATIO (0.9-2.4); AST(SGOT) 28 U/L (15-37); Alanine Aminotransfer ALT/SGPT 33 U/L (13-56); Albumin, Serum 3.2 g/dL (3.2-5.0); Alkaline Phosphatase 130 U/L (45-117); Anion Gap 9 (5-15); BUN 9 mg/dL (7-18); BUN/Creat Ratio 11.5 RATIO (10-20); Calcium,Total 9.6 mg/dL (8.5-10.1); Chloride 99 mmol/L (98-107); Cholesterol 133 mg/dL (200); Creatinine, Serum 0.78 mg/dL (0.55-1.02); EST Glomerular Filtration Rate 76 mL/min (>60); Est Glom Filt Rate - Afr Amer 92 mL/min (>60); Globulin 5.2 g/dL (2.2-4.2); Glucose 102 mg/dL (74-106); High Density Lipoprotein 36 mg/dL; Potassium 3.9 mmol/L (3.5-5.1); Protein, Total 8.4 g/dL (6.4-8.2); Sodium Level 135 mmol/L (136-145); Triglycerides 92 mg/dL; Very Low Density Lipoprotein 18 mg/dL (5-40)
== END | disposition home or self-care (01) ==
LOC: LAB 11:32
PROVIDERS: PCP Internal Medicine; Referring Provider Family Medicine Geriatric Medicine; Visit Provider Family Medicine Geriatric Medicine
DX: E78.5 Hyperlipidemia, unspecified (principal); D50.9 Iron deficiency anemia, unspecified; Z13.89 Encounter for screening for other disorder; E55.9 Vitamin D deficiency, unspecified
CPT/HCPCS: 36415; 80053; 80061; 82306; 84443; 85025; 86803

== ENCOUNTER → 2024-11-19 | Outpatient (CLI) | payer MEDICARE, OTHER, SELFPAY | END | disposition home or self-care (01) | LOC: POLAB3 14:05 | PROVIDERS: PCP Family Medicine Geriatric Medicine; Visit Provider Family Medicine Geriatric Medicine | DX: N39.0 Urinary tract infection, site not specified (principal) | CPT/HCPCS: 87077; 87086; 87088; 87186 ==

== ENCOUNTER 2024-11-20 16:09 | Emergency (ER) | payer MEDICARE, OTHER, SELFPAY ==
[2024-11-20 16:11] VITALS: BP 115/92; PULSE 99; RESP 18; TEMP 38.6; O2SAT 89; BMI 34.7
[2024-11-20 16:14] VITALS: O2SAT 98
[2024-11-20 18:20] LABS: Absolute Neutrophil Count 13.7 X10^3/uL (2.0-7.7); Basophil# 0.05 X10^3/uL; Basophil% 0.3 % (0-1); Eosinophil# 0.02 X10^3/uL; Eosinophils% 0.1 % (0-5); Hematocrit 33.8 % (37-47); Hemoglobin 11.2 g/dL (12.0-15.0); Lymphocyte % 10.3 % (19-41); Mean Corp Hgb Conc 33.1 g/dL (32-36); Mean Corpuscular Hgb 29.5 pg (27.0-32.0); Mean Corpuscular Volume 88.9 fL (81-99); Mean Platelet Vol. 9.7 fl (6.2-12.0); Monocyte# 0.94 X10^3/uL; Monocyte% 5.7 % (0-10); NRBC Flagged by Analyzer 0 % (0-5); Neutrophil # 13.65 X10^3/uL (2.7-7.7); Neutrophil % 83.2 % (47-70); Platelet Count 348 K/mm3 (150-450); RBC Distribution Width CV 13.1 % (11.6-14.6); RBC Distribution Width SD 42.6 fl (35.1-43.9); White Blood Count 16.4 K/mm3 (4.4-11.0)
[2024-11-20 18:36] LABS: International Normalized Ratio 1.2; Prothrombin Time (Protime)PT. 15.8 SECONDS (11.7-14.9)
[2024-11-20 18:42] VITALS: BP 110/69; PULSE 86; RESP 27; TEMP 38.1; O2SAT 92
[2024-11-20 18:42] LABS: ALB/GLOB Ratio 0.5 RATIO (0.9-2.4); AST(SGOT) 35 U/L (15-37); Alanine Aminotransfer ALT/SGPT 33 U/L (13-56); Albumin, Serum 2.7 g/dL (3.2-5.0); Alkaline Phosphatase 131 U/L (45-117); Anion Gap 6 (5-15); BUN 12 mg/dL (7-18); BUN/Creat Ratio 14.2 RATIO (10-20); Calcium,Total 9.3 mg/dL (8.5-10.1); Chloride 98 mmol/L (98-107); Creatinine, Serum 0.84 mg/dL (0.55-1.02); EST Glomerular Filtration Rate 69 mL/min (>60); Est Glom Filt Rate - Afr Amer 84 mL/min (>60); Estimated Creatinine Clearance 57.14 ml/min; Globulin 5.1 g/dL (2.2-4.2); Glucose 114 mg/dL (74-106); Potassium 4.1 mmol/L (3.5-5.1); Protein, Total 7.8 g/dL (6.4-8.2); Sodium Level 132 mmol/L (136-145)
[2024-11-20 18:45] LABS: Lactic Acid 0.7 mmol/L (0.4-1.9)
--- NOTE | 2024-11-20 18:50 | RAD_ITS ---
PROCEDURE: CHEST PA AND LATERAL REASON FOR EXAM: Fever. TECHNIQUE: Single frontal image including the chest and abdomen. COMPARISON: 10/20/2024. FINDINGS: The cardiothymic contour is normal. Faint bibasilar opacities which may represent atelectasis or infiltrate. Bowel gas pattern is normal. No evidence of bowel obstruction or free air. The bones are unremarkable. No radiopaque foreign body is identified. RAD/Chest PA and Lateral IMPRESSION: Bibasilar atelectasis versus infiltrate in Reading Location: [id number]
--- NOTE | 2024-11-20 19:32 | EX.ED.DYSGE1 ---
HPI History of Present Illness Chief Complaint: Fever Informant: patient Onset/Context/Timing Onset: Today Context: Gradual Onset Timing: Continuous Quality: Chills Location: Generalized Worsened by: Nothing Relieved by: Nothing Narrative Narrative: Patient presents with a fever that became worse today. Patient states she was recently diagnosed with a urinary tract infection yesterday. Patient states she received an IM injection of antibiotics and was given a prescription for oral antibiotics. Patient states she took her morning dose of her antibiotic this morning. Patient admits to some subjective chills. Patient admits to some nausea but denies any vomiting. Patient admits to some dysuria and urinary frequency. Patient admits to some pain in her back. Patient denies any chest pain or shortness of breath. [facility] Medical History Pain of right clavicle Right shoulder strain Lumbar strain Thoracic myofascial strain Cervical strain Scalp contusion Right wrist sprain Home Medications ?Medication ?Instructions ?Recorded ?Last Taken ?Type lansoprazole 30 mg capsule,delayed 30 mg PO DAILY GERD 09/16/14 Unknown History release (Prevacid) Allergy/AdvReac Type Severity Reaction Status Date / Time No Known Allergies Allergy Verified 11/20/24 16:51 Surgical History S/P correction of deviated nasal septum S/P total knee arthroplasty Social History household members: spouse Smoking Status: Never smoker alcohol intake: never substance use type: does not use ROS ROS ED Constitutional Constitutional ED: Reports chills and subjective; Denies fever(s) Eyes Eyes: Denies blurry vision or change in vision ENT ENT ED: Denies rhinorrhea or sore throat Cardiovascular Cardiovascular: Denies chest pain or palpitations Respiratory/Chest Respiratory/Chest: Denies cough or dyspnea Gastrointestinal Gastrointestinal: Reports nausea; Denies vomiting Genitourinary Genitourinary ED: Reports dysuria and urinary frequency; Denies hematuria Musculoskeletal Musculoskeletal: Reports back pain; Denies neck pain Integumentary Denies abscess or rash Neurologic Neurologic: Denies headache(s) or weakness Allergic/Immunologic Allergic/Immunologic ED: Denies mouth swelling or urticaria EXAM Physical Exam Const Vital Signs: 11/20/24 16:11 11/20/24 16:14 11/20/24 18:42 Temperature 101.4 F H 100.5 F H Temperature Source Oral Oral Pulse Rate 99 86 Respiratory Rate 18 27 H Respiratory Effort Respiratory Pattern Blood Pressure 115/92 H 110/69 Blood Pressure Mean 99 82 Pulse Ox 89 98 92 Oxygen Delivery Method Room Air Nasal Cannula Nasal Cannula Oxygen Flow Rate (L/min) 2 2 11/20/24 18:42 11/20/24 18:42 11/20/24 20:00 Temperature Temperature Source Pulse Rate 82 Respiratory Rate 21 H Respiratory Effort Normal Respiratory Pattern Tachypnea Blood Pressure 118/81 H Blood Pressure Mean 93 Pulse Ox 94 Oxygen Delivery Method Nasal Cannula Nasal Cannula Oxygen Flow Rate (L/min) 3 Positive well nourished and well developed General Appearance ED: well developed and NAD HEENT Reports moist mucous membranes Neck supple and no JVD Resp normal respiratory effort and clear to auscultation bilaterally Cardio regular rate and regular rhythm GI non-tender and non-distended Palpation: soft Extremity General Extremety ED: Negative for edema or tenderness General Extremity: Negative for edema Neuro oriented x3, CN's II-XII intact bilaterally and no sensory deficits noted Sensorium / Orientation: alert Motor Exam: strength 5/5 throughout Psych mental status grossly normal MDM MDM MDM Narrative Medical decision making narrative: Differential diagnosis includes urinary tract infection, pneumonia, sepsis, pyelonephritis, viral illness, and electrolyte abnormality. CBC will be obtained to assess for leukocytosis and anemia. Comprehensive metabolic profile will be obtained to assess for electrolyte abnormality, renal function, and hepatic function. PT with INR and PTT will be obtained to assess for coagulopathy. Serum lactate will be obtained to assess for sepsis. Urine culture will be obtained to assess for urinary tract infection. Chest x-ray will be obtained to assess for pneumonia and bronchitis. Blood culture will be obtained to assess for sepsis. COVID-19, influenza, and RSV PCR will be obtained to assess for viral illness. Lab Data Attestation: I reviewed the patient's lab results. Lab results narrative: CBC was reviewed. There is a leukocytosis of 16.4. There is a mild anemia with a hemoglobin of 11.2 and hematocrit 33.8. Platelets were normal. Comprehensive metabolic profile was reviewed. Sodium was slightly low at 132. Alkaline phosphatase was slightly elevated at 131. The remainder is within normal limits. PT with INR and PTT were reviewed. PT was 15.8 and INR is 1.2. PTT was normal at 32. Serum lactate was reviewed and was normal at 0.7. Urinalysis was reviewed. Leukocyte esterase was 100. There are 5-10 white blood cells. There are rare bacteria. COVID-19 PCR was reviewed and was negative. Influenza PCR was reviewed and was negative for influenza A and influenza B. RSV PCR was reviewed and was negative. Labs: Laboratory Results - last 24 hr 11/20/24 11/20/24 18:12 19:30 WBC 16.4 H RBC 3.80 L Hgb 11.2 L Hct 33.8 L MCV 88.9 MCH 29.5 MCHC 33.1 RDW Std Deviation 42.6 RDW Coeff of Rochelle 13.1 Plt Count 348 MPV 9.7 Immature Gran % (Auto) 0.400 Neut % (Auto) 83.2 H Lymph % (Auto) 10.3 L Oliver % (Auto) 5.7 Eos % (Auto) 0.1 Baso % (Auto) 0.3 Absolute Neuts (auto) 13.7 H Absolute Lymphs (auto) 1.70 Nucleated RBC % 0 PT 15.8 H INR 1.2 APTT 32.0 Sodium 132 L Potassium 4.1 Chloride 98 Carbon Dioxide 27.0 Anion Gap 6 BUN 12 Creatinine 0.84 Estim Creat Clear Calc 57.14 Est GFR (MDRD) Af Amer 84 Est GFR (MDRD) Non-Af 69 BUN/Creatinine Ratio 14.2 Glucose 114 H Lactic Acid 0.7 Calcium 9.3 Total Bilirubin 0.70 AST 35 ALT 33 Alkaline Phosphatase 131 H Total Protein 7.8 Albumin 2.7 L Globulin 5.1 H Albumin/Globulin Ratio 0.5 L Urine Color Doris Urine Clarity Sl. Cloudy Urine pH 5.0 Ur Specific [place] 1.020 Urine Protein 30 H Urine Glucose (UA) Normal Urine Ketones Negative Urine Occult Blood 25 H Urine Nitrite Negative Urine Bilirubin 1 H Urine Urobilinogen 4 H Ur Leukocyte Esterase 100 H Urine RBC 0-5 SEEN Urine WBC 5-10 SEEN Ur Squamous Epith Cells 0-5 SEEN Urine Bacteria RARE Urine Mucus 1+ Radiography Diagnostic Testing: Clinical Impression(s) from Imaging Studies Chest X-Ray 11/20/24 18:50 IMPRESSION: Bibasilar atelectasis versus infiltrate in Reading Location: [facility] PA and lateral chest x-ray was obtained. There are 2 views. On my independent interpretation, lung kaye show bibasilar atelectasis. There is normal cardiac silhouette. Bony thorax is normal. There is no acute process noted. Radiologist also interpreted the x-ray and agrees. Treatment and Re-Evaluation :: Patient was given a dose of Tylenol here. Patient was advised of her findings. Patient was instructed to drink plenty of fluids. Patient was instructed to continue her Cipro as prescribed. Patient was instructed to follow-up with her primary care physician in 5 to 7 days. Patient understood and was agreeable with the plan. All questions were answered. Discharge Plan Triage Chief Complaint: Fever Other Complaint: Complaint ED Provider: Ector Cevallos Dx/Rx/DC Orders Clinical Impression: Urinary tract infection, Fever Instructions: ED Cystitis Female Adult Prescriptions: No Action lansoprazole [Prevacid] 30 MG capsule 30 mg PO DAILY Patient Comments: ACID REFLUX Primary Care Provider: Ricki Kaplan Chi Referrals: Ricki Kaplan Chi, MD [Primary Care Provider] - 5-7 Days Print Language: Belarusian Disposition Disposition: Home, Self Care
[2024-11-20 19:51] LABS: Color, Urine Amber (Yellow); Glucose, Dipstick Normal (Normal); Ketone-Dipstick Negative (Negative); Leukocyte Esterase-Dipstick 100 /ul (Negative); Nitrite-Dipstick Negative (Negative); Occult Blood-Urine 25 /ul (Negative); Protein-Dipstick 30 mg/dl (Negative); Urine Bilirubin Dipstick 1 mg/dL (Negative); Urine Clarity Sl. Cloudy (Clear); Urine Urobilinogen 4 mg/dl (Normal)
[2024-11-20 20:00] VITALS: BP 118/81; PULSE 82; RESP 21; O2SAT 94
[2024-11-20 20:02] LABS: Bacteria RARE /hpf (None Seen); Mucous, Urine 1+ /hpf (<or=2+); Red Blood Cells-Urine 0-5 SEEN /hpf (0-5); Squamous Epithelial Cells - UA 0-5 SEEN /hpf (5-10); White Blood Cells 5-10 SEEN /hpf (0-5)
[2024-11-20] MEDS: Acetaminophen 500 MG Tablet 1000 MG PO (20:08)
[2024-11-20 22:00] VITALS: BP 116/84; PULSE 79; RESP 20; O2SAT 96
[2024-11-20 22:33] VITALS: BP 116/84; PULSE 79; RESP 20; TEMP 36.6; O2SAT 96
== END 2024-11-20 22:34 | disposition home or self-care (01) ==
PROVIDERS: Emergency Provider Emergency Medicine; PCP Family Medicine Geriatric Medicine; Visit Provider Emergency Medicine
DX: N39.0 Urinary tract infection, site not specified (principal); D64.9 Anemia, unspecified; J98.11 Atelectasis; R50.9 Fever, unspecified; K21.9 Gastro-esophageal reflux disease without esophagitis
CPT/HCPCS: 71046; 80053; 81001; 83605; 85025; 85610; 85730; 87040; 87086; 87088; 87631; 99285; A4216

== ENCOUNTER 2024-11-21 13:49 | Outpatient (CLI) | payer MEDICARE, OTHER, SELFPAY ==
[2024-11-21 14:00] LABS: Basophil# 0.04 X10^3/uL; Basophil% 0.3 % (0-1); Eosinophil# 0.06 X10^3/uL; Eosinophils% 0.4 % (0-5); Hematocrit 36.4 % (37-47); Hemoglobin 11.9 g/dL (12.0-15.0); Lymphocyte % 7.9 % (19-41); Mean Corp Hgb Conc 32.7 g/dL (32-36); Mean Corpuscular Hgb 29.3 pg (27.0-32.0); Mean Corpuscular Volume 89.7 fL (81-99); Mean Platelet Vol. 9.6 fl (6.2-12.0); Monocyte# 0.65 X10^3/uL; Monocyte% 4.7 % (0-10); NRBC Flagged by Analyzer 0 % (0-5); Neutrophil # 11.98 X10^3/uL (2.7-7.7); Neutrophil % 86.2 % (47-70); Platelet Count 357 K/mm3 (150-450); RBC Distribution Width CV 12.9 % (11.6-14.6); RBC Distribution Width SD 42.7 fl (35.1-43.9); Red Blood Count 4.06 M/mm3 (4.2-5.4); White Blood Count 13.9 K/mm3 (4.4-11.0)
[2024-11-21 14:02] VITALS: BP 120/68; PULSE 79; RESP 16; TEMP 36.3
[2024-11-21] MEDS: 0.9% Normal Saline (1000mL) 1,000 ML 999 ML IV ×2 (14:15→15:24)
[2024-11-21] MEDS: 0.9% NaCl Peripheral Flush Adult/Peds IV (14:15)
[2024-11-21 14:38] LABS: Anion Gap 7 (5-15); BUN 14 mg/dL (7-18); BUN/Creat Ratio 16.1 RATIO (10-20); Calcium,Total 9.7 mg/dL (8.5-10.1); Chloride 98 mmol/L (98-107); Creatinine, Serum 0.87 mg/dL (0.55-1.02); EST Glomerular Filtration Rate 67 mL/min (>60); Est Glom Filt Rate - Afr Amer 81 mL/min (>60); Glucose 125 mg/dL (74-106); Potassium 3.7 mmol/L (3.5-5.1); Sodium Level 133 mmol/L (136-145)
[2024-11-21 16:37] VITALS: BP 101/48; PULSE 86; RESP 16; TEMP 36.2; O2SAT 91
[2024-11-26 15:07] LABS: Hemoglobin A1c 5.5 % (3.8-5.6)
== END 2024-11-21 23:59 | disposition home or self-care (01) ==
PROVIDERS: PCP Family Medicine Geriatric Medicine; Referring Provider Family Medicine Geriatric Medicine; Visit Provider Family Medicine Geriatric Medicine
DX: E86.0 Dehydration (principal); R73.09 Other abnormal glucose
CPT/HCPCS: 96360; 96361; 36415; 80048; 83036; 85025; A4216

== ENCOUNTER → 2024-12-02 | Outpatient (CLI) | payer MEDICARE, OTHER, SELFPAY ==
--- NOTE | 2024-12-02 10:29 | US_ITS ---
EXAM: US Abdomen Limited, Gallbladder CLINICAL INDICATION: TECHNIQUE: Real-time ultrasound of the right upper quadrant with image documentation. COMPARISON: No relevant prior studies available. FINDINGS: LIVER: Liver measures up to 14.8 cm. Fatty infiltration of the liver. Hepatic cysts, largest measuring up to 3.9 cm. GALLBLADDER: Gallbladder sludge. Small amount of pericholecystic fluid noted. COMMON BILE DUCT: Unremarkable as visualized. No stones. No dilation. PANCREAS: Unremarkable as visualized. RIGHT KIDNEY: Right kidney measures up to 8.9 cm. OTHER FINDINGS: , Calculus, measuring up to 8 mm. US/Gallbladder IMPRESSION: 1. Fatty infiltration of the liver. 2. Cholelithiasis with sludge and apparent small amount of pericholecystic flu id. Evolving acute cholecystitis can not be excluded. Clinical correlation is recommended. Reading Location[facility]
== END | disposition home or self-care (01) ==
LOC: US 10:14
PROVIDERS: PCP Family Medicine Geriatric Medicine; Referring Provider Surgery; Visit Provider Surgery
DX: E80.6 Other disorders of bilirubin metabolism (principal)
CPT/HCPCS: 76705

== ENCOUNTER → 2024-12-11 | Outpatient (CLI) | payer MEDICARE, OTHER, SELFPAY | END | disposition home or self-care (01) | LOC: LABSPEC 16:50 | PROVIDERS: PCP Family Medicine Geriatric Medicine; Referring Provider Family Medicine Geriatric Medicine; Visit Provider Family Medicine Geriatric Medicine | DX: N39.0 Urinary tract infection, site not specified (principal) | CPT/HCPCS: 87077; 87086; 87088 ==

== ENCOUNTER → 2024-12-18 | Outpatient (CLI) | payer MEDICARE, OTHER, SELFPAY | END | disposition home or self-care (01) | LOC: PSN 12:35 | PROVIDERS: PCP Family Medicine Geriatric Medicine; Referring Provider Family Medicine Geriatric Medicine; Visit Provider Family Medicine Geriatric Medicine | DX: R05.3 Chronic cough (principal); J45.909 Unspecified asthma, uncomplicated ==

== ENCOUNTER → 2024-12-18 | Outpatient (CLI) | payer MEDICARE, OTHER, SELFPAY | END | disposition home or self-care (01) | LOC: PSN 12:28 | PROVIDERS: PCP Family Medicine Geriatric Medicine; Referring Provider Family Medicine Geriatric Medicine; Visit Provider Family Medicine Geriatric Medicine | DX: R05.3 Chronic cough (principal); J45.909 Unspecified asthma, uncomplicated | CPT/HCPCS: 94060 ==

== ENCOUNTER → 2025-01-15 | Outpatient (CLI) | payer MEDICARE, OTHER, SELFPAY | END | disposition home or self-care (01) | LOC: SL 19:57 | PROVIDERS: PCP Family Medicine Geriatric Medicine; Referring Provider Family Medicine Geriatric Medicine; Visit Provider Family Medicine Geriatric Medicine | DX: G47.33 Obstructive sleep apnea (adult) (pediatric) (principal) | CPT/HCPCS: 95810 ==

== ENCOUNTER → 2025-01-27 | Outpatient (CLI) | payer MEDICARE, OTHER, SELFPAY ==
--- NOTE | 2025-01-27 12:00 | RAD_ITS ---
PROCEDURE: Pelvis and left hip radiographs, three views 01/27/2025 REASON FOR EXAM: Pain after fall TECHNIQUE: Three views of the pelvis and left hip were obtained. COMPARISON: None available FINDINGS: Three views of the pelvis and left hip were obtained. Bones are osteopenic. Moderately extensive degenerative disc disease in the included lower lumbar spine. SI joints are intact. No displaced pelvic or proximal femur fracture. [id number] degenerative changes in the hip joints, greatest on the left. No acute fracture or dislocation of the left hip. RAD/HIP, UNI W/ Pelvis 2-3 Views IMPRESSION: Osteopenia. No acute bony abnormality of the pelvis/left hip. Mild/moderate degenerative changes in the hip joints, greatest on the left. Moderately extensive degenerative disc disease in the lower lumbar spine. Reading Location: [facility]
--- NOTE | 2025-01-27 12:24 | CT_ITS ---
PROCEDURE: BRAIN/HEAD WITHOUT CONTRAST 01/27/2025 REASON FOR EXAM: CLOSED HEAD INJURY TECHNIQUE: Head CT without intravenous contrast. Coronal and Sagittal reconstruction series were provided. One or more dose reduction techniques were used (e.g., Automated exposure control, adjustment of the mA and/or kV according to patient size, use of iterative reconstruction technique. RADIATION DOSE SUMMARY: CTDlvol: 47.06 mGy DLP: 925.62 mGycm COMPARISON: None. FINDINGS: Brain: No mass, mass effect, midline shift, intra-axial or extra-axial hemorrhage. CSF Spaces: Ventricles and sulci are normal for age. Sinuses/Mastoids: Clear Bones: No fracture identified. CT/Brain/Head without Contrast IMPRESSION: No acute process detected Reading Location[facility]
== END | disposition home or self-care (01) ==
LOC: CT 11:57
PROVIDERS: PCP Family Medicine Geriatric Medicine; Referring Provider Family Medicine Geriatric Medicine; Visit Provider Family Medicine Geriatric Medicine
DX: S09.90XA Unspecified injury of head, initial encounter (principal); M25.552 Pain in left hip
CPT/HCPCS: 70450; 73502

== ENCOUNTER → 2025-02-12 | Outpatient (CLI) | payer MEDICARE, OTHER, SELFPAY ==
[2025-02-12 13:10] LABS: Absolute Lymphocyte Count 1.78 X10^3/uL (0.83-4.51); Absolute Neutrophil Count 4.3 X10^3/uL (2.0-7.7); Basophil# 0.06 X10^3/uL; Basophil% 0.9 % (0-1); Eosinophil# 0.34 X10^3/uL; Eosinophils% 4.9 % (0-5); Hematocrit 41.1 % (37-47); Hemoglobin 13.4 g/dL (12.0-15.0); Lymphocyte # 1.78 X10^3/ul (0.83-4.51); Lymphocyte % 25.5 % (19-41); Mean Corp Hgb Conc 32.6 g/dL (32-36); Mean Corpuscular Hgb 30.1 pg (27.0-32.0); Mean Corpuscular Volume 92.4 fL (81-99); Mean Platelet Vol. 9.7 fl (6.2-12.0); Monocyte# 0.45 X10^3/uL; Monocyte% 6.5 % (0-10); NRBC Flagged by Analyzer 0 % (0-5); Neutrophil # 4.32 X10^3/uL (2.7-7.7); Neutrophil % 61.9 % (47-70); Platelet Count 335 K/mm3 (150-450); RBC Distribution Width CV 14.1 % (11.6-14.6); RBC Distribution Width SD 48.2 fl (35.1-43.9); Red Blood Count 4.45 M/mm3 (4.2-5.4)
[2025-02-12 14:09] LABS: ALB/GLOB Ratio 1.2 RATIO (0.9-2.4); AST(SGOT) 52 U/L (<=31); Alanine Aminotransfer ALT/SGPT 39 U/L (<=34); Alkaline Phosphatase 182 U/L (35-104); Anion Gap 10 (5-15); BUN 12 mg/dL (4-19); BUN/Creat Ratio 14.8 RATIO (10-20); Calcium,Total 9.3 mg/dL (7.6-11.0); Carbon Dioxide 26.4 mmol/L (21.0-32.0); Chloride 102 mmol/L (98-108); Creatinine, Serum 0.78 mg/dL (0.70-1.20); EST Glomerular Filtration Rate 78 (>60); Globulin 3.4 g/dL (2.2-4.2); Glucose 93 mg/dL (70-99); Potassium 4.5 mmol/L (3.3-5.1); Protein, Total 7.4 g/dL (5.9-8.4); Sodium Level 138 mmol/L (133-145); Total Bilirubin 0.44 mg/dL (0.00-1.30)
[2025-02-12 14:11] LABS: Thyroid Stim Hormone (TSH) 0.954 uIU/mL (0.300-4.200); Vitamin D,25 Hydroxy 32.8 ng/mL (30-100)
== END | disposition home or self-care (01) ==
LOC: LAB 12:14
PROVIDERS: PCP Family Medicine Geriatric Medicine; Referring Provider Family Medicine Geriatric Medicine; Visit Provider Family Medicine Geriatric Medicine
DX: E55.9 Vitamin D deficiency, unspecified (principal); R53.83 Other fatigue
CPT/HCPCS: 36415; 80053; 82306; 84443; 85025

== ENCOUNTER 2025-03-31 12:00 | Outpatient (RCR) | payer MEDICARE, OTHER, SELFPAY ==
--- NOTE | 2025-02-19 13:33 | HP.PTEVAL ---
Patient's Visit Information Visit Information Visit Information: TESSIE BANKS is a 79 year old F referred to Physical Therapy by Dr. Ricki Kaplan MD with a diagnosis of BPPV. Date of Evaluation: 02/19/25 Physical Therapist: Ector Herman, DPT, OCS, CSCS Visit Plan Frequency: 1-2x /Week Duration: 2-4 Weeks Plan: 1-2x/wek as needed x 2-4 for positional checks and return to activity. treated IE for L angela and education with HO Subjective Subjective: Uses cane but forgot it today. H/o back and neck pain they are normal. Got dizzyness starting 3 weeks ago. Got dizzy turning in bed and sitting up and spun, then it was off and on all day. never happened before. Called doctor and got meds which helps. Overall it is still bothering her every other day. bending makes her spin. Short duration. Turning in bed to L will cause it. Fell one time. Balance is normal in between episodes. Has cane and walker that she uses as needed. Activities at home avoids stopping over. sleeping is never good. Not employed. Spends day; flower bed, reading, Objective Objective: Walks into PT hunched over without AD and short steps, I but should be using a cane(left it in car). Transfers are I bed and chair. cervical AROM WFL and without pain. UE AROM WFL and strength 4-/5 - R HD + L HD for 6 sec up torsional nystagmus...treated with L epleya dn then - HD test. Balance/Special Test Scores Functional Gait Assessment Score: 24 % Disability: 20.0000 Dizziness Score: 48 Goals Goal 1:: abolish dizziness Goal Time Frame: 2-4 Weeks Goal 2:: Back to sleeping L side without spin Goal Time Frame: 2-4 Weeks Goal 3:: 100% activity without hesitancy or dizzyness Goal Time Frame: 2-4 Weeks Rehabilitation Potential Physical Therapy Diagnosis: dizzyness limiting confident and safe function Rehabilitation Potential: Good Anticipated Interventions Patient/Client Instruction: Educate patient on: Condition and Risk Factors For the Purpose of:: To increase tolerance to activity/condition/position and To improve gait and locomotor functions Therapeutic Exercise to Include: Balance training Comment: positional techniques and ex For the Purpose of:: To increase tolerance to activity/condition/position Text: Thank you for the opportunity to evaluate your patient. For Medicare and Medicare HMO plans, please review the plan of care and approve it. It will need to be FAXED BACK to us at [phone] for Medicare purposes. For Medicare only, by signing this I certify the plan of care. Please let me know if there are questions or concerns regarding this plan of care. Physician Signature: Date:
--- NOTE | 2025-03-31 12:21 | HP.PTDCSUM ---
Discharge Summary D/C summary: It has been my pleasure to treat TESSIE BANKS referred by Dr. Ricki Kaplan MD, with the diagnosis of BPPV for a total of 6 visit(s). Discharge Date: 03/31/25 Please see the following information for a summary of their discharge status. Subjective Subjective: Still up and down. Not dizzy but wavy. Some real good days and some real bad days. Happens stooping over for a quick second. Much better than 5 weeks ago. 70% better Doing BD ex and it does not make here dizzy regularly. 8 reps daily. Ex is slowly improving. Activities normal, just has to be cautious. Feeding dogs still gets her. No falls. Overall Improvement % Improvement: 75 Objective Objective/Function: - B hallpike max - roll test. up from bend give quick goofy feeling traniently that coincides with hr symptoms. FGa is betteer. Goals Goal 1:: abolish dizziness Goal Progress: Progressing Goal 2:: Back to sleeping L side without spin Goal Progress: Goal Met Goal 3:: 100% activity without hesitancy or dizzyness Goal Progress: Goal Met Plan Plan: d/c to [facility] and cntact doctor if dizzyness worsens D/C Information Discharge Comments: Pt to contact doctor if dizzyness worsens again. d/c sentence: If there are questions or concerns regarding this patient's physical therapy, please feel free to call me at [phone]. Thank you for the referral of this patient. Sincerely, Ector Herman, DPT, OCS, CSCS Balance/Gait/Functional tests Balance/Special Test Scores Functional Gait Assessment Score: 24 % Disability: 20.0000 Dizziness Score: 10 Improvement % Improvement: 75
== END 2025-03-31 14:12 | disposition home or self-care (01) ==
LOC: PT 12:00
PROVIDERS: PCP Family Medicine Geriatric Medicine; Referring Provider Family Medicine Geriatric Medicine; Visit Provider Family Medicine Geriatric Medicine
DX: H81.10 Benign paroxysmal vertigo, unspecified ear (principal)
CPT/HCPCS: 97161; 97530

== ENCOUNTER → 2025-05-26 | Outpatient (CLI) | payer MEDICARE, OTHER, SELFPAY ==
--- NOTE | 2025-05-26 13:05 | RAD_ITS ---
PROCEDURE: ABDOMEN SINGLE VIEW 05/26/2025 REASON FOR EXAM: BILIARY STENT TECHNIQUE: ABDOMEN SINGLE VIEW COMPARISON: 10/24/2024. FINDINGS: Unchanged biliary stent. Moderate amount of fecal residue in the large bowels. Normal visualized lung bases. There is an unremarkable bowel gas pattern. There is no demonstrated free abdominal air. Normal visualized liver. Normal visualized spleen. Normal visualized kidneys. The soft tissue structures of the pelvis are unremarkable. Moderate diffuse spondylosis. RAD/Abdomen Single View IMPRESSION: Unchanged biliary stent. Moderate amount of fecal residue in the large bowels. [facility]
[2025-05-26 13:52] LABS: Ferritin 24 ng/mL (22-378)
== END | disposition home or self-care (01) ==
LOC: RAD 12:43
PROVIDERS: PCP Family Medicine Geriatric Medicine; Referring Provider Nurse Practitioner Family; Visit Provider Internal Medicine Gastroenterology
DX: E61.1 Iron deficiency (principal); Z98.890 Other specified postprocedural states
CPT/HCPCS: 36415; 74018; 82728

== ENCOUNTER → 2025-05-28 | Outpatient (CLI) | payer MEDICARE, OTHER, SELFPAY ==
[2025-05-28 13:57] LABS: Hematocrit 40.3 % (37-47); Hemoglobin 13.1 g/dL (12.0-15.0); Immature Granulocytes Count 0.020 X10^3/uL (0.0-0.0); Mean Corp Hgb Conc 32.5 g/dL (32-36); Mean Corpuscular Volume 90.2 fL (81-99); Mean Platelet Vol. 9.7 fl (6.2-12.0); NRBC Flagged by Analyzer 0 % (0-5); Platelet Count 345 K/mm3 (150-450); RBC Distribution Width CV 13.3 % (11.6-14.6); RBC Distribution Width SD 44.0 fl (35.1-43.9); Red Blood Count 4.47 M/mm3 (4.2-5.4); White Blood Count 6.8 K/mm3 (4.4-11.0)
[2025-05-28 15:07] LABS: AST(SGOT) 23 U/L (<=31); Alanine Aminotransfer ALT/SGPT 15 U/L (<=34); Albumin, Serum 4.2 g/dL (3.4-4.8); Alkaline Phosphatase 107 U/L (35-104); Anion Gap 12 (5-15); BUN 11 mg/dL (4-19); BUN/Creat Ratio 14.4 RATIO (10-20); Calcium,Total 9.6 mg/dL (7.6-11.0); Carbon Dioxide 24.7 mmol/L (21.0-32.0); Chloride 100 mmol/L (98-108); Globulin 3.5 g/dL (2.2-4.2); Glucose 89 mg/dL (70-99); Potassium 4.3 mmol/L (3.3-5.1); Vitamin D,25 Hydroxy 34.2 ng/mL (30-100)
[2025-05-28 21:38] LABS: Xtra Tube Kwok EXTRA TUBE
== END | disposition home or self-care (01) ==
LOC: POLAB3 13:35
PROVIDERS: PCP Family Medicine Geriatric Medicine; Visit Provider Family Medicine Geriatric Medicine
DX: E55.9 Vitamin D deficiency, unspecified (principal); R53.83 Other fatigue
CPT/HCPCS: 36415; 80053; 82306; 84443; 85025

== ENCOUNTER → 2025-06-13 | Outpatient (CLI) | payer MEDICARE, OTHER, SELFPAY ==
--- NOTE | 2025-06-13 13:57 | RAD_ITS ---
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 Degenerative changes of the left acromioclavicular joint. No evidence of fracture or dislocation. RAD/Shoulder min 2 Views IMPRESSION: Degenerative changes as described. No evidence of fracture or dislocation. Reading Location: [facility]
== END | disposition home or self-care (01) ==
LOC: MTRAD 13:57
PROVIDERS: PCP Family Medicine Geriatric Medicine; Referring Provider Physician Assistant; Visit Provider Physician Assistant
DX: M25.512 Pain in left shoulder (principal)
CPT/HCPCS: 73030

== ENCOUNTER → 2025-07-14 | Outpatient (CLI) | payer MEDICARE, OTHER, SELFPAY ==
--- NOTE | 2025-07-14 15:20 | RAD_ITS ---
PROCEDURE: ABD INC DECUB AND/OR ERECT 07/14/2025 REASON FOR EXAM: DIARRHEA TECHNIQUE: Procedure Code: [id number] Modality: DX Procedure: ABD INC DECUB AND/OR ERECT COMPARISON: KUB, 05/26/2025 FINDINGS: There is a nonobstructive bowel gas pattern. There is a biliary stent present. There are no abnormal soft tissue calcifications or radiopaque foreign bodies. 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 RAD/Abd Inc Decub and/or Erect IMPRESSION: No acute abdominal pathology. Other findings as noted. Reading Location: [id number]
== END | disposition home or self-care (01) ==
PROVIDERS: PCP Family Medicine Geriatric Medicine; Referring Provider Family Medicine Geriatric Medicine; Visit Provider Family Medicine Geriatric Medicine
DX: R19.7 Diarrhea, unspecified (principal); J98.8 Other specified respiratory disorders; N39.0 Urinary tract infection, site not specified; R11.0 Nausea
CPT/HCPCS: 74019; 87086; 87088; 87631

== ENCOUNTER → 2025-10-14 | Outpatient (CLI) | payer MEDICARE, OTHER, SELFPAY ==
[2025-10-14 12:51] LABS: Hematocrit 43.2 % (37-47); Hemoglobin 14.1 g/dL (12.0-15.0); Immature Granulocytes Count 0.020 X10^3/uL (0.0-0.0); Mean Corp Hgb Conc 32.6 g/dL (32-36); Mean Corpuscular Volume 93.7 fL (81-99); Mean Platelet Vol. 9.9 fl (6.2-12.0); NRBC Flagged by Analyzer 0 % (0-5); Platelet Count 309 K/mm3 (150-450); RBC Distribution Width CV 13.0 % (11.6-14.6); RBC Distribution Width SD 44.4 fl (35.1-43.9); Red Blood Count 4.61 M/mm3 (4.2-5.4); White Blood Count 5.6 K/mm3 (4.4-11.0)
[2025-10-14 13:30] LABS: Anion Gap 10 (7-18); BUN 9 mg/dL (4-19); BUN/Creat Ratio 10.8 RATIO (10-20); CPK Total, Creatine Kinase 81 U/L (24-195); Calcium,Total 9.6 mg/dL (7.6-11.0); Carbon Dioxide 27.6 mmol/L (20.0-29.0); Chloride 102 mmol/L (96-106); Glucose 99 mg/dL (70-99); Potassium 4.4 mmol/L (3.5-5.1); Troponin T High Sensitivity 11 ng/L (<=14)
[2025-10-14 13:34] LABS: Ferritin 29 ng/mL (22-378)
[2025-10-15 08:08] LABS: Myoglobin, Serum 64 ng/mL (25-58)
== END | disposition home or self-care (01) ==
LOC: POLAB3 12:30
PROVIDERS: Nurse Practitioner Family; PCP Family Medicine Geriatric Medicine; Visit Provider Family Medicine Geriatric Medicine
DX: R07.9 Chest pain, unspecified (principal); E61.1 Iron deficiency
CPT/HCPCS: 36415; 80048; 82550; 82728; 83874; 84484; 85025